=== PATIENT | female | born 1950 | race Caucasian/White ===

== ENCOUNTER 2023-12-25 01:46 | Outpatient (REF) | payer MEDICARE, SELFPAY ==
[2023-12-25 09:00] LABS: Alanine Aminotransferase 26 U/L (14-59); Albumin Globulin Ratio 0.8; Albumin Level 2.5 g/dL (3.4-5.0); Alkaline Phosphatase 108 U/L (46-116); Aspartate Amino Transferase 17 U/L (15-37); BUN Creatinine Ratio 20.3; Bilirubin Total 0.9 mg/dL (0.2-1.0); Calcium 8.6 mg/dL (8.5-10.1); Carbon Dioxide 38.6 mmol/L (21.0-32.0); Chloride 105 mmol/L (98-107); Estimated GFR (African America 55 (>=60); Estimated GFR (Non-African Ame 45 (>=60); Glucose 69 mg/dL (74-106); Potassium 3.6 mmol/L (3.5-5.1); Sodium 147 mmol/L (136-145); Total Protein 5.5 g/dL (6.4-8.2)
== END 2023-12-25 01:47 | disposition home or self-care (01) ==
LOC: LAB 01:46
PROVIDERS: Visit Provider Family Medicine
DX: N18.9 Chronic kidney disease, unspecified (principal)
CPT/HCPCS: 36415; 80053

== ENCOUNTER 2024-01-01 01:31 | Outpatient (REF) | payer MEDICARE, SELFPAY ==
[2024-01-01 08:34] LABS: Anion Gap 6.8; BUN Creatinine Ratio 22.8; Calcium 8.9 mg/dL (8.5-10.1); Chloride 101 mmol/L (98-107); Estimated GFR (African America 50 (>=60); Estimated GFR (Non-African Ame 41 (>=60); Glucose 91 mg/dL (74-106); Sodium 148 mmol/L (136-145)
[2024-01-01 08:55] LABS: Potassium 2.8 mmol/L (3.5-5.1)
== END 2024-01-01 01:32 | disposition home or self-care (01) ==
LOC: LAB 01:31
PROVIDERS: Visit Provider Family Medicine
DX: Z51.81 Encounter for therapeutic drug level monitoring (principal)
CPT/HCPCS: 36415; 80048

== ENCOUNTER 2024-01-03 02:28 | Outpatient (REF) | payer MEDICARE, SELFPAY ==
[2024-01-03 07:48] LABS: Potassium 4.1 mmol/L (3.5-5.1)
== END 2024-01-03 02:29 | disposition home or self-care (01) ==
LOC: LAB 02:28
PROVIDERS: Visit Provider Nurse Practitioner Family
DX: E87.6 Hypokalemia (principal)
CPT/HCPCS: 36415; 84132

== ENCOUNTER 2025-02-09 01:42 | Emergency (ER) | payer MEDICARE, SELFPAY ==
[2025-02-09] VITALS (49 sets, daily range): BP systolic 88–128; BP diastolic 38–73; PULSE 76–160; TEMP 37.1; O2SAT 86–98; BMI 26.6
--- NOTE | 2025-02-09 02:18 | ECG_ITS ---
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 Measurements Intervals [place] Rate: 81 P: -[id number] [place]: -12562 QRS: 21 QRSD: 126 T: 24 QT: 380 QTc: 418 Interpretive Statements 1210 Atrial fibrillation 2450 Right bundle branch block 9150 abnormal ECG No previous ECG available for comparison Electronically Signed On 02-09-2025 12:46:38 EDT by JANUARY DARBY M.D.
--- NOTE | 2025-02-09 02:19 | ED.CHESTPAI1 ---
HPI - Chest Pain General Chief Complaint: Chest Pain Stated Complaint: Chest Pain Time Seen by Provider: 02/09/25 02:13 History of Present Illness HPI narrative: patient presents complaining of chest pain for the past hour. Past history of CAD and stent placement. Past history of A. fib. States pain increases with deep breath. No dyspnea or nausea or diaphoresis. [facility] Fell about one month ago at her home and fractured her left arm. 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 normally wears 3-4L NC 02. Denies any additional injuries since her fall last month. No fever or cough or abdominal pain Related Data Home Medications ?Medication ?Instructions ?Recorded ?Confirmed acetaminophen 325 mg capsule 650 mg PO Q6H 02/09/25 02/09/25 albuterol sulfate 90 mcg/actuation 2 inh inhalation DAILY 02/09/25 02/09/25 aerosol inhaler apixaban 5 mg tablet (Eliquis) 5 mg PO Q12H 02/09/25 02/09/25 atorvastatin 80 mg tablet 80 mg PO DAILY 02/09/25 02/09/25 budesonide 160 mcg-glycopyr 9 2 inh inhalation DAILY 02/09/25 02/09/25 mcg-formot 4.8 mcg/actuation HFA inhaler (Breztri Aerosphere) budesonide-formoterol HFA 160 2 inh inhalation DAILY 02/09/25 02/09/25 mcg-4.5 mcg/actuation aerosol inhaler bumetanide 0.5 mg tablet 0.5 mg PO BID 02/09/25 02/09/25 digoxin 125 mcg (0.125 mg) tablet 125 mcg PO DAILY 02/09/25 02/09/25 diltiazem HCl 180 mg 240 mg PO Q24H 02/09/25 02/09/25 capsule,extended release 24 hr guaifenesin 600 mg tablet,extended 600 mg PO BID 02/09/25 02/09/25 release insulin glargine 100 unit/mL (3 30 unit subcut DAILY 02/09/25 02/09/25 mL) subcutaneous pen (Lantus Solostar U-100 Insulin) ipratropium 0.5 mg-albuterol 3 mg 3 ml inhalation Q6H PRN shortness 02/09/25 02/09/25 (2.5 mg base)/3 mL nebulization of breath soln melatonin 3 mg capsule 3 mg PO HS PRN sleep 02/09/25 02/09/25 metformin 1,000 mg tablet 1,000 mg PO BID 02/09/25 02/09/25 methocarbamol 500 mg tablet 500 mg PO TID PRN muscle spasm 02/09/25 02/09/25 omeprazole 20 mg capsule,delayed 20 mg PO DAILY 02/09/25 02/09/25 release pregabalin 50 mg capsule (Lyrica) 50 mg PO BID 02/09/25 02/09/25 sennosides 8.6 mg tablet 8.6 mg PO DAILY 02/09/25 02/09/25 (Black-Draught Lax-Senna) spironolactone 25 mg tablet 12.5 mg PO DAILY 02/09/25 02/09/25 (Aldactone) Allergies Allergy/AdvReac Type Severity Reaction Status Date / Time No Known Drug Allergies Allergy Verified 02/09/25 01:51 Review of Systems ROS Status of ROS 10 or more systems reviewed and unremarkable except as noted in history and below PFSH PFSH Social History Little interest or pleasure in doing things: not at all Feeling down, depressed, or hopeless: not at all Exam Constitutional Vital Signs, click to edit/add: Last Vital Signs Temp 98.8 F 02/09/25 01:51 Pulse 110 H 02/09/25 09:00 Resp 27 H 02/09/25 09:00 BP 105/38 L 02/09/25 08:30 Pulse Ox 90 L 02/09/25 09:00 O2 Del Method Nasal Cannula 02/09/25 08:47 O2 Flow Rate 4 02/09/25 01:59 Common normals: no apparent distress, average body habitus, oriented x3, no limitations, healthy appearing, alert and well nourished [facility] Common normals: normocephalic and head/scalp atraumatic Eye Common normals: PERRL, EOMs intact bilaterally and conjunctivae normal Respiratory Common normals: normal respiratory effort, no retractions, no use of accessory muscles and clear to auscultation bilaterally Cardio Common normals: regular rate, regular rhythm, S1 normal heart sound and S2 normal heart sound Other: chest wall is tender GI Common normals: Normal to inspection, nondistended, normoactive bowel sounds present, soft to palpation and non-tender Extremity Common normals: normal to inspection and full ROM Neuro Common normals: oriented x3, CN's II-XII intact bilaterally, moves all extremities, no focal motor deficits and no sensory deficits noted Psych Appearance: grossly normal Course Vital Signs Vital signs: Vital Signs Temperature 98.8 F 02/09/25 01:51 Pulse Rate 92 H 02/09/25 01:51 Respiratory Rate 18 02/09/25 01:51 Blood Pressure 127/67 02/09/25 01:51 Pulse Oximetry 95 02/09/25 01:51 Oxygen Delivery Method Room Air 02/09/25 01:51 Temperature 98.8 F 02/09/25 01:51 Pulse Rate 110 H 02/09/25 09:00 Respiratory Rate 27 H 02/09/25 09:00 Blood Pressure 105/38 L 02/09/25 08:30 Pulse Oximetry 90 L 02/09/25 09:00 Oxygen Delivery Method Nasal Cannula 02/09/25 08:47 Oxygen Delivery Flow Rate 4 02/09/25 01:59 MDM - Chest Pain MDM Narrative Medical decision making narrative: patient presents complaining of chest pain for one hour. Past history of CAD and stent placement. Pain increases with change in position. She also has chest wall tenderness. cxray with central vascular congestion. She denies dyspnea. D-dimer elevated and CTA chest ordered. Troponin mildly elevated at 87.9 and BNP elevated as well. Lab Data Labs: Lab Results 02/09/25 02/09/25 Range/Units 02:35 04:55 WBC 22.8 H (4.0-11.0) 10^3/uL RBC 3.33 L (4.20-5.40) 10^6/uL Hgb 9.4 L (12.0-16.0) g/dL Hct 31.1 L (36.0-48.0) % MCV 93.4 (81.0-99.0) fL MCH 28.2 (26.7-34.0) pg MCHC 30.2 (29.9-35.2) g/dL RDW 22.3 H (11.0-15.0) % Plt Count 354 (150-450) 10^3/uL MPV 11.5 (9.5-13.5) fL Seg Neuts % (Manual) 81.0 H (43.0-75.0) Lymphocytes % (Manual) 11.0 L (20.5-60.0) % Atypical Lymphs % (Man) 1.0 % Monocytes % (Manual) 7.0 (1.7-12.0) % Eosinophils % (Manual) 0.0 L (0.9-7.0) % Basophils % (Manual) 0.0 L (0.2-2.0) % Neutrophils # (Manual) 18.46 H (1.4-6.5) 10^3/uL Lymphocytes # (Manual) 2.50 (1.20-3.80) 10^3/uL Abs Atypical Lymphs Man 0.22 Monocytes # (Manual) 1.59 H (0.30-0.80) 10^3/uL Eosinophils # (Manual) 0.00 (0.00-0.70) 10^3/uL Basophils # (Manual) 0.00 (0.00-0.10) 10^3/uL Poikilocytosis 2+ Ovalocytes 1+ Stomatocytes 1+ Schistocytes 1+ D-Dimer 2.23 H* (<=0.59) mg/L FEU Sodium 145 (136-145) mmol/L Potassium 4.2 (3.5-5.1) mmol/L Chloride 105 (98-107) mmol/L Carbon Dioxide 37.1 H (21.0-32.0) mmol/L Anion Gap 7.1 BUN 35.0 H (7.0-18.0) mg/dL Creatinine 1.27 H (0.55-1.02) mg/dL Est GFR ( Amer) 50 L (>=60 mL/min/1.73m^2) Est GFR (Non-Af Amer) 41 L (>=60 mL/min/1.73m^2) BUN/Creatinine Ratio 27.6 Glucose 57 L (74-106) mg/dL Calcium 9.2 (8.5-10.1) mg/dL Troponin I High Sens 87.9 H* 82.9 H* (4.0-51.3) pg/mL NT-Pro-B Natriuret Pep 2668.0 H* (<=900.0) pg/mL Discharge Plan Discharge Chief Complaint: Chest Pain Clinical Impression: Chest pain Patient Disposition: [facility] Time of Disposition Decision: 07:34 Discharge Location: [facility] Condition: Fair Mode of Transportation: EMS Discharge Date/Time: 02/09/25 09:42
[2025-02-09 02:43] LABS: Hematocrit 31.1 % (36.0-48.0); Hemoglobin 9.4 g/dL (12.0-16.0); Mean Corpuscular HGB Conc 30.2 g/dL (29.9-35.2); Mean Corpuscular Hemoglobin 28.2 pg (26.7-34.0); Mean Corpuscular Volume 93.4 fL (81.0-99.0); Mean Platelet Volume 11.5 fL (9.5-13.5); Platelet Count 354 10^3/uL (150-450); Red Blood Count 3.33 10^6/uL (4.20-5.40); Red Cell Distribution Width 22.3 % (11.0-15.0); White Blood Count 22.8 10^3/uL (4.0-11.0)
[2025-02-09 02:55] LABS: Atypical Lymphocytes Abs Man 0.22; Monocytes Absolute Manual 1.59 10^3/uL (0.30-0.80); Poikilocytosis 2+; Segmented Neut Absolute Manual 18.46 10^3/uL (1.4-6.5)
[2025-02-09 02:56] LABS: Ovalocytes 1+; Schistocytes 1+; Stomatocytes 1+
[2025-02-09 02:59] LABS: D Dimer 2.23 mg/L FEU (<=0.59)
[2025-02-09 03:06] LABS: Anion Gap 7.1; BUN Creatinine Ratio 27.6; Calcium 9.2 mg/dL (8.5-10.1); Carbon Dioxide 37.1 mmol/L (21.0-32.0); Chloride 105 mmol/L (98-107); Estimated GFR (African America 50 (>=60 mL/min/1.73m^2); Estimated GFR (Non-African Ame 41 (>=60 mL/min/1.73m^2); Glucose 57 mg/dL (74-106); Potassium 4.2 mmol/L (3.5-5.1); Sodium 145 mmol/L (136-145)
[2025-02-09 03:14] LABS: Troponin I High Sensitivity 87.9 pg/mL (4.0-51.3)
[2025-02-09 05:20] LABS: Troponin I High Sensitivity 82.9 pg/mL (4.0-51.3)
--- NOTE | 2025-02-09 05:25 | ECG_ITS ---
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 Measurements Intervals [place] Rate: 97 P: -53979 [place]: -61326 QRS: 25 QRSD: 126 T: 42 QT: 370 QTc: 425 Interpretive Statements 74504 Atrial fibrillation with aberrant conduction, or ventricular premature complexes 2450 Right bundle branch block 9150 abnormal ECG Compared to ECG 02/09/2025 01:59:11 Aberrant conduction of supraventricular beat(s) now present Electronically Signed On 02-09-2025 12:48:11 EDT by JANUARY DARBY M.D.
--- NOTE | 2025-02-09 07:35 | ED.GENADUL1 ---
HPI HPI - General Adult General Chief complaint: Chest Pain Stated complaint: Chest Pain Time Seen by Provider: 02/09/25 02:13 History of Present Illness HPI narrative: 74-year-old female presented to the emergency department and was initially seen by Dr. Hanna and signed out to me after discussing the case with him thoroughly. Please see his full history and physical exam. Related Data Home Medications ?Medication ?Instructions ?Recorded ?Confirmed acetaminophen 325 mg capsule 650 mg PO Q6H 02/09/25 02/09/25 albuterol sulfate 90 mcg/actuation 2 inh inhalation DAILY 02/09/25 02/09/25 aerosol inhaler apixaban 5 mg tablet (Eliquis) 5 mg PO Q12H 02/09/25 02/09/25 atorvastatin 80 mg tablet 80 mg PO DAILY 02/09/25 02/09/25 budesonide 160 mcg-glycopyr 9 2 inh inhalation DAILY 02/09/25 02/09/25 mcg-formot 4.8 mcg/actuation HFA inhaler (Breztri Aerosphere) budesonide-formoterol HFA 160 2 inh inhalation DAILY 02/09/25 02/09/25 mcg-4.5 mcg/actuation aerosol inhaler bumetanide 0.5 mg tablet 0.5 mg PO BID 02/09/25 02/09/25 digoxin 125 mcg (0.125 mg) tablet 125 mcg PO DAILY 02/09/25 02/09/25 diltiazem HCl 180 mg 240 mg PO Q24H 02/09/25 02/09/25 capsule,extended release 24 hr guaifenesin 600 mg tablet,extended 600 mg PO BID 02/09/25 02/09/25 release insulin glargine 100 unit/mL (3 30 unit subcut DAILY 02/09/25 02/09/25 mL) subcutaneous pen (Lantus Solostar U-100 Insulin) ipratropium 0.5 mg-albuterol 3 mg 3 ml inhalation Q6H PRN shortness 02/09/25 02/09/25 (2.5 mg base)/3 mL nebulization of breath soln melatonin 3 mg capsule 3 mg PO HS PRN sleep 02/09/25 02/09/25 metformin 1,000 mg tablet 1,000 mg PO BID 02/09/25 02/09/25 methocarbamol 500 mg tablet 500 mg PO TID PRN muscle spasm 02/09/25 02/09/25 omeprazole 20 mg capsule,delayed 20 mg PO DAILY 02/09/25 02/09/25 release pregabalin 50 mg capsule (Lyrica) 50 mg PO BID 02/09/25 02/09/25 sennosides 8.6 mg tablet 8.6 mg PO DAILY 02/09/25 02/09/25 (Black-Draught Lax-Senna) spironolactone 25 mg tablet 12.5 mg PO DAILY 02/09/25 02/09/25 (Aldactone) Allergies Allergy/AdvReac Type Severity Reaction Status Date / Time No Known Drug Allergies Allergy Verified 02/09/25 01:51 Opioid HPI Opioid Management Most Recent Opioid Data: Last Pain Scale 8 Today, 01:59 PFSH PFSH Social History Little interest or pleasure in doing things: not at all Feeling down, depressed, or hopeless: not at all Exam Constitutional Vital Signs, click to edit/add: Last Vital Signs Temp 98.8 F 02/09/25 01:51 Pulse 103 H 02/09/25 06:31 Resp 30 H 02/09/25 06:31 BP 123/63 02/09/25 06:31 Pulse Ox 93 L 02/09/25 06:31 O2 Del Method Nasal Cannula 02/09/25 01:59 O2 Flow Rate 4 02/09/25 01:59 Course Vital Signs Vital signs: Vital Signs Temperature 98.8 F 02/09/25 01:51 Pulse Rate 92 H 02/09/25 01:51 Respiratory Rate 18 02/09/25 01:51 Blood Pressure 127/67 02/09/25 01:51 Pulse Oximetry 95 02/09/25 01:51 Oxygen Delivery Method Room Air 02/09/25 01:51 Temperature 98.8 F 02/09/25 01:51 Pulse Rate 103 H 02/09/25 06:31 Respiratory Rate 30 H 02/09/25 06:31 Blood Pressure 123/63 02/09/25 06:31 Pulse Oximetry 93 L 02/09/25 06:31 Oxygen Delivery Method Nasal Cannula 02/09/25 01:59 Oxygen Delivery Flow Rate 4 02/09/25 01:59 Medical Decision Making MDM Narrative Medical decision making narrative: Initial troponin was elevated at 88 and the repeat is down slightly to 83. CTA shows no pulmonary embolism and does show bilateral pleural effusions. Dr. Hanna had already spoken to Dr. Knox and I spoke to the hospitalist at [facility] [[email or web address]] and the patient is excepted. She stable and agreeable for transfer. Differential Diagnosis Differential Diagnosis: Myocardial infarction, NSTEMI, PE, pneumothorax Lab Data Lab results reviewed: Yes I reviewed the patient's lab results Labs: Lab Results 02/09/25 02/09/25 Range/Units 02:35 04:55 WBC 22.8 H (4.0-11.0) 10^3/uL RBC 3.33 L (4.20-5.40) 10^6/uL Hgb 9.4 L (12.0-16.0) g/dL Hct 31.1 L (36.0-48.0) % MCV 93.4 (81.0-99.0) fL MCH 28.2 (26.7-34.0) pg MCHC 30.2 (29.9-35.2) g/dL RDW 22.3 H (11.0-15.0) % Plt Count 354 (150-450) 10^3/uL MPV 11.5 (9.5-13.5) fL Seg Neuts % (Manual) 81.0 H (43.0-75.0) Lymphocytes % (Manual) 11.0 L (20.5-60.0) % Atypical Lymphs % (Man) 1.0 % Monocytes % (Manual) 7.0 (1.7-12.0) % Eosinophils % (Manual) 0.0 L (0.9-7.0) % Basophils % (Manual) 0.0 L (0.2-2.0) % Neutrophils # (Manual) 18.46 H (1.4-6.5) 10^3/uL Lymphocytes # (Manual) 2.50 (1.20-3.80) 10^3/uL Abs Atypical Lymphs Man 0.22 Monocytes # (Manual) 1.59 H (0.30-0.80) 10^3/uL Eosinophils # (Manual) 0.00 (0.00-0.70) 10^3/uL Basophils # (Manual) 0.00 (0.00-0.10) 10^3/uL Poikilocytosis 2+ Ovalocytes 1+ Stomatocytes 1+ Schistocytes 1+ D-Dimer 2.23 H* (<=0.59) mg/L FEU Sodium 145 (136-145) mmol/L Potassium 4.2 (3.5-5.1) mmol/L Chloride 105 (98-107) mmol/L Carbon Dioxide 37.1 H (21.0-32.0) mmol/L Anion Gap 7.1 BUN 35.0 H (7.0-18.0) mg/dL Creatinine 1.27 H (0.55-1.02) mg/dL Est GFR ( Amer) 50 L (>=60 mL/min/1.73m^2) Est GFR (Non-Af Amer) 41 L (>=60 mL/min/1.73m^2) BUN/Creatinine Ratio 27.6 Glucose 57 L (74-106) mg/dL Calcium 9.2 (8.5-10.1) mg/dL Troponin I High Sens 87.9 H* 82.9 H* (4.0-51.3) pg/mL NT-Pro-B Natriuret Pep 2668.0 H* (<=900.0) pg/mL Imaging Data CT scan - chest: Radiologist's impression: No evidence of pulmonary embolism, right middle lobe atelectasis, bilateral moderate volume pleural effusions right more than left Discharge Plan Discharge Chief Complaint: Chest Pain Clinical Impression: Chest pain Patient Disposition: [facility] Time of Disposition Decision: 07:34 Discharge Location: [facility] Condition: Fair Mode of Transportation: EMS
[2025-02-09] MEDS: ALBUTEROL SULFATE 2.5 MG/3 ML VIAL NEB IH (08:47)
[2025-02-09] MEDS: MORPHINE SULFATE 2 MG/ML SYRINGE IV (08:57)
== END 2025-02-09 09:42 | disposition short-term general hospital (02) ==
PROVIDERS: Internal Medicine; Emergency Provider Emergency Medicine; PCP Family Medicine
DX: R07.9 Chest pain, unspecified (principal); Z99.81 Dependence on supplemental oxygen; I25.10 Atherosclerotic heart disease of native coronary artery without angina pectoris; Z95.5 Presence of coronary angioplasty implant and graft; I48.91 Unspecified atrial fibrillation; Z91.81 History of falling; J44.9 Chronic obstructive pulmonary disease, unspecified; R79.89 Other specified abnormal findings of blood chemistry
CPT/HCPCS: 36415; 71045; 71275; 80048; 83880; 84484; 85007; 85027; 85378; 93005; 94640; 96374; 99285; J2270; Q9967

== ENCOUNTER 2025-02-16 21:02 | Outpatient (REF) | payer MEDICARE, SELFPAY ==
[2025-02-16 21:23] LABS: Basophils Percent Auto 0.4 % (0.2-2.0); Eosinophils Absolute Auto 0.2 10^3/uL (0.0-0.7); Eosinophils Percent Auto 1.7 % (0.9-7.0); Hematocrit 35.4 % (36.0-48.0); Hemoglobin 10.2 g/dL (12.0-16.0); Immature Granulocytes Abs Auto 0.04 10^3/uL (0.00-0.03); Immature Granulocytes Pct Auto 0.4 % (0.0-0.5); Lymphocytes Absolute Auto 1.8 10^3/uL (1.2-3.8); Lymphocytes Percent Auto 16.6 % (20.5-60.0); Mean Corpuscular HGB Conc 28.8 g/dL (29.9-35.2); Mean Corpuscular Hemoglobin 28.7 pg (26.7-34.0); Mean Corpuscular Volume 99.4 fL (81.0-99.0); Mean Platelet Volume 11.6 fL (9.5-13.5); Monocytes Percent Auto 8.7 % (1.7-12.0); Neutrophils Absolute Auto 7.9 10^3/uL (1.4-6.5); Neutrophils Percent Auto 72.2 % (43.0-75.0); Platelet Count 290 10^3/uL (150-450)
[2025-02-16 21:31] LABS: Anion Gap 9.7; BUN Creatinine Ratio 19.2; Calcium 9.2 mg/dL (8.5-10.1); Carbon Dioxide 34.6 mmol/L (21.0-32.0); Chloride 103 mmol/L (98-107); Estimated GFR (African America 49 (>=60 mL/min/1.73m^2); Estimated GFR (Non-African Ame 40 (>=60 mL/min/1.73m^2); Glucose 96 mg/dL (74-106); Magnesium 1.7 mg/dL (1.8-2.4); Potassium 4.3 mmol/L (3.5-5.1); Sodium 143 mmol/L (136-145)
[2025-02-16 21:38] LABS: Red Blood Count 3.56 10^6/uL (4.20-5.40)
== END 2025-02-16 21:03 | disposition home or self-care (01) ==
LOC: LAB 21:02
PROVIDERS: PCP Family Medicine; Visit Provider Family Medicine
DX: I21.4 Non-ST elevation (NSTEMI) myocardial infarction (principal)
CPT/HCPCS: 36415; 80048; 83735; 84100; 85025

== ENCOUNTER 2025-03-04 13:00 | Outpatient (OUT) | payer MEDICARE, SELFPAY ==
--- OUTSIDE RECORDS SUMMARY | 2025-02-26 11:00 | XMS_ITS ---
Author Organization [facility] Address [address] [place] [address] [place] [address] Care Team Providers Care Non Emergency Services Ambulance Driver Name Role Phone John Luong Primary Care Provider UnavailDamion Bobby Unavailable [phone] Encounters Encounter Location Date Provider Diagnosis [address] [address] 02/26/2025 Damion Villar Plan Of Treatment No Information Progress Notes * Emily GARNETTDOB:1950 (74 yo F)Acc No.[id number]:02/26/2025 Patient: Emily VILLALBA Provider: Lindy Villar DPM :1950 A ge:74 Y S ex:Female Date:02/26/2025 Address:[id number] Pcp:John Luong Subjective: * Chief Complaints: * * Medical History: Objective: * Vitals: Assessment: Plan: * Treatment: * Images: * Electronic signature of [place] in RICHAR Villar on 03/05/2025 at 01:14 PM EDT Sign off status: Pending * Provider: Lindy Villar DPM Date: 02/26/2025 Generated for Ramona blanco/Brandy/eTgloriaitting on: 03/05/2025 01:14 PM EDT
--- OUTSIDE RECORDS SUMMARY | 2025-03-03 10:20 | XMS_ITS | Encounter Summary ---
Author Organization [facility] Address [address] [place] [address] Phone Care Team Providers Care Career Development Director Name Role Phone John Luong MD Primary Care Provider [phone] Reason for Referral * Cardiovascular (Routine) - Authorized Specialty Diagnoses / Procedures Referred By Contac t Referred To Contact Diagnoses Permanent atrial fibrillation (Multi) Procedures ECG 12 Lead Cathy Marquez MD [address] [facility] [address], [address] [address] Phone: tel: fax: Referral ID Status Reason Start Date Expiration Date V isits Requested Visits Authorized [id number] Authorized 03/03/2025 03/03/2026 1 1 * Consultation (Routine) - Authorized Specialty Diagnoses / Procedures Referred By Contac t Referred To Contact Cardiology Diagnoses Permanent atrial fibrillation (Multi) Procedures Follow Up In Cardiology Cathy Marquez MD [address] [facility] [address], [address] [address] Phone: tel: fax: Cathy Marquez MD [address] [facility] [address], [address] [address] Phone: tel: fax: Referral ID Status Reason Start Date Expiration Date V isits Requested Visits Authorized [id number] Authorized 03/03/2025 03/03/2026 1 1 Reason for Visit * Reason Comments Hospital Follow-up hospital [facility] 02/03/25 for Afib * Cardiovascular (Routine) - Authorized Specialty Diagnoses / Procedures Referred By Herminia ang Referred To Contact Diagnoses Permanent atrial fibrillation (Multi) Procedures ECG 12 Lead Cathy Marquez MD 703 [facility] 2, [address] [address] Phone: tel: fax: Referral ID Status Reason Start Date Expiration Date V isits Requested Visits Authorized [id number] Authorized 03/03/2025 03/03/2026 1 1 Encounter Details Date Type Department Care Team (Late st Contact Info) Description 03/03/2025 10:20 AM EDT Office Visit [facility] [address] [phone] Cathy Marquez MD 703 [facility] 2, [address] [address] Permanent atrial fibrillation (Multi) (Primary Dx); Anticoagulated; Single vessel coronary artery disease; Mixed hyperlipidemia; Essential (primary) hypertension; Pulmonary emphysema, unspecified emphysema type (Multi); Former smoker Social History Tobacco Use Types Packs/Day Years Used Date Smoking Tobacco: Former Cigarettes Smokeless Tobacco: Never Alcohol Use Standard Drinks/Week Comments Not Currently 0 (1 standard drink = 0.6 oz pur e alcohol) Comments Unknown Sex and Gender Information Value Date Recorded Sex Assigned at Not on file Legal Sex Female 6:00 AM EST Gender Identity Not on file Sexual Orientation Not on file COVID-19 Exposure Response Date Recorded In the last 10 days, have yo u been in contact with someone who was confirmed or suspected to have Coronavirus/COVID-19? No / Unsure 03/03/2025 10:12 AM EDT documented as of this encounter Last Filed Vital Signs Vital Sign Reading Time Taken Comments Blood Pressure 90/58 03/03/2025 10:47 AM EDT Pulse 64 03/03/2025 10:47 AM EDT Temperature - - Respiratory Rate - - Oxygen Saturation - - Inhaled Oxygen Concentration - - Weight - - Height - - Body Mass Index - - documented in this encounter Patient Instructions * Patient Instructions* Pooja Hopper LPN - 03/03/2025 10:20 AM EDT Please bring all medicines, vitamins, and herbal supplements with you when you come to the office. Prescriptions will not be filled unless you are compliant with your follow up appointments or have a follow up appointment scheduled as per instruction of your physician. Refills should be requested at the time of your visit. Fall Prevention Education Given Medical reason BMI was not measured. Patient can use Lyrica from a cardiac standpoint documented in this encounter Progress Notes * Cathy Marquez MD - 03/03/2025 10:20 AM EDT Chief Complaint Patient presents with Hospital Follow-up hospital [facility] 02/03/25 for Afib Subjective Emily El is a 74 y.o. female HPI Patient is here for follow-up and continued management. I saw her as a new patient during recent hospitalization at for atrial fibrillation, [facility] worsening shortness of breath. Her echocardiogram showed normal LV systolic function and severe range pulmonary hypertension. It appears that the patient had chronic atrial fibrillation and has been on anticoagulation. The patient ultimately transferred to [place] and in [place] she underwent extensive workup including cardiac catheterization show which showed mild disease did not require any intervention. Patient had previous history of PCI to the circumflex remotely according to the record. The patient also had undergone right heart failure and it appears that her pulmonary hypertension improved with improvement of her lung disease. Apparently mild pulmonary hypertension was reported the patient currently in a local assisted living. She denies chest pain, lightheadedness, dizziness or syncope. She is on oxygen therapy. Assessment 1. Coronary artery disease with remote PCI to the circumflex recent heart cath in [place] showed mild to moderate calcified three-vessel disease no intervention was recommended 2. Permanent atrial fibrillation 3. Pulmonary hypertension was in severe range during recent hospitalization for acute respiratory failure but seem to have improved and according to her right heart cath from 2 [place] was in the mild range this is clearly secondary to lung disease 4. Chronic anticoagulation due to atrial fibrillation 5. COPD 6. Stage III chronic kidney disease Plan 1. Patient appears to be on good medical therapy she is on anticoagulation and statin therapy 2. Risk, benefit and alternative anticoagulation reviewed with patient at length she understood andagreed 3. Advised the patient to continue her long-term follow-up with her primary care and pulmonology considering she is on oxygen therapy at home 4. We will see her back in the office in 6 months and follow-up Review of Systems Cardiovascular: Positive for chest pain. Respiratory: Positive for shortness of breath. Neurological: Positive for dizziness. All other systems reviewed and are negative. Vitals: 03/03/25 1047 BP: 90/58 BP Location: Right arm Patient Position: Sitting Pulse: 64 EKG done in office today Objective Physical Exam Constitutional: Appearance: Normal appearance. HENT: Nose: Nose normal. Neck: Vascular: No carotid bruit. Cardiovascular: Rate and Rhythm: Normal rate. Rhythm irregularly irregular. Pulses: Normal pulses. Heart sounds: Murmur heard. Systolic murmur is present with a grade of 1/6. Pulmonary: Effort: Pulmonary effort is normal. Abdominal: General: Bowel sounds are normal. Palpations: Abdomen is soft. Musculoskeletal: General: Normal range of motion. Cervical back: Normal range of motion. Right lower leg: No edema. Left lower leg: No edema. Skin: General: Skin is warm and dry. Neurological: General: No focal deficit present. Mental Status: She is alert. Psychiatric: Mood and Affect: Mood normal. Behavior: Behavior normal. Thought Content: Thought content normal. Judgment: Judgment normal. Allergies Patient has no known allergies. Current Medications Current Outpatient Medications Medication Instructions acetaminophen (TYLENOL 8 HOUR) 650 mg, Every 6 hours PRN albuterol 90 mcg/actuation inhaler 2 puffs, Daily RT ALPRAZolam (XANAX) 0.25 mg, 3 times daily PRN atorvastatin (LIPITOR) 80 mg, Daily RT budesonide-formoterol (Symbicort) 160-4.5 mcg/actuation inhaler 2 puffs, 2 times daily RT elwzsbyqvc-cuazwekl-tlnavhnqyn (BREZTRI) 160-9-4.8 mcg/actuation HFA aerosol inhaler 2 puffs, 2 times daily RT bumetanide (BUMEX) 0.5 mg, 2 times daily (morning and late afternoon) clopidogrel (PLAVIX) 75 mg, Daily RT dapagliflozin propanediol (FARXIGA) 10 mg, Daily RT digoxin (LANOXIN) 125 mcg, Daily RT dilTIAZem CD (CARDIZEM CD) 240 mg, Daily Eliquis 5 mg, Every 12 hours ferrous sulfate 325 mg, Daily RT folic acid (FOLVITE) 1 mg, Daily RT furosemide (LASIX) 40 mg, Daily RT guaiFENesin (MUCINEX) 600 mg, 2 times daily ipratropium-albuteroL (Duo-Neb) 0.5-2.5 mg/3 mL nebulizer solution 3 mL, Every 6 hours Lantus U-100 Insulin 30 Units, Every 24 hours magnesium oxide (MAG-OX) 200 mg, 2 times daily metFORMIN (GLUCOPHAGE) 1,000 mg, 2 times daily after meals methocarbamol (ROBAXIN) 500 mg, 3 times daily metoprolol succinate XL (TOPROL-XL) 25 mg, Daily RT omeprazole (PRILOSEC) 20 mg, Daily RT ondansetron (ZOFRAN) 8 mg, Every 8 hours PRN oxygen (O2) 4 L/min, Continuous pregabalin (LYRICA) 50 mg, 2 times daily spironolactone (ALDACTONE) 12.5 mg, Daily RT Trulicity 0.75 mg, Weekly Assessment/Plan 1. Permanent atrial fibrillation (Multi) Follow Up In Cardiology ECG 12 Lead 2. Anticoagulated 3. Single vessel coronary artery disease 4. Mixed hyperlipidemia 5. Essential (primary) hypertension 6. Pulmonary emphysema, unspecified emphysema type (Multi) 7. Former smoker Scribe Attestation By signing my name below, I, Myesha Lloyd LPN attest that this documentation has been prepared under the direction and in the presence of MD Cheri. Provider Attestation - Scribe documentation All medical record entries made by the Scribe were at my direction and personally dictated by me. Ihave reviewed the chart and agree that the record accurately reflects my personal performance of the history, physical exam, discussion and plan. documented in this encounter Plan of Treatment Upcoming Encounters Date Type Department Care Team (Late st Contact Info) Description 10/08/2025 11:10 AM EST Office Visit [place] [address] [place] [address] Cathy Marquez MD 703 [facility] [address], [address] [place] [address] documented as of this encounter Procedures Procedure Name Priority Date/Time Associated Diagnosis Comments ECG 12-LEAD Routine 03/03/2025 10:20 AM EDT Permanent atrial fibrillation (Multi) documented in this encounter Results * ECG 12 Lead (03/03/2025 10:20 AM EDT) Narrative [facility]ACS - 03/03/2025 12:06 PM EDT Atrial fibrillation with controlled rate and right bundle branch block us Cathy Marquez MD ECG ORDERABLES Final Resu lt [facility] documented in this encounter Visit Diagnoses Diagnosis Permanent atrial fibrillation (Multi)- Primary Atrial fibrillation Anticoagulated Encounter for long-term (current) use of anticoagulants Single vessel coronary artery disease Coronary atherosclerosis of unspecified type of vessel, lone [place] or graft Mixed hyperlipidemia Essential (primary) hypertension Unspecified essential hypertension Pulmonary emphysema, unspecified emphysema type (Multi) Former smoker Personal history of tobacco use, presenting hazards to health documented in this encounter Additional Health Concerns Assessment Noted Time A fall risk assessment has been complete d for the patient 03/03/2025 10:46 AM EDT documented as of this encounter Care Teams Career Development Director Relationship Specialty Start Date End Date John Luong MD [address] [place] [address] PCP - General Family Medicine 03/03/25 documented as of this encounter
--- OUTSIDE RECORDS SUMMARY | 2025-03-05 13:13 | XMS_ITS | Encounter Summary ---
Author Organization [facility] Address [address] [place] [address] Care Team Providers Care Voting Machine Mechanic Name Role Phone Roxy Duggan DO Unavailable Unavailabl e Roxy Duggan DO Primary Care Provider Unav ailable Unallocated, [place] Provider Primary Care Provi harrison Keshia Cheng MD Primary Care Provider Keshia Cheng MD Unavailable Keshia Cheng MD Unavailable Coral Solitario ADJUNCT TEACHER Unavailable Keshia Cheng MD Unavailable [phone] Encounter Details Date Type Department Care Team (Late st Contact Info) Description 11/20/2023 Orders Only [facility] [address] [place] [phone] Roxy Duggan, DO Social History Tobacco Use Types Packs/Day Years Used Date Smoking Tobacco: Every Day Cigarettes 0.3 15 Smokeless Tobacco: Never Alcohol Use Standard Drinks/Week Comments Never 0 (1 standard drink = 0.6 oz pur e alcohol) Caffeine: tea 1-2 cups per day Humiliation, Afraid, Rape, and Kick questionnair e Answer Date Recorded Within the last year, have y ou been afraid of your partner or ex-partner? Patient declined 04/13/2023 Within the last year, have y ou been humiliated or emotionally abused in other ways by your partner or ex-partner? Patient declined 04/13/2023 Within the last year, have y ou been kicked, hit, slapped, or otherwise physically hurt by your partner or ex-partner? Patient declined 04/13/2023 Within the last year, have y ou been raped or forced to have any kind of sexual activity by your partner or ex-partner? Patient declined 04/13/2023 Social Connection and Isolation Panel [NHANES] A nswer Date Recorded Frequency of Communication with Friends and Fami ly Not on file 04/13/2023 How often do you get togethe r with friends or relatives? Once a week 04/13/2023 How often do you attend gnosticist or rastafarian serv ices? Never 04/13/2023 Active Member of Clubs or Organizations Not on f ile 04/13/2023 How often do you attend meet ings of the clubs or organizations you belong to? Never 04/13/2023 Are you , , di vorced, , never , or living with a partner? Patient declined 04/13/2023 AUDIT-C Answer Date Recorded Q1: How often do you have a drink containing alc ohol? 2-4 times a month 04/13/2023 Q2: How many drinks containi ng alcohol do you have on a typical day when you are drinking? 3 or 4 04/13/2023 Q3: How often do you have si x or more drinks on one occasion? Less than monthly 04/13/2023 PHQ-2 Answer Date Recorded Patient Health Questionnaire-2 Score 0 11/13/2023 [facility] - Occupational Stress Questionnaire Answer Date Recorded Do you feel stress - tense, restless, nervous, or anxious, or unable to sleep at night because your mind is troubled all the time - these days? Not at all 04/13/2023 Exercise Vital Sign Answer Date Recorde d On average, how many days pe r week do you engage in moderate to strenuous exercise (like a brisk walk)? 0 days 04/13/2023 On average, how many minutes do you engage in exercise at this level? 0 min 04/13/2023 Hunger Vital Sign Answer Date Recorded Within the past 12 months, y ou worried that your food would run out before you got the money to buy more. Never true 04/13/20 23 Within the past 12 months, t he food you bought just didn't last and you didn't have money to get more. Never true 04/13/2023 PRAPARE - Transportation Answer Date Re corded In the past 12 months, has l ack of transportation kept you from medical appointments or from getting medications? No 04/01 In the past 12 months, has l ack of transportation kept you from meetings, work, or from getting things needed for daily living? No 04/13/2023 Housing Stability Vital Sign Answer Aryan e Recorded In the last 12 months, was t here a time when you were not able to pay the mortgage or rent on time? No 04/13/2023 In the last 12 months, how many places have you lived? 1 04/13/2023 In the last 12 months, was t here a time when you did not have a steady place to sleep or slept in a mcc (including now)? No 04/13/2023 Comments Unknown Sex and Gender Information Value Date Recorded Sex Assigned at Not on file Legal Sex Female 7:19 PM EDT Gender Identity Female 12/14/2022 7:19 PM EDT Sexual Orientation Not on file documented as of this encounter Plan of Treatment Upcoming Encounters Date Type Department Care Team (Late st Contact Info) Description 03/12/2025 2:00 PM EDT Office Visit [facility] [address] [place] [address] Andrea Andrew DO [address] [place] [address] documented as of this encounter Procedures Procedure Name Priority Date/Time Associated Diagnosis Comments COMPREHENSIVE METABOLIC PANEL Routine 09/05/2023 3:31 PM EST documented in this encounter Results * Comprehensive metabolic panel (09/05/2023 3:31 PM EST) Blood Venous blood specimen / Unknown us Roxy Duggan DO LAB BLOOD ORDERABLES Final Result documented in this encounter Visit Diagnoses Not on filedocumented in this encounter Additional Health Concerns Assessment Noted Time PHQ-9 Depression Total Score: 0 11/13/19 1:00 PM EST documented as of this encounter Care Teams Voting Machine Mechanic Relationship Specialty Start Date End Date Roxy Duggan, DO PCP - Fernanda ANDERSON 10/02/21 03/01/24 Roxy Duggan DO PCP - General Family Medicine 03/20/23 01/22/24 Unallocated, [place] [facility] [place] [address] PCP - General Family Medicine 01/23/24 03/03/24 Keshia Cheng MD [address] [place] [address] PCP - General Family Medicine 03/04/24 Keshia Cheng MD [address] [place] [address] PCP - [employer]oted 04/01/24 11/29/24 Keshia Cheng MD [address] [place] [address] PCP - [employer] 03/02/24 03/31/24 Keshia Cheng MD [address] [place] [address] PCP - Fernanda ANDERSON 11/30/24 12/30/24 Coral Solitario LPN [address] [place] [address] Licensed Practical Nurse Family Medicine 06/28/24 documented as of this encounter
--- OUTSIDE RECORDS SUMMARY | 2025-03-05 13:13 | XMS_ITS | Encounter Summary ---
Author Organization [facility] Address [address] [place] [address] Care Team Providers Care Stereotype Caster Name Role Phone Keshia Cheng MD Primary Care Provider [phone] Altaf Coral DATA REVIEWER Unavailable Encounter Details Date Type Department Care Team (Late st Contact Info) Description 03/03/2025 Abstract [facility] [address] [place] [address] Keshia Cehng MD [address] [place] [address] Social History Tobacco Use Types Packs/Day Years [...] week 04/13/2023 How often do you attend hindu or mormonism serv ices? Never 04/13/2023 Active Member of [...] Recorded Patient Health Questionnaire-2 Score 0 11/13/2023 [facility] - Occupational Stress Questionnaire Answer Date Recorded [...] place to sleep or slept in a group home (including now)? No 04/13/2023 Comments No Sex and Gender Information Value Date Recorded Sex Assigned at Not on file Legal Sex Female 7:19 PM EDT Gender Identity Female 12/14/2022 7:19 PM EDT Sexual Orientation Not on file documented as of this encounter Plan of Treatment Upcoming Encounters Date Type Department Care Team (Late st Contact Info) Description 03/12/2025 2:00 PM EDT Office Visit [facility] [address] [place] [phone] Andrea Andrew DO [address] [place] [address] documented as of this encounter Visit Diagnoses Not on filedocumented in this encounter Additional Health Concerns Assessment Noted Time PHQ-9 Depression Total Score: 0 11/13/19 24 1:00 PM EST documented as of this encounter Care Teams Stereotype Caster Relationship Specialty Start Date End Date Keshia Cheng MD [address] [place] [address] PCP - General Family Medicine 03/04/24 Coral Solitario LPN [address] [place] [address] Licensed Practical Nurse Family Medicine 06/28/24 documented as of this encounter
--- OUTSIDE RECORDS SUMMARY | 2025-03-05 13:13 | XMS_ITS | Encounter Summary ---
Author Organization [facility] Address [address] [place] [address] Care Team Providers Care Transcribing Operators Supervisor Name Role Phone Keshia Cheng MD Primary Care Provider [phone] Coral Solitario LPN Unavailable Encounter Details Date Type Department Care Team (Late st Contact Info) Description 03/05/2025 Patient Outreach [facility] [address] [place] [phone] Lisa Kyle MA Social History Tobacco Use Types Packs/Day Years [...] week 04/13/2023 How often do you attend sikh or jain serv ices? Never 04/13/2023 Active Member of [...] Recorded Patient Health Questionnaire-2 Score 0 11/13/2023 [facility] - Occupational Stress Questionnaire Answer Date [...] place to sleep or slept in a fpc (including now)? No 04/13/2023 Comments No Sex and Gender Information Value Date Recorded Sex Assigned at Not on file Legal Sex Female 7:19 PM EDT Gender Identity Female 12/14/2022 7:19 PM EDT Sexual Orientation Not on file documented as of this encounter Progress Notes * Lisa Kyle MA - 03/05/2025 11:04 AM EDT <March 05, 2025, 11:11 - Lisa Kyle MA> Called [facility] o follow up on how patient was doing. Spoke to SW. Sw states patient has a follow up with ortho and the plan is still to discharge to [facility] when done with skilled therapy documented in this encounter Plan of Treatment Upcoming Encounters Date Type Department Care Team (Late st Contact Info) Description 03/12/2025 2:00 PM EDT Office Visit [facility] [address] [place] [address] Andrea Andrew DO [address] [place] [address] documented as of this encounter Visit Diagnoses Not on filedocumented in this encounter Additional Health Concerns Assessment Noted Time PHQ-9 Depression Total Score: 0 11/13/19 24 1:00 PM EST documented as of this encounter Care Teams Transcribing Operators Supervisor Relationship Specialty Start Date End Date Keshia Cheng MD [address] [place] [address] PCP - General Family Medicine 03/04/24 Coral Solitario LPN [address] [place] [address] Licensed Practical Nurse Family Medicine 06/28/24 documented as of this encounter
--- OUTSIDE RECORDS SUMMARY | 2025-03-05 13:13 | XMS_ITS | Encounter Summary ---
Author Organization [facility] Address [address] [place] [address] Care Team Providers Care Patient Registration Rep Name Role Phone Roxy Duggan DO Unavailable Unavailabl e Roxy Duggan DO Primary Care Provider Unav ailable Unallocated, [facility] Provider Primary Care Provi harrison Keshia Cheng MD Primary Care Provider [phone] Keshia Cheng MD Unavailable [phone] Keshia Cheng MD Unavailable Coral Solitario TRACING LATHE SET UP OPERATOR Unavailable Keshia Cheng MD Unavailable [phone] Encounter Details Date Type Department Care Team (Late st Contact Info) Description 12/21/2023 Abstract [facility] [address] [place] [id number] Roxy Duggan, DO Social History Tobacco Use [...] How often do you attend gnosticist or hoahaoism serv ices? Never 04/13/2023 Active Member of [...] Recorded Patient Health Questionnaire-2 Score 0 11/13/2023 [facility] - Occupational Stress Questionnaire Answer Date Recorded [...] place to sleep or slept in a prison (including now)? No 04/13/2023 Comments Unknown Sex [...] EDT Office Visit [facility] [address] [place] [address] Andrea Andrew DO [address] [place] [address] documented as of this encounter Visit Diagnoses Not on filedocumented in this encounter Additional Health Concerns Assessment Noted Time PHQ-9 Depression Total Score: 0 11/13/19 24 1:00 PM EST documented as of this encounter Care Teams Patient Registration Rep Relationship Specialty Start Date End Date Roxy Duggan DO PCP - Fernanda ANDERSON 10/02/21 03/01/24 Roxy Duggan DO PCP - General Family Medicine 03/20/23 01/22/24 Unallocated, [place] Bhargav, [address] [place] [address] PCP - General Family Medicine 01/23/24 03/03/24 Keshia Cheng MD [address] [place] [address] PCP - General Family Medicine 03/04/24 Keshia Cheng MD [address] [place] [address] PCP - [employer] 04/01/24 11/29/24 Keshia Cheng MD [address] [place] [address] PCP - [employer] 03/02/24 03/31/24 Keshia Cheng MD [address] [place] [address] PCP - Fernanda ANDERSON 11/30/24 12/30/24 Coral Solitario LPN [address] [place] [address] Licensed Practical Nurse Family Medicine 06/28/24 documented as of this encounter
--- OUTSIDE RECORDS SUMMARY | 2025-03-05 13:13 | XMS_ITS | Encounter Summary ---
Author Organization [facility] Address [address] [place] [address] Care Team Providers Care Aboriginal Community Council Member Name Role Phone Roxy Duggan DO Unavailable Unavailabl e Roxy Duggan DO Primary Care Provider Unav ailable Unallocated, [place] Provider Primary Care Provi harrison Keshia Cheng MD Primary Care Provider Keshia Cheng MD Unavailable [phone] Keshia Cheng MD Unavailable [phone] Coral Solitario TIPPLE TENDER Unavailable Keshia Cheng MD Unavailable Encounter Details Date Type Department Care Team (Late st Contact Info) Description 12/08/2023 Abstract [facility] [address] [place] [phone] Andrea Andrew DO [address] [place] [address] Social History Tobacco Use Types Packs/Day Years [...] week 04/13/2023 How often do you attend confucianist or episcopal serv ices? Never 04/13/2023 Active Member of [...] Recorded Patient Health Questionnaire-2 Score 0 11/13/2023 [facility] - Occupational Stress Questionnaire Answer Date Recorded [...] place to sleep or slept in a halfway (including now)? No 04/13/2023 Comments Unknown Sex [...] 2:00 PM EDT Office Visit [facility] [address] [phone] Andrea Andrew DO [address] [place] [address] documented as of this encounter Visit Diagnoses Not on filedocumented in this encounter Additional Health Concerns Assessment Noted Time PHQ-9 Depression Total Score: 0 11/13/19 24 1:00 PM EST documented as of this encounter Care Teams Aboriginal Community Council Member Relationship Specialty Start Date End Date Roxy Duggan DO PCP - Fernanda ANDERSON 10/02/21 03/01/24 Roxy Duggan DO PCP - General Family Medicine 03/20/23 01/22/24 Unallocated, Rylie Durant MD [address] [place] [address] PCP - General Family Medicine 01/23/24 03/03/24 Keshia Cheng MD [address] [place] [address] PCP - General Family Medicine 03/04/24 Keshia Cheng MD [address] [place] [address] PCP - Devoted 04/01/24 11/29/24 Keshia Cheng MD [address] [place] [address] PCP - [employer] 03/02/24 03/31/24 Keshia Cheng MD [address] [place] [address] PCP - Fernanda ANDERSON 11/30/24 12/30/24 Coral Solitario LPN [address] [place] [address] Licensed Practical Nurse Family Medicine 06/28/24 documented as of this encounter
--- OUTSIDE RECORDS SUMMARY | 2025-03-05 13:13 | XMS_ITS | Encounter Summary ---
Author Organization [facility] Address [address] [place] [place] [address] Care Team Providers Care Health Communications Specialist Name Role Phone Keshia Cheng MD Primary Care Provider Coral Solitario LPN Unavailable Encounter Details Date Type Department Care Team (Late st Contact Info) Description 02/27/2025 Patient Outreach [facility] [address] [place] [phone] Lisa Kyle MA Social History Tobacco Use [...] week 04/13/2023 How often do you attend shinto or confucianism serv ices? Never 04/13/2023 Active Member of [...] Recorded Patient Health Questionnaire-2 Score 0 11/13/2023 [facility] - Occupational Stress Questionnaire Answer Date [...] place to sleep or slept in a alf (including now)? No 04/13/2023 Comments No Sex and Gender Information Value Date Recorded Sex Assigned at Not on file Legal Sex Female 7:19 PM EDT Gender Identity Female 12/14/2022 7:19 PM EDT Sexual Orientation Not on file documented as of this encounter Progress Notes * Lisa Kyle MA - 02/27/2025 10:58 AM EDT <February 27, 2025, 10:58 - Lisa Kyle MA> Called [facility] to follow up on how patient was doing. Spoke to Nurse . Nurse states patient is a one a assist and is progressing with therapy. documented in this encounter Plan of Treatment Upcoming Encounters Date Type Department Care Team (Late st Contact Info) Description 03/12/2025 2:00 PM EDT Office Visit [facility] [address] [phone] PocAndrea rosas, [address] [place] [place] [address] documented as of this encounter Visit Diagnoses Not on filedocumented in this encounter Additional Health Concerns Assessment Noted Time PHQ-9 Depression Total Score: 0 11/13/19 24 1:00 PM EST documented as of this encounter Care Teams Health Communications Specialist Relationship Specialty Start Date End Date Keshia Cheng MD [address] [place] [address] PCP - General Family Medicine 03/04/24 Coral Solitario LPN [address] [place] [address] Licensed Practical Nurse Family Medicine 06/28/24 documented as of this encounter
--- OUTSIDE RECORDS SUMMARY | 2025-03-05 13:13 | XMS_ITS | Clinical Summary ---
Author Organization [facility] Address [address] [place] [address] Care Team Providers Care Special Education Paraprofessional Name Role Phone Keshia Cheng MD Primary Care Provider [phone] Coral Solitario LPN Unavailable Allergies Active Allergy Reactions Criticality Noted Date Comments Qrqjk-Xmzzk-I Mcus-Zsio-Vvo Ur Swelling 08/20/2016 Pt states she gets swelling from a water pill Benzalkonium Chloride Thiazide-Type Diuretics Swelling 08/12/2017 Allergic to water pill, not sure which one-knows its not lasix Medications Multiple Vitamins-Minerals (CENTRUM SILVER 50+WOMEN PO) Take 1 tablet by mouth in the morning. Active OXYGEN-HELIUM IN Inhale 3 L/L continuously. Active Xanax 0.25 MG tablet Take 0.25 mg by mouth 3 (three) times a day as needed for anxiety. 023 Active ASPIRIN ADULT LOW DOSE PO Take 1 tablet by mouth in the morning. Active esomeprazole (NexIUM) [address] capsule Take 20 mg by mouth in the morning. Take before meals. 013 Active metoprolol tartrate (Lopressor) 50 MG tabletIndications :Essential hypertension (CMS/HCC) Take 1 tablet (50 mg) by mouth in the morning and 1 tablet (50 mg) before bedtime. 180 tablet 3 023 Active polyethylene glycol, PEG, 3350 (Miralax) 17 g packet Take by mouth 1 (one) time Active potassium chloride CR (Klor-Con M20) 20 MEQ ER tablet Take 20 mEq by mouth in the morning and 20 mEq before bedtime. Do not crush or chew.. Active cholecalciferol (Vitamin D-3) 50 MCG (1999 UT) capsule Take 2,000 Units by mouth Daily Active spironolactone (Aldactone) 50 MG tablet Take 50 mg by mouth in the morning and 50 mg in the evening. Take with meals. Active Blood Glucose Monitoring Suppl (D-Care Glucometer) w/Device kitIndications:Ty pe 2 diabetes mellitus with other specified complication, with long-term current use of insulin 1 Device in the morning and 1 Device at noon and 1 Device in the evening and 1 Device before bedtime. 1 kit Active Lancets Misc. kitIndications:Ty pe 2 diabetes mellitus with other specified complication, with long-term current use of insulin 1 Lancet in the morning and 1 Lancet at noon and 1 Lancet in the evening and 1 Lancet before bedtime. 1 kit 024 Active Blood Pressure Monitoring (Blood Pressure Monitor/M Cuff) miscIndications:E ssential (primary) hypertension (CMS/HCC) 1 each Daily 1 each 024 2024 Active atorvastatin (Lipitor) 80 MG tabletIndications :Mixed hyperlipidemia (CMS/HCC) Take 1 tablet (80 mg) by mouth at bedtime 90 tablet 3 Active Budeson-Glycopyrr ol-Formoterol (Breztri Aerosphere) 160-9-4.8 MCG/ACT aerosolIndication s:Mixed simple and mucopurulent chronic bronchitis (CMS/HCC) Inhale 2 puffs in the morning and 2 puffs before bedtime. Active predniSONE (Deltasone) 20 MG tablet Take 40 mg by mouth Daily Active Push Button Safety Lancets miscIndications:T ype 2 diabetes mellitus with hyperglycemia, unspecified whether long term care phlebotomist insulin use (CMS/HCC) 1 each in the morning and 1 each before bedtime. 200 each 024 Active glucose blood test stripIndications: Type 2 diabetes mellitus with hyperglycemia, unspecified whether long term care phlebotomist insulin use (CMS/HCC),Type 2 diabetes mellitus with other specified complication, with long-term current use of insulin Check blood sugar before each meal and at bedtime - 4 times daily 200 each 12 024 2024 Active metFORMIN (Glucophage) 1000 MG tabletIndications :Uncontrolled type 2 diabetes mellitus with hypoglycemia without coma ([facility]/HCC) Take 1 tablet (1,000 mg) by mouth in the morning and 1 tablet (1,000 mg) in the evening. Take with meals. 180 tablet 3 024 2024 Active insulin glargine (Lantus) 100 UNIT/ML injectionIndicati ons:Type 2 diabetes mellitus with hyperglycemia, unspecified whether long term care phlebotomist insulin use ([facility]/HCC),Insulin long-term use ([facility]) Injected daily as directed. 10 mL 11 025 2025 Active furosemide (Lasix) 20 MG tabletIndications :Edema,Hypertensi on Take 1 tablet (20 mg) by mouth in the evening 90 tablet 3 Active furosemide (Lasix) 40 MG tabletIndications :Edema,Hypertensi on Take 1 tablet (40 mg) by mouth Daily in the Morning Active Dulaglutide (Trulicity) 1.5 MG/0.5ML solution auto-injectorIndi cations:Type 2 diabetes mellitus without complication, with long-term current use of insulin,Insulin long-term use ([facility]) Inject 1.5 mg under the skin 1 (one) time per week 2 mL Active insulin pen needle (TRUEplus 5-Bevel Pen Foster) 31G x 5 mm miscIndications:T ype 2 Diabetes Mellitus Inject 1 each under the skin at bedtime -use with Lantus solostar 90 each 3 025 2025 Active ipratropium-albut jojo (Duo-Neb) 0.5-2.5 mg/3 mL nebulizer solutionIndicatio ns:Chronic obstructive pulmonary disease with acute exacerbation ([facility]) Take 3 mL by nebulization in the morning and 3 mL at noon and 3 mL in the evening and 3 mL before bedtime. 360 mL 3 025 Active dilTIAZem CD (Cardizem CD) 180 MG 24 hr capsuleIndication s:Essential hypertension ([facility]/HCC) Take 1 capsule (180 mg) by mouth Daily 90 capsule 3 025 2025 Active glucose blood test stripIndications: Type 2 diabetes mellitus with hyperglycemia, unspecified whether long term care phlebotomist insulin use (CMS/HCC) 1 each by Other route in the morning and 1 each at noon and 1 each in the evening and 1 each before bedtime. Use as instructed- Patient is testing four times a day. Patient is using the one touch ultra testing strips. 300 each 1 025 2024 Active apixaban (Eliquis) 5 MG tabletIndications :Paroxysmal atrial fibrillation (CMS/HCC) Take 1 tablet (5 mg) by mouth in the morning and 1 tablet (5 mg) before bedtime. 180 tablet 3 025 2024 Active albuterol HFA (Ventolin HFA) 90 mcg/act inhalerIndication s:Chronic obstructive pulmonary disease, unspecified COPD type (CMS/HCC) Inhale 2 puffs every 4 (four) hours if needed for shortness of breath (J44.9) 18 g 3 025 2024 Active pregabalin (Lyrica) 50 MG capsuleIndication s:Neuropathy Take 1 capsule (50 mg) by mouth in the morning and 1 capsule (50 mg) before bedtime. 60 capsule 2 025 2024 Active pregabalin (Lyrica) 200 MG capsuleIndication s:Neuropathy TAKE 1 CAPSULE (200 MG) BY MOUTH IN THE MORNING AND 1 CAPSULE (200 MG) BEFORE BEDTIME. 60 capsule 2 025 2024 Discontinued Active Problems Problem Noted Date Diagnosed Date Falls 01/16/2024 CKD stage 3a, GFR 45-59 ml/min 01/16/2024 GERD (gastroesophageal reflux disease) Essential tremor 12/20/2023 Tremor 12/13/2023 Acute respiratory failure with hypercapnia 09/11 Closed displaced intertrochanteric fracture of l eft femur 04/23/2023 Arthritis associated with diabetes 03/20/2023 History of heart attack 03/20/2023 Osteoporosis with current pathological fracture 03/20/2023 Paroxysmal atrial fibrillation 03/20/2023 Obesity with body mass index 30 or greater 05/16 Leukocytosis 08/17/2021 Mult fx of metacarpal bones, closed 02/26/2021 Grief 01/03/2019 Menopause 08/10/2018 Chronic obstructive pulmonary disease 02/28/2018 Neuropathy 02/28/2018 Other chronic pain 02/28/2018 Diabetes mellitus 02/23/2018 Renal artery stenosis 02/23/2018 S/P coronary artery stent placement 02/23/2018 Atherosclerotic heart diseas e of [place] coronary artery without angina pectoris 10/31/2017 History of total replacement of both hip joints 10/31/2017 Hypokalemia 10/31/2017 Peripheral vascular disorder due to diabetes bernard litus 10/31/2017 Renovascular hypertension 10/31/2017 Mixed hyperlipidemia 09/05/2017 Essential hypertension 09/04/2014 Resolved Problems Problem Noted Date Diagnosed Date Resolved Date Abscess of face 08/20/2016 01/16/2024 Encounters Date Type Department Care Team Description 03/05/2025 Patient Outreach [facility] [address] [place] [address] Lisa Kyle MA 03/03/2025 Abstract [facility] [place] [address] [place] [phone] Keshia Cheng MD 02/27/2025 Patient Outreach [facility] [address] [place] [address] Lisa Kyle MA 02/20/2025 Abstract [facility] [place] [address] [place] [phone] Keshia Cheng MD 02/20/2025 Abstract [facility] [address] [place] [address] Unallocated, [place] MD Bhargav 02/18/2025 Patient Outreach [facility] [address] [place] [address] Lisa Kyle MA 02/18/2025 Telephone [facility] [place] [address] [place] [phone] Hayley Lynn NP Care Coordination 02/18/2025 Patient Outreach [facility] [address] [place] [address] Coral Solitario, LOSS PREVENTION DETECTIVE 02/16/2025 Clinisync Result Encounter [facility] External Department Unsolicited John Luong MD 02/12/2025 Telephone [facility] [place] [address] [place] [address] Marissa Ambriz MA Care Coordination 02/06/2025 Telephone [facility] [address] [place] [phone] Jada Sullivan NP 02/06/2025 Patient Outreach [facility] [address] [place] [address] Lisa Kyle MA 02/06/2025 Patient Outreach [facility] [address] [place] [address] Lisa Kyle MA 01/28/2025 Abstract [facility] [place] [address] [place] [phone] Keshia hCeng MD 01/23/2025 Telephone [facility] [place] [address] [place] [address] Marissa Ambriz MA 01/02/2025 Refill [facility] [place] [address] [place] [address] Palma Quintanilla 01/01/2025 Patient Outreach [facility] [address] [place] [address] Coral Solitario, MAYELA 12/30/2024 Refill [facility] [place] [address] [place] [address] Marissa Ambriz MA Type 2 diabetes mellitus with hyperglycemia, unspecified whether correction insulin use ([facility]) (Primary Dx) 12/21/2024 Refill [facility] [place] [address] [place] [phone] Keshia Cheng MD Neuropathy 12/16/2024 Patient Outreach [facility] [address] [place] [address] Coral Solitario LPN 12/16/2024 Refill [facility] [place] [address] [place] [address] Gisselle Ortiz MA 12/03/2024 Refill [facility] [place] [address] [place] [address] Marissa Ambriz MA Chronic obstructive pulmonary disease with acute exacerbation (CMS/HCC) from Last 3 Months Immunizations Immunization Administration Dates Next Due Influenza, High-dose Seasona l, Quadrivalent, Preservative Free 07/13/2023 Influenza, Recombinant, injectable, preservative free 09/17/2024 Pneumococcal Conjugate PCV 13 08/17/2021 Pneumococcal Conjugate PCV 20 09/17/2024 Pneumococcal Polysaccharide PPSV23 01/20/2023 Family History * Patient is adopted Relation Name Status Comments Father Mother Social History Tobacco Use Types Packs/Day Years Used Date Smoking Tobacco: Every Day Cigarettes 0.3 15 Smokeless Tobacco: Never Tobacco Cessation:Ready to Q uit: Not Asked; Counseling Given: Not Answered Alcohol Use Standard Drinks/Week Comments Never 0 [...] week 04/13/2023 How often do you attend druze or pentecostal serv ices? Never 04/13/2023 Active Member of [...] Recorded Patient Health Questionnaire-2 Score 0 11/13/2023 [facility] Occupat ional Health - Occupational Stress [...] place to sleep or slept in a senior living (including now)? No 04/13/2023 Comments No Sex and Gender Information Value Date Recorded Sex Assigned at Not on file Legal Sex Female 7:19 PM EDT Gender Identity Female 12/14/2022 7:19 PM EDT Sexual Orientation Not on file Last Filed Vital Signs Vital Sign Reading Time Taken Comments Blood Pressure 122/64 10/18/2024 12:40 PM EST Pulse 95 10/18/2024 12:40 PM EST Temperature 36.6 C (97.8 F) 10/18/2024 12:40 PM EST Respiratory Rate - - Oxygen Saturation 96% 10/18/2024 12:40 PM EST Inhaled Oxygen Concentration - - Weight 79.8 kg (176 lb) 10/18/2024 12:40 PM EST Height 162.6 cm (5' 4 ) 10/18/2024 12:40 PM EST Body Mass Index 30.21 10/18/2024 12:40 PM EST Plan of Treatment Upcoming Encounters Date Type Department Care Team (Late st Contact Info) Description 03/12/2025 2:00 PM EDT Office Visit [facility] [address] [place] [address] Andrea Andrew DO [address] [place] [address] Health Maintenance Due Date Last Done Comments CT Colonography 1952 Colonoscopy 1952 FIT 1952 FOBT 1950 Sigmoidoscopy 1950 Colorectal Cancer Screening 03/22/2024 FIT-DNA 03/22/2024 03/22/2021 Diabetes: Urine Protein Screening 11/13/2024 11/13/2023, 09/04/2023 (Manually Satisfied by [facility]) Diabetes: Hemoglobin A1C 01/16/2025 025, 09/17/2024, 08/14/2024, Additional history exists Mammogram 02/26/2025 02/27/2024, 03/2 11/2023, 10/12/2022, Additional history exists Diabetes: Retinopathy Screening 07/26/2026 Influenza Vaccine Completed 09/17/2024, 07/13/2023 Pneumococcal Vaccine: 65+ Years Completed 09/17/2024, 01/20/2023, 08/17/2021 Procedures Procedure Name Priority Date/Time Associated Diagnosis Comments ALL CBC WITH AUTO DIFF Routine 02/16/2025 5:09 PM EDT ALL MAGNESIUM Routine 02/16/2025 5:09 PM EDT ALL PHOSPHOROUS Routine 02/16/2025 5:09 PM EDT ALL BASIC METABOLIC PANEL Routine 02/16/2025 5:09 PM EDT POCT GLYCATED HEMOGLOBIN, TOTAL Routine 10/18/2024 1:04 PM EST Uncontrolled type 2 diabetes mellitus with hypoglycemia without coma (CMS/HCC) COLOR FUNDUS PHOTOGRAPHY - OU - BOTH EYES Routine 07/26/2024 2:17 PM EDT BI MAMMOGRAM DIAGNOSTIC BILATERAL Routine 02/27/2024 3:43 PM EDT Abnormal screening mammogram POCT MICROALBUMIN Routine 11/13/2023 2:3 8 PM EST Type 2 diabetes mellitus without complication, without long-term current use of insulin (CMS/HCC) LAB COLOGUARD COLON CANCER SCREEN Routine 03/22/2021 from Last 3 Months or Most Recently Relevant to Health Maintenance Results * (ABNORMAL) ALL PHOSPHOROUS (02/16/2025 5:09 PM EDT) PHOSPHORUS 5.0(H) 2.6 - 4.7 mg/dL [facility] 02/16/2025 5:09 PM EDT 02/16/2025 9:19 PM EDT Narrative [facility] - 02/16/2025 9:34 PM EDT us Rugen M Cherise MD [facility] Final Result [facility] * (ABNORMAL) ALL MAGNESIUM (02/16/2025 5:09 PM EDT) MAGNESIUM 1.7(L) 1.8 - 2.4 mg/dL [facility] 02/16/2025 5:09 PM EDT 02/16/2025 9:19 PM EDT Narrative [facility] - 02/16/2025 9:34 PM EDT John Luong MD [facility] Final Result Performing Organization Address City/[facility]/ZIP Co de Phone Number [facility] * (ABNORMAL) ALL CBC WITH AUTO DIFF (02/16/2025 5:09 PM EDT) TBH WBC 11.0 4.0 - 11.0 10 3/uL TBH TBH RBC 3.56(L) 4.20 - 5.40 10 6/uL TB[facility] Comment:OVALOCYTES-1+, ANISO CYTOSIS-2+ TBH HGB 10.2(L) 12.0 - 16.0 g/dL TBH TBH HCT 35.4(L) 36.0 - 48.0 % TBH TBH MCV 99.4(H) 81.0 - 99.0 fL TBH TBH MCH 28.7 26.7 - 34.0 pg TBH TBH MCHC 28.8(L) 29.9 - 35.2 g/dL TBH TBH RDW 21.0(H) 11.0 - 15.0 % TBH TBH PLT 290 150 - 450 10 3/uL TBH TBH MPV 11.6 9.5 - 13.5 fL TBH NEUTROPHILS PERCENT AUTO 72.2 43.0 - 75.0 % TBH LYMPHOCYTES PERCENT AUTO 16.6(L) 20.5 - 60.0 % TBH MONOCYTES PERCENT AUTO 8.7 1.7 - 12.0 % TBH TBH EO % 1.7 0.9 - 7.0 % TBH BASOPHILS PERCENT AUTO 0.4 0.2 - 2.0 % TBH IMMATURE GRANULOCYTES PCT AUTO 0.4 0.0 - 0.5 % TBH NEUTROPHILS ABSOLUTE AUTO 7.9(H) 1.4 - 6.5 10 3/uL TBH LYMPHOCYTES ABSOLUTE AUTO 1.8 1.2 - 3.8 10 3/uL TBH MONOCYTES ABSOLUTE AUTO 1.0(H) 0.3 - 0.8 10 3/uL TBH TBH EO # 0.2 0.0 - 0.7 10 3/uL TBH BASOPHILS ABSOLUTE AUTO 0.0 0.0 - 0.1 10 3/uL TBH IMMATURE GRANULOCYTES ABS AUTO 0.04(H) 0.00 - 0.03 10 3/uL TBH 02/16/2025 5:09 PM EDT 02/16/2025 9:19 PM EDT Narrative [facility] - 02/16/2025 9:38 PM EDT John Luong MD [facility] Final Result [facility] * (ABNORMAL) ALL BASIC METABOLIC PANEL (02/16/2025 5:09 PM EDT) SODIUM 143 136 - 145 mmol/L TBH POTASSIUM 4.3 3.5 - 5.1 mmol/L TBH CHLORIDE 103 98 - 107 mmol/L TBH CARBON DIOXIDE 34.6(H) 21.0 - 32.0 mmol/L TBH ANION GAP 9.7 TBH GLUCOSE 96 74 - 106 mg/dL TBH BLOOD UREA NITROGEN 25.0(H) 7.0 - 18.0 mg/dL TBH CREATININE 1.30(H) 0.55 - 1.02 mg/dL TBH TBH EGFR-AF STATELESS 49(L) >=60 mL/min/1.7 3m 2 TBH TBH EGFR-NON AF STATELESS 40(L) >=60 mL/min/1.7 3m 2 TBH BUN CREATININE RATIO 19.2 TBH CALCIUM 9.2 8.5 - 10.1 mg/dL [facility] 02/16/2025 5:09 PM EDT 02/16/2025 9:19 PM EDT Narrative [facility] - 02/16/2025 9:34 PM EDT John Luong MD [facility] Final Result Performing Organization Address [facility] Co de Phone Number [facility] * POCT glycated hemoglobin, total docked device (10/18/2024 1:04 PM EST) Hemoglobin A1C 7.4 Blood 10/18/2024 1:04 PM EST Keshia Cheng MD POINT OF CARE TEST ENTER/EDIT ORDERABLES Final Result * Color Fundus Photography - OU - Both Eyes (07/26/2024 2:17 PM EDT) Anatomical Region Laterality Modality Head Fundus Photograp hy Noms Provider Unallocated OPHTH PHOTOGRAPHY F inal Result * Bilateral diagnostic mammogram (02/27/2024 3:43 PM EDT) Roxy Bricenosop DO IMG BI PROCEDURES Final Res ult Performing Organization Address [facility] Co de Phone Number [address] [address], [place] * POCT microalbumin manually resulted (11/13/2023 2:38 PM EST) MICROALBUMIN, URINE 80 ALB/CREAT RATIO 80/10 URINE CREAT 10 Urine 11/13/2023 2:38 PM EST Roxy Bricenosop DO POINT OF CARE TEST ENTER/ED IT ORDERABLES Final Result * Cologuard?? colon cancer screening (03/22/2021) COLOGUARD RESULT REPORTABLE Cancelled - Duplicate Order Not Applicable [facility] 03/22/2021 Roxy Bricenosop DO LAB MOLECULAR DIAGNOSTICS O RDERABLES Final Result [facility] from Last 3 Months or Most Recently Relevant to Health Maintenance Insurance [employer]ICARE Advance Directives Documents on File Type Date Recorded Patient Compounding Technician Expl anation Power of Hand Rug Braider 02/18/2025 10:54 AM 2024 POA Care Teams Special Education Paraprofessional Relationship Specialty Start Date End Date Keshia Cheng MD [address] [place] [address] PCP - General Family Medicine 03/04/24 Coral Solitario LPN [address] [place] [address] Licensed Practical Nurse Family Medicine 06/28/24
--- OUTSIDE RECORDS SUMMARY | 2025-03-05 13:13 | XMS_ITS | Encounter Summary ---
Author Organization [facility] Address [address] [place] [address] Care Team Providers Care Putty Mixer And Applier Name Role Phone Keshia Cheng MD Primary Care Provider [phone] Coral Solitario LPN Unavailable Encounter Details Date Type Department Care Team (Late st Contact Info) Description 02/20/2025 Abstract [facility] [address] [place] [address] Unallocated, Noms Provider, [address] [place] [address] Social History Tobacco Use Types Packs/Day Years [...] week 04/13/2023 How often do you attend advent or uatsdin serv ices? Never 04/13/2023 Active Member of [...] Recorded Patient Health Questionnaire-2 Score 0 11/13/2023 [facility] of Occupat ional Health - Occupational Stress [...] place to sleep or slept in a skilled nursing (including now)? No 04/13/2023 Comments No Sex [...] [facility] [address] Tam [facility] [place] [address] Andrea Andrew DO [address] [place] [address] documented as of this encounter Visit Diagnoses Not on filedocumented in this encounter Additional Health Concerns Assessment Noted Time PHQ-9 Depression Total Score: 0 11/13/19 24 1:00 PM EST documented as of this encounter Care Teams Putty Mixer And Applier Relationship Specialty Start Date End Date Keshia Cheng MD [address] [place] [address] PCP - General Family Medicine 03/04/24 Coral Solitario LPN [address] [place] [address] Licensed Practical Nurse Family Medicine 06/28/24 documented as of this encounter
--- OUTSIDE RECORDS SUMMARY | 2025-03-05 13:13 | XMS_ITS | Encounter Summary ---
Author Organization [facility] Address [address] [place] [address] Care Team Providers Care Freight Inspector Name Role Phone Keshia Cheng MD Primary Care Provider [phone] Altaf Coral PROGRAM ADVOCATE Unavailable Encounter Details Date Type Department Care Team (Late st Contact Info) Description 02/20/2025 Abstract [facility] [address] [place] [address] Keshia Cheng MD [address] [place] [address] Social History Tobacco Use Types Packs/Day Years [...] week 04/13/2023 How often do you attend nondenominational or uatsdin serv ices? Never 04/13/2023 Active [...] Recorded Patient Health Questionnaire-2 Score 0 11/13/2023 [facility] - Occupational Stress Questionnaire Answer [...] place to sleep or slept in a intermediate (including now)? No 04/13/2023 Comments No Sex [...] NB ORTHO [address] Anel [facility] [place] [address] Andrea Andrew DO [address] [place] [address] documented as of this encounter Visit Diagnoses Not on filedocumented in this encounter Additional Health Concerns Assessment Noted Time PHQ-9 Depression Total Score: 0 11/13/19 24 1:00 PM EST documented as of this encounter Care Teams Freight Inspector Relationship Specialty Start Date End Date Keshia Cheng MD [address] [place] [address] PCP - General Family Medicine 03/04/24 Coral Solitario LPN [address] [place] [address] Licensed Practical Nurse Family Medicine 06/28/24 documented as of this encounter
--- OUTSIDE RECORDS SUMMARY | 2025-03-05 13:14 | XMS_ITS | Encounter Summary ---
Author Organization [facility] Address [address] [place] [address] Care Team Providers Care Field Geologist Name Role Phone Roxy Duggan DO Unavailable Unavailabl e Roxy Duggan DO Primary Care Provider Unav ailable Unallocated, Noms Provider Primary Care Provi harrison Keshia Cheng MD Primary Care Provider Keshia Cheng MD Unavailable Keshia Cheng MD Unavailable Coral Solitario HIGH SCHOOL DIRECTOR Unavailable Keshia Cheng MD Unavailable [phone] Encounter Details Date Type Department Care Team (Late st Contact Info) Description 04/28/2023 Abstract [facility] FM 112 [facility] 110 [place] [address] John Luong MD 112 [facility] 110 [place], [place] [id number] Social History Tobacco Use Types Packs/Day Years Used Date Smoking Tobacco: Every Day Cigarettes 0.3 15 Smokeless Tobacco: Never Alcohol Use Standard Drinks/Week Comments Never 0 (1 standard drink = 0.6 oz pur e alcohol) Humiliation, Afraid, Rape, and Kick questionnair e [...] week 04/13/2023 How often do you attend orthodox or jewish serv ices? Never 04/13/2023 Active Member of [...] on one occasion? Less than monthly 04/13/[address] [facility] - Occupational Stress Questionnaire Answer [...] PM EDT Sexual Orientation Not on file COVID-19 Exposure Response Date Recorded In the last 10 days, have yo u been in contact with someone who was confirmed or suspected to have Coronavirus/COVID-19? No / Unsure 04/14/2023 3:38 PM EDT documented as of this encounter Plan of Treatment Upcoming Encounters Date Type Department Care Team (Late st Contact Info) Description 03/12/2025 2:00 PM EDT Office Visit [facility] [address] [place] [address] Andrea Andrew DO [address] [place] [address] documented as of this encounter Visit Diagnoses Not on filedocumented in this encounter Care Teams Field Geologist Relationship Specialty Start Date End Date Roxy Duggan, DO PCP - Fernanda ANDERSON 10/02/21 03/01/24 Roxy Duggan DO PCP - General Family Medicine 03/20/23 01/22/24 Unallocated, Rylie Durant MD [address] [place] [address] PCP - General Family Medicine 01/23/24 03/03/24 Keshia Cheng MD [address] [place] [address] PCP - General Family Medicine 03/04/24 Keshia Cheng MD [address] [place] [address] PCP - Devoted 04/01/24 11/29/24 Keshia Cheng MD [address] [place] [address] PCP - [employer] 03/02/24 03/31/24 Keshia Cheng MD [address] [place] [address] PCP - Fernanda ANDERSON 11/30/24 12/30/24 Coral Solitario LPN [address] [place] [address] Licensed Practical Nurse Family Medicine 06/28/24 documented as of this encounter
--- OUTSIDE RECORDS SUMMARY | 2025-03-05 13:14 | XMS_ITS | Encounter Summary ---
Author Organization [facility] Address [address] [place] [address] Care Team Providers Care Vp Integration Name Role Phone Roxy Duggan DO Unavailable Unavailabl e Roxy Duggan DO Primary Care Provider Unav ailable Unallocated, Noms Provider Primary Care Provi harrison Keshia Cheng MD Primary Care Provider Keshia Cheng MD Unavailable Keshia Cheng MD Unavailable Coral Solitario HOUSING RELOCATION Unavailable Keshia Cheng MD Unavailable Encounter Details Date Type Department Care Team (Late st Contact Info) Description 12/21/2023 Abstract [facility] FM 112 [facility] 110 [place] [address] John Luong MD 112 [facility] 110 [place], [place] [address] Social History Tobacco Use Types Packs/Day Years [...] week 04/13/2023 How often do you attend gnosticism or orthodoxy serv ices? Never 04/13/2023 Active Member of [...] Recorded Patient Health Questionnaire-2 Score 0 11/13/2023 [facility] - Occupational Stress Questionnaire Answer Date [...] place to sleep or slept in a longterm (including now)? No 04/13/2023 Comments Unknown Sex [...] Office Visit [facility] [address] [place] [address] Andrea Andrew DO [address] [place] [address] documented as of this encounter Visit Diagnoses Not on filedocumented in this encounter Additional Health Concerns Assessment Noted Time PHQ-9 Depression Total Score: 0 11/13/19 1:00 PM EST documented as of this encounter Care Teams Vp Integration Relationship Specialty Start Date End Date Roxy Duggan DO PCP - Fernanda ANDERSON 10/02/21 03/01/24 Roxy Duggan DO PCP - General Family Medicine 03/20/23 01/22/24 Unallocated, Emilys MD Bhargav [address] [place] [address] PCP - General Family Medicine 01/23/24 03/03/24 Keshia Cheng MD [address] [place] [address] PCP - General Family Medicine 03/04/24 Keshia Cheng MD [address] [place] [address] PCP - Devoted 04/01/24 11/29/24 Keshia Cheng MD [address] [place] [address] PCP - [employer] 03/02/24 03/31/24 Keshia Cheng MD [address] [place] [address] PCP - Fernanda ANDERSON 11/30/24 12/30/24 Coral Solitario LPN [address] [place] [address] Licensed Practical Nurse Family Medicine 06/28/24 documented as of this encounter
--- OUTSIDE RECORDS SUMMARY | 2025-03-05 13:14 | XMS_ITS | Encounter Summary ---
Author Organization [facility] Address [address] [place] [address] Care Team Providers Care Retail Sales Lead Name Role Phone Roxy Duggan DO Unavailable Unavailabl e Roxy Duggan DO Primary Care Provider Unav ailable Unallocated, Noms Provider Primary Care Provi harrison Keshia Cheng MD Primary Care Provider Keshia Cheng MD Unavailable [phone] Keshia Cheng MD Unavailable Coral Solitario MACHINE TOOL TECHNOLOGY INSTRUCTOR Unavailable Keshia Cheng MD Unavailable Encounter Details Date Type Department Care Team (Late st Contact Info) Description 06/14/2023 Abstract [facility] [place] [address] [place] [address] John Luong MD 112 [facility] 110 [place] [address] Social History Tobacco Use Types Packs/Day Years [...] week 04/13/2023 How often do you attend faith or mormonism serv ices? Never 04/13/2023 Active [...] on one occasion? Less than monthly 04/13/2023 [facility] - Occupational Stress Questionnaire Answer [...] the money to buy more. Never true 07/13/20 23 Within the past 12 months, t [...] place to sleep or slept in a fci (including now)? No 04/13/2023 Comments Unknown Sex [...] EDT Office Visit [facility] [address] [place] [address] Andrea Andrew DO [address] [place] [address] documented as of this encounter Visit Diagnoses Not on filedocumented in this encounter Care Teams Retail Sales Lead Relationship Specialty Start Date End Date Roxy Duggan DO PCP - Fernanda ANDERSON 10/02/21 03/01/24 Roxy Duggan DO PCP - General Family Medicine 03/20/23 01/22/24 Unallocated, Noms Bhargav, [address] [place] [address] PCP - General Family Medicine 01/23/24 03/03/24 Keshia Cheng MD [address] [place] [address] PCP - General Family Medicine 03/04/24 Keshia Cheng MD [address] [place] [address] PCP - Devoted 04/01/24 11/29/24 Keshia Cheng MD [address] [place] [address] PCP - [employer] 03/02/24 03/31/24 Keshia Cheng MD [address] [place] [address] PCP - Fernanda ANDERSON 11/30/24 12/30/24 Coral Solitario LPN [address] [place] [address] Licensed Practical Nurse Family Medicine 06/28/24 documented as of this encounter
--- OUTSIDE RECORDS SUMMARY | 2025-03-05 13:14 | XMS_ITS | Encounter Summary ---
Author Organization [facility] Address [address] [place] [address] Care Team Providers Care Oil Agent Name Role Phone Roxy Duggan DO Unavailable Unavailabl e Roxy Duggan DO Primary Care Provider Unav ailable Unallocated, Noms Provider Primary Care Provi harrison Keshia Cheng MD Primary Care Provider [phone] Keshia Cheng MD Unavailable Keshia Cheng MD Unavailable Coral Solitario PHARMACY GRAD INTERN Unavailable Keshia Cheng MD Unavailable [phone] Encounter Details Date Type Department Care Team (Late st Contact Info) Description 09/03/2023 Abstract [facility] FM [address] [place] [address] Roxy Duggan, DO Social History Tobacco Use [...] week 04/13/2023 How often do you attend methodist or tenriism serv ices? Never 04/13/2023 Active Member of [...] on one occasion? Less than monthly 04/13/2023 [facility] of Occupat ional Health - Occupational Stress [...] place to sleep or slept in a care home (including now)? No 04/13/2023 Comments Unknown Sex [...] EDT Office Visit [facility] [address] [facility] [place] [address] Andrea Andrew DO [address] [place] [address] documented as of this encounter Visit Diagnoses Not on filedocumented in this encounter Care Teams Oil Agent Relationship Specialty Start Date End Date Roxy Duggan DO PCP - Fernnada ANDERSON 10/02/21 03/01/24 Roxy Duggan DO PCP - General Family Medicine 03/20/23 01/22/24 Unallocated, Noms MD Bhargav [address] [place] [address] PCP - General Family Medicine 01/23/24 03/03/24 Keshia Cheng MD [address] [place] [address] PCP - General Family Medicine 03/04/24 Keshia Cheng MD [address] [place] [address] PCP - Devoted 04/01/24 11/29/24 Keshia Cheng MD [address] [place] [address] PCP - [employer] 03/02/24 03/31/24 Keshia Cheng MD [address] [place] [address] PCP - Fernanda ANDERSON 11/30/24 12/30/24 Coral Solitario LPN [address] [place] [address] Licensed Practical Nurse Family Medicine 06/28/24 documented as of this encounter
--- OUTSIDE RECORDS SUMMARY | 2025-03-05 13:14 | XMS_ITS | Encounter Summary ---
Author Organization [facility] Address [address] [facility] [place] [address] Care Team Providers Care Washer And Capper Machine Operator Name Role Phone Keshia Cheng MD Primary Care Provider [phone] Keshia Cheng MD Unavailable [phone] AltafCoral OPTOELECTRONICS ENGINEER Unavailable Keshia Cheng MD Unavailable [phone] Encounter Details Date Type Department Care Team (Late st Contact Info) Description 08/05/2024 Orders Only [facility] [address] [place] [address] Unallocated, Noms Provider, [address] [place], [place] [address] Social History Tobacco Use Types Packs/Day Years [...] week 04/13/2023 How often do you attend spiritism or anabaptist serv ices? Never 04/13/2023 Active Member of [...] Recorded Patient Health Questionnaire-2 Score 0 11/13/2023 [facility] - Occupational Stress Questionnaire Answer [...] [facility] [address] [place] [place] [address] Andrea Andrew DO [address] [place] [address] documented as of this encounter Procedures Procedure Name Priority Date/Time Associated Diagnosis Comments COLOR FUNDUS PHOTOGRAPHY - OU - BOTH EYES Routine 07/26/2024 2:17 PM EDT documented in this encounter Results * Color Fundus Photography - OU - Both Eyes (07/26/2024 2:17 PM EDT) Anatomical Region Laterality Modality Head Fundus Photograp hy us Noms Provider Unallocated OPHTH PHOTOGRAPHY F inal Result documented in this encounter Visit Diagnoses Not on filedocumented in this encounter Additional Health Concerns Assessment Noted Time PHQ-9 Depression Total Score: 0 11/13/19 24 1:00 PM EST documented as of this encounter Care Teams Washer And Capper Machine Operator Relationship Specialty Start Date End Date Keshia Cheng MD [address] [place] [address] PCP - General Family Medicine 03/04/24 Keshia Cheng MD [address] [place] [address] PCP - Devoted 04/01/24 11/29/24 Keshai Cheng MD [address] [place] [address] PCP - Fernanda ANDERSON 11/30/24 12/30/24 Coral Solitario LPN [address] [place] [address] Licensed Practical Nurse Family Medicine 06/28/24 documented as of this encounter
--- OUTSIDE RECORDS SUMMARY | 2025-03-05 13:14 | XMS_ITS | Encounter Summary ---
Author Organization [facility] Address [address] [place] [address] Care Team Providers Care Plastic Mould Maker Name Role Phone Keshia Cheng MD Primary Care Provider [phone] Altaf Coral FORM MAKER Unavailable Encounter Details Date Type Department Care Team (Late st Contact Info) Description 01/28/2025 Abstract [facility] [address] [place] [address] Keshia Cheng MD [address] [place] [address] Social History Tobacco Use Types Packs/Day Years [...] week 04/13/2023 How often do you attend zoroastrianism or uatsdin serv ices? Never 04/13/2023 Active [...] Recorded Patient Health Questionnaire-2 Score 0 11/13/2023 [facility] - Occupational Stress Questionnaire Answer Date [...] NB ORTHO [address] [facility] [address] Andrea Andrew DO [address] [place] [address] documented as of this encounter Visit Diagnoses Not on filedocumented in this encounter Additional Health Concerns Assessment Noted Time PHQ-9 Depression Total Score: 0 11/13/19 24 1:00 PM EST documented as of this encounter Care Teams Plastic Mould Maker Relationship Specialty Start Date End Date Keshia Cheng MD [address] [place] [address] PCP - General Family Medicine 03/04/24 Coral Solitario LPN [address] [place] [address] Licensed Practical Nurse Family Medicine 06/28/24 documented as of this encounter
--- OUTSIDE RECORDS SUMMARY | 2025-03-05 13:14 | XMS_ITS | Encounter Summary ---
Author Organization [facility] Address [address] [place] [address] Care Team Providers Care Energy Systems Engineer Name Role Phone Roxy Duggan DO Unavailable Unavailabl e Roxy Duggan DO Primary Care Provider Unav ailable Unallocated, Noms Provider Primary Care Provi harrison Keshia Cheng MD Primary Care Provider [phone] Keshia Cheng MD Unavailable [phone] Keshia Cheng MD Unavailable [phone] Coral Solitario CORPORATE RECEPTIONIST Unavailable Keshia Cheng MD Unavailable [phone] Encounter Details Date Type Department Care Team (Late st Contact Info) Description 07/21/2023 Abstract [facility] [address] [place] [address] Roxy Duggan, Social History Tobacco Use Types Packs/Day Years [...] How often do you attend gnosticism or jehovah's witness serv ices? Never 04/13/2023 Active Member of [...] on one occasion? Less than monthly 04/13/2023 [facility] of Occupat ional Health - Occupational [...] to sleep or slept in a senior care (including now)? No 04/13/2023 Comments Unknown Sex [...] EDT Office Visit [facility] [address] [place] [address] Andrea Andrew DO [address] [place] [address] documented as of this encounter Visit Diagnoses Not on filedocumented in this encounter Care Teams Energy Systems Engineer Relationship Specialty Start Date End Date Roxy Duggan DO PCP - Fernanda ANDERSON 10/02/21 03/01/24 Roxy Duggan DO PCP - General Family Medicine 03/20/23 01/22/24 Unallocated, Noms Bhargav, [address] [place] [address] PCP - General Family Medicine 01/23/24 03/03/24 Keshia Cheng MD [address] [place] [address] PCP - General Family Medicine 03/04/24 Keshia Cheng MD [address] [place] [address] PCP - Devoted 04/01/24 11/29/24 Keshia Cheng MD [address] [place] [address] PCP - Aet[employer] 03/02/24 03/31/24 Keshia Cheng MD [address] [place] [address] PCP - Fernanda ANDERSON 11/30/24 12/30/24 Coral Solitario LPN [address] [place] [address] Licensed Practical Nurse Family Medicine 06/28/24 documented as of this encounter
--- OUTSIDE RECORDS SUMMARY | 2025-03-05 13:14 | XMS_ITS | Encounter Summary ---
Author Organization [facility] Address [address] [place] [address] Care Team Providers Care Field Marketing Director Name Role Phone Roxy Duggan DO Unavailable Unavailabl e Roxy Duggan DO Primary Care Provider Unav ailable Unallocated, Noms Provider Primary Care Provi harrison Keshia Cheng MD Primary Care Provider [phone] Keshia Cheng MD Unavailable Keshia Chegn MD Unavailable Coral Solitario BOAT ASSEMBLER Unavailable Keshia Cheng MD Unavailable [phone] Encounter Details Date Type Department Care Team (Late st Contact Info) Description 04/28/2023 Abstract [facility] [address] [place] [address] Roxy Duggan, Social History Tobacco Use Types [...] week 04/13/2023 How often do you attend episcopalian or christianity serv ices? Never 04/13/2023 Active Member of [...] on one occasion? Less than monthly 04/13/2023 [facility] of Occupat ional Health - Occupational Stress [...] place to sleep or slept in a [place] care facility (including now)? No 04/13/2023 Comments Unknown Sex [...] EDT Office Visit [facility] [address] [place] [address] Andrea Andrew DO [address] [place] [address] documented as of this encounter Visit Diagnoses Not on filedocumented in this encounter Care Teams Field Marketing Director Relationship Specialty Start Date End Date Roxy Duggan DO PCP - Fernanda ANDERSON 10/02/21 03/01/24 Roxy Duggan DO PCP - General Family Medicine 03/20/23 01/22/24 Unallocated, Noms Bhargav, [address] [place], [place] [address] PCP - General Family Medicine 01/23/24 03/03/24 Keshia Cheng MD [address] [place] [address] PCP - General Family Medicine 03/04/24 Keshia Cheng MD [address] [place] [address] PCP - Devoted 04/01/24 11/29/24 Keshia Cheng MD [address] [place] [address] PCP - Aetna 03/02/24 03/31/24 Keshia Cheng MD [address] [place] [address] PCP - Fernanda ANDERSON 11/30/24 12/30/24 Coral Solitario LPN [address] [place] [address] Licensed Practical Nurse Family Medicine 06/28/24 documented as of this encounter
--- OUTSIDE RECORDS SUMMARY | 2025-03-05 13:14 | XMS_ITS | Encounter Summary ---
Author Organization [facility] Address [address] [facility] [place] [address] Care Team Providers Care Content Publisher Name Role Phone Roxy Duggan DO Unavailable Unavailabl e Unallocated, Noms Provider Primary Care Provi harrison Keshia Cheng MD Primary Care Provider [phone] Keshia Cheng MD Unavailable [phone] Keshia Cheng MD Unavailable Coral Solitario LPN Unavailable Keshia Cheng MD Unavailable Reason for Visit * Reason Comments Med Refill Encounter Details Date Type Department Care Team (Late st Contact Info) Description 01/23/2024 Refill [facility] [place] [address] [place] [address] Roxy Duggan, DO Body mass index (BMI) 33.0-33.9, adult Social History Tobacco Use Types Packs/Day Years [...] How often do you attend orthodox or restoration serv ices? Never 04/13/2023 Active Member of [...] Recorded Patient Health Questionnaire-2 Score 0 11/13/2023 [facility] - Occupational Stress Questionnaire Answer Date [...] on file documented as of this encounter Miscellaneous Notes * Telephone Encounter - Young Ortiz MA - 01/23/2024 10:33 AM EDT No longer pt here documented in this encounter Plan of Treatment Upcoming Encounters Date Type Department Care Team (Late st Contact Info) Description 03/12/2025 2:00 PM EDT Office Visit [facility] [address] [facility] [place] [address] Andrea Andrew DO [address] [place] [address] documented as of this encounter Visit Diagnoses Diagnosis Body mass index (BMI) 33.0-33.9, adult documented in this encounter Additional Health Concerns Assessment Noted Time PHQ-9 Depression Total Score: 0 11/13/19 24 1:00 PM EST documented as of this encounter Care Teams Content Publisher Relationship Specialty Start Date End Date Allsop, Roxy D, DO PCP - Fernanda ANDERSON 10/02/21 03/01/24 Unallocated, Noms MD Bhargav [address] [place] [address] PCP - General Family Medicine 01/23/24 03/03/24 Keshia Cheng MD [address] [place] [address] PCP - General Family Medicine 03/04/24 Keshia Cheng MD [address] [place] [address] PCP - Devoted 04/01/24 11/29/24 Keshia Cheng MD [address] [place] [address] PCP - [employer]et[employer] 03/02/24 03/31/24 Keshia Cheng MD [address] [place] [address] PCP - Fernanda ANDERSON 11/30/24 12/30/24 Coral Solitario LPN [address] [place] [address] Licensed Practical Nurse Family Medicine 06/28/24 documented as of this encounter
--- OUTSIDE RECORDS SUMMARY | 2025-03-05 13:14 | XMS_ITS | Encounter Summary ---
Author Organization [facility] Address [address] [place] [address] Care Team Providers Care Java Web User Interface Developer Name Role Phone Keshia Cheng MD Primary Care Provider [phone] Coral Solitario LPN Unavailable Encounter Details Date Type Department Care Team (Late st Contact Info) Description 02/06/2025 Patient Outreach [facility] [address] [place] [id number] Lisa Kyle MA Social History Tobacco Use [...] week 04/13/2023 How often do you attend samaritan or anabaptist serv ices? Never 04/13/2023 Active [...] Recorded Patient Health Questionnaire-2 Score 0 11/13/2023 [facility] - Occupational Stress Questionnaire Answer Date Recorded [...] place to sleep or slept in a usp (including now)? No 04/13/2023 Comments No Sex [...] Office Visit [facility] [address] [place] [address] Andrea Andrew DO [address] [place] [address] documented as of this encounter Visit Diagnoses Not on filedocumented in this encounter Additional Health Concerns Assessment Noted Time PHQ-9 Depression Total Score: 0 11/13/19 24 1:00 PM EST documented as of this encounter Care Teams Java Web User Interface Developer Relationship Specialty Start Date End Date Keshia Cheng MD [address] [place] [address] PCP - General Family Medicine 03/04/24 Coral Solitario LPN [address] [facility] [place] [address] Licensed Practical Nurse Family Medicine 06/28/24 documented as of this encounter
--- OUTSIDE RECORDS SUMMARY | 2025-03-05 13:14 | XMS_ITS | Encounter Summary ---
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 Never 04/13/2023 Active Member of [...] Recorded Patient Health Questionnaire-2 Score 0 11/13/2023 [facility] - Occupational Stress Questionnaire Answer Date [...] place to sleep or slept in a penitentiary (including now)? No 04/13/2023 Comments Unknown Sex [...] Office Visit [facility] [address] [place] [id number] Andrea Andrew DO [address] [place] [address] documented as of this encounter Results * (ABNORMAL) Bilateral screening mammogram with tomosynthesis (12/22/2023 3:03 PM EDT) Anatomical Region Laterality Modality Breast Bilateral Mammography 12/26/2023 9:19 AM EDT Addenda Addendum by Hema Rangel MD on 12/28/2023 8:05 AM EDT ADDENDUM #1 FINDINGS: Both breast findings are new or more conspicuous than on the prior examination of October 12, 2022 and merit additional imaging. IMPRESSION: BI-RADS 0-Need additional imaging. Follow up: Recommend bilateral breast ultrasound and spot compression views of both breasts. TRANSCRIBED BY: ELECTRONICALLY SIGNED BY: Hema Rangel MD Impressions 12/26/2023 11:12 AM EDT BIRADS 0 - Need Additional Imaging Evaluation Follow-up: Short Interval Follow-up Recommend bilateral breast ultrasound and spot compression views of both breasts if stability with prior examinations cannot be established. Board Certified Radiologists. Accredited by the ACR and FDA. MAMMOGRAPHY IS VERY IMPORTANT TO YOUR HEALTH. THE [employer] GUIDELINES RECOMMEND THAT WOMEN 40 YEARS OF AGE AND OLDER SHOULD HAVE A MAMMOGRAM EVERY YEAR. A REMINDER LETTER WILL BE SENT AT THE APPROPRIATE TIME. THIS FACILITY UTILIZES A REMINDER SYSTEM TO ENSURE ALL PATIENTS RECEIVE REMINDER NOTIFICATIONS AT THE APPROPRIATE TIME BASED ON THE RECOMMENDATIONS OF THIS EXAM. THIS INCLUDES REMINDERS FOR ROUTINE SCREENING MAMMOGRAMS, DIAGNOSTIC MAMMOGRAMS IN WHICH THE PATIENT IS ASKED TO RETURN FOR ADDITIONAL VIEWS, OR OTHER BREAST IMAGING INTERVENTIONS WHEN APPROPRIATE. THE PATIENT WILL BE PLACED IN THE APPROPRIATE REMINDER SYSTEM INCLUDING A REMINDER AT THE APPROPRIATE TIME FOR ANY PENDING ADDITIONAL VIEWS. TRANSCRIBED BY: ELECTRONICALLY SIGNED BY: Hema Rangel MD Narrative 12/26/2023 11:12 AM EDT EXAMINATION: BI MAMMOGRAM SCREENING TOMOSYNTHESIS BILATERAL CLINICAL HISTORY:Screening COMPARISON: There are no previous mammograms available for comparison. RESULT: Digital mammography and 3D tomosynthesis of bilateral breasts was performed. Density: Scattered fibroglandular density [2] Bilateral 1.0-1.5 cm focal asymmetries central upper outer quadrants/axillary tail region possibly fatty replaced intramammary lymph nodes. Typically benign calcifications. No significant axillary lymphadenopathy. Procedure Note Hema Rangel MD - 12/26/2023 EXAMINATION: BI MAMMOGRAM SCREENING TOMOSYNTHESIS BILATERAL CLINICAL HISTORY:Screening COMPARISON: There are no previous mammograms available for comparison. RESULT: Digital mammography and 3D tomosynthesis of bilateral breasts wasperformed. Density: Scattered fibroglandular density [2] Bilateral 1.0-1.5 cm focal asymmetries central upper outerquadrants/axillary tail region possibly fatty replaced intramammary lymphnodes. Typically benign calcifications. No significant axillary lymphadenopathy. IMPRESSION: BIRADS 0 - Need Additional Imaging Evaluation Follow-up: Short Interval Follow-up Recommend bilateral breastultrasound and spot compression views of both breasts if stability withprior examinations cannot be established. Board Certified Radiologists. Accredited by the ACR and FDA. MAMMOGRAPHY IS VERY IMPORTANT TO YOUR HEALTH. THE [employer]UIDELINES RECOMMEND THAT WOMEN 40 YEARS OF AGE AND OLDER SHOULD HAVE AMAMMOGRAM EVERY YEAR. A REMINDER LETTER WILL BE SENT AT THE APPROPRIATE TIME. THIS FACILITYUTILIZES A REMINDER SYSTEM TO ENSURE ALL PATIENTS RECEIVE REMINDERNOTIFICATIONS AT THE APPROPRIATE TIME BASED ON THE RECOMMENDATIONS OF THISEXAM. THIS INCLUDES REMINDERS FOR ROUTINE SCREENING MAMMOGRAMS, DIAGNOSTICMAMMOGRAMS IN WHICH THE PATIENT IS ASKED TO RETURN FOR ADDITIONAL VIEWS,OR OTHER BREAST IMAGING INTERVENTIONS WHEN APPROPRIATE. THE PATIENT WILLBE PLACED IN THE APPROPRIATE REMINDER SYSTEM INCLUDING A REMINDER AT THEAPPROPRIATE TIME FOR ANY PENDING ADDITIONAL VIEWS. TRANSCRIBED BY: ELECTRONICALLY SIGNED BY: Hema Rangel MD Roxy Duggan DO IMG BI PROCEDURES Edited Re sult - Final documented in this encounter Visit Diagnoses Diagnosis Other screening mammogram- Primary Other screening mammogram documented in this encounter Additional Health Concerns Assessment Noted Time PHQ-9 Depression Total Score: 0 11/13/19 24 1:00 PM EST documented as of this encounter Care Teams Integrated Specialist Relationship Specialty Start Date End Date Roxy Duggan DO PCP - Fernanda ANDERSON 10/02/21 03/01/24 Roxy Duggan DO PCP - General Family Medicine 03/20/23 01/22/24 Unallocated, Noms Provider, [place] [address] PCP - General Family Medicine 01/23/24 03/03/24 Keshia Cheng MD [address] [place] [address] PCP - General Family Medicine 03/04/24 Keshia Cheng MD [address] [place] [address] PCP - [employer] 04/01/24 11/29/24 Keshia Cheng MD [address] [place] [address] PCP - [employer] 03/02/24 03/31/24 Keshia Cheng MD [address] [place] [address] PCP - Fernanda ANDERSON 11/30/24 12/30/24 Coral Solitario LPN [address] [place] [address] Licensed Practical Nurse Family Medicine 06/28/24 documented as of this encounter
--- OUTSIDE RECORDS SUMMARY | 2025-03-05 13:15 | XMS_ITS | Clinical Summary ---
Author Organization [facility] Address [address] [facility] [place] [address] Care Team Providers Care Rate And Cost Analyst Name Role Phone Karl Merritt MD Unavailable [phone] Source Comments The following information is NOT included in Care Everywhere downloads:Psychiatric notes, ECG results, Cardiac Rehab notes, Pulmonary Function notes, data from [facility] (includes but not limited toPregnancy data,audiograms, eye exams, pre-surgical evaluation notes, well-child exam data).[facility] Allergies Active Allergy Reactions Criticality Noted Date Comments [id number] Vcaw-Tqob-Abm Ur Swelling 08/20/2016 Pt states she gets swelling from a water pill Medications docusate sodium (COLACE) 100 MG capsule Take 1 Capsule by mouth 2 times daily for 7 days. 60 Capsule 3 6 Active albuterol (PROVENTIL HFA) INHALATION HFA inhaler (VENTOLIN,PROAI R,PROVENTIL) 90mcg Inhale 2 Puffs by mouth. 3 Active ALPRAZolam (Xanax) 0.25 MG tablet Take 0.25 mg by mouth. 3 Active budesonide-form oterol (Symbicort) 160-4.5 MCG/ACT inhaler Inhale 2 Puffs by mouth. 3 Active diltiazem (DILACOR XR) 120 MG XR capsule Take 120 mg by mouth. 3 Active guaifenesin (MUCINEX) 600 MG SR tablet Take 600 mg by mouth. 3 Active ipratropium-alb uterol (DUO-NEB) 0.5-2.5 (3) MG/3ML nebulizer solution INHALE 3 ML BY NEBULIZATION EVERY 6 HOURS NEEDED 3 Active pregabalin (LYRICA) 200 MG capsule Take 200 mg by mouth. 3 Active spironolactone (ALDACTONE) 50 MG tablet Take 12.5 mg by mouth daily. 2 Active furosemide (LASIX) 20 MG tablet Take 20 mg by mouth daily. Active metoprolol (LOPRESSOR) 50 MG tablet Take 50 mg by mouth 2 times daily. Active losartan (COZAAR) 50 MG tablet Take 50 mg by mouth daily. Active atorvastatin (LIPITOR) 80 mg tablet Take 80 mg by mouth daily. Active acetaminophen (TYLENOL) 325 mg tablet Take 2 Tablets by mouth 4 times daily. 30 Tablet 3 Active senna (SENOKOT) 8.6 MG tablet Take by mouth at bedtime. 30 Tablet 3 Active melatonin 3 MG TABS tablet Take 1 Tablet by mouth at bedtime as needed. 30 Tablet 3 Active aspirin EC 81 MG tablet Take 81 mg by mouth daily. Active predniSONE (DELTASONE) 5 MG tablet Take 5 mg by mouth daily. Active esomeprazole (NEXIUM) 40 MG capsule Take 40 mg by mouth daily (30 minutes before breakfast). Active naloxone 4 mg/0.1 mL nasal liquid Use 1 [place] in one nostril (alternate sides) as needed for Drug Overdose. Every 2-3 mins. until help arrives. 1 Each 1 3 Active Apixaban (Eliquis) 5 MG tablet Take 1 Tablet by mouth 2 times daily. 60 Tablet 3 Active Active Problems Problem Noted Date Diagnosed Date Fall, initial encounter 01/07/2025 Pulmonary emphysema 04/24/2023 Chronic atrial fibrillation 04/24/2023 CAD (coronary artery disease) 04/24/2023 Closed displaced intertrocha nteric fracture of left femur, initial encounter 04/23/2023 Abscess of face 08/20/2016 Hypertension 09/04/2014 Encounters Date Type Department Care Team Description 01/17/2025 10:24 AM EDT - 01/17/2025 11:59 PM EDT Hospital Encounter [facility] [address] [place] [id number] Chaz Sage MD Discharge Disposition: HOV Discharge 01/14/2025 5:00 AM EDT - 01/14/2025 11:59 PM EDT Hospital Encounter [address] [id number] Chaz Sage MD Discharge Disposition: HOV Discharge 01/13/2025 7:12 AM EDT - 01/13/2025 11:59 PM EDT Hospital Encounter [address] [address] Chaz Sage MD Discharge Disposition: HOV Discharge 01/12/2025 7:26 AM EDT - 01/12/2025 11:59 PM EDT Hospital Encounter [address] [address] Chaz Sage MD Discharge Disposition: HOV Discharge 01/11/2025 9:25 AM EDT - 01/11/2025 11:59 PM EDT Hospital Encounter [address] [address] Chaz Sage MD Discharge Disposition: HOV Discharge 01/10/2025 5:17 AM EDT - 01/10/2025 11:59 PM EDT Hospital Encounter [address] [address] Chaz Sage MD Discharge Disposition: HOV Discharge 01/09/2025 5:00 AM EDT - 01/09/2025 11:59 PM EDT Hospital Encounter [address] [address] Chaz Sage MD Discharge Disposition: HOV Discharge 01/08/2025 2:56 AM EDT - 01/08/2025 11:59 PM EDT Hospital Encounter [address] [id number] Chaz Sage MD Discharge Disposition: HOV Discharge 01/07/2025 12:40 AM EDT - 01/18/2025 3:54 PM EDT Hospital Encounter [facility] [address] [place] [id number] Duran Thorne MD Jain, Gary, MD Mostafa, Gamal, MD Kreiner, Laura A., MD Tseng, Esther, MD Closed fracture of multiple ribs of left side, initial encounter (Primary Dx); Fall, initial encounter; Closed fracture of left upper extremity, initial encounter; Respiratory distress; Acute respiratory failure with hypoxia and hypercapnia (HCC); Other closed fracture of sixth thoracic vertebra, initial encounter (HCC); Unspecified atrial fibrillation (HCC); Unspecified right bundle-branch block; Abnormal electrocardiogram (ECG) (EKG); Abnormal electrocardiogram (ECG) (EKG); Abnormal electrocardiogram (ECG) (EKG); Pulmonary emphysema, unspecified emphysema type (HCC); Closed displaced intertrochanteric fracture of left femur, initial encounter (HCC) Discharge Disposition: Discharge to Residential Facility 01/07/2025 Results Only [facility] [address] [place], [place] [id number] wDight Haas MD 01/07/2025 Travel 01/07/2025 E.D. Visit [facility] [address] [place] [id number] Ethel Downey, ANITHA, ADMITTING INTERVIEWER Trauma/complex Medical Situation from Last 3 Months Immunizations Immunization Administration Dates Next Due Albumin 01/08/2025(), 025,01/07/2025,05/2025 Influenza, injectable, high- dose seasonal, quadrivalent, preservative free (UVY=479) 07/13/2023 Influenza, injectable, recom binant, trivalent, preservative free (ZMI=224) 09/17/2024 Pfizer Monovalent (12+ yrs) SARS-COV-2 (COVID-19) vaccine, mRNA, spike protein, LNP, pres. free, 30 mcg/0.3mL dose (CTJ=380) 10/11/2021,01/01/2021,12/11/2020 Pneumococcal conjugate 13 va lent (PCV13) (TYY=635) 08/17/2021 Pneumococcal conjugate 20 va lent (PCV20), polysaccharide XOF315 conjugate, adjuvant, PF (CAJ=401) 09/17/2024 Pneumococcal polysaccharide 23 Valent (PPSV23) (CVX=33) 01/20/2023 Social History Tobacco Use Types Packs/Day Years Used Date Smoking Tobacco: Former Cigarettes Tobacco Cessation:Counseling Given: Not Answered Comments:Also smoke weed. Half a joint [facility] Utilities Answer Date Recorded In the past 12 months has th e electric, gas, oil, or water company threatened to shut off services in your home? No 01/07/2025 Humiliation, Afraid, Rape, a nd Kick questionnaire Answer Date Recorded Fear of Current or Ex-Partner Not on file Within the last year, have y ou been humiliated or emotionally abused in other ways by your partner or ex-partner? Patient unable to answer 01/07/2025 Physically Abused Not on file 01/07/2025 Sexually Abused Not on file 01/07/2025 Hunger Vital Sign Answer Date Recorded Within the past 12 months, y ou worried that your food would run out before you got the money to buy more. Never true 01/08/20 25 Ran Out of Food in the Last Year Not on file 01/07/2025 PRAPARE - Transportation Answer Date Re corded In the past 12 months, has l ack of transportation kept you from medical appointments or from getting medications? No 01/07/2025 Lack of Transportation (Non-Medical) Not on file 01/07/2025 Housing Stability Vital Sign Answer Aryan e Recorded In the last 12 months, was t here a time when you were not able to pay the mortgage or rent on time? No 01/07/2025 Number of Times Moved in the Last Year Not on fi le 01/07/2025 Homeless in the Last Year Not on file 2024 Utilities - Historical Answer Date Patrick rded In the past 12 months has th e electric, gas, oil, or water company threatened to shut off services in your home? No 01/07/2025 Comments Unknown Sex and Gender Information Value Date Recorded Sex Assigned at Not on file Legal Sex Female 9:22 PM EST Gender Identity Not on file Sexual Orientation Not on file Last Filed Vital Signs Vital Sign Reading Time Taken Comments Blood Pressure 113/74 01/18/2025 2:00 PM EDT Pulse 101 01/18/2025 2:00 PM EDT Temperature 36.7 C (98.1 F) 01/18/2025 2:00 PM EDT Respiratory Rate 18 01/18/2025 2:00 PM EDT Oxygen Saturation 9% 01/18/2025 2:00 PM EDT Inhaled Oxygen Concentration - - Weight 83.3 kg (183 lb 11.2 oz) 01/17/2025 4:39 AM EDT Height 154.9 cm (5' 1 ) 01/07/2025 4:00 PM EDT Body Mass Index 34.71 01/07/2025 4:00 PM EDT Plan of Treatment Health Maintenance Due Date Last Done Comments Colonoscopy 1952 Pulmonary Function Testing 1952 Hepatitis C Antibody 1970 Tdap Booster 1970 Hepatitis A (HAV) Vaccine (optional start 19+ years) 1971 CRC Screening 1997 Cologuard (Stool DNA) 1997 FIT 1997 Shingles (RZV) Vaccine (1 of 2) 2002 Hepatitis B (HBV) Vaccine (optional start 60+ years) 2012 RSV vaccine (adult) (1 - Ris k 60-74 years 1-dose series) 2012 COVID-19 Vaccine (2023-2 5 season) 2024 10/11/2021, 01/01/2021, 12/11/2020 Annual Wellness Visit (G0439) 11/02/2024 11/13/2023 Mammography 02/26/2025 02/27/2024, 12/01, 10/12/2022, Additional history exists Basic Metabolic Panel 01/18/2026 01/18/2025 , 01/16/2025, 01/16/2025, Additional history exists Cholesterol 11/12/2026 11/12/2021 Bone Densitometry Completed 12/01/2020 Pneumococcal Vaccine(s) (50+ yrs) Completed 09/17/2024, 01/20/2023, 08/17/2021 Pap Smear Discontinued Procedures Procedure Name Priority Date/Time Associated Diagnosis Comments GLUCOSE, FINGERSTICK-IN OFFICE Routine 01/18/2025 11:52 AM EDT GLUCOSE, FINGERSTICK-IN OFFICE Routine 01/18/2025 8:00 AM EDT COMPLETE BLOOD COUNT STAT 01/18/2025 2:10 AM EDT PHOSPHORUS STAT 01/18/2025 1:05 AM EDT MAGNESIUM STAT 01/18/2025 1:05 AM EDT BASIC METABOLIC PANEL STAT 01/18/2025 1:05 AM EDT GLUCOSE, FINGERSTICK-IN OFFICE Routine 01/17/2025 8:16 PM EDT GLUCOSE, FINGERSTICK-IN OFFICE Routine 01/17/2025 5:09 PM EDT GLUCOSE, FINGERSTICK-IN OFFICE Routine 01/17/2025 11:37 AM EDT XR CHEST AP OR PA 1 VIEW STAT 01/17/2025 11:21 AM EDT GLUCOSE, FINGERSTICK-IN OFFICE Routine 01/17/2025 7:35 AM EDT PHOSPHORUS STAT 01/16/2025 11:58 PM EDT MAGNESIUM STAT 01/16/2025 11:58 PM EDT COMPLETE BLOOD COUNT STAT 01/16/2025 11:58 PM EDT BASIC METABOLIC PANEL STAT 01/16/2025 11:58 PM EDT GLUCOSE, FINGERSTICK-IN OFFICE Routine 01/16/2025 8:38 PM EDT GLUCOSE, FINGERSTICK-IN OFFICE Routine 01/16/2025 4:32 PM EDT BASIC METABOLIC PANEL Routine 01/16/2025 11:35 AM EDT GLUCOSE, FINGERSTICK-IN OFFICE Routine 01/16/2025 11:32 AM EDT GLUCOSE, FINGERSTICK-IN OFFICE Routine 01/16/2025 7:56 AM EDT PHOSPHORUS STAT 01/16/2025 12:32 AM EDT MAGNESIUM STAT 01/16/2025 12:32 AM EDT COMPLETE BLOOD COUNT STAT 01/16/2025 12:32 AM EDT BASIC METABOLIC PANEL STAT 01/16/2025 12:32 AM EDT GLUCOSE, FINGERSTICK-IN OFFICE Routine 01/15/2025 8:14 PM EDT GLUCOSE, FINGERSTICK-IN OFFICE Routine 01/15/2025 4:38 PM EDT GLUCOSE, FINGERSTICK-IN OFFICE Routine 01/15/2025 11:44 AM EDT GLUCOSE, FINGERSTICK-IN OFFICE Routine 01/15/2025 7:42 AM EDT GLUCOSE, FINGERSTICK-IN OFFICE Routine 01/15/2025 7:31 AM EDT PHOSPHORUS STAT 01/15/2025 3:37 AM EDT MAGNESIUM STAT 01/15/2025 3:37 AM EDT COMPLETE BLOOD COUNT STAT 01/15/2025 3:37 AM EDT BASIC METABOLIC PANEL STAT 01/15/2025 3:37 AM EDT GLUCOSE, FINGERSTICK-IN OFFICE Routine 01/14/2025 9:59 PM EDT GLUCOSE, FINGERSTICK-IN OFFICE Routine 01/14/2025 4:45 PM EDT GLUCOSE, FINGERSTICK-IN OFFICE Routine 01/14/2025 11:09 AM EDT GLUCOSE, FINGERSTICK-IN OFFICE Routine 01/14/2025 10:12 AM EDT GLUCOSE, FINGERSTICK-IN OFFICE Routine 01/14/2025 7:51 AM EDT GLUCOSE, FINGERSTICK-IN OFFICE Routine 01/14/2025 6:38 AM EDT GLUCOSE, FINGERSTICK-IN OFFICE Routine 01/14/2025 6:36 AM EDT XR CHEST AP OR PA 1 VIEW Routine 01/14/2025 5:55 AM EDT GLUCOSE, FINGERSTICK-IN OFFICE Routine 01/14/2025 5:53 AM EDT PHOSPHORUS STAT 01/14/2025 4:43 AM EDT MAGNESIUM STAT 01/14/2025 4:43 AM EDT COMPLETE BLOOD COUNT STAT 01/14/2025 4:43 AM EDT BASIC METABOLIC PANEL STAT 01/14/2025 4:43 AM EDT GLUCOSE, FINGERSTICK-IN OFFICE Routine 01/13/2025 9:36 PM EDT GLUCOSE, FINGERSTICK-IN OFFICE Routine 01/13/2025 4:50 PM EDT GLUCOSE, FINGERSTICK-IN OFFICE Routine 01/13/2025 8:00 AM EDT XR CHEST AP OR PA 1 VIEW STAT 01/13/2025 7:25 AM EDT PHOSPHORUS STAT 01/13/2025 3:43 AM EDT MAGNESIUM STAT 01/13/2025 3:43 AM EDT COMPLETE BLOOD COUNT STAT 01/13/2025 3:43 AM EDT BASIC METABOLIC PANEL STAT 01/13/2025 3:43 AM EDT GLUCOSE, FINGERSTICK-IN OFFICE Routine 01/13/2025 1:50 AM EDT GLUCOSE, FINGERSTICK-IN OFFICE Routine 01/12/2025 8:47 PM EDT GLUCOSE, FINGERSTICK-IN OFFICE Routine 01/12/2025 4:26 PM EDT GLUCOSE, FINGERSTICK-IN OFFICE Routine 01/12/2025 11:55 AM EDT GLUCOSE, FINGERSTICK-IN OFFICE Routine 01/12/2025 10:23 AM EDT XR CHEST AP OR PA 1 VIEW STAT 01/12/2025 7:50 AM EDT BASIC METABOLIC PANEL STAT 01/12/2025 7:43 AM EDT PHOSPHORUS STAT 01/12/2025 4:02 AM EDT MAGNESIUM STAT 01/12/2025 4:02 AM EDT COMPLETE BLOOD COUNT STAT 01/12/2025 4:02 AM EDT GLUCOSE, FINGERSTICK-IN OFFICE Routine 01/12/2025 2:38 AM EDT GLUCOSE, FINGERSTICK-IN OFFICE Routine 01/11/2025 8:27 PM EDT GLUCOSE, FINGERSTICK-IN OFFICE Routine 01/11/2025 3:20 PM EDT XR L-SPINE AP+LATERAL 2-3 VIEWS STAT 01/11/2025 2:04 PM EDT GLUCOSE, FINGERSTICK-IN OFFICE Routine 01/11/2025 1:28 PM EDT XR CHEST AP OR PA 1 VIEW Routine 01/11/2025 10:11 AM EDT GLUCOSE, FINGERSTICK-IN OFFICE Routine 01/11/2025 7:48 AM EDT BLOOD GAS, ARTERIAL Routine 01/11/2025 6 :13 AM EDT MAGNESIUM STAT 01/11/2025 2:16 AM EDT PHOSPHORUS STAT 01/11/2025 2:16 AM EDT COMPLETE BLOOD COUNT STAT 01/11/2025 2:16 AM EDT BASIC METABOLIC PANEL STAT 01/11/2025 2:16 AM EDT BLOOD GAS, ARTERIAL Routine 01/11/2025 2 :16 AM EDT GLUCOSE, FINGERSTICK-IN OFFICE Routine 01/10/2025 9:40 PM EDT BLOOD GAS, ARTERIAL STAT 01/10/2025 8 :41 PM EDT GLUCOSE, FINGERSTICK-IN OFFICE Routine 01/10/2025 4:06 PM EDT GLUCOSE, FINGERSTICK-IN OFFICE Routine 01/10/2025 11:39 AM EDT GLUCOSE, FINGERSTICK-IN OFFICE Routine 01/10/2025 6:26 AM EDT BASIC METABOLIC PANEL STAT 01/10/2025 6:18 AM EDT PHOSPHORUS STAT 01/10/2025 6:18 AM EDT MAGNESIUM STAT 01/10/2025 6:18 AM EDT COMPLETE BLOOD COUNT STAT 01/10/2025 6:18 AM EDT BLOOD GAS, ARTERIAL Routine 01/10/2025 6 :12 AM EDT XR CHEST AP OR PA 1 VIEW Routine 01/10/2025 5:58 AM EDT GLUCOSE, FINGERSTICK-IN OFFICE Routine 01/10/2025 12:36 AM EDT GLUCOSE, FINGERSTICK-IN OFFICE Routine 01/09/2025 6:24 PM EDT GLUCOSE, FINGERSTICK-IN OFFICE Routine 01/09/2025 11:34 AM EDT BASIC METABOLIC PANEL STAT 01/09/2025 9:51 AM EDT NT PRO-BNP STAT 01/09/2025 9:50 AM EDT BLOOD GAS, ARTERIAL Routine 01/09/2025 7 :56 AM EDT XR CHEST AP OR PA 1 VIEW Routine 01/09/2025 6:06 AM EDT GLUCOSE, FINGERSTICK-IN OFFICE Routine 01/09/2025 5:51 AM EDT BASIC METABOLIC PANEL Lab Add-On 01/09/2025 4:58 AM EDT CREATINE KINASE Routine 01/09/2025 4:58 AM EDT TRIGLYCERIDES Routine 01/09/2025 4:58 AM EDT MAGNESIUM STAT 01/09/2025 4:58 AM EDT COMPLETE BLOOD COUNT STAT 01/09/2025 4:58 AM EDT BLOOD GAS, ARTERIAL Routine 01/09/2025 4 :58 AM EDT GLUCOSE, FINGERSTICK-IN OFFICE Routine 01/09/2025 12:07 AM EDT GLUCOSE, FINGERSTICK-IN OFFICE Routine 01/08/2025 5:32 PM EDT BLOOD GAS, ARTERIAL STAT 01/08/2025 5 :30 PM EDT GLUCOSE, FINGERSTICK-IN OFFICE Routine 01/08/2025 12:21 PM EDT BLOOD GAS, ARTERIAL Routine 01/08/2025 7 :35 AM EDT GLUCOSE, FINGERSTICK-IN OFFICE Routine 01/08/2025 6:19 AM EDT XR CHEST AP OR PA 1 VIEW Routine 01/08/2025 3:28 AM EDT PHOSPHORUS STAT 01/08/2025 2:16 AM EDT MAGNESIUM STAT 01/08/2025 2:16 AM EDT COMPLETE BLOOD COUNT STAT 01/08/2025 2:16 AM EDT BASIC METABOLIC PANEL STAT 01/08/2025 2:16 AM EDT BLOOD GAS, ARTERIAL Routine 01/08/2025 2 :16 AM EDT GLUCOSE, FINGERSTICK-IN OFFICE Routine 01/08/2025 12:08 AM EDT COMPLETE BLOOD COUNT Routine 01/07/2025 10:59 PM EDT BLOOD GAS, ARTERIAL Routine 01/07/2025 10:58 PM EDT TRANSFUSE RED CELLS Routine 01/07/2025 8 :01 PM EDT BLOOD GAS, ARTERIAL Routine 01/07/2025 6 :49 PM EDT GLUCOSE, FINGERSTICK-IN OFFICE Routine 01/07/2025 6:18 PM EDT HC RBCS-WBC DEPLETED TRANSFUS SVC Routine 01/07/2025 3:59 PM EDT RED BLOOD CELL UNIT STATUS Routine 01/07/2025 3:58 PM EDT RESPIRATORY CULTURE, MISC Routine 01/07/2025 2:57 PM EDT MRSA SCREEN Routine 01/07/2025 2:51 PM EDT CORTISOL RANDOM Routine 01/07/2025 2:51 PM EDT HC HEPATIC FUNCTION PANEL Routine 01/07/2025 2:51 PM EDT BASIC METABOLIC PANEL Routine 01/07/2025 2:51 PM EDT LACTIC ACID Routine 01/07/2025 2:51 PM EDT COMPLETE BLOOD COUNT Routine 01/07/2025 2:51 PM EDT CREATINE KINASE Routine 01/07/2025 2:51 PM EDT ECHOCARDIOGRAM REPORT 01/07/2025 2:40 PM EDT BLOOD GAS, ARTERIAL Routine 01/07/2025 2 :06 PM EDT XR CHEST AP OR PA 1 VIEW STAT 01/07/2025 1:22 PM EDT XR ABDOMEN AP 1 VIEW Routine 01/07/2025 12:46 PM EDT XR CHEST AP OR PA 1 VIEW Routine 01/07/2025 12:40 PM EDT XR CHEST AP OR PA 1 VIEW Routine 01/07/2025 12:35 PM EDT GLUCOSE, FINGERSTICK-IN OFFICE Routine 01/07/2025 12:07 PM EDT BLOOD GAS, ARTERIAL Routine 01/07/2025 11:37 AM EDT BLOOD GAS, ARTERIAL STAT 01/07/2025 8 :31 AM EDT CREATINE KINASE Lab Add-On 01/07/2025 5:08 AM EDT BASIC METABOLIC PANEL STAT 01/07/2025 5:08 AM EDT PHOSPHORUS STAT 01/07/2025 5:08 AM EDT BLOOD GAS, ARTERIAL STAT 01/07/2025 5 :04 AM EDT GLUCOSE, FINGERSTICK-IN OFFICE Routine 01/07/2025 4:15 AM EDT PHOSPHORUS STAT 01/07/2025 3:47 AM EDT MAGNESIUM STAT 01/07/2025 3:47 AM EDT COMPLETE BLOOD COUNT STAT 01/07/2025 3:47 AM EDT BASIC METABOLIC PANEL STAT 01/07/2025 3:47 AM EDT BLOOD GAS, VENOUS STAT 01/07/2025 3:3 4 AM EDT XR SHOULDER LEFT MINIMUM 2 VIEWS STAT 01/07/2025 3:10 AM EDT XR FEMUR LEFT MINIMUM 2 VIEWS STAT 01/07/2025 3:10 AM EDT XR SHOULDER LEFT MINIMUM 2 VIEWS STAT 01/07/2025 3:10 AM EDT XR CHEST AP OR PA 1 VIEW STAT 01/07/2025 3:10 AM EDT XR ELBOW LEFT MINIMUM 3 VIEWS STAT 01/07/2025 3:10 AM EDT XR HUMERUS LEFT 2 VIEWS STAT 01/07/2025 3:10 AM EDT XR PELVIS SINGLE VIEW STAT 01/07/2025 3:09 AM EDT XR T-SPINE/L-SPINE JNCT ONLY 2 VIEWS STAT 01/07/2025 3:08 AM EDT BLOOD GAS, VENOUS STAT 01/07/2025 3:0 1 AM EDT EKG 12 LEAD - PERFORM Routine 01/07/2025 1:02 AM EDT Unspecified atrial fibrillation (HCC) Unspecified right bundle-branch block Abnormal electrocardiogram (ECG) (EKG) EKG 12 LEAD - PERFORM Routine 01/07/2025 1:02 AM EDT Unspecified atrial fibrillation (HCC) Unspecified right bundle-branch block Abnormal electrocardiogram (ECG) (EKG) CT BODY IMAGE IMPORT Routine 01/07/2025 1:[address] NEURO IMAGE IMPORT Routine 01/07/2025 1:[address] NEURO IMAGE IMPORT Routine 01/07/2025 1:[address] NEURO IMAGE IMPORT Routine 01/07/2025 12:57 AM EDT XRAY LEFT UPPER EXTREMITY IMG IMPORT(JOSE ARMANDO) Routine 01/07/2025 12:[address] NEURO IMAGE IMPORT Routine 01/07/2025 12:56 AM EDT CBC WITH DIFFERENTIAL STAT 01/07/2025 12:56 AM EDT BLOOD GAS, ARTERIAL STAT 01/07/2025 12:56 AM EDT CREATINE KINASE STAT 01/07/2025 12:56 AM EDT HIGH SENSITIVITY TROPONIN I STAT 01/07/2025 12:56 AM EDT HIV1 HIV2 AGAB SCRN STAT 01/07/2025 12:56 AM EDT TYPE AND SCREEN STAT 01/07/2025 12:56 AM EDT LACTIC ACID STAT 01/07/2025 12:56 AM EDT PROTHROMBIN TIME AND INR STAT 01/07/2025 12:56 AM EDT BASIC METABOLIC PANEL STAT 01/07/2025 12:56 AM EDT PARTIAL THROMBOPLASTIN TIME STAT 01/07/2025 12:56 AM EDT ETHANOL, SERUM STAT 01/07/2025 12:56 AM EDT COMPLETE BLOOD COUNT W/DIFF STAT 01/07/2025 12:56 AM EDT from Last 3 Months Results * (ABNORMAL) GLUCOSE, FINGERSTICK-IN OFFICE (01/18/2025 11:52 AM EDT) Glucose, POC 144(H) 74 - 109 mg/dL 01/18/2025 12:04 PM EDT NURSING GLUCOSE PROGRAM Comment:Notified RN ARIELLA BEAN<B R> Blood BLOOD SPECIMEN / Unknown 01/18/2025 11:52 AM EDT 01/18/2025 12:04 PM EDT us Shanita Chaney MD [facility] Final Result NURSING GLUCOSE PROGRAM [address] [place] [address] * (ABNORMAL) GLUCOSE, FINGERSTICK-IN OFFICE (01/18/2025 8:00 AM EDT) Glucose, POC 110(H) 74 - 109 mg/dL 01/18/2025 8:08 AM EDT NURSING GLUCOSE PROGRAM Blood BLOOD SPECIMEN / Unknown 01/18/2025 8:00 AM EDT 01/18/2025 8:08 AM EDT us Shanita Chaney MD [facility] Final Result NURSING GLUCOSE PROGRAM [address] [address] * (ABNORMAL) COMPLETE BLOOD COUNT (01/18/2025 2:10 AM EDT) WBC 12.9(H) 4.5 - 11.5 K/uL 01/18/2025 2:20 AM EDT [facility] RBC 3.59(L) 4.00 - 5.20 M/uL 01/18/2025 2:20 AM EDT [facility] Hemoglobin 9.8(L) 12.0 - 15.0 g/dL 01/18/2025 2:20 AM EDT [facility] Hematocrit 31.1(L) 36.0 - 46.0 % 01/18/2025 2:20 AM EDT [facility] MCV 87 80 - 100 fL 01/18/2025 2:20 AM EDT [facility] MCH 27.4 26.0 - 34.0 pg 01/18/2025 2:20 AM EDT [facility] MCHC 31.7(L) 32.0 - 35.9 g/dL 01/18/2025 2:20 AM EDT [facility] Platelet 328 150 - 400 K/uL 01/18/2025 2:20 AM EDT [facility] RDW-CV 21.7(H) 11.5 - 14.5 % 01/18/2025 2:20 AM EDT [facility] MPV 9.4 7.5 - 11.2 fL 01/18/2025 2:20 AM EDT [facility] Blood BLOOD SPECIMEN / Unknown Venipuncture / Unknown 01/18/2025 2:10 AM EDT 01/18/2025 2:15 AM EDT us Vanessa Doherty MD [facility] Final Result [facility] [address] [place] [address] * (ABNORMAL) BASIC METABOLIC PANEL (01/18/2025 1:05 AM EDT) Glucose 101 74 - 109 mg/dL 01/18/2025 1:49 AM EDT [facility] Sodium 147(H) 136 - 145 mmol/L 01/18/2025 1:49 AM EDT [facility] Potassium 4.9 3.5 - 5.0 mmol/L 01/18/2025 1:49 AM EDT [facility] Carbon Dioxide 29 21 - 31 mmol/L 01/18/2025 1:49 AM EDT [facility] Chloride 109(H) 98 - 107 mmol/L 01/18/2025 1:49 AM EDT [facility] Blood Urea Nitrogen 22 7 - 25 mg/dL 01/18/2025 1:49 AM EDT [facility] Creatinine 0.84 0.60 - 1.20 mg/dL 01/18/2025 1:49 AM EDT [facility] Calcium 8.4(L) 8.6 - 10.3 mg/dL 01/18/2025 1:49 AM EDT [facility] Anion Gap 14 10 - 20 01/18/2025 1:49 AM EDT [facility] Estimated GFR (CKD-EPI) 74 >=60 mL/min/1. 73sqm 01/18/2025 1:49 AM EDT [facility] Comment: 2020 CKD EPI Equation using Creatinine without Race Comment: Estimated glomerular filtration rate (eGFR) is calculated without a race coefficient. Values should be interpreted in the context of the patient's full clinical presentation. Reference: 1. Rogers C, Dereck M, Hayden DC, et al.. A Unifying Approach for GFR Estimation: Recommendations of the NKF-ASN Task Force on Reassessing the Inclusion of Race in Diagnosing Kidney Disease. [place] Journal of Kidney Diseases 2022;79(2):268- 88.e1. 2. N Engl J Med 2021 Vol. 385 Issue 19 Pages 1021-2038 Blood BLOOD SPECIMEN / Unknown Venipuncture / Unknown 01/18/2025 1:05 AM EDT 01/18/2025 1:16 AM EDT Vanessa Doherty MD 98 GENER[facility] LAB Final Result Performing Organization Address City/[facility]/ZIP Co de Phone Number [facility] [address] [place] [phone] * PHOSPHORUS (01/18/2025 1:05 AM EDT) Phosphorus, Serum 3.7 2.5 - 5.0 mg/dL 01/18/2025 1:49 AM EDT [facility] Blood BLOOD SPECIMEN / Unknown Venipuncture / Unknown 01/18/2025 1:05 AM EDT 01/18/2025 1:16 AM EDT Vanessa Doherty MD 98 GENER[facility] LAB Final Result Performing Organization Address [facility] Co de Phone Number [facility] [address] [place] [phone] * MAGNESIUM (01/18/2025 1:05 AM EDT) Magnesium 2.1 1.9 - 2.7 mg/dL 01/18/2025 1:49 AM EDT [facility] Blood BLOOD SPECIMEN / Unknown Venipuncture / Unknown 01/18/2025 1:05 AM EDT 01/18/2025 1:16 AM EDT Vanessa Doherty MD 98 [facility] LAB Final Result Performing Organization Address City/[facility] Co de Phone Number [facility] [address] [place] [phone] * (ABNORMAL) GLUCOSE, FINGERSTICK-IN OFFICE (01/17/2025 8:16 PM EDT) Glucose, POC 189(H) 74 - 109 mg/dL 01/17/2025 8:22 PM EDT NURSING GLUCOSE PROGRAM Blood BLOOD SPECIMEN / Unknown 01/17/2025 8:16 PM EDT 01/17/2025 8:22 PM EDT Shanita Chaney MD EC BACK OFFICE LABS Final Result Performing Organization Address [facility] Phone Number NURSING GLUCOSE PROGRAM [address] [place] [phone] * (ABNORMAL) GLUCOSE, FINGERSTICK-IN OFFICE (01/17/2025 5:09 PM EDT) Glucose, POC 139(H) 74 - 109 mg/dL 01/17/2025 5:15 PM EDT NURSING GLUCOSE PROGRAM Blood BLOOD SPECIMEN / Unknown 01/17/2025 5:09 PM EDT 01/17/2025 5:15 PM EDT Shanita Chaney MD EC BACK OFFICE LABS Final Result Performing Organization Address [facility] de Phone Number NURSING GLUCOSE PROGRAM [address] [place] [phone] * (ABNORMAL) GLUCOSE, FINGERSTICK-IN OFFICE (01/17/2025 11:37 AM EDT) Glucose, POC 147(H) 74 - 109 mg/dL 01/17/2025 11:44 AM EDT NURSING GLUCOSE PROGRAM Blood BLOOD SPECIMEN / Unknown 01/17/2025 11:37 AM EDT 01/17/2025 11:44 AM EDT Shanita Chaney MD EC BACK OFFICE LABS Final Result Performing Organization Address [facility] de Phone Number NURSING GLUCOSE PROGRAM [address] [place] [phone] * XR CHEST AP OR PA 1 VIEW (01/17/2025 11:21 AM EDT) Anatomical Region Laterality Modality XR Chest N/A Computed Radiogr aphy 01/17/2025 11:3 2 AM EDT Narrative 01/17/2025 11:35 AM EDT EXAMINATION: XR CHEST AP OR PA 1 VIEW 01/17/2025 11:21 AM CLINICAL HISTORY: Dyspnea at rest ASSOCIATED DIAGNOSIS: Dyspnea at rest ORDERING PROVIDER: VANESSA DOHERTY TECH[employer]OLOGISTS NOTE: COMPARISON: Compared to the prior chest x-rays dated 01/12/2025, 01/13/2025 01/14/2025. FINDINGS: Lines, tubes and devices: None. Lungs and pleura: The lung volumes are low with decreased moderate patchy bilateral perihilar, left midlung and bibasilar airspace opacity, which is greater on the left. The upper lungs are clear and interstitial markings are normal. A small to moderate right pleural effusion cannot be excluded and there is no evidence of pleural disease on the left. Cardiomediastinal silhouette: The visualized cardiac and mediastinal structures are unchanged and normal. Musculoskeletal: There is stable moderate osteopenia throughout study with moderate to marked degenerative change of the visualized shoulder joints and thoracic spine. There is a stable moderately displaced fracture of the surgical neck of the left humerus and there is stable minimally displaced inferolateral left rib fracture. The remainder of the visualized chest wall and bony thorax are unchanged and grossly normal. IMPRESSION: 1. There is decreased moderate patchy bilateral perihilar, left midlung and bibasilar atelectasis versus pneumonia, which is greater on the left. 2. A small to moderate right pleural effusion cannot be excluded. 3. There is a stable left humeral fracture and the lateral left rib fracture. 4. There is stable osteopenia and degenerative bony change throughout study. 5. The remainder of the chest is unchanged and otherwise normal. MACRO: None Procedure Note Altaf Stover MD - 01/17/2025 EXAMINATION: XR CHEST AP OR PA 1 VIEW 01/17/2025 11:21 AM CLINICAL HISTORY: Dyspnea at rest ASSOCIATED DIAGNOSIS: Dyspnea at rest ORDERING PROVIDER: VANESSA DOHERTY TECHNOLOGISTS NOTE: COMPARISON: Compared to the prior chest x-rays dated 01/12/2025, /. FINDINGS: Lines, tubes and devices: None. Lungs and pleura: The lung volumes are low with decreased moderate patchybilateral perihilar, left midlung and bibasilar airspace opacity, which isgreater on the left. The upper lungs are clear and interstitial markings are normal. A small to moderate right pleural effusion cannot be excluded and there isno evidence of pleural disease on the left. Cardiomediastinal silhouette: The visualized cardiac and mediastinalstructures are unchanged and normal. Musculoskeletal: There is stable moderate osteopenia throughout study withmoderate to marked degenerative change of the visualized shoulder jointsand thoracic spine. There is a stable moderately displaced fracture of the surgical neck ofthe left humerus and there is stable minimally displaced inferolateralleft rib fracture. The remainder of the visualized chest wall and bony thorax are unchangedand grossly normal. IMPRESSION: 1. There is decreased moderate patchy bilateral perihilar, left midlungand bibasilar atelectasis versus pneumonia, which is greater on theleft. 2. A small to moderate right pleural effusion cannot be excluded. 3. There is a stable left humeral fracture and the lateral left ribfracture. 4. There is stable osteopenia and degenerative bony change throughoutstudy. 5. The remainder of the chest is unchanged and otherwise normal. MACRO: None Vanessa Doherty MD EC DIAGNOSTIC X-RAY 2 Final Res ult * GLUCOSE, FINGERSTICK-IN OFFICE (01/17/2025 7:35 AM EDT) Glucose, POC 101 74 - 109 mg/dL 01/17/2025 7:41 AM EDT NURSING GLUCOSE PROGRAM Blood BLOOD SPECIMEN / Unknown 01/17/2025 7:35 AM EDT 01/17/2025 7:41 AM EDT Shanita Chaney MD BACK OFFICE LABS Final Result NURSING GLUCOSE PROGRAM [address] [place] [phone] * (ABNORMAL) BASIC METABOLIC PANEL (01/16/2025 11:58 PM EDT) Glucose 104 74 - 109 mg/dL 01/17/2025 1:29 AM EDT S [facility] Sodium 147(H) 136 - 145 mmol/L 01/17/2025 1:29 AM EDT S [facility] Potassium 4.8 3.5 - 5.0 mmol/L 01/17/2025 1:29 AM EDT S [facility] Carbon Dioxide 32(H) 21 - 31 mmol/L 01/17/2025 1:29 AM EDT [facility] Chloride 109(H) 98 - 107 mmol/L 01/17/2025 1:29 AM EDT [facility] Blood Urea Nitrogen 25 7 - 25 mg/dL 01/17/2025 1:29 AM EDT [facility] Creatinine 0.70 0.60 - 1.20 mg/dL 01/17/2025 1:29 AM EDT [facility] Calcium 8.3(L) 8.6 - 10.3 mg/dL 01/17/2025 1:29 AM EDT [facility] Anion Gap 11 10 - 20 01/17/2025 1:29 AM EDT [facility] Estimated GFR (CKD-EPI) 92 >=60 mL/min/1. 73sqm 01/17/2025 1:29 AM EDT [facility] Comment: 2020 CKD EPI Equation using Creatinine without Race Comment: Estimated glomerular filtration rate (eGFR) is calculated without a race coefficient. Values should be interpreted in the context of the patient's full clinical presentation. Reference: 1. Rogers C, Dereck M, Hayden SETHI, et al.. A Unifying Approach for GFR Estimation: Recommendations of the NKF-ASN Task Force on Reassessing the Inclusion of Race in Diagnosing Kidney Disease. [place] Journal of Kidney Diseases 202;79(2):268- 88.e1. 2. N Engl J Med 1 Vol. 385 Issue 19 Pages 2500-1156 Blood BLOOD SPECIMEN / Unknown 01/16/2025 11:58 PM EDT 01/17/2025 1:01 AM EDT Vanessa Doherty MD 98 GENERAL LAB Final Result [facility] [address] [place] [address] * (ABNORMAL) COMPLETE BLOOD COUNT (01/16/2025 11:58 PM EDT) WBC 13.7(H) 4.5 - 11.5 K/uL 01/17/2025 1:08 AM EDT [facility] RBC 3.25(L) 4.00 - 5.20 M/uL 01/17/2025 1:08 AM EDT [facility] Hemoglobin 8.8(L) 12.0 - 15.0 g/dL 01/17/2025 1:08 AM EDT S [facility] Hematocrit 28.4(L) 36.0 - 46.0 % 01/17/2025 1:08 AM EDT S [facility] MCV 87 80 - 100 fL 01/17/2025 1:08 AM EDT S [facility] MCH 27.2 26.0 - 34.0 pg 01/17/2025 1:08 AM EDT S [facility] MCHC 31.1(L) 32.0 - 35.9 g/dL 01/17/2025 1:08 AM EDT S [facility] Platelet 290 150 - 400 K/uL 01/17/2025 1:08 AM EDT [facility] RDW-CV 21.8(H) 11.5 - 14.5 % 01/17/2025 1:08 AM EDT [facility] MPV 8.7 7.5 - 11.2 fL 01/17/2025 1:08 AM EDT [facility] Blood BLOOD SPECIMEN / Unknown 01/16/2025 11:58 PM EDT 01/17/2025 1:01 AM EDT Vanessa Doherty MD 98 GENERAL LAB Final Result S [facility] [address] [place] [phone] * PHOSPHORUS (01/16/2025 11:58 PM EDT) Phosphorus, Serum 3.6 2.5 - 5.0 mg/dL 01/17/2025 1:28 AM EDT [facility] Blood BLOOD SPECIMEN / Unknown 01/16/2025 11:58 PM EDT 01/17/2025 1:01 AM EDT Vanessa Doherty MD 98 GENERAL LAB Final Result S [facility] [address] [place] [address] * MAGNESIUM (01/16/2025 11:58 PM EDT) Magnesium 2.1 1.9 - 2.7 mg/dL 01/17/2025 1:28 AM EDT [facility] Blood BLOOD SPECIMEN / Unknown 01/16/2025 11:58 PM EDT 01/17/2025 1:01 AM EDT Vanessa Doherty MD 98 GENERAL LAB Final Result [facility] [address] [place] [address] * (ABNORMAL) GLUCOSE, FINGERSTICK-IN OFFICE (01/16/2025 8:38 PM EDT) Glucose, POC 125(H) 74 - 109 mg/dL 01/16/2025 8:57 PM EDT NURSING GLUCOSE PROGRAM Blood BLOOD SPECIMEN / Unknown 01/16/2025 8:38 PM EDT 01/16/2025 8:57 PM EDT Shanita Chaney MD EC BACK OFFICE LABS Final Result Performing Organization Address City/[facility]/ZIP Co de Phone Number NURSING GLUCOSE PROGRAM [address] [place] [phone] * (ABNORMAL) GLUCOSE, FINGERSTICK-IN OFFICE (01/16/2025 4:32 PM EDT) Glucose, POC 139(H) 74 - 109 mg/dL 01/16/2025 4:41 PM EDT NURSING GLUCOSE PROGRAM Blood BLOOD SPECIMEN / Unknown 01/16/2025 4:32 PM EDT 01/16/2025 4:41 PM EDT Shanita Chaney MD EC BACK OFFICE LABS Final Result Performing Organization Address City/[facility]/ZIP Co de Phone Number NURSING GLUCOSE PROGRAM [address] [place] [address] * (ABNORMAL) BASIC METABOLIC PANEL (01/16/2025 11:35 AM EDT) Glucose 224(H) 74 - 109 mg/dL 01/16/2025 1:08 PM EDT [facility] Sodium 147(H) 136 - 145 mmol/L 01/16/2025 1:08 PM EDT [facility] Potassium 4.6 3.5 - 5.0 mmol/L 01/16/2025 1:08 PM EDT [facility] Carbon Dioxide 35(H) 21 - 31 mmol/L 01/16/2025 1:08 PM EDT [facility] Chloride 105 98 - 107 mmol/L 01/16/2025 1:08 PM EDT [facility] Blood Urea Nitrogen 30(H) 7 - 25 mg/dL 01/16/2025 1:08 PM EDT [facility] Creatinine 0.79 0.60 - 1.20 mg/dL 01/16/2025 1:08 PM EDT [facility] Calcium 8.1(L) 8.6 - 10.3 mg/dL 01/16/2025 1:08 PM EDT [facility] Anion Gap 12 10 - 20 01/16/2025 1:08 PM EDT [facility] Estimated GFR (CKD-EPI) 79 >=60 mL/min/1. 73sqm 01/16/2025 1:08 PM EDT [facility] Comment: 2020 CKD EPI Equation using Creatinine without Race Comment: Estimated glomerular filtration rate (eGFR) is calculated without a race coefficient. Values should be interpreted in the context of the patient's full clinical presentation. Reference: 1. Rogers C, Dereck M, Hayden DC, et al.. A Unifying Approach for GFR Estimation: Recommendations of the NKF-ASN Task Force on Reassessing the Inclusion of Race in Diagnosing Kidney Disease. [place] Journal of Kidney Diseases 2022;79(2):268- 88.e1. 2. N Engl J Med 2021 Vol. 385 Issue 19 Pages [id number] Blood BLOOD SPECIMEN / Unknown 01/16/2025 11:35 AM EDT 01/16/2025 12:15 PM EDT Vanessa Doherty MD 98 GENERAL LAB Final Result [facility] [address] [place] [address] * (ABNORMAL) GLUCOSE, FINGERSTICK-IN OFFICE (01/16/2025 11:32 AM EDT) Glucose, POC 215(H) 74 - 109 mg/dL 01/16/2025 11:38 AM EDT NURSING GLUCOSE PROGRAM Blood BLOOD SPECIMEN / Unknown 01/16/2025 11:32 AM EDT 01/16/2025 11:38 AM EDT us Shanita Chaney MD EC BACK OFFICE LABS Final Result Performing Organization Address [facility]/ZIP Co de Phone Number NURSING GLUCOSE PROGRAM [address] [place] [phone] * (ABNORMAL) GLUCOSE, FINGERSTICK-IN OFFICE (01/16/2025 7:56 AM EDT) Glucose, POC 137(H) 74 - 109 mg/dL 01/16/2025 8:02 AM EDT NURSING GLUCOSE PROGRAM Blood BLOOD SPECIMEN / Unknown 01/16/2025 7:56 AM EDT 01/16/2025 8:02 AM EDT us Shanita Chaney MD EC BACK OFFICE LABS Final Result Performing Organization Address [facility] de Phone Number NURSING GLUCOSE PROGRAM [address] [place] [phone] * (ABNORMAL) BASIC METABOLIC PANEL (01/16/2025 12:32 AM EDT) Glucose 131(H) 74 - 109 mg/dL 01/16/2025 1:10 AM EDT [facility] Sodium 150(H) 136 - 145 mmol/L 01/16/2025 1:10 AM EDT S [facility] Potassium 4.6 3.5 - 5.0 mmol/L 01/16/2025 1:10 AM EDT [facility] Carbon Dioxide 36(H) 21 - 31 mmol/L 01/16/2025 1:10 AM EDT S [facility] Chloride 110(H) 98 - 107 mmol/L 01/16/2025 1:10 AM EDT [facility] Blood Urea Nitrogen 33(H) 7 - 25 mg/dL 01/16/2025 1:10 AM EDT [facility] Creatinine 0.88 0.60 - 1.20 mg/dL 01/16/2025 1:10 AM EDT [facility] Calcium 8.5(L) 8.6 - 10.3 mg/dL 01/16/2025 1:10 AM EDT [facility] Anion Gap 9(L) 10 - 20 01/16/2025 1:10 AM EDT [facility] Estimated GFR (CKD-EPI) 70 >=60 mL/min/1. 73sqm 01/16/2025 1:10 AM EDT [facility] Comment: 2020 CKD EPI Equation using Creatinine without Race Comment: Estimated glomerular filtration rate (eGFR) is calculated without a race coefficient. Values should be interpreted in the context of the patient's full clinical presentation. Reference: 1. Rogers Velasquez, Dereck M, Hayden DC, et al.. A Unifying Approach for GFR Estimation: Recommendations of the NKF-ASN Task Force on Reassessing the Inclusion of Race in Diagnosing Kidney Disease. [place] Journal of Kidney Diseases 2022;79(2):268- 88.e1. 2. N Engl J Med 2021 Vol. 385 Issue 19 Pages 9377-1700 Blood BLOOD SPECIMEN / Unknown Venipuncture / Unknown 01/16/2025 12:32 AM EDT 01/16/2025 12:42 AM EDT Vanessa Doherty MD 98 GENERAL LAB Final Result [facility] [address] [place] [address] * (ABNORMAL) COMPLETE BLOOD COUNT (01/16/2025 12:32 AM EDT) WBC 12.9(H) 4.5 - 11.5 K/uL 01/16/2025 12:47 AM EDT [facility] RBC 3.20(L) 4.00 - 5.20 M/uL 01/16/2025 12:47 AM EDT [facility] Hemoglobin 8.7(L) 12.0 - 15.0 g/dL 01/16/2025 12:47 AM EDT S [facility] Hematocrit 27.3(L) 36.0 - 46.0 % 01/16/2025 12:47 AM EDT [facility] MCV 85 80 - 100 fL 01/16/2025 12:47 AM EDT [facility] MCH 27.3 26.0 - 34.0 pg 01/16/2025 12:47 AM EDT [facility] MCHC 32.0 32.0 - 35.9 g/dL 01/16/2025 12:47 AM EDT [facility] Platelet 298 150 - 400 K/uL 01/16/2025 12:47 AM EDT [facility] RDW-CV 20.8(H) 11.5 - 14.5 % 01/16/2025 12:47 AM EDT [facility] MPV 9.3 7.5 - 11.2 fL 01/16/2025 12:47 AM EDT [facility] Blood BLOOD SPECIMEN / Unknown Venipuncture / Unknown 01/16/2025 12:32 AM EDT 01/16/2025 12:42 AM EDT Vanessa Doherty MD 98 GENERAL LAB Final Result [facility] [address] [place], [place] [phone] * PHOSPHORUS (01/16/2025 12:32 AM EDT) Phosphorus, Serum 3.7 2.5 - 5.0 mg/dL 01/16/2025 1:10 AM EDT [facility] Blood BLOOD SPECIMEN / Unknown Venipuncture / Unknown 01/16/2025 12:32 AM EDT 01/16/2025 12:42 AM EDT Vanessa Doherty MD 98 GENERAL LAB Final Result [facility] [address] [place] [phone] * MAGNESIUM (01/16/2025 12:32 AM EDT) Magnesium 2.1 1.9 - 2.7 mg/dL 01/16/2025 1:10 AM EDT [facility] Blood BLOOD SPECIMEN / Unknown Venipuncture / Unknown 01/16/2025 12:32 AM EDT 01/16/2025 12:42 AM EDT Vanessa Doherty MD 98 GENERAL LAB Final Result Performing Organization Address City/[facility]/ZIP Co de Phone Number [facility] [address] [place] [phone] * (ABNORMAL) GLUCOSE, FINGERSTICK-IN OFFICE (01/15/2025 8:14 PM EDT) Glucose, POC 221(H) 74 - 109 mg/dL 01/15/2025 8:20 PM EDT NURSING GLUCOSE PROGRAM Comment:Notified KESHA KRISHNAN MD<B R> Blood BLOOD SPECIMEN / Unknown 01/15/2025 8:14 PM EDT 01/15/2025 8:20 PM EDT Shanita Chaney MD EC BACK OFFICE LABS Final Result Performing Organization Address [facility]/ZIP Co de Phone Number NURSING GLUCOSE PROGRAM [address] [place] [phone] * (ABNORMAL) GLUCOSE, FINGERSTICK-IN OFFICE (01/15/2025 4:38 PM EDT) Glucose, POC 163(H) 74 - 109 mg/dL 01/15/2025 4:44 PM EDT NURSING GLUCOSE PROGRAM Blood BLOOD SPECIMEN / Unknown 01/15/2025 4:38 PM EDT 01/15/2025 4:44 PM EDT us Shanita Chaney MD EC BACK OFFICE LABS Final Result Performing Organization Address City/[facility] Co de Phone Number NURSING GLUCOSE PROGRAM [address] [place] [phone] * (ABNORMAL) GLUCOSE, FINGERSTICK-IN OFFICE (01/15/2025 11:44 AM EDT) Glucose, POC 228(H) 74 - 109 mg/dL 01/15/2025 11:50 AM EDT NURSING GLUCOSE PROGRAM Blood BLOOD SPECIMEN / Unknown 01/15/2025 11:44 AM EDT 01/15/2025 11:50 AM EDT Shanita Chaney MD EC BACK OFFICE LABS Final Result Performing Organization Address [facility] Co de Phone Number NURSING GLUCOSE PROGRAM [address] [place] [phone] * (ABNORMAL) GLUCOSE, FINGERSTICK-IN OFFICE (01/15/2025 7:42 AM EDT) Glucose, POC 127(H) 74 - 109 mg/dL 01/15/2025 7:49 AM EDT NURSING GLUCOSE PROGRAM Blood BLOOD SPECIMEN / Unknown 01/15/2025 7:42 AM EDT 01/15/2025 7:49 AM EDT Cici Harris MD EC BACK OFFICE LABS Final Re sult Performing Organization Address [facility] Co de Phone Number NURSING GLUCOSE PROGRAM [address] [place] [phone] * (ABNORMAL) GLUCOSE, FINGERSTICK-IN OFFICE (01/15/2025 7:31 AM EDT) Glucose, POC 144(H) 74 - 109 mg/dL 01/15/2025 7:37 AM EDT NURSING GLUCOSE PROGRAM Blood BLOOD SPECIMEN / Unknown 01/15/2025 7:31 AM EDT 01/15/2025 7:37 AM EDT us Cici Harris MD EC BACK OFFICE LABS Final Re sult Performing Organization Address [facility] Co de Phone Number NURSING GLUCOSE PROGRAM [address] [place] [phone] * (ABNORMAL) BASIC METABOLIC PANEL (01/15/2025 3:37 AM EDT) Glucose 144(H) 74 - 109 mg/dL 01/15/2025 4:09 AM EDT [facility] Sodium 151(H) 136 - 145 mmol/L 01/15/2025 4:09 AM EDT [facility] Potassium 4.6 3.5 - 5.0 mmol/L 01/15/2025 4:09 AM EDT [facility] Carbon Dioxide 33(H) 21 - 31 mmol/L 01/15/2025 4:09 AM EDT [facility] Chloride 112(H) 98 - 107 mmol/L 01/15/2025 4:09 AM EDT [facility] Blood Urea Nitrogen 37(H) 7 - 25 mg/dL 01/15/2025 4:09 AM EDT [facility] Creatinine 0.87 0.60 - 1.20 mg/dL 01/15/2025 4:09 AM EDT [facility] Calcium 8.1(L) 8.6 - 10.3 mg/dL 01/15/2025 4:09 AM EDT [facility] Anion Gap 11 10 - 20 01/15/2025 4:09 AM EDT [facility] Estimated GFR (CKD-EPI) 71 >=60 mL/min/1. 73sqm 01/15/2025 4:09 AM EDT [facility] Comment: 2020 CKD EPI Equation using Creatinine without Race Comment: Estimated glomerular filtration rate (eGFR) is calculated without a race coefficient. Values should be interpreted in the context of the patient's full clinical presentation. Reference: 1. Rogers C, Dereck M, Hayden SETHI, et al.. A Unifying Approach for GFR Estimation: Recommendations of the NKF-ASN Task Force on Reassessing the Inclusion of Race in Diagnosing Kidney Disease. [place] Journal of Kidney Diseases 202;79(2):268- 88.e1. 2. N Engl J Med 2021 Vol. 385 Issue 19 Pages 5665-3774 Blood BLOOD SPECIMEN / Unknown Venipuncture / Unknown 01/15/2025 3:37 AM EDT 01/15/2025 3:50 AM EDT us Vanessa Doherty MD 98 GENERAL LAB Final Result [facility] [address] [place] [address] * (ABNORMAL) COMPLETE BLOOD COUNT (01/15/2025 3:37 AM EDT) WBC 13.4(H) 4.5 - 11.5 K/uL 01/15/2025 3:55 AM EDT [facility] RBC 3.26(L) 4.00 - 5.20 M/uL 01/15/2025 3:55 AM EDT [facility] Hemoglobin 9.1(L) 12.0 - 15.0 g/dL 01/15/2025 3:55 AM EDT [facility] Hematocrit 28.1(L) 36.0 - 46.0 % 01/15/2025 3:55 AM EDT [facility] MCV 86 80 - 100 fL 01/15/2025 3:55 AM EDT [facility] MCH 27.9 26.0 - 34.0 pg 01/15/2025 3:55 AM EDT [facility] MCHC 32.3 32.0 - 35.9 g/dL 01/15/2025 3:55 AM EDT [facility] Platelet 270 150 - 400 K/uL 01/15/2025 3:55 AM EDT [facility] RDW-CV 21.1(H) 11.5 - 14.5 % 01/15/2025 3:55 AM EDT [facility] MPV 9.3 7.5 - 11.2 fL 01/15/2025 3:55 AM EDT [facility] Blood BLOOD SPECIMEN / Unknown Venipuncture / Unknown 01/15/2025 3:37 AM EDT 01/15/2025 3:50 AM EDT Vanessa Doherty MD 98 GENERAL LAB Final Result [facility] [address] [place] [address] * PHOSPHORUS (01/15/2025 3:37 AM EDT) Pathologist [facility] Phosphorus, Serum 4.5 2.5 - 5.0 mg/dL 01/15/2025 4:09 AM EDT [facility] Blood BLOOD SPECIMEN / Unknown Venipuncture / Unknown 01/15/2025 3:37 AM EDT 01/15/2025 3:50 AM EDT Vanessa Doherty MD 98 GENERAL LAB Final Result Performing Organization Address City/[facility] Co de Phone Number [facility] [address] [place] [phone] * MAGNESIUM (01/15/2025 3:37 AM EDT) Magnesium 2.0 1.9 - 2.7 mg/dL 01/15/2025 4:09 AM EDT [facility] Blood BLOOD SPECIMEN / Unknown Venipuncture / Unknown 01/15/2025 3:37 AM EDT 01/15/2025 3:50 AM EDT Vanessa Doherty MD 98 GENERAL LAB Final Result Performing Organization Address [facility] Co de Phone Number [facility] [address] [place] [phone] * (ABNORMAL) GLUCOSE, FINGERSTICK-IN OFFICE (01/14/2025 9:59 PM EDT) Glucose, POC 147(H) 74 - 109 mg/dL 01/14/2025 10:08 PM EDT NURSING GLUCOSE PROGRAM Blood BLOOD SPECIMEN / Unknown 01/14/2025 9:59 PM EDT 01/14/2025 10:08 PM EDT Cici Harris MD EC BACK OFFICE LABS Final Re sult Performing Organization Address City/[facility]/ZIP Co de Phone Number NURSING GLUCOSE PROGRAM [address] [place] [phone] * GLUCOSE, FINGERSTICK-IN OFFICE (01/14/2025 4:45 PM EDT) Glucose, POC 84 74 - 109 mg/dL 01/14/2025 4:51 PM EDT NURSING GLUCOSE PROGRAM Blood BLOOD SPECIMEN / Unknown 01/14/2025 4:45 PM EDT 01/14/2025 4:51 PM EDT Cici Harris MD EC BACK OFFICE LABS Final Re sult Performing Organization Address [facility] de Phone Number NURSING GLUCOSE PROGRAM [address] [place] [phone] * (ABNORMAL) GLUCOSE, FINGERSTICK-IN OFFICE (01/14/2025 11:09 AM EDT) Glucose, POC 120(H) 74 - 109 mg/dL 01/14/2025 11:16 AM EDT NURSING GLUCOSE PROGRAM Comment:Notified KESHA KRISHNAN MD<B R> Blood BLOOD SPECIMEN / Unknown 01/14/2025 11:09 AM EDT 01/14/2025 11:16 AM EDT Cici Harris MD EC BACK OFFICE LABS Final Re sult Performing Organization Address [facility] Phone Number NURSING GLUCOSE PROGRAM [address] [place] [phone] * (ABNORMAL) GLUCOSE, FINGERSTICK-IN OFFICE (01/14/2025 10:12 AM EDT) Glucose, POC 126(H) 74 - 109 mg/dL 01/14/2025 10:18 AM EDT NURSING GLUCOSE PROGRAM Comment:Notified KESHA KRISHNAN MD<B R> Blood BLOOD SPECIMEN / Unknown 01/14/2025 10:12 AM EDT 01/14/2025 10:18 AM EDT Cici Harris MD EC BACK OFFICE LABS Final Re sult Performing Organization Address [facility] de Phone Number NURSING GLUCOSE PROGRAM [address] [place] [phone] * (ABNORMAL) GLUCOSE, FINGERSTICK-IN OFFICE (01/14/2025 7:51 AM EDT) Glucose, POC 67(L) 74 - 109 mg/dL 01/14/2025 7:58 AM EDT NURSING GLUCOSE PROGRAM Comment:Notified KESHA KRISHNAN MD<B R> Blood BLOOD SPECIMEN / Unknown 01/14/2025 7:51 AM EDT 01/14/2025 7:58 AM EDT Cici Harris MD EC BACK OFFICE LABS Final Re sult Performing Organization Address [facility] de Phone Number NURSING GLUCOSE PROGRAM [address] [place] [phone] * GLUCOSE, FINGERSTICK-IN OFFICE (01/14/2025 6:38 AM EDT) Glucose, POC 83 74 - 109 mg/dL 01/14/2025 6:44 AM EDT NURSING GLUCOSE PROGRAM Blood BLOOD SPECIMEN / Unknown 01/14/2025 6:38 AM EDT 01/14/2025 6:44 AM EDT Cici Harris MD EC BACK OFFICE LABS Final Re sult Performing Organization Address [facility] Phone Number NURSING GLUCOSE PROGRAM [address] [place] [phone] * GLUCOSE, FINGERSTICK-IN OFFICE (01/14/2025 6:36 AM EDT) Glucose, POC 85 74 - 109 mg/dL 01/14/2025 6:44 AM EDT NURSING GLUCOSE PROGRAM Blood BLOOD SPECIMEN / Unknown 01/14/2025 6:36 AM EDT 01/14/2025 6:44 AM EDT Cici Harris MD EC BACK OFFICE LABS Final Re sult Performing Organization Address [facility] de Phone Number NURSING GLUCOSE PROGRAM [address] [place] [phone] * XR CHEST AP OR PA 1 VIEW (01/14/2025 5:55 AM EDT) Anatomical Region Laterality Modality XR Chest N/A Computed Radiogr aphy 01/14/2025 10:2 6 AM EDT Narrative 01/14/2025 10:26 AM EDT EXAMINATION: XR CHEST AP OR PA 1 VIEW 01/14/2025 05:55 AM CLINICAL HISTORY: Dyspnea at rest ASSOCIATED DIAGNOSIS: Dyspnea at rest ORDERING PROVIDER: MARA CACERES TECHNOLOGISTS NOTE: COMPARISON: XR CHEST AP OR PA 1 VIEW 01/13/2025, 7:35 AM FINDINGS: Lines, tubes, and devices: EKG leads overlie the chest. Lungs and pleura: Moderate right, small left pleural effusions. Pulmonary edema is noted. No pneumothorax. Cardiomediastinal silhouette: Cardiomegaly Musculoskeletal: Degenerative spurring within the thoracic spine. IMPRESSION: Cardiomegaly with pulmonary edema, right greater than left pleural effusions. MACRO: None Procedure Note Tung Kong MD - 01/14/2025 EXAMINATION: XR CHEST AP OR PA 1 VIEW 01/14/2025 05:55 AM CLINICAL HISTORY: Dyspnea at rest ASSOCIATED DIAGNOSIS: Dyspnea at rest ORDERING PROVIDER: MARA CACERES TECHNCAITIE NOTE: COMPARISON: XR CHEST AP OR PA 1 VIEW 01/13/2025, 7:35 AM FINDINGS: Lines, tubes, and devices: EKG leads overlie the chest. Lungs and pleura: Moderate right, small left pleural effusions. Pulmonaryedema is noted. No pneumothorax. Cardiomediastinal silhouette: Cardiomegaly Musculoskeletal: Degenerative spurring within the thoracic spine. IMPRESSION: Cardiomegaly with pulmonary edema, right greater than left pleuraleffusions. MACRO: None Mara Caceres MD EC DIAGNOSTIC X-RAY 2 Final Resu lt * (ABNORMAL) GLUCOSE, FINGERSTICK-IN OFFICE (01/14/2025 5:53 AM EDT) Glucose, POC 118(H) 74 - 109 mg/dL 01/14/2025 5:59 AM EDT NURSING GLUCOSE PROGRAM Blood BLOOD SPECIMEN / Unknown 01/14/2025 5:53 AM EDT 01/14/2025 5:59 AM EDT Cici Harris MD EC BACK OFFICE LABS Final Re sult NURSING GLUCOSE PROGRAM [address] [place] [phone] * (ABNORMAL) BASIC METABOLIC PANEL (01/14/2025 4:43 AM EDT) Glucose 54(LL) 74 - 109 mg/dL 01/14/2025 5:19 AM EDT [facility] Sodium 151(H) 136 - 145 mmol/L 01/14/2025 5:19 AM EDT [facility] Potassium 4.1 3.5 - 5.0 mmol/L 01/14/2025 5:19 AM EDT [facility] Carbon Dioxide 34(H) 21 - 31 mmol/L 01/14/2025 5:19 AM EDT [facility] Chloride 112(H) 98 - 107 mmol/L 01/14/2025 5:19 AM EDT [facility] Blood Urea Nitrogen 51(H) 7 - 25 mg/dL 01/14/2025 5:19 AM EDT [facility] Creatinine 0.96 0.60 - 1.20 mg/dL 01/14/2025 5:19 AM EDT [facility] Calcium 8.3(L) 8.6 - 10.3 mg/dL 01/14/2025 5:19 AM EDT [facility] Anion Gap 9(L) 10 - 20 01/14/2025 5:19 AM EDT [facility] Estimated GFR (CKD-EPI) 63 >=60 mL/min/1. 73sqm 01/14/2025 5:19 AM EDT [facility] Comment: 2020 CKD EPI Equation using Creatinine without Race Comment: Estimated glomerular filtration rate (eGFR) is calculated without a race coefficient. Values should be interpreted in the context of the patient's full clinical presentation. Reference: 1. Rogers C, Dereck M, Hayden SETHI, et al.. A Unifying Approach for GFR Estimation: Recommendations of the NKF-ASN Task Force on Reassessing the Inclusion of Race in Diagnosing Kidney Disease. [place] Journal of Kidney Diseases 202;79(2):268- 88.e1. 2. N Engl J Med 2021 Vol. 385 Issue 19 Pages 6676-0947 Blood BLOOD SPECIMEN / Unknown Venipuncture / Unknown 01/14/2025 4:43 AM EDT 01/14/2025 4:52 AM EDT Vanessa Doherty MD 98 GENERAL LAB Final Result [facility] [address] [place] [address] * (ABNORMAL) COMPLETE BLOOD COUNT (01/14/2025 4:43 AM EDT) WBC 15.0(H) 4.5 - 11.5 K/uL 01/14/2025 4:57 AM EDT S PATHOLOGY LABORATORY RBC 3.23(L) 4.00 - 5.20 M/uL 01/14/2025 4:57 AM EDT [facility] Hemoglobin 9.1(L) 12.0 - 15.0 g/dL 01/14/2025 4:57 AM EDT [facility] Hematocrit 27.8(L) 36.0 - 46.0 % 01/14/2025 4:57 AM EDT [facility] MCV 86 80 - 100 fL 01/14/2025 4:57 AM EDT [facility] MCH 28.2 26.0 - 34.0 pg 01/14/2025 4:57 AM EDT [facility] MCHC 32.7 32.0 - 35.9 g/dL 01/14/2025 4:57 AM EDT [facility] Platelet 259 150 - 400 K/uL 01/14/2025 4:57 AM EDT [facility] RDW-CV 20.9(H) 11.5 - 14.5 % 01/14/2025 4:57 AM EDT [facility] MPV 9.3 7.5 - 11.2 fL 01/14/2025 4:57 AM EDT [facility] Blood BLOOD SPECIMEN / Unknown Venipuncture / Unknown 01/14/2025 4:43 AM EDT 01/14/2025 4:52 AM EDT us Vanessa Doherty MD 98 GENERAL LAB Final Result [facility] [address] [place] [address] * PHOSPHORUS (01/14/2025 4:43 AM EDT) Phosphorus, Serum 5.0 2.5 - 5.0 mg/dL 01/14/2025 5:17 AM EDT [facility] Blood BLOOD SPECIMEN / Unknown Venipuncture / Unknown 01/14/2025 4:43 AM EDT 01/14/2025 4:52 AM EDT Vanessa Doherty MD 98 GENERAL LAB Final Result [facility] [address] [place] [phone] * MAGNESIUM (01/14/2025 4:43 AM EDT) Magnesium 2.0 1.9 - 2.7 mg/dL 01/14/2025 5:17 AM EDT [facility] Blood BLOOD SPECIMEN / Unknown Venipuncture / Unknown 01/14/2025 4:43 AM EDT 01/14/2025 4:52 AM EDT Vanessa Doherty MD 98 GENERAL LAB Final Result Performing Organization Address City/[facility]/ZIP Co de Phone Number [facility] [address] [place] [phone] * GLUCOSE, FINGERSTICK-IN OFFICE (01/13/2025 9:36 PM EDT) Glucose, POC 96 74 - 109 mg/dL 01/13/2025 9:42 PM EDT NURSING GLUCOSE PROGRAM Blood BLOOD SPECIMEN / Unknown 01/13/2025 9:36 PM EDT 01/13/2025 9:42 PM EDT Cici Harris MD EC BACK OFFICE LABS Final Re sult NURSING GLUCOSE PROGRAM [address] [place] [phone] * (ABNORMAL) GLUCOSE, FINGERSTICK-IN OFFICE (01/13/2025 4:50 PM EDT) Glucose, POC 159(H) 74 - 109 mg/dL 01/13/2025 4:56 PM EDT NURSING GLUCOSE PROGRAM Blood BLOOD SPECIMEN / Unknown 01/13/2025 4:50 PM EDT 01/13/2025 4:56 PM EDT Cici Harris MD EC BACK OFFICE LABS Final Re sult Performing Organization Address [facility] Co de Phone Number NURSING GLUCOSE PROGRAM [address] [place], [place] [phone] * GLUCOSE, FINGERSTICK-IN OFFICE (01/13/2025 8:00 AM EDT) Glucose, POC 81 74 - 109 mg/dL 01/13/2025 8:07 AM EDT NURSING GLUCOSE PROGRAM Blood BLOOD SPECIMEN / Unknown 01/13/2025 8:00 AM EDT 01/13/2025 8:07 AM EDT Cici Harris MD EC BACK OFFICE LABS Final Re sult Performing Organization Address [facility] de Phone Number NURSING GLUCOSE PROGRAM [address] [place], [place] [phone] * XR CHEST AP OR PA 1 VIEW (01/13/2025 7:25 AM EDT) Anatomical Region Laterality Modality XR Chest N/A Computed Radiogr aphy 01/13/2025 7:37 AM EDT Narrative 01/13/2025 1:26 PM EDT EXAMINATION: XR CHEST AP OR PA 1 VIEW 01/13/2025 07:25 AM CLINICAL HISTORY: Dyspnea at rest ASSOCIATED DIAGNOSIS: Dyspnea at rest ORDERING PROVIDER: MARA CACERES TECHNOLOGISTS NOTE: COMPARISON: XR CHEST AP OR PA 1 VIEW 01/12/2025, XR CHEST AP OR PA 1 VIEW 01/11/2025 FINDINGS: Lines, tubes, and devices: Telemetry leads overlying the chest. Lungs and pleura: Bilateral pleural effusions are noted with blunting of costophrenic angles. Central congestion is noted main pulmonary arteries are prominent related to chronic pulmonary hypertension. Findings are suggestive of cardiac decompensation and fluid overload. Cardiomediastinal silhouette: Cardiomegaly Musculoskeletal: Osteopenia. Redemonstration of a transverse fracture of the left humeral surgical neck. IMPRESSION: Prominent central pulmonary vessels. Pleural fusions are noted in the bases pulmonary hypertension and congestion. No significant change. MACRO: None I have personally reviewed the images and agree with the resident's interpretation. Procedure Note Nacho Potts MD - 01/13/2025 EXAMINATION: XR CHEST AP OR PA 1 VIEW 01/13/2025 07:25 AM CLINICAL HISTORY: Dyspnea at rest ASSOCIATED DIAGNOSIS: Dyspnea at rest ORDERING PROVIDER: MARA CACERES TECHNOLOGISTS NOTE: COMPARISON: XR CHEST AP OR PA 1 VIEW 01/12/2025, XR CHEST AP OR PA 1 VIEW01/11/2025 FINDINGS: Lines, tubes, and devices: Telemetry leads overlying the chest. Lungs and pleura: Bilateral pleural effusions are noted with blunting ofcostophrenic angles. Central congestion is noted main pulmonary arteriesare prominent related to chronic pulmonary hypertension. Findings aresuggestive of cardiac decompensation and fluid overload. Cardiomediastinal silhouette: Cardiomegaly Musculoskeletal: Osteopenia. Redemonstration of a transverse fracture ofthe left humeral surgical neck. IMPRESSION: Prominent central pulmonary vessels. Pleural fusions are noted in thebases pulmonary hypertension and congestion. No significant change. MACRO: None I have personally reviewed the images and agree with the resident'sinterpretation. us Mara Caceres MD EC DIAGNOSTIC X-RAY 2 Final Resu lt * (ABNORMAL) BASIC METABOLIC PANEL (01/13/2025 3:43 AM EDT) Glucose 72(L) 74 - 109 mg/dL 01/13/2025 4:24 AM EDT [facility] Sodium 150(H) 136 - 145 mmol/L 01/13/2025 4:24 AM EDT [facility] Potassium 4.2 3.5 - 5.0 mmol/L 01/13/2025 4:24 AM EDT [facility] Carbon Dioxide 36(H) 21 - 31 mmol/L 01/13/2025 4:24 AM EDT [facility] Chloride 109(H) 98 - 107 mmol/L 01/13/2025 4:24 AM EDT [facility] Blood Urea Nitrogen 65(H) 7 - 25 mg/dL 01/13/2025 4:24 AM EDT [facility] Creatinine 1.20 0.60 - 1.20 mg/dL 01/13/2025 4:24 AM EDT [facility] Calcium 8.8 8.6 - 10.3 mg/dL 01/13/2025 4:24 AM EDT [facility] Anion Gap 9(L) 10 - 20 01/13/2025 4:24 AM EDT [facility] Estimated GFR (CKD-EPI) 48(L) >=60 mL/min/1. 73sqm 01/13/2025 4:24 AM EDT [facility] Comment: 2020 CKD EPI Equation using Creatinine without Race Comment: Estimated glomerular filtration rate (eGFR) is calculated without a race coefficient. Values should be interpreted in the context of the patient's full clinical presentation. Reference: 1. Rogers C, Dereck M, Hayden SETHI, et al.. A Unifying Approach for GFR Estimation: Recommendations of the NKF-ASN Task Force on Reassessing the Inclusion of Race in Diagnosing Kidney Disease. [place] Journal of Kidney Diseases 202;79(2):268- 88.e1. 2. N Engl J Med 1 Vol. 385 Issue 19 Pages 1220-3203 Blood BLOOD SPECIMEN / Unknown Venipuncture / Unknown 01/13/2025 3:43 AM EDT 01/13/2025 3:53 AM EDT Vanessa Doherty MD 98 GENERAL LAB Final Result [facility] [address] [place] [address] * (ABNORMAL) COMPLETE BLOOD COUNT (01/13/2025 3:43 AM EDT) WBC 16.4(H) 4.5 - 11.5 K/uL 01/13/2025 3:57 AM EDT [facility] RBC 3.26(L) 4.00 - 5.20 M/uL 01/13/2025 3:57 AM EDT [facility] Hemoglobin 8.9(L) 12.0 - 15.0 g/dL 01/13/2025 3:57 AM EDT [facility] Hematocrit 28.5(L) 36.0 - 46.0 % 01/13/2025 3:57 AM EDT S PATHOLOGY LABORATORY MCV 88 80 - 100 fL 01/13/2025 3:57 AM EDT S PATHOLOGY LABORATORY MCH 27.4 26.0 - 34.0 pg 01/13/2025 3:57 AM EDT [facility] MCHC 31.3(L) 32.0 - 35.9 g/dL 01/13/2025 3:57 AM EDT S PATH[facility]Y LABORATORY Platelet 249 150 - 400 K/uL 01/13/2025 3:57 AM EDT [facility] RDW-CV 20.1(H) 11.5 - 14.5 % 01/13/2025 3:57 AM EDT [facility] MPV 9.7 7.5 - 11.2 fL 01/13/2025 3:57 AM EDT [facility] Blood BLOOD SPECIMEN / Unknown Venipuncture / Unknown 01/13/2025 3:43 AM EDT 01/13/2025 3:53 AM EDT Vanessa Doherty MD 98 GENERAL LAB Final Result [facility] [address] [place] [phone] * PHOSPHORUS (01/13/2025 3:43 AM EDT) Phosphorus, Serum 4.5 2.5 - 5.0 mg/dL 01/13/2025 4:23 AM EDT [facility] Blood BLOOD SPECIMEN / Unknown Venipuncture / Unknown 01/13/2025 3:43 AM EDT 01/13/2025 3:53 AM EDT Vanessa Doherty MD 98 GENERAL LAB Final Result [facility] [address] [place] [phone] * MAGNESIUM (01/13/2025 3:43 AM EDT) Magnesium 2.1 1.9 - 2.7 mg/dL 01/13/2025 4:23 AM EDT [facility] Blood BLOOD SPECIMEN / Unknown Venipuncture / Unknown 01/13/2025 3:43 AM EDT 01/13/2025 3:53 AM EDT us Vanessa Doherty MD 98 GENERAL LAB Final Result Performing Organization Address [facility] Co de Phone Number [facility] [address] [place] [phone] * GLUCOSE, FINGERSTICK-IN OFFICE (01/13/2025 1:50 AM EDT) Glucose, POC 93 74 - 109 mg/dL 01/13/2025 1:57 AM EDT NURSING GLUCOSE PROGRAM Blood BLOOD SPECIMEN / Unknown 01/13/2025 1:50 AM EDT 01/13/2025 1:57 AM EDT us To Be Assigned EC BACK OFFICE LABS Final Result Performing Organization Address [facility] Co de Phone Number NURSING GLUCOSE PROGRAM [address] [place] [phone] * (ABNORMAL) GLUCOSE, FINGERSTICK-IN OFFICE (01/12/2025 8:47 PM EDT) Glucose, POC 188(H) 74 - 109 mg/dL 01/12/2025 9:03 PM EDT NURSING GLUCOSE PROGRAM Blood BLOOD SPECIMEN / Unknown 01/12/2025 8:47 PM EDT 01/12/2025 9:03 PM EDT us To Be Assigned EC BACK OFFICE LABS Final Result Performing Organization Address [facility] Co de Phone Number NURSING GLUCOSE PROGRAM [address] [place] [phone] * (ABNORMAL) GLUCOSE, FINGERSTICK-IN OFFICE (01/12/2025 4:26 PM EDT) Glucose, POC 225(H) 74 - 109 mg/dL 01/13/2025 5:45 AM EDT NURSING GLUCOSE PROGRAM Blood BLOOD SPECIMEN / Unknown 01/12/2025 4:26 PM EDT 01/13/2025 5:45 AM EDT us To Be Assigned EC BACK OFFICE LABS Final Result Performing Organization Address [facility] de Phone Number NURSING GLUCOSE PROGRAM [address] [place] [phone] * (ABNORMAL) GLUCOSE, FINGERSTICK-IN OFFICE (01/12/2025 11:55 AM EDT) Glucose, POC 260(H) 74 - 109 mg/dL 01/12/2025 12:11 PM EDT NURSING GLUCOSE PROGRAM Blood BLOOD SPECIMEN / Unknown 01/12/2025 11:55 AM EDT 01/12/2025 12:11 PM EDT us To Be Assigned EC BACK OFFICE LABS Final Result Performing Organization Address [facility] de Phone Number NURSING GLUCOSE PROGRAM [address] [place] [phone] * (ABNORMAL) GLUCOSE, FINGERSTICK-IN OFFICE (01/12/2025 10:23 AM EDT) Glucose, POC 247(H) 74 - 109 mg/dL 01/12/2025 10:29 AM EDT NURSING GLUCOSE PROGRAM Blood BLOOD SPECIMEN / Unknown 01/12/2025 10:23 AM EDT 01/12/2025 10:29 AM EDT us To Be Assigned EC BACK OFFICE LABS Final Result Performing Organization Address [facility] de Phone Number NURSING GLUCOSE PROGRAM [address] [place] [phone] * XR CHEST AP OR PA 1 VIEW (01/12/2025 7:50 AM EDT) Anatomical Region Laterality Modality XR Chest N/A Computed Radiogr aphy 01/12/2025 8:21 AM EDT Narrative 01/12/2025 8:30 AM EDT EXAMINATION: XR CHEST AP OR PA 1 VIEW 01/12/2025 07:50 AM CLINICAL HISTORY: COPD exacerbation ASSOCIATED DIAGNOSIS: COPD exacerbation ORDERING PROVIDER: MARA CACERES COMPARISON: XR CHEST AP OR PA 1 VIEW 01/10/2025, 5:59 AM XR CHEST AP OR PA 1 VIEW 01/10/2025, 5:59 AM XR CHEST AP OR PA 1 VIEW 01/09/2025, 6:06 AM FINDINGS: Lines, tubes, and devices: Enteric feeding tube with similar position, tip projecting towards the fundus. Lungs and pleura: Similar blunting of the bilateral costophrenic angles consistent with small to moderate right and small left pleural effusion. Dependent atelectatic opacities in the bilateral lower lungs. Mild pulmonary vascular congestion. No sizable pneumothorax. Cardiomediastinal silhouette: Stable appearance of cardiomediastinal silhouette with bilateral hilar enlargement, likely corresponding to pulmonary arterial enlargement. Musculoskeletal: Unchanged. IMPRESSION: 1. Mild pulmonary vascular congestion. Given the enlarged cardiac silhouette, this may represent component of congestive heart failure. 2. Bilateral pleural effusions small to moderate right and small left pleural effusion with dependent atelectatic opacities, not significantly changed since prior radiograph on 01/11/2025. I have personally reviewed the images and agree with the resident's interpretation. Procedure Note Renaldo Reyes MD - 01/12/2025 EXAMINATION: XR CHEST AP OR PA 1 VIEW 01/12/2025 07:50 AM CLINICAL HISTORY: COPD exacerbation ASSOCIATED DIAGNOSIS: COPD exacerbation ORDERING PROVIDER: MARA CACERES COMPARISON: XR CHEST AP OR PA 1 VIEW 01/10/2025, 5:59 AM XR CHEST AP OR PA1 VIEW 01/10/2025, 5:59 AM XR CHEST AP OR PA 1 VIEW 01/09/2025, 6:06 AM FINDINGS: Lines, tubes, and devices: Enteric feeding tube with similar position, tipprojecting towards the fundus. Lungs and pleura: Similar blunting of the bilateral costophrenic anglesconsistent with small to moderate right and small left pleural effusion.Dependent atelectatic opacities in the bilateral lower lungs. Mildpulmonary vascular congestion. No sizable pneumothorax. Cardiomediastinal silhouette: Stable appearance of cardiomediastinalsilhouette with bilateral hilar enlargement, likely corresponding topulmonary arterial enlargement. Musculoskeletal: Unchanged. IMPRESSION: 1. Mild pulmonary vascular congestion. Given the enlarged cardiacsilhouette, this may represent component of congestive heart failure. 2. Bilateral pleural effusions small to moderate right and small leftpleural effusion with dependent atelectatic opacities, not significantlychanged since prior radiograph on 01/11/2025. I have personally reviewed the images and agree with the resident'sinterpretation. us Mara Caceres MD EC DIAGNOSTIC X-RAY 2 Final Resu lt * (ABNORMAL) BASIC METABOLIC PANEL (01/12/2025 7:43 AM EDT) Glucose 231(H) 74 - 109 mg/dL 01/12/2025 8:16 AM EDT [facility] Sodium 144 136 - 145 mmol/L 01/12/2025 8:16 AM EDT [facility] Potassium 4.7 3.5 - 5.0 mmol/L 01/12/2025 8:16 AM EDT [facility] Carbon Dioxide 34(H) 21 - 31 mmol/L 01/12/2025 8:16 AM EDT [facility] Chloride 108(H) 98 - 107 mmol/L 01/12/2025 8:16 AM EDT [facility] Blood Urea Nitrogen 66(H) 7 - 25 mg/dL 01/12/2025 8:16 AM EDT [facility] Creatinine 1.13 0.60 - 1.20 mg/dL 01/12/2025 8:16 AM EDT [facility] Calcium 8.9 8.6 - 10.3 mg/dL 01/12/2025 8:16 AM EDT [facility] Anion Gap 7(L) 10 - 20 01/12/2025 8:16 AM EDT [facility] Estimated GFR (CKD-EPI) 52(L) >=60 mL/min/1. 73sqm 01/12/2025 8:16 AM EDT [facility] Comment: 2020 CKD EPI Equation using Creatinine without Race Comment: Estimated glomerular filtration rate (eGFR) is calculated without a race coefficient. Values should be interpreted in the context of the patient's full clinical presentation. Reference: 1. Rogers Velasquez, Dereck M, Hayden DC, et al.. A Unifying Approach for GFR Estimation: Recommendations of the NKF-ASN Task Force on Reassessing the Inclusion of Race in Diagnosing Kidney Disease. [place] Journal of Kidney Diseases 202;79(2):268- 88.e1. 2. N Engl J Med 2021 Vol. 385 Issue 19 Pages 3536-7522 Blood BLOOD SPECIMEN / Unknown Venipuncture / Unknown 01/12/2025 7:43 AM EDT 01/12/2025 7:52 AM EDT Mara Caceres MD 98 GENERAL LAB Final Result [facility] [address] [place] [address] * (ABNORMAL) COMPLETE BLOOD COUNT (01/12/2025 4:02 AM EDT) WBC 15.1(H) 4.5 - 11.5 K/uL 01/12/2025 4:14 AM EDT [facility] RBC 3.24(L) 4.00 - 5.20 M/uL 01/12/2025 4:14 AM EDT [facility] Hemoglobin 8.9(L) 12.0 - 15.0 g/dL 01/12/2025 4:14 AM EDT [facility] Hematocrit 27.6(L) 36.0 - 46.0 % 01/12/2025 4:14 AM EDT [facility] MCV 85 80 - 100 fL 01/12/2025 4:14 AM EDT [facility] MCH 27.5 26.0 - 34.0 pg 01/12/2025 4:14 AM EDT [facility] MCHC 32.3 32.0 - 35.9 g/dL 01/12/2025 4:14 AM EDT [facility] Platelet 216 150 - 400 K/uL 01/12/2025 4:14 AM EDT [facility] RDW-CV 20.2(H) 11.5 - 14.5 % 01/12/2025 4:14 AM EDT [facility] MPV 9.6 7.5 - 11.2 fL 01/12/2025 4:14 AM EDT [facility] Blood BLOOD SPECIMEN / Unknown Venipuncture / Unknown 01/12/2025 4:02 AM EDT 01/12/2025 4:09 AM EDT Vanessa Doherty MD 98 GENERAL LAB Final Result Performing Organization Address City/[place] [facility]/ZIP Co de Phone Number [facility] [address] [place] [phone] * PHOSPHORUS (01/12/2025 4:02 AM EDT) Phosphorus, Serum 3.9 2.5 - 5.0 mg/dL 01/12/2025 4:35 AM EDT [facility] Blood BLOOD SPECIMEN / Unknown Venipuncture / Unknown 01/12/2025 4:02 AM EDT 01/12/2025 4:09 AM EDT Vanessa Doherty MD 98 GENERAL LAB Final Result Performing Organization Address [facility] Co de Phone Number [facility] [address] [place] [phone] * MAGNESIUM (01/12/2025 4:02 AM EDT) Magnesium 2.1 1.9 - 2.7 mg/dL 01/12/2025 4:35 AM EDT [facility] Blood BLOOD SPECIMEN / Unknown Venipuncture / Unknown 01/12/2025 4:02 AM EDT 01/12/2025 4:09 AM EDT Vanessa Doherty MD 98 GENERAL LAB Final Result Performing Organization Address City/[facility] Co de Phone Number [facility] [address] [place] [phone] * (ABNORMAL) GLUCOSE, FINGERSTICK-IN OFFICE (01/12/2025 2:38 AM EDT) Glucose, POC 219(H) 74 - 109 mg/dL 01/12/2025 2:44 AM EDT NURSING GLUCOSE PROGRAM Blood BLOOD SPECIMEN / Unknown 01/12/2025 2:38 AM EDT 01/12/2025 2:44 AM EDT us To Be Assigned EC BACK OFFICE LABS Final Result Performing Organization Address [facility] de Phone Number NURSING GLUCOSE PROGRAM [address] [place] [phone] * (ABNORMAL) GLUCOSE, FINGERSTICK-IN OFFICE (01/11/2025 8:27 PM EDT) Glucose, POC 226(H) 74 - 109 mg/dL 01/11/2025 8:34 PM EDT NURSING GLUCOSE PROGRAM Blood BLOOD SPECIMEN / Unknown 01/11/2025 8:27 PM EDT 01/11/2025 8:34 PM EDT us To Be Assigned EC BACK OFFICE LABS Final Result Performing Organization Address [facility] de Phone Number NURSING GLUCOSE PROGRAM [address] [place] [phone] * (ABNORMAL) GLUCOSE, FINGERSTICK-IN OFFICE (01/11/2025 3:20 PM EDT) Glucose, POC 217(H) 74 - 109 mg/dL 01/11/2025 3:26 PM EDT NURSING GLUCOSE PROGRAM Comment:Notified RN ARIELLA BEAN<B R> Blood BLOOD SPECIMEN / Unknown 01/11/2025 3:20 PM EDT 01/11/2025 3:26 PM EDT us To Be Assigned EC BACK OFFICE LABS Final Result Performing Organization Address [facility] de Phone Number NURSING GLUCOSE PROGRAM [address] [place] [phone] * XR L-SPINE AP+LATERAL 2-3 VIEWS (01/11/2025 2:04 PM EDT) Anatomical Region Laterality Modality XR L- Spine, L-spine N/A Computed Ra diography 01/11/2025 2:06 PM EDT Narrative 01/11/2025 2:12 PM EDT EXAMINATION: XR L-SPINE AP+LATERAL 2-3 VIEWS 01/11/2025 02:04 PM CLINICAL HISTORY: Seated uprights ASSOCIATED DIAGNOSIS: ORDERING PROVIDER: JESSICA HE NOTE: Best images possible due to patient condition and body habitus COMPARISON: XR T-SPINE/L-SPINE JNCT ONLY 2 VIEWS 01/07/2025, 3:09 AM FINDINGS: Partially imaged enteric feeding tube with the tip projecting over gastric body. Lumbar levoscoliosis. L1-L5 multilevel vertebral body height loss/mild compression fractures. Grade 1 anterolisthesis of L4 and L5. Bones are demineralized. There are moderate multilevel degenerative changes. Vascular calcifications. Partially imaged total hip arthroplasty. IMPRESSION: L1-L5 vertebral body mild height loss/compression fractures. Procedure Note Renaldo Reyes MD - 01/11/2025 EXAMINATION: XR L-SPINE AP+LATERAL 2-3 VIEWS 01/11/2025 02:04 PM CLINICAL HISTORY: Seated uprights ASSOCIATED DIAGNOSIS: ORDERING PROVIDER: JESSICA HE NOTE: Best images possible due to patient condition andbody habitus COMPARISON: XR T-SPINE/L-SPINE JNCT ONLY 2 VIEWS 01/07/2025, 3:09 AM FINDINGS: Partially imaged enteric feeding tube with the tip projecting over gastricbody. Lumbar levoscoliosis. L1-L5 multilevel vertebral body height loss/mildcompression fractures. Grade 1 anterolisthesis of L4 and L5. Bones aredemineralized. There are moderate multilevel degenerative changes. Vascular calcifications. Partially imaged total hip arthroplasty. IMPRESSION: L1-L5 vertebral body mild height loss/compression fractures. us Jessica Almodovar MD EC DIAGNOSTIC X-RAY Final Result * (ABNORMAL) GLUCOSE, FINGERSTICK-IN OFFICE (01/11/2025 1:28 PM EDT) Glucose, POC 205(H) 74 - 109 mg/dL 01/11/2025 1:35 PM EDT NURSING GLUCOSE PROGRAM Comment:Notified KESHA KRISHNAN MD<B R> Blood BLOOD SPECIMEN / Unknown 01/11/2025 1:28 PM EDT 01/11/2025 1:35 PM EDT us To Be Assigned EC BACK OFFICE LABS Final Result NURSING GLUCOSE PROGRAM [address] [place] [phone] * XR CHEST AP OR PA 1 VIEW (01/11/2025 10:11 AM EDT) Anatomical Region Laterality Modality XR Chest N/A Computed Radiogr aphy 01/11/2025 11:0 4 AM EDT Narrative 01/11/2025 11:14 AM EDT EXAMINATION: XR CHEST AP OR PA 1 VIEW 01/11/2025 10:11 AM CLINICAL HISTORY: Hypoxia ASSOCIATED DIAGNOSIS: Hypoxia ORDERING PROVIDER: GENO ARANDA COMPARISON: XR CHEST AP OR PA 1 VIEW 01/10/2025, 5:59 AM FINDINGS: Lines, tubes, and devices: Interval extubation. Enteric feeding tube coiled within gastric body with the tip projecting into the fundus. Lungs and pleura: Blunting of bilateral costophrenic angles likely represents small bilateral layering pleural effusions with adjacent opacities likely representing atelectasis. No appreciable pneumothorax. Cardiomediastinal silhouette: Stable appearance of cardiomediastinal silhouette. Musculoskeletal: Unchanged IMPRESSION: Interval extubation. Enteric feeding tube coiled within gastric body with the tip projecting into the fundus. Unchanged pulmonary findings. Procedure Note Renaldo Reyes MD - 01/11/2025 EXAMINATION: XR CHEST AP OR PA 1 VIEW 01/11/2025 10:11 AM CLINICAL HISTORY: Hypoxia ASSOCIATED DIAGNOSIS: Hypoxia ORDERING PROVIDER: GENO ARANDA COMPARISON: XR CHEST AP OR PA 1 VIEW 01/10/2025, 5:59 AM FINDINGS: Lines, tubes, and devices: Interval extubation. Enteric feeding tubecoiled within gastric body with the tip projecting into the fundus. Lungs and pleura: Blunting of bilateral costophrenic angles likelyrepresents small bilateral layering pleural effusions with adjacentopacities likely representing atelectasis. No appreciable pneumothorax. Cardiomediastinal silhouette: Stable appearance of cardiomediastinalsilhouette. Musculoskeletal: Unchanged IMPRESSION: Interval extubation. Enteric feeding tube coiled within gastric body with the tip projectinginto the fundus. Unchanged pulmonary findings. us Geno Aranda MD EC DIAGNOSTIC X-RAY 2 Final Resu lt * (ABNORMAL) GLUCOSE, FINGERSTICK-IN OFFICE (01/11/2025 7:48 AM EDT) Glucose, POC 262(H) 74 - 109 mg/dL 01/11/2025 7:54 AM EDT NURSING GLUCOSE PROGRAM Comment:Notified RN ARIELLA BEAN<B R> Blood BLOOD SPECIMEN / Unknown 01/11/2025 7:48 AM EDT 01/11/2025 7:54 AM EDT us To Be Assigned EC BACK OFFICE LABS Final Result Performing Organization Address [facility]/ZIP Co de Phone Number NURSING GLUCOSE PROGRAM [address] [place] [address] * (ABNORMAL) BLOOD GAS, ARTERIAL (01/11/2025 6:13 AM EDT) Pathologist [facility] Mode Nasal Canula 01/11/2025 6:37 AM EDT [facility] FIO2 4 LPM 01/11/2025 6:37 AM EDT [facility] pH, Arterial 7.332(L) 7.350 - 7.450 01/11/2025 6:37 AM EDT [facility] PCO2, Arterial 56.6(H) 35.0 - 45.0 mm Hg 01/11/2025 6:37 AM EDT [facility] pO2, Arterial 52(L) 80 - 100 mm Hg 01/11/2025 6:37 AM EDT [facility] Oxygen Saturation 83.0(L) 95.0 - 99.0 % 01/11/2025 6:37 AM EDT [facility] Base Excess 3.0 -2.0 - 3.0 mmol/L 01/11/2025 6:37 AM EDT [facility] Bicarbonate, Whole Blood 29(H) 21 - 28 mmol/L 01/11/2025 6:37 AM EDT [facility] Blood ARTERIAL BLOOD SPECIMEN / Unknown Arterial / Unknown 01/11/2025 6:13 AM EDT 01/11/2025 6:23 AM EDT us Stiven Pitts MD 98 GENERAL LAB Final Resul t Performing Organization Address City/[facility]/ZIP Co de Phone Number [facility] [address] [place] [phone] * (ABNORMAL) BASIC METABOLIC PANEL (01/11/2025 2:16 AM EDT) Glucose 252(H) 74 - 109 mg/dL 01/11/2025 3:01 AM EDT [facility] Sodium 140 136 - 145 mmol/L 01/11/2025 3:01 AM EDT [facility] Potassium 4.4 3.5 - 5.0 mmol/L 01/11/2025 3:01 AM EDT [facility] Carbon Dioxide 31 21 - 31 mmol/L 01/11/2025 3:01 AM EDT [facility] Chloride 104 98 - 107 mmol/L 01/11/2025 3:01 AM EDT [facility] Blood Urea Nitrogen 58(H) 7 - 25 mg/dL 01/11/2025 3:01 AM EDT [facility] Creatinine 1.16 0.60 - 1.20 mg/dL 01/11/2025 3:01 AM EDT [facility] Calcium 8.4(L) 8.6 - 10.3 mg/dL 01/11/2025 3:01 AM EDT [facility] Anion Gap 9(L) 10 - 20 01/11/2025 3:01 AM EDT [facility] Estimated GFR (CKD-EPI) 50(L) >=60 mL/min/1. 73sqm 01/11/2025 3:01 AM EDT [facility] Comment: 2020 CKD EPI Equation using Creatinine without Race Comment: Estimated glomerular filtration rate (eGFR) is calculated without a race coefficient. Values should be interpreted in the context of the patient's full clinical presentation. Reference: 1. Rogers C, Dereck M, Hayden SETHI, et al.. A Unifying Approach for GFR Estimation: Recommendations of the NKF-ASN Task Force on Reassessing the Inclusion of Race in Diagnosing Kidney Disease. [place] Journal of Kidney Diseases 202;79(2):268- 88.e1. 2. N Engl J Med 1 Vol. 385 Issue 19 Pages 1764-8620 Blood BLOOD SPECIMEN / Unknown Arterial / Unknown 01/11/2025 2:16 AM EDT 01/11/2025 2:36 AM EDT Vanessa Doherty MD 98 GENERAL LAB Final Result [facility] [address] [place], [place] * (ABNORMAL) COMPLETE BLOOD COUNT (01/11/2025 2:16 AM EDT) WBC 16.2(H) 4.5 - 11.5 K/uL 01/11/2025 2:41 AM EDT S PATHOLOGY LABORATORY RBC 3.44(L) 4.00 - 5.20 M/uL 01/11/2025 2:41 AM EDT S PATHOLOGY LABORATORY Hemoglobin 9.5(L) 12.0 - 15.0 g/dL 01/11/2025 2:41 AM EDT [facility] Hematocrit 29.3(L) 36.0 - 46.0 % 01/11/2025 2:41 AM EDT [facility] MCV 85 80 - 100 fL 01/11/2025 2:41 AM EDT [facility] MCH 27.6 26.0 - 34.0 pg 01/11/2025 2:41 AM EDT [facility] MCHC 32.4 32.0 - 35.9 g/dL 01/11/2025 2:41 AM EDT [facility] Platelet 204 150 - 400 K/uL 01/11/2025 2:41 AM EDT [facility] RDW-CV 19.6(H) 11.5 - 14.5 % 01/11/2025 2:41 AM EDT [facility] MPV 9.8 7.5 - 11.2 fL 01/11/2025 2:41 AM EDT [facility] Blood BLOOD SPECIMEN / Unknown Arterial / Unknown 01/11/2025 2:16 AM EDT 01/11/2025 2:36 AM EDT Vanessa Doherty MD 98 GENERAL LAB Final Result Performing Organization Address City/[facility]/ZIP Co de Phone Number [facility] [address] [place], [place] * (ABNORMAL) BLOOD GAS, ARTERIAL (01/11/2025 2:16 AM EDT) Mode Nasal Canula 01/11/2025 2:40 AM EDT [facility] FIO2 4 LPM 01/11/2025 2:40 AM EDT [facility] pH, Arterial 7.312(L) 7.350 - 7.450 01/11/2025 2:40 AM EDT [facility] PCO2, Arterial 59.8(H) 35.0 - 45.0 mm Hg 01/11/2025 2:40 AM EDT [facility] pO2, Arterial 80 80 - 100 mm Hg 01/11/2025 2:40 AM EDT [facility] Oxygen Saturation 95.0 95.0 - 99.0 % 01/11/2025 2:40 AM EDT [facility] Base Excess 2.8 -2.0 - 3.0 mmol/L 01/11/2025 2:40 AM EDT [facility] Bicarbonate, Whole Blood 29(H) 21 - 28 mmol/L 01/11/2025 2:40 AM EDT [facility] Blood ARTERIAL BLOOD SPECIMEN / Unknown Arterial / Unknown 01/11/2025 2:16 AM EDT 01/11/2025 2:34 AM EDT Stiven Pitts MD 98 GENERAL LAB Final Resul t Performing Organization Address City/[facility]/ZIP Co de Phone Number [facility] [address] [place] [phone] * PHOSPHORUS (01/11/2025 2:16 AM EDT) Phosphorus, Serum 3.4 2.5 - 5.0 mg/dL 01/11/2025 3:01 AM EDT [facility] Blood BLOOD SPECIMEN / Unknown Arterial / Unknown 01/11/2025 2:16 AM EDT 01/11/2025 2:36 AM EDT Vanessa Doherty MD 98 GENERAL LAB Final Result [facility] [address] [place] [phone] * MAGNESIUM (01/11/2025 2:16 AM EDT) Magnesium 2.2 1.9 - 2.7 mg/dL 01/11/2025 3:01 AM EDT [facility] Blood BLOOD SPECIMEN / Unknown Arterial / Unknown 01/11/2025 2:16 AM EDT 01/11/2025 2:36 AM EDT us Vanessa Doherty MD 98 GENERAL LAB Final Result Performing Organization Address City/[facility]/ZIP Co de Phone Number [facility] [address] [place] [phone] * (ABNORMAL) GLUCOSE, FINGERSTICK-IN OFFICE (01/10/2025 9:40 PM EDT) [facility] Glucose, POC 278(H) 74 - 109 mg/dL 01/10/2025 9:47 PM EDT NURSING GLUCOSE PROGRAM Comment:Notified RN ARIELLA BEAN<B R> Blood BLOOD SPECIMEN / Unknown 01/10/2025 9:40 PM EDT 01/10/2025 9:47 PM EDT us To Be Assigned EC BACK OFFICE LABS Final Result Performing Organization Address [facility] de Phone Number NURSING GLUCOSE PROGRAM [address] [place] [phone] * (ABNORMAL) BLOOD GAS, ARTERIAL (01/10/2025 8:41 PM EDT) [facility] Signature Mode Spontaneous 01/10/2025 8:51 PM EDT [facility] FIO2 4 LPM 01/10/2025 8:51 PM EDT [facility] pH, Arterial 7.350 7.350 - 7.450 01/10/2025 8:51 PM EDT [facility] PCO2, Arterial 54.6(H) 35.0 - 45.0 mm Hg 01/10/2025 8:51 PM EDT [facility] pO2, Arterial 72(L) 80 - 100 mm Hg 01/10/2025 8:51 PM EDT [facility] Oxygen Saturation 93.2(L) 95.0 - 99.0 % 01/10/2025 8:51 PM EDT [facility] Base Excess 3.6(H) -2.0 - 3.0 mmol/L 01/10/2025 8:51 PM EDT [facility] Bicarbonate, Whole Blood 29(H) 21 - 28 mmol/L 01/10/2025 8:51 PM EDT [facility] Blood ARTERIAL BLOOD SPECIMEN / Unknown Arterial / Unknown 01/10/2025 8:41 PM EDT 01/10/2025 8:43 PM EDT us Roya Catalan MD 98 GENERAL LAB Final Result Performing Organization Address City/[facility]/ZIP Co de Phone Number [facility] [address] [place] [phone] * (ABNORMAL) GLUCOSE, FINGERSTICK-IN OFFICE (01/10/2025 4:06 PM EDT) Glucose, POC 283(H) 74 - 109 mg/dL 01/10/2025 4:12 PM EDT NURSING GLUCOSE PROGRAM Comment:Notified KESHA KRISHNAN MD<B R> Blood BLOOD SPECIMEN / Unknown 01/10/2025 4:06 PM EDT 01/10/2025 4:12 PM EDT us To Be Assigned EC BACK OFFICE LABS Final Result Performing Organization Address [facility] Co de Phone Number NURSING GLUCOSE PROGRAM [address] [place] [phone] * (ABNORMAL) GLUCOSE, FINGERSTICK-IN OFFICE (01/10/2025 11:39 AM EDT) Glucose, POC 299(H) 74 - 109 mg/dL 01/10/2025 11:46 AM EDT NURSING GLUCOSE PROGRAM Comment:Notified KESHA KRISHNAN MD<B R> Blood BLOOD SPECIMEN / Unknown 01/10/2025 11:39 AM EDT 01/10/2025 11:46 AM EDT us To Be Assigned EC BACK OFFICE LABS Final Result Performing Organization Address City/[facility]/ZIP Co de Phone Number NURSING GLUCOSE PROGRAM [address] [place] [phone] * (ABNORMAL) GLUCOSE, FINGERSTICK-IN OFFICE (01/10/2025 6:26 AM EDT) Glucose, POC 280(H) 74 - 109 mg/dL 01/10/2025 6:32 AM EDT NURSING GLUCOSE PROGRAM Blood BLOOD SPECIMEN / Unknown 01/10/2025 6:26 AM EDT 01/10/2025 6:32 AM EDT us To Be Assigned EC BACK OFFICE LABS Final Result NURSING GLUCOSE PROGRAM [address] [place] [address] * (ABNORMAL) BASIC METABOLIC PANEL (01/10/2025 6:18 AM EDT) Glucose 297(H) 74 - 109 mg/dL 01/10/2025 6:49 AM EDT [facility] Sodium 139 136 - 145 mmol/L 01/10/2025 6:49 AM EDT [facility] Potassium 4.1 3.5 - 5.0 mmol/L 01/10/2025 6:49 AM EDT [facility] Carbon Dioxide 27 21 - 31 mmol/L 01/10/2025 6:49 AM EDT [facility] Chloride 104 98 - 107 mmol/L 01/10/2025 6:49 AM EDT [facility] Blood Urea Nitrogen 49(H) 7 - 25 mg/dL 01/10/2025 6:49 AM EDT [facility] Creatinine 1.13 0.60 - 1.20 mg/dL 01/10/2025 6:49 AM EDT [facility] Calcium 8.1(L) 8.6 - 10.3 mg/dL 01/10/2025 6:49 AM EDT [facility] Anion Gap 12 10 - 20 01/10/2025 6:49 AM EDT [facility] Estimated GFR (CKD-EPI) 52(L) >=60 mL/min/1. 73sqm 01/10/2025 6:49 AM EDT [facility] Comment: 2020 CKD EPI Equation using Creatinine without Race Comment: Estimated glomerular filtration rate (eGFR) is calculated without a race coefficient. Values should be interpreted in the context of the patient's full clinical presentation. Reference: 1. Rogers C, Dereck M, [place], et al.. A Unifying Approach for GFR Estimation: Recommendations of the NKF-ASN Task Force on Reassessing the Inclusion of Race in Diagnosing Kidney Disease. [place] Journal of Kidney Diseases 202;79(2):268- 88.e1. 2. N Engl J Med 1 Vol. 385 Issue 19 Pages 8739-3299 Blood BLOOD SPECIMEN / Unknown Venipuncture / Unknown 01/10/2025 6:18 AM EDT 01/10/2025 6:21 AM EDT Vanessa Doherty MD 98 GENERAL LAB Final Result Performing Organization Address City/State/[facility] Co de Phone Number [facility] [address] [place] [phone] * (ABNORMAL) COMPLETE BLOOD COUNT (01/10/2025 6:18 AM EDT) WBC 11.8(H) 4.5 - 11.5 K/uL 01/10/2025 6:30 AM EDT [facility] RBC 3.58(L) 4.00 - 5.20 M/uL 01/10/2025 6:30 AM EDT [facility] Hemoglobin 9.8(L) 12.0 - 15.0 g/dL 01/10/2025 6:30 AM EDT [facility] Hematocrit 30.1(L) 36.0 - 46.0 % 01/10/2025 6:30 AM EDT [facility] MCV 84 80 - 100 fL 01/10/2025 6:30 AM EDT [facility] MCH 27.4 26.0 - 34.0 pg 01/10/2025 6:30 AM EDT [facility] MCHC 32.6 32.0 - 35.9 g/dL 01/10/2025 6:30 AM EDT [facility] Platelet 182 150 - 400 K/uL 01/10/2025 6:30 AM EDT [facility] RDW-CV 19.0(H) 11.5 - 14.5 % 01/10/2025 6:30 AM EDT [facility] MPV 9.6 7.5 - 11.2 fL 01/10/2025 6:30 AM EDT [facility] Blood BLOOD SPECIMEN / Unknown Venipuncture / Unknown 01/10/2025 6:18 AM EDT 01/10/2025 6:24 AM EDT Vanessa Doherty MD 98 GENERAL LAB Final Result [facility] [address] [place] [phone] * PHOSPHORUS (01/10/2025 6:18 AM EDT) Phosphorus, Serum 2.7 2.5 - 5.0 mg/dL 01/10/2025 6:49 AM EDT [facility] Blood BLOOD SPECIMEN / Unknown Venipuncture / Unknown 01/10/2025 6:18 AM EDT 01/10/2025 6:21 AM EDT Vanessa Doherty MD 98 GENERAL LAB Final Result Performing Organization Address City/[facility]/ZIP Co de Phone Number [facility] [address] [place] [phone] * MAGNESIUM (01/10/2025 6:18 AM EDT) Magnesium 2.3 1.9 - 2.7 mg/dL 01/10/2025 6:49 AM EDT [facility] Blood BLOOD SPECIMEN / Unknown Venipuncture / Unknown 01/10/2025 6:18 AM EDT 01/10/2025 6:21 AM EDT Vanessa Doherty MD 98 GENERAL LAB Final Result [facility] [address] [place] [phone] * BLOOD GAS, ARTERIAL (01/10/2025 6:12 AM EDT) Mode Vent 01/10/2025 6:26 AM EDT [facility] FIO2 50% 01/10/2025 6:26 AM EDT [facility] pH, Arterial 7.391 7.350 - 7.450 01/10/2025 6:26 AM EDT [facility] PCO2, Arterial 44.5 35.0 - 45.0 mm Hg 01/10/2025 6:26 AM EDT [facility] pO2, Arterial 88 80 - 100 mm Hg 01/10/2025 6:26 AM EDT [facility] Oxygen Saturation 96.8 95.0 - 99.0 % 01/10/2025 6:26 AM EDT [facility] Base Excess 1.7 -2.0 - 3.0 mmol/L 01/10/2025 6:26 AM EDT [facility] Bicarbonate, Whole Blood 26 21 - 28 mmol/L 01/10/2025 6:26 AM EDT [facility] Blood ARTERIAL BLOOD SPECIMEN / Unknown Venipuncture / Unknown 01/10/2025 6:12 AM EDT 01/10/2025 6:21 AM EDT us Stiven Pitts MD 98 GENERAL LAB Final Resul t [facility] [address] [place] [phone] * XR CHEST AP OR PA 1 VIEW (01/10/2025 5:58 AM EDT) Anatomical Region Laterality Modality XR Chest N/A Computed Radiogr aphy 01/10/2025 8:17 AM EDT Narrative 01/10/2025 8:23 AM EDT EXAMINATION: XR CHEST AP OR PA 1 VIEW 01/10/2025 05:58 AM CLINICAL HISTORY: Endotracheal tube assessment ASSOCIATED DIAGNOSIS: Endotracheal tube assessment ORDERING PROVIDER: MIRTHA WAY [employer]ISTS NOTE: COMPARISON: XR CHEST AP OR PA 1 VIEW 01/09/2025, 6:06 AM XR CHEST AP OR PA 1 VIEW 01/09/2025, 6:06 AM and XR CHEST AP OR PA 1 VIEW 01/07/2025, 1:23 PM FINDINGS: Position and projection: AP semierect. Limitations: None. Clinical considerations: Obtained from EMR. Lines, tubes, and devices: Endotracheal tube terminates 4.5 cm proximal to the jessica. Enteral feeding tube terminates overlying the gastric fundus region. Cardiomediastinal silhouette: Mild cardiomegaly. Aorta: Atherosclerotic calcification. Lungs and pleura: Question of right basilar atelectasis and/or small pleural effusion. No pneumothorax. Osseous structures: Osteopenia. Acute fractures of the lateral left 6th and 7th ribs. Acute, displaced, transverse fracture of the left humeral surgery neck and left glenohumeral joint space widening. 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 Osteophytic endplate spurring and bridging of multiple thoracic vertebra. Chest wall: Telemetry leads overlie the chest. IMPRESSION: 1. Question of right knee show atelectasis and/or small right pleural effusion. 2. No other significant change in comparison to the prior study. 3. Satisfactory position of the endotracheal tube. 4. Enteral feeding tube terminates overlying the gastric fundus region. This should be advanced into the duodenum for optimal position. 5. Status post recent chest trauma with multiple acute left rib fractures and left humeral neck fracture. 6. Mild cardiomegaly, likely exaggerated by technique. MACRO: None Procedure Note Grant Proctor, DO - 01/10/2025 EXAMINATION: XR CHEST AP OR PA 1 VIEW 01/10/2025 05:58 AM CLINICAL HISTORY: Endotracheal tube assessment ASSOCIATED DIAGNOSIS: Endotracheal tube assessment ORDERING PROVIDER: MIRTHA [employer] NOTE: COMPARISON: XR CHEST AP OR PA 1 VIEW 01/09/2025, 6:06 AM XR CHEST AP OR PA1 VIEW 01/09/2025, 6:06 AM and XR CHEST AP OR PA 1 VIEW 01/07/2025, 1:23 PM FINDINGS: Position and projection: AP semierect. Limitations: None. Clinical considerations: Obtained from EMR. Lines, tubes, and devices: Endotracheal tube terminates 4.5 cm proximal to the jessica. Enteral feeding tube terminates overlying the gastric fundus region. Cardiomediastinal silhouette: Mild cardiomegaly. Aorta: Atherosclerotic calcification. Lungs and pleura: Question of right basilar atelectasis and/or smallpleural effusion. No pneumothorax. Osseous structures: Osteopenia. Acute fractures of the lateral left 6thand 7th ribs. Acute, displaced, transverse fracture of the left humeralsurgery neck and left glenohumeral joint space widening. 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 Osteophyticendplate spurring and bridging of multiple thoracic vertebra. Chest wall: Telemetry leads overlie the chest. IMPRESSION: 1. Question of right knee show atelectasis and/or small right pleuraleffusion. 2. No other significant change in comparison to the prior study. 3. Satisfactory position of the endotracheal tube. 4. Enteral feeding tube terminates overlying the gastric fundus region.This should be advanced into the duodenum for optimal position. 5. Status post recent chest trauma with multiple acute left rib fracturesand left humeral neck fracture. 6. Mild cardiomegaly, likely exaggerated by technique. MACRO: None us Mirtha Way [employer] EC DIAGNOSTIC X-RAY 2 F inal Result * (ABNORMAL) GLUCOSE, FINGERSTICK-IN OFFICE (01/10/2025 12:36 AM EDT) Glucose, POC 275(H) 74 - 109 mg/dL 01/10/2025 12:42 AM EDT NURSING GLUCOSE PROGRAM Blood BLOOD SPECIMEN / Unknown 01/10/2025 12:36 AM EDT 01/10/2025 12:42 AM EDT us To Be Assigned EC BACK OFFICE LABS Final Result Performing Organization Address City/State/[facility] Co de Phone Number NURSING GLUCOSE PROGRAM [address] [place] [phone] * (ABNORMAL) GLUCOSE, FINGERSTICK-IN OFFICE (01/09/2025 6:24 PM EDT) Glucose, POC 261(H) 74 - 109 mg/dL 01/09/2025 6:30 PM EDT NURSING GLUCOSE PROGRAM Blood BLOOD SPECIMEN / Unknown 01/09/2025 6:24 PM EDT 01/09/2025 6:30 PM EDT us To Be Assigned EC BACK OFFICE LABS Final Result Performing Organization Address City/[facility]/ZIP Co de Phone Number NURSING GLUCOSE PROGRAM [address] [place] [phone] * (ABNORMAL) GLUCOSE, FINGERSTICK-IN OFFICE (01/09/2025 11:34 AM EDT) Glucose, POC 233(H) 74 - 109 mg/dL 01/09/2025 11:40 AM EDT NURSING GLUCOSE PROGRAM Blood BLOOD SPECIMEN / Unknown 01/09/2025 11:34 AM EDT 01/09/2025 11:40 AM EDT us To Be Assigned EC BACK OFFICE LABS Final Result Performing Organization Address [facility] Co de Phone Number NURSING GLUCOSE PROGRAM [address] [place] [phone] * (ABNORMAL) BASIC METABOLIC PANEL (01/09/2025 9:51 AM EDT) Glucose 227(H) 74 - 109 mg/dL 01/09/2025 10:26 AM EDT [facility] Sodium 134(L) 136 - 145 mmol/L 01/09/2025 10:26 AM EDT [facility] Potassium 4.1 3.5 - 5.0 mmol/L 01/09/2025 10:26 AM EDT [facility] Carbon Dioxide 30 21 - 31 mmol/L 01/09/2025 10:26 AM EDT [facility] Chloride 100 98 - 107 mmol/L 01/09/2025 10:26 AM EDT [facility] Blood Urea Nitrogen 40(H) 7 - 25 mg/dL 01/09/2025 10:26 AM EDT [facility] Creatinine 1.15 0.60 - 1.20 mg/dL 01/09/2025 10:26 AM EDT [facility] Calcium 7.6(L) 8.6 - 10.3 mg/dL 01/09/2025 10:26 AM EDT [facility] Anion Gap 8(L) 10 - 20 01/09/2025 10:26 AM EDT [facility] Estimated GFR (CKD-EPI) 51(L) >=60 mL/min/1. 73sqm 01/09/2025 10:26 AM EDT [facility] Comment: 2020 CKD EPI Equation using Creatinine without Race Comment: Estimated glomerular filtration rate (eGFR) is calculated without a race coefficient. Values should be interpreted in the context of the patient's full clinical presentation. Reference: 1. Rogers C, Dereck M, Hyaden SETHI, et al.. A Unifying Approach for GFR Estimation: Recommendations of the NKF-ASN Task Force on Reassessing the Inclusion of Race in Diagnosing Kidney Disease. [place] Journal of Kidney Diseases 202;79(2):268- 88.e1. 2. N Engl J Med 2021 Vol. 385 Issue 19 Pages 4626-2797 Blood BLOOD SPECIMEN / Unknown Venipuncture / Unknown 01/09/2025 9:51 AM EDT 01/09/2025 9:56 AM EDT Vanessa Doherty MD 98 GENERAL LAB Final Result [facility] [address] [place] [phone] * (ABNORMAL) NT PRO-BNP (01/09/2025 9:50 AM EDT) NT Pro-BNP 7,696(H) <=900 pg/mL 01/09/2025 10:41 AM EDT [facility] Blood BLOOD SPECIMEN / Unknown Venipuncture / Unknown 01/09/2025 9:50 AM EDT 01/09/2025 10:21 AM EDT Narrative [facility] - 01/09/2025 10:41 AM EDT Result: <300 pg/mL (All ages). Interpretation: Negative. Heart failure unlikely. Result: 300-450 pg/mL (<50 years), 300-900 pg/mL (50-75 years), 300-1800 pg/mL (>75 years). Interpretation: Indeterminate. Consider other reasons for NT Pro-BNP elevation. Result: >450 pg/mL (<50 years), >900 pg/mL (50-75 years), >1800 pg/mL (>75 years). Interpretation: Positive. Heart failure likely. us Dwight Haas MD 98 GENERAL LAB Final Result Performing Organization Address [facility] de Phone Number [facility] [address] [place] [address] * (ABNORMAL) BLOOD GAS, ARTERIAL (01/09/2025 7:56 AM EDT) Mode Vent 01/09/2025 8:06 AM EDT [facility] FIO2 40% 01/09/2025 8:06 AM EDT [facility] pH, Arterial 7.312(L) 7.350 - 7.450 01/09/2025 8:06 AM EDT [facility] PCO2, Arterial 57.6(H) 35.0 - 45.0 mm Hg 01/09/2025 8:06 AM EDT [facility] pO2, Arterial 72(L) 80 - 100 mm Hg 01/09/2025 8:06 AM EDT [facility] Oxygen Saturation 92.8(L) 95.0 - 99.0 % 01/09/2025 8:06 AM EDT [facility] Base Excess 2.1 -2.0 - 3.0 mmol/L 01/09/2025 8:06 AM EDT [facility] Bicarbonate, Whole Blood 28 21 - 28 mmol/L 01/09/2025 8:06 AM EDT [facility] Blood ARTERIAL BLOOD SPECIMEN / Unknown Venipuncture / Unknown 01/09/2025 7:56 AM EDT 01/09/2025 8:03 AM EDT Stiven Pitts MD 98 GENERAL LAB Final Resul t Performing Organization Address [facility] de Phone Number [facility] [address] [place] [address] * XR CHEST AP OR PA 1 VIEW (01/09/2025 6:06 AM EDT) Anatomical Region Laterality Modality XR Chest N/A Computed Radiogr aphy 01/09/2025 8:27 AM EDT Narrative 01/09/2025 8:31 AM EDT EXAMINATION: XR CHEST AP OR PA 1 VIEW 01/09/2025 06:06 AM CLINICAL HISTORY: Endotracheal tube assessment ASSOCIATED DIAGNOSIS: Endotracheal tube assessment ORDERING PROVIDER: INA CAMACHO TECHNCAITIE NOTE: COMPARISON: XR CHEST AP OR PA 1 VIEW 01/09/2025, 6:06 AM, XR CHEST AP OR PA 1 VIEW 01/07/2025, 12:46 PM AND XR CHEST AP OR PA 1 VIEW 01/07/2025, 12:45 PM FINDINGS: Position and projection: AP semierect. Limitations: Mild rotation towards the right. Clinical considerations: Obtained from EMR. Lines, tubes, and devices: Endotracheal tube terminates 3.1 cm proximal to the jessica. Enteral feeding tube terminates overlying the gastric fundus region. Cardiomediastinal silhouette: Mild cardiomegaly. Aorta: Atherosclerotic calcification. Lungs and pleura: No pulmonary consolidation, pleural effusion or pneumothorax. Osseous structures: Osteopenia. Acute fractures of the lateral left 6th and 7th ribs. Acute, displaced, transverse fracture of the left humeral surgery neck and left glenohumeral joint space widening. 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 Osteophytic endplate spurring and bridging of multiple thoracic vertebra. Chest wall: Telemetry leads overlie the chest. IMPRESSION: 1. Satisfactory position of the endotracheal tube. 2. Enteral feeding tube terminates overlying the gastric fundus region. This should be advanced into the duodenum for optimal position. 3. Status post recent chest trauma with multiple acute left rib fractures and left humeral neck fracture. 4. No acute cardiopulmonary findings. 5. Mild cardiomegaly, likely exaggerated by technique. MACRO: None Procedure Note Grant Proctor, DO - 01/09/2025 EXAMINATION: XR CHEST AP OR PA 1 VIEW 01/09/2025 06:06 AM CLINICAL HISTORY: Endotracheal tube assessment ASSOCIATED DIAGNOSIS: Endotracheal tube assessment ORDERING PROVIDER: INA CAMACHO TECHNCAITIE NOTE: COMPARISON: XR CHEST AP OR PA 1 VIEW 01/09/2025, 6:06 AM, XR CHEST AP OR PA1 VIEW 01/07/2025, 12:46 PM AND XR CHEST AP OR PA 1 VIEW 01/07/2025, 12:45PM FINDINGS: Position and projection: AP semierect. Limitations: Mild rotation towards the right. Clinical considerations: Obtained from EMR. Lines, tubes, and devices: Endotracheal tube terminates 3.1 cm proximal to the jessica. Enteral feeding tube terminates overlying the gastric fundus region. Cardiomediastinal silhouette: Mild cardiomegaly. Aorta: Atherosclerotic calcification. Lungs and pleura: No pulmonary consolidation, pleural effusion orpneumothorax. Osseous structures: Osteopenia. Acute fractures of the lateral left 6thand 7th ribs. Acute, displaced, transverse fracture of the left humeralsurgery neck and left glenohumeral joint space widening. 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 Osteophyticendplate spurring and bridging of multiple thoracic vertebra. Chest wall: Telemetry leads overlie the chest. IMPRESSION: 1. Satisfactory position of the endotracheal tube. 2. Enteral feeding tube terminates overlying the gastric fundus region.This should be advanced into the duodenum for optimal position. 3. Status post recent chest trauma with multiple acute left rib fracturesand left humeral neck fracture. 4. No acute cardiopulmonary findings. 5. Mild cardiomegaly, likely exaggerated by technique. MACRO: None Ina Camacho [employer] EC DIAGNOSTIC X-RAY 2 Fin al Result * (ABNORMAL) GLUCOSE, FINGERSTICK-IN OFFICE (01/09/2025 5:51 AM EDT) Glucose, POC 212(H) 74 - 109 mg/dL 01/09/2025 5:57 AM EDT NURSING GLUCOSE PROGRAM Blood BLOOD SPECIMEN / Unknown 01/09/2025 5:51 AM EDT 01/09/2025 5:57 AM EDT us To Be Assigned EC BACK OFFICE LABS Final Result NURSING GLUCOSE PROGRAM [address] [place] [id number] * (ABNORMAL) BASIC METABOLIC PANEL (01/09/2025 4:58 AM EDT) Glucose 193(H) 74 - 109 mg/dL 01/09/2025 11:09 AM EDT [facility] Sodium 138 136 - 145 mmol/L 01/09/2025 11:09 AM EDT [facility] Potassium 4.0 3.5 - 5.0 mmol/L 01/09/2025 11:09 AM EDT [facility] Carbon Dioxide 28 21 - 31 mmol/L 01/09/2025 11:09 AM EDT [facility] Chloride 100 98 - 107 mmol/L 01/09/2025 11:09 AM EDT [facility] Blood Urea Nitrogen 39(H) 7 - 25 mg/dL 01/09/2025 11:09 AM EDT [facility] Creatinine 1.28(H) 0.60 - 1.20 mg/dL 01/09/2025 11:09 AM EDT [facility] Calcium 7.5(L) 8.6 - 10.3 mg/dL 01/09/2025 11:09 AM EDT [facility] Anion Gap 14 10 - 20 01/09/2025 11:09 AM EDT [facility] Estimated GFR (CKD-EPI) 45(L) >=60 mL/min/1. 73sqm 01/09/2025 11:09 AM EDT [facility] Comment: 2020 CKD EPI Equation using Creatinine without Race Comment: Estimated glomerular filtration rate (eGFR) is calculated without a race coefficient. Values should be interpreted in the context of the patient's full clinical presentation. Reference: 1. Mccloud C, Bajoseja M, [place] DC, et al.. A Unifying Approach for GFR Estimation: Recommendations of the NKF-ASN Task Force on Reassessing the Inclusion of Race in Diagnosing Kidney Disease. [place] Journal of Kidney Diseases 202;79(2):268- 88.e1. 2. N Engl J Med 2021 Vol. 385 Issue 19 Pages 7211-9116 Blood BLOOD SPECIMEN / Unknown Venipuncture / Unknown 01/09/2025 4:58 AM EDT 01/09/2025 5:09 AM EDT us Geno Aranda MD 98 GENERAL LAB Final Result [facility] [address] [place] [address] * (ABNORMAL) COMPLETE BLOOD COUNT (01/09/2025 4:58 AM EDT) WBC 14.1(H) 4.5 - 11.5 K/uL 01/09/2025 5:14 AM EDT [facility] RBC 3.25(L) 4.00 - 5.20 M/uL 01/09/2025 5:14 AM EDT [facility] Hemoglobin 8.8(L) 12.0 - 15.0 g/dL 01/09/2025 5:14 AM EDT [facility] Hematocrit 27.6(L) 36.0 - 46.0 % 01/09/2025 5:14 AM EDT [facility] MCV 85 80 - 100 fL 01/09/2025 5:14 AM EDT [facility] MCH 27.2 26.0 - 34.0 pg 01/09/2025 5:14 AM EDT [facility] MCHC 32.1 32.0 - 35.9 g/dL 01/09/2025 5:14 AM EDT [facility] Platelet 170 150 - 400 K/uL 01/09/2025 5:14 AM EDT [facility] RDW-CV 18.7(H) 11.5 - 14.5 % 01/09/2025 5:14 AM EDT [facility] MPV 9.7 7.5 - 11.2 fL 01/09/2025 5:14 AM EDT [facility] Blood BLOOD SPECIMEN / Unknown Venipuncture / Unknown 01/09/2025 4:58 AM EDT 01/09/2025 5:09 AM EDT Vanessa Doherty MD 98 GENERAL LAB Final Result [facility] [address] [place] [address] * (ABNORMAL) BLOOD GAS, ARTERIAL (01/09/2025 4:58 AM EDT) Mode Vent 01/09/2025 5:08 AM EDT [facility] FIO2 40% 01/09/2025 5:08 AM EDT [facility] pH, Arterial 7.274(L) 7.350 - 7.450 01/09/2025 5:08 AM EDT [facility] PCO2, Arterial 64.0(H) 35.0 - 45.0 mm Hg 01/09/2025 5:08 AM EDT [facility] pO2, Arterial 78(L) 80 - 100 mm Hg 01/09/2025 5:08 AM EDT [facility] Oxygen Saturation 93.8(L) 95.0 - 99.0 % 01/09/2025 5:08 AM EDT [facility] Base Excess 1.6 -2.0 - 3.0 mmol/L 01/09/2025 5:08 AM EDT [facility] Bicarbonate, Whole Blood 29(H) 21 - 28 mmol/L 01/09/2025 5:08 AM EDT [facility] Blood ARTERIAL BLOOD SPECIMEN / Unknown 01/09/2025 4:58 AM EDT 01/09/2025 5:05 AM EDT us Stiven Pitts MD 98 GENERAL LAB Final Resul t [facility] [address] [place] [address] * TRIGLYCERIDES (01/09/2025 4:58 AM EDT) Triglycerides 112 <150 mg/dL 01/09/2025 5:36 AM EDT [facility] Comment: Normal: < 150 mg/dL Borderline High: 150-199 mg/dL High: 200-499 mg/dL Very High: > = 500 mg/dL Blood BLOOD SPECIMEN / Unknown Venipuncture / Unknown 01/09/2025 4:58 AM EDT 01/09/2025 5:09 AM EDT us Taurus Chavez MD 98 GENERAL LAB Final Result [facility] [address] [place] [phone] * MAGNESIUM (01/09/2025 4:58 AM EDT) Magnesium 2.5 1.9 - 2.7 mg/dL 01/09/2025 5:36 AM EDT [facility] Blood BLOOD SPECIMEN / Unknown Venipuncture / Unknown 01/09/2025 4:58 AM EDT 01/09/2025 5:09 AM EDT us Vanessa Doherty MD 98 GENERAL LAB Final Result Performing Organization Address City/[facility]/ZIP Co de Phone Number [facility] [address] [place] [phone] * CREATINE KINASE (01/09/2025 4:58 AM EDT) Creatine Kinase 33 30 - 233 IU/L 01/09/2025 5:36 AM EDT [facility] Blood BLOOD SPECIMEN / Unknown Venipuncture / Unknown 01/09/2025 4:58 AM EDT 01/09/2025 5:09 AM EDT us Taurus Chavez MD 98 GENERAL LAB Final Result Performing Organization Address City/[facility]/ZIP Co de Phone Number [facility] [address] [place] [phone] * (ABNORMAL) GLUCOSE, FINGERSTICK-IN OFFICE (01/09/2025 12:07 AM EDT) Glucose, POC 232(H) 74 - 109 mg/dL 01/09/2025 12:14 AM EDT NURSING GLUCOSE PROGRAM Blood BLOOD SPECIMEN / Unknown 01/09/2025 12:07 AM EDT 01/09/2025 12:14 AM EDT us To Be Assigned EC BACK OFFICE LABS Final Result NURSING GLUCOSE PROGRAM [address] [place] [phone] * (ABNORMAL) GLUCOSE, FINGERSTICK-IN OFFICE (01/08/2025 5:32 PM EDT) Glucose, POC 195(H) 74 - 109 mg/dL 01/08/2025 5:39 PM EDT NURSING GLUCOSE PROGRAM Blood BLOOD SPECIMEN / Unknown 01/08/2025 5:32 PM EDT 01/08/2025 5:39 PM EDT us To Be Assigned EC BACK OFFICE LABS Final Result Performing Organization Address [facility]/ZIP Co de Phone Number NURSING GLUCOSE PROGRAM [address] [place] [phone] * (ABNORMAL) BLOOD GAS, ARTERIAL (01/08/2025 5:30 PM EDT) Mode Vent 01/08/2025 5:49 PM EDT S PATH[facility]Y LABORATORY FIO2 40% 01/08/2025 5:49 PM EDT [facility] pH, Arterial 7.368 7.350 - 7.450 01/08/2025 5:49 PM EDT [facility] PCO2, Arterial 47.1(H) 35.0 - 45.0 mm Hg 01/08/2025 5:49 PM EDT [facility] pO2, Arterial 187(H) 80 - 100 mm Hg 01/08/2025 5:49 PM EDT [facility] Oxygen Saturation 99.6(H) 95.0 - 99.0 % 01/08/2025 5:49 PM EDT [facility] Base Excess 1.5 -2.0 - 3.0 mmol/L 01/08/2025 5:49 PM EDT [facility] Bicarbonate, Whole Blood 26 21 - 28 mmol/L 01/08/2025 5:49 PM EDT [facility] Blood ARTERIAL BLOOD SPECIMEN / Unknown Venipuncture / Unknown 01/08/2025 5:30 PM EDT 01/08/2025 5:43 PM EDT us Dwight Haas MD 98 GENERAL LAB Final Result [facility] [address] [place] [address] * (ABNORMAL) GLUCOSE, FINGERSTICK-IN OFFICE (01/08/2025 12:21 PM EDT) Glucose, POC 177(H) 74 - 109 mg/dL 01/08/2025 12:27 PM EDT NURSING GLUCOSE PROGRAM Blood BLOOD SPECIMEN / Unknown 01/08/2025 12:21 PM EDT 01/08/2025 12:27 PM EDT us To Be Assigned EC BACK OFFICE LABS Final Result Performing Organization Address [facility]/ZIP Co de Phone Number NURSING GLUCOSE PROGRAM [address] [place] [phone] * (ABNORMAL) BLOOD GAS, ARTERIAL (01/08/2025 7:35 AM EDT) Mode Vent 01/08/2025 7:44 AM EDT S PATH[facility] LAB[facility]ORY FIO2 50% 01/08/2025 7:44 AM EDT [facility] pH, Arterial 7.378 7.350 - 7.450 01/08/2025 7:44 AM EDT [facility] PCO2, Arterial 51.7(H) 35.0 - 45.0 mm Hg 01/08/2025 7:44 AM EDT [facility] pO2, Arterial 136(H) 80 - 100 mm Hg 01/08/2025 7:44 AM EDT [facility] Oxygen Saturation 99.3(H) 95.0 - 99.0 % 01/08/2025 7:44 AM EDT [facility] Base Excess 4.5(H) -2.0 - 3.0 mmol/L 01/08/2025 7:44 AM EDT [facility] Bicarbonate, Whole Blood 30(H) 21 - 28 mmol/L 01/08/2025 7:44 AM EDT [facility] Blood ARTERIAL BLOOD SPECIMEN / Unknown Venipuncture / Unknown 01/08/2025 7:35 AM EDT 01/08/2025 7:40 AM EDT us Roya Catalan MD 98 GENERAL LAB Final Result [facility] [address] [place] [address] * (ABNORMAL) GLUCOSE, FINGERSTICK-IN OFFICE (01/08/2025 6:19 AM EDT) Glucose, POC 201(H) 74 - 109 mg/dL 01/08/2025 6:25 AM EDT NURSING GLUCOSE PROGRAM Blood BLOOD SPECIMEN / Unknown 01/08/2025 6:19 AM EDT 01/08/2025 6:25 AM EDT us To Be Assigned EC BACK OFFICE LABS Final Result NURSING GLUCOSE PROGRAM [address] [place] [phone] * XR CHEST AP OR PA 1 VIEW (01/08/2025 3:28 AM EDT) Anatomical Region Laterality Modality XR Chest N/A Computed Radiogr aphy 01/08/2025 8:13 AM EDT Narrative 01/08/2025 5:44 PM EDT EXAMINATION: XR CHEST AP OR PA 1 VIEW 01/08/2025 03:28 AM CLINICAL HISTORY: Endotracheal tube assessment ASSOCIATED DIAGNOSIS: Endotracheal tube assessment ORDERING PROVIDER: MIRTHA WAY [employer] NOTE: COMPARISON: XR CHEST AP OR PA 1 VIEW 01/07/2025, 1:23 PM XR CHEST AP OR PA 1 VIEW 01/07/2025, 12:46 PM XR CHEST AP OR PA 1 VIEW 01/07/2025, 12:45 PM FINDINGS: Lines, tubes, and devices: * Evaluation for endotracheal tube tip is limited due to overlapping feeding tube, likely projects over the mid thoracic tracheal air column, probably 5.5 cm above the jessica. * Feeding tube is coursing below the diaphragm with the tip projects over the gastric fundus. Lungs and pleura: Persistent elevation of the left hemidiaphragm with progressively increasing left retrocardiac opacity. Slightly improved right basilar pleuroparenchymal opacities. No sizable pneumothorax. Cardiomediastinal silhouette: Stable appearance of cardiomediastinal silhouette. Musculoskeletal: Markedly comminuted fracture of the surgical neck of the left humerus. Minimally displaced left lateral seventh rib fracture. Left lateral sixth rib fracture could not be wall evaluated in this study. Multilevel mild spondylotic changes of the thoracic spine. IMPRESSION: Evaluation for endotracheal tube tip is limited due to overlapping feeding tube, likely projects over the mid thoracic tracheal air column, probably 5.5 cm above the jessica. MACRO: None Procedure Note Yamila Maxwell MD - 01/08/2025 EXAMINATION: XR CHEST AP OR PA 1 VIEW 01/08/2025 03:28 AM CLINICAL HISTORY: Endotracheal tube assessment ASSOCIATED DIAGNOSIS: Endotracheal tube assessment ORDERING PROVIDER: MIRTHA WAY [employer] NOTE: COMPARISON: XR CHEST AP OR PA 1 VIEW 01/07/2025, 1:23 PM XR CHEST AP OR PA 1VIEW 01/07/2025, 12:46 PM XR CHEST AP OR PA 1 VIEW 01/07/2025, 12:45 PM FINDINGS: Lines, tubes, and devices: * Evaluation for endotracheal tube tip is limited due to overlappingfeeding tube, likely projects over the mid thoracic tracheal air column,probably 5.5 cm above the jessica. * Feeding tube is coursing below the diaphragm with the tip projects overthe gastric fundus. Lungs and pleura: Persistent elevation of the left hemidiaphragm withprogressively increasing left retrocardiac opacity. Slightly improvedright basilar pleuroparenchymal opacities. No sizable pneumothorax. Cardiomediastinal silhouette: Stable appearance of cardiomediastinalsilhouette. Musculoskeletal: Markedly comminuted fracture of the surgical neck of theleft humerus. Minimally displaced left lateral seventh rib fracture. Leftlateral sixth rib fracture could not be wall evaluated in this study.Multilevel mild spondylotic changes of the thoracic spine. IMPRESSION: Evaluation for endotracheal tube tip is limited due to overlapping feedingtube, likely projects over the mid thoracic tracheal air column, probably5.5 cm above the jessica. MACRO: None Mirtha Way [employer] EC DIAGNOSTIC X-RAY 2 F inal Result * (ABNORMAL) BASIC METABOLIC PANEL (01/08/2025 2:16 AM EDT) Glucose 191(H) 74 - 109 mg/dL 01/08/2025 2:52 AM EDT [facility] Sodium 143 136 - 145 mmol/L 01/08/2025 2:52 AM EDT [facility] Potassium 4.1 3.5 - 5.0 mmol/L 01/08/2025 2:52 AM EDT [facility] Carbon Dioxide 33(H) 21 - 31 mmol/L 01/08/2025 2:52 AM EDT [facility] Chloride 103 98 - 107 mmol/L 01/08/2025 2:52 AM EDT [facility] Blood Urea Nitrogen 36(H) 7 - 25 mg/dL 01/08/2025 2:52 AM EDT [facility] Creatinine 1.19 0.60 - 1.20 mg/dL 01/08/2025 2:52 AM EDT [facility] Calcium 7.7(L) 8.6 - 10.3 mg/dL 01/08/2025 2:52 AM EDT [facility] Anion Gap 11 10 - 20 01/08/2025 2:52 AM EDT [facility] Estimated GFR (CKD-EPI) 49(L) >=60 mL/min/1. 73sqm 01/08/2025 2:52 AM EDT [facility] Comment: 2020 CKD EPI Equation using Creatinine without Race Comment: Estimated glomerular filtration rate (eGFR) is calculated without a race coefficient. Values should be interpreted in the context of the patient's full clinical presentation. Reference: 1. Rogers C, Dereck M, Hayden DC, et al.. A Unifying Approach for GFR Estimation: Recommendations of the NKF-ASN Task Force on Reassessing the Inclusion of Race in Diagnosing Kidney Disease. [place] Journal of Kidney Diseases 2022;79(2):268- 88.e1. 2. N Engl J Med 2021 Vol. 385 Issue 19 Pages 2741-3622 Blood BLOOD SPECIMEN / Unknown Venipuncture / Unknown 01/08/2025 2:16 AM EDT 01/08/2025 2:29 AM EDT Vanessa Doherty MD 98 GENERAL LAB Final Result [facility] [address] [place] [address] * (ABNORMAL) COMPLETE BLOOD COUNT (01/08/2025 2:16 AM EDT) WBC 9.6 4.5 - 11.5 K/uL 01/08/2025 2:33 AM EDT [facility] RBC 3.16(L) 4.00 - 5.20 M/uL 01/08/2025 2:33 AM EDT [facility] Hemoglobin 8.7(L) 12.0 - 15.0 g/dL 01/08/2025 2:33 AM EDT [facility] Hematocrit 26.5(L) 36.0 - 46.0 % 01/08/2025 2:33 AM EDT [facility] MCV 84 80 - 100 fL 01/08/2025 2:33 AM EDT [facility] MCH 27.6 26.0 - 34.0 pg 01/08/2025 2:33 AM EDT [facility] MCHC 32.8 32.0 - 35.9 g/dL 01/08/2025 2:33 AM EDT [facility] Platelet 154 150 - 400 K/uL 01/08/2025 2:33 AM EDT [facility] RDW-CV 18.8(H) 11.5 - 14.5 % 01/08/2025 2:33 AM EDT [facility] MPV 10.2 7.5 - 11.2 fL 01/08/2025 2:33 AM EDT [facility] Blood BLOOD SPECIMEN / Unknown Venipuncture / Unknown 01/08/2025 2:16 AM EDT 01/08/2025 2:29 AM EDT Vanessa Doherty MD 98 GENERAL LAB Final Result Performing Organization Address City/State/[facility] Co de Phone Number [facility] [address] [place] [address] * (ABNORMAL) BLOOD GAS, ARTERIAL (01/08/2025 2:16 AM EDT) Mode Vent 01/08/2025 2:29 AM EDT [facility] FIO2 40% 01/08/2025 2:29 AM EDT [facility] pH, Arterial 7.332(L) 7.350 - 7.450 01/08/2025 2:29 AM EDT [facility] PCO2, Arterial 60.3(H) 35.0 - 45.0 mm Hg 01/08/2025 2:29 AM EDT [facility] pO2, Arterial 102(H) 80 - 100 mm Hg 01/08/2025 2:29 AM EDT [facility] Oxygen Saturation 97.7 95.0 - 99.0 % 01/08/2025 2:29 AM EDT [facility] Base Excess 4.7(H) -2.0 - 3.0 mmol/L 01/08/2025 2:29 AM EDT [facility] Bicarbonate, Whole Blood 31(H) 21 - 28 mmol/L 01/08/2025 2:29 AM EDT [facility] Blood ARTERIAL BLOOD SPECIMEN / Unknown 01/08/2025 2:16 AM EDT 01/08/2025 2:25 AM EDT Roya Catalan MD 98 GENERAL LAB Final Result [facility] [address] [place] [phone] * PHOSPHORUS (01/08/2025 2:16 AM EDT) Phosphorus, Serum 4.4 2.5 - 5.0 mg/dL 01/08/2025 2:52 AM EDT [facility] Blood BLOOD SPECIMEN / Unknown Venipuncture / Unknown 01/08/2025 2:16 AM EDT 01/08/2025 2:29 AM EDT Vanessa Doherty MD 98 GENERAL LAB Final Result Performing Organization Address [facility] de Phone Number [facility] [address] [place] [phone] * (ABNORMAL) MAGNESIUM (01/08/2025 2:16 AM EDT) Magnesium 1.7(L) 1.9 - 2.7 mg/dL 01/08/2025 2:52 AM EDT [facility] Blood BLOOD SPECIMEN / Unknown Venipuncture / Unknown 01/08/2025 2:16 AM EDT 01/08/2025 2:29 AM EDT Vanessa Doherty MD 98 GENERAL LAB Final Result Performing Organization Address City/[facility]/ZIP Co de Phone Number [facility] [address] [place] [phone] * (ABNORMAL) GLUCOSE, FINGERSTICK-IN OFFICE (01/08/2025 12:08 AM EDT) Glucose, POC 198(H) 74 - 109 mg/dL 01/08/2025 12:15 AM EDT NURSING GLUCOSE PROGRAM Blood BLOOD SPECIMEN / Unknown 01/08/2025 12:08 AM EDT 01/08/2025 12:15 AM EDT us To Be Assigned EC BACK OFFICE LABS Final Result NURSING GLUCOSE PROGRAM [place] [address] * (ABNORMAL) COMPLETE BLOOD COUNT (01/07/2025 10:59 PM EDT) WBC 9.8 4.5 - 11.5 K/uL 01/07/2025 11:10 PM EDT [facility] RBC 3.06(L) 4.00 - 5.20 M/uL 01/07/2025 11:10 PM EDT [facility] Hemoglobin 8.4(L) 12.0 - 15.0 g/dL 01/07/2025 11:10 PM EDT [facility] Hematocrit 26.3(L) 36.0 - 46.0 % 01/07/2025 11:10 PM EDT [facility] MCV 86 80 - 100 fL 01/07/2025 11:10 PM EDT [facility] MCH 27.4 26.0 - 34.0 pg 01/07/2025 11:10 PM EDT [facility] MCHC 31.9(L) 32.0 - 35.9 g/dL 01/07/2025 11:10 PM EDT [facility] Platelet 140(L) 150 - 400 K/uL 01/07/2025 11:10 PM EDT [facility] RDW-CV 18.5(H) 11.5 - 14.5 % 01/07/2025 11:10 PM EDT [facility] MPV 9.6 7.5 - 11.2 fL 01/07/2025 11:10 PM EDT [facility] Blood BLOOD SPECIMEN / Unknown Venipuncture / Unknown 01/07/2025 10:59 PM EDT 01/07/2025 11:03 PM EDT us Geno Aranda MD 98 GENERAL LAB Final Result Performing Organization Address [facility]/ZIP Co de Phone Number [facility] [address], [place] * (ABNORMAL) BLOOD GAS, ARTERIAL (01/07/2025 10:58 PM EDT) Mode Vent 01/07/2025 11:09 PM EDT S PATHOLOGY LABORATORY FIO2 40% 01/07/2025 11:09 PM EDT [facility] pH, Arterial 7.351 7.350 - 7.450 01/07/2025 11:09 PM EDT [facility] PCO2, Arterial 57.2(H) 35.0 - 45.0 mm Hg 01/07/2025 11:09 PM EDT [facility] pO2, Arterial 88 80 - 100 mm Hg 01/07/2025 11:09 PM EDT [facility] Oxygen Saturation 97.9 95.0 - 99.0 % 01/07/2025 11:09 PM EDT [facility] Base Excess 4.9(H) -2.0 - 3.0 mmol/L 01/07/2025 11:09 PM EDT [facility] Bicarbonate, Whole Blood 31(H) 21 - 28 mmol/L 01/07/2025 11:09 PM EDT [facility] Blood ARTERIAL BLOOD SPECIMEN / Unknown Venipuncture / Unknown 01/07/2025 10:58 PM EDT 01/07/2025 11:02 PM EDT us Roya Catalan MD 98 GENERAL LAB Final Result [facility] [address] [place] [address] * TRANSFUSE RED CELLS (01/07/2025 9:04 PM EDT) us Geno Aranda MD IP TRANSFUSION ORDERS Final Resu lt * (ABNORMAL) BLOOD GAS, ARTERIAL (01/07/2025 6:49 PM EDT) Mode Vent 01/07/2025 7:09 PM EDT [facility] FIO2 50% 01/07/2025 7:09 PM EDT [facility] pH, Arterial 7.376 7.350 - 7.450 01/07/2025 7:09 PM EDT [facility] PCO2, Arterial 54.6(H) 35.0 - 45.0 mm Hg 01/07/2025 7:09 PM EDT [facility] pO2, Arterial 86 80 - 100 mm Hg 01/07/2025 7:09 PM EDT [facility] Oxygen Saturation 96.8 95.0 - 99.0 % 01/07/2025 7:09 PM EDT [facility] Base Excess 5.9(H) -2.0 - 3.0 mmol/L 01/07/2025 7:09 PM EDT [facility] Bicarbonate, Whole Blood 31(H) 21 - 28 mmol/L 01/07/2025 7:09 PM EDT [facility] Blood ARTERIAL BLOOD SPECIMEN / Unknown Venipuncture / Unknown 01/07/2025 6:49 PM EDT 01/07/2025 7:03 PM EDT us Roya Catalan MD 98 GENERAL LAB Final Result [facility] [address] [place] [phone] * (ABNORMAL) GLUCOSE, FINGERSTICK-IN OFFICE (01/07/2025 6:18 PM EDT) [facility] Glucose, POC 141(H) 74 - 109 mg/dL 01/07/2025 6:25 PM EDT NURSING GLUCOSE PROGRAM Comment:Notified RN ARIELLA BEAN<B R> Blood BLOOD SPECIMEN / Unknown 01/07/2025 6:18 PM EDT 01/07/2025 6:25 PM EDT us To Be Assigned EC BACK OFFICE LABS Final Result NURSING GLUCOSE PROGRAM [address] [place] [address] * RED BLOOD CELL COMPONENT (01/07/2025 3:59 PM EDT) BB Order Item Product status info to follow [facility] BLOOD SPECIMEN / Unknown Geno Aranda MD EC BLOOD BANK Final Result [facility] [address], [place] [phone] * RED BLOOD CELL UNIT STATUS (01/07/2025 3:58 PM EDT) Pathologist [facility] Crossmatch Interpretation Compatible (E) [facility] Blood Product Unit Type 5100 [facility] Comment:O Pos Blood Product Unit Info [id number] [facility] Status Transfused [facility] Blood Product Description Red Blood Cells [facility] Blood Product Code [id number] [facility] 01/07/2025 3:58 PM EDT 01/07/2025 7:49 PM EDT Geno Aranda MD EC BLOOD BANK Edited Result - Final Performing Organization Address City/[facility]/ZIP Co de Phone Number [facility] [address] [place], [place] [phone] * RESPIRATORY CULTURE, MISC (01/07/2025 2:57 PM EDT) Pathologist [facility] MRSA Screen Methicillin-Resistan t Staphylococcus aureus NOT detected by chromagar screen. 01/10/2025 10:49 AM EDT [facility] Respiratory Culture 1,000-10,000 CFU/ml Alpha hemolytic streptococcus MAN 01/10/2025 10:49 AM EDT [facility] Comment:No further workup Gram Stain No Polymorphonuclear Leukocytes seen 01/10/2025 10:49 AM EDT [facility] Gram Stain No Squamous Epithelial Cells seen 01/10/2025 10:49 AM EDT [facility] Gram Stain No organisms seen 025 10:49 AM EDT [facility] Respiratory BRONCHOALVEOLAR LAVAGE FLUID SPECIMEN / Unknown 01/07/2025 2:57 PM EDT 01/07/2025 3:03 PM EDT Dwight Haas MD EC MICROBIOLOGY Final Result Performing Organization Address [facility] Co de Phone Number [facility] [address] [place] [phone] * MRSA SCREEN (01/07/2025 2:51 PM EDT) MRSA Screen No methicillin resistant Staphylococcus aureus isolated. No methicillin resistant Staphylococcus aureus isolated. 01/08/2025 9:50 AM EDT [facility] Swab ANTERIOR NARES SWAB / Unknown 01/07/2025 2:51 PM EDT 01/07/2025 3:03 PM EDT Geno Aranda MD EC MICROBIOLOGY Final Result Performing Organization Address [facility] Co de Phone Number [facility] [address] [place] [phone] * CORTISOL RANDOM (01/07/2025 2:51 PM EDT) Pathologist [facility] Cortisol, Random 14.8 ug/dL 01/07/2025 3:33 PM EDT [facility] Blood BLOOD SPECIMEN / Unknown Venipuncture / Unknown 01/07/2025 2:51 PM EDT 01/07/2025 2:58 PM EDT Geno Aranda MD 98 GENERAL LAB Final Result Performing Organization Address [facility] de Phone Number [facility] [address] [place] [address] * (ABNORMAL) HEPATIC FUNCTION PANEL (01/07/2025 2:51 PM EDT) Albumin 2.8(L) 3.5 - 5.7 g/dL 01/07/2025 3:27 PM EDT [facility] Bilirubin, Direct 0.24(H) 0.03 - 0.18 mg/dL 01/07/2025 3:27 PM EDT [facility] Bilirubin, Total 0.8 0.3 - 1.0 mg/dL 01/07/2025 3:27 PM EDT [facility] Alkaline Phosphatase 49 34 - 104 IU/L 01/07/2025 3:27 PM EDT [facility] ALT (SGPT) 16 7 - 52 IU/L 01/07/2025 3:27 PM EDT [facility] AST (SGOT) 23 13 - 39 IU/L 01/07/2025 3:27 PM EDT [facility] Protein, Total 4.6(L) 6.0 - 8.3 g/dL 01/07/2025 3:27 PM EDT [facility] Blood BLOOD SPECIMEN / Unknown Venipuncture / Unknown 01/07/2025 2:51 PM EDT 01/07/2025 2:58 PM EDT us Geno Aranda MD 98 GENERAL LAB Final Result [facility] [address] [place] [phone] * (ABNORMAL) BASIC METABOLIC PANEL (01/07/2025 2:51 PM EDT) Glucose 122(H) 74 - 109 mg/dL 01/07/2025 3:27 PM EDT [facility] Sodium 149(H) 136 - 145 mmol/L 01/07/2025 3:27 PM EDT [facility] Potassium 4.0 3.5 - 5.0 mmol/L 01/07/2025 3:27 PM EDT [facility] Carbon Dioxide 34(H) 21 - 31 mmol/L 01/07/2025 3:27 PM EDT [facility] Chloride 105 98 - 107 mmol/L 01/07/2025 3:27 PM EDT [facility] Blood Urea Nitrogen 35(H) 7 - 25 mg/dL 01/07/2025 3:27 PM EDT [facility] Creatinine 1.17 0.60 - 1.20 mg/dL 01/07/2025 3:27 PM EDT [facility] Calcium 7.0(L) 8.6 - 10.3 mg/dL 01/07/2025 3:27 PM EDT [facility] Anion Gap 14 10 - 20 01/07/2025 3:27 PM EDT [facility] Estimated GFR (CKD-EPI) 50(L) >=60 mL/min/1. 73sqm 01/07/2025 3:27 PM EDT [facility] Comment: 2020 CKD EPI Equation using Creatinine without Race Comment: Estimated glomerular filtration rate (eGFR) is calculated without a race coefficient. Values should be interpreted in the context of the patient's full clinical presentation. Reference: 1. Rogers C, Dereck M, Hayden SETHI, et al.. A Unifying Approach for GFR Estimation: Recommendations of the NKF-ASN Task Force on Reassessing the Inclusion of Race in Diagnosing Kidney Disease. [place] Journal of Kidney Diseases 2021;79(2):268- 88.e1. 2. N Engl J Med 1 Vol. 385 Issue 19 Pages 0437-4039 Blood BLOOD SPECIMEN / Unknown Venipuncture / Unknown 01/07/2025 2:51 PM EDT 01/07/2025 2:58 PM EDT Geno Aranda MD 98 GENERAL LAB Final Result [facility] [address] [place] [phone] * (ABNORMAL) COMPLETE BLOOD COUNT (01/07/2025 2:51 PM EDT) WBC 11.7(H) 4.5 - 11.5 K/uL 01/07/2025 3:10 PM EDT [facility] RBC 2.90(L) 4.00 - 5.20 M/uL 01/07/2025 3:10 PM EDT [facility] Hemoglobin 7.7(L) 12.0 - 15.0 g/dL 01/07/2025 3:10 PM EDT [facility] Hematocrit 24.2(L) 36.0 - 46.0 % 01/07/2025 3:10 PM EDT [facility] MCV 84 80 - 100 fL 01/07/2025 3:10 PM EDT [facility] MCH 26.6 26.0 - 34.0 pg 01/07/2025 3:10 PM EDT [facility] MCHC 31.8(L) 32.0 - 35.9 g/dL 01/07/2025 3:10 PM EDT [facility] Platelet 160 150 - 400 K/uL 01/07/2025 3:10 PM EDT [facility] RDW-CV 18.1(H) 11.5 - 14.5 % 01/07/2025 3:10 PM EDT [facility] MPV 9.5 7.5 - 11.2 fL 01/07/2025 3:10 PM EDT [facility] Blood BLOOD SPECIMEN / Unknown Venipuncture / Unknown 01/07/2025 2:51 PM EDT 01/07/2025 2:58 PM EDT Geno Aranda MD 98 GENERAL LAB Final Result Performing Organization Address [facility] Co de Phone Number [facility] [address] [place] [phone] * LACTIC ACID (01/07/2025 2:51 PM EDT) Lactate 0.8 0.5 - 1.6 mmol/L 01/07/2025 3:04 PM EDT [facility] Blood BLOOD SPECIMEN / Unknown Venipuncture / Unknown 01/07/2025 2:51 PM EDT 01/07/2025 2:57 PM EDT Narrative [facility] - 01/07/2025 3:04 PM EDT This test was developed, and its performance characteristics determined by the Department of Pathology of [facility]. It has not been cleared or approved by the FDA. This test is used for clinical purposes only. Geno Aranda MD 98 GENERAL LAB Final Result Performing Organization Address City/[facility]/ZIP Co de Phone Number [facility] [address] [place] [phone] * CREATINE KINASE (01/07/2025 2:51 PM EDT) Creatine Kinase 107 30 - 233 IU/L 01/07/2025 3:27 PM EDT [facility] Blood BLOOD SPECIMEN / Unknown Venipuncture / Unknown 01/07/2025 2:51 PM EDT 01/07/2025 2:58 PM EDT us Geno Aranda MD 98 GENERAL LAB Final Result [facility] [address] [place] [phone] * ECHOCARDIOGRAM REPORT (01/07/2025 2:40 PM EDT) Left Ventricular Ejection Fraction 45 % [facility] Mitral Regurgitation physiologic [facility] Anatomical Region Laterality Modality Other 01/07/2025 2:40 PM EDT Narrative Procedure Note Justin Harrison MD - 01/07/2025 2:40 PM EDT Transthoracic Echocardiographic Report Name: TAMIR GONSALEZ Interpreting JUSTIN HARRISON MD Physician: : [id number] Referring WALDO CLARK MD Physician: Age: 74 [employer] Brake Operator: Hema Coleman RDCS Exam Date: 01/07/2025 Fellow: 02:40 PM CVT: PCP: Gender: Female Height 162.56 cm Weight 79.38 kg Encounter #: BSA 1.85 m^2 Study SICU BMI 30.04 kg/m^2 Location: Technical Fair Quality: Type of Study: TTE procedure: 2D echocardiogram, M-Mode,Doppler , Color Doppler, Contrast study. Indications for Study:Pulmonary edema. Tech. Comments Patient unable to provide ID or confirm test being done. Armband ID verified. The patient was unable to provide verbal consent however the orderingand reporting attendings felt the benefit/risk evaluation strongly favoredleft heart contrast administration. Administration of 1 dose(s) of 1.5 ml of Definity diluted to 10 ml ofsaline was administered by Bebo Coleman RDCS . Supine BP: 109/79 mmHg Patient Status: Routine Contrast Medium: Definity. Left Ventricle Value Normal Value Normal LVIDd: 4.2 cm <5.7 cm Post. Wall 1.1 cm <1.2 cm Thickness: Septum 1.2 cm <1.2 cm LV FS: 21.43 % 30-40% Diastolic: Systolic 3.3 cm <4 cm LV Mass 194.96g Dimension: LV Mass Index: 105 <110Women<120 g/m^2 Men Left Atrium LA Dimension: 4.2 cm <3.92cm Atrium RA (apical 4): 2.75 cm <4.6 cm Vessels Sinus of 3.3cm Valsalva: Findings/Conclusions Chambers LV Left ventricular systolic function is mildlyglobally reduced. The left ventricular ejection fraction (LVEF) is45% +/- 5%by the triplane summation of disc (Gleason's rule) method. Left ventricular size is normal. LA Normal left atrium. The left atrial volume index is 33 mL/m2 (normal:<35 mL/m2, mild: 35-41 mL/m2, moderate: 42-48 mL/m2, severe: >48 mL/m2). RV The right ventricle is dilated. Right ventricular function is moderately globally reduced. The percent area shortening is 25 (normal >35%). RA Normal right atrium. The right atrial volume indexed to BSA is normal at28 mL/m2 (normal for males <39 mL/m2, females <33mL/m2). Valves AV Normal aortic valve. MV Mitral annular fibrocalcific changes are presentand are mild. There is physiologic mitral regurgitation. TV Normal tricuspid valve. There is physiologic tricuspid regurgitation. PV Normal pulmonic valve. Great Vessels Normal sinus of Valsalva. Pericardium/Pleura No evidence of a pericardial effusion. Hemodynamics Systolic RV-RA pressure gradient is 40 mmHg. (Upper normal is 30 mmHg). The right atrial pressure could not be estimateddue to the patient being mechanically ventilated. Summary Left ventricular systolic function is mildly globally reduced. The left ventricular ejection fraction (LVEF) is 45% +/- 5% The right ventricle is dilated. Right ventricular function is moderately globally reduced. No hemodynamically significant valve disease. Noninvasive hemodynamic assessment is consistent with mild pulmonary hypertension (40-50 mmHg). See above for further details. Authenticated by: Electronically signed and authenticated by JUSTIN HARRISON MD(Interpreting physician) on 01/07/2025 03:23 PM Dwight Haas MD EC NON-INVASIVE CARDIOVASCULAR Edited Result - Final * (ABNORMAL) BLOOD GAS, ARTERIAL (01/07/2025 2:06 PM EDT) Mode Vent 01/07/2025 3:01 PM EDT [facility] FIO2 50% 01/07/2025 3:01 PM EDT [facility] pH, Arterial 7.411 7.350 - 7.450 01/07/2025 3:01 PM EDT [facility] PCO2, Arterial 54.2(H) 35.0 - 45.0 mm Hg 01/07/2025 3:01 PM EDT [facility] pO2, Arterial 89 80 - 100 mm Hg 01/07/2025 3:01 PM EDT [facility] Oxygen Saturation 97.6 95.0 - 99.0 % 01/07/2025 3:01 PM EDT [facility] Base Excess 8.5(H) -2.0 - 3.0 mmol/L 01/07/2025 3:01 PM EDT [facility] Bicarbonate, Whole Blood 34(H) 21 - 28 mmol/L 01/07/2025 3:01 PM EDT [facility] Blood ARTERIAL BLOOD SPECIMEN / Unknown Venipuncture / Unknown 01/07/2025 2:06 PM EDT 01/07/2025 2:57 PM EDT us Roya Catalan MD 98 GENERAL LAB Final Result [facility] [address] [place] [phone] * XR CHEST AP OR PA 1 VIEW (01/07/2025 1:22 PM EDT) Anatomical Region Laterality Modality XR Chest N/A Computed Radiogr aphy 01/07/2025 1:26 PM EDT Narrative 01/07/2025 1:38 PM EDT EXAMINATION: XR CHEST AP OR PA 1 VIEW 01/07/2025 01:22 PM CLINICAL HISTORY: Endotracheal tube assessment; post-bronch ASSOCIATED DIAGNOSIS: Endotracheal tube assessment post-bronch ORDERING PROVIDER: DWIGHT HAAS TECHNOLOGISTS NOTE: COMPARISON: XR CHEST AP OR PA 1 VIEW 01/07/2025, 12:46 PM, XR CHEST AP OR PA 1 VIEW 01/07/2025, 12:45 PM FINDINGS: Position and projection: AP semirecumbent Limitations: None. Clinical considerations: Obtained from EMR. Lines, tubes, and devices: Endotracheal tube terminates 4.3 cm proximal to the jessica. Enteral feeding tube terminates overlying the gastric fundus region. Cardiomediastinal silhouette: Borderline cardiomegaly. Aorta: Atherosclerotic calcification. Diaphragm: Elevation of the left hemidiaphragm with the left hemidiaphragm approximately 3 cm higher than the right. Lungs and pleura: Right basilar pulmonary atelectasis/consolidation and small right pleural effusion. No pneumothorax. Osseous structures: Osteopenia. Acute fractures of the lateral left 6th and 7th ribs. Acute, displaced, transverse fracture of the left humeral surgery neck and left glenohumeral joint space widening. 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 Osteophytic endplate spurring and bridging of multiple thoracic vertebra. Chest wall: Telemetry leads overlie the chest. IMPRESSION: 1. Insertion of an endotracheal tube which is in satisfactory position. 2. Enteral feeding tube terminates overlying the gastric fundus region. This should be advanced into the duodenum for optimal position. 3. Status post recent chest trauma with multiple acute left rib fractures and left humeral neck fracture. 4. Right basilar pulmonary atelectasis/consolidation and small right pleural effusion. MACRO: None Procedure Note Grant Proctor, DO - 01/07/2025 EXAMINATION: XR CHEST AP OR PA 1 VIEW 01/07/2025 01:22 PM CLINICAL HISTORY: Endotracheal tube assessment; post-bronch ASSOCIATED DIAGNOSIS: Endotracheal tube assessment [facility] ORDERING PROVIDER: DWIGHT HAAS TECHNOLOGISTS NOTE: COMPARISON: XR CHEST AP OR PA 1 VIEW 01/07/2025, 12:46 PM, XR CHEST AP OR PA1 VIEW 01/07/2025, 12:45 PM FINDINGS: Position and projection: AP semirecumbent Limitations: None. Clinical considerations: Obtained from EMR. Lines, tubes, and devices: Endotracheal tube terminates 4.3 cm proximal to the jessica. Enteral feeding tube terminates overlying the gastric fundus region. Cardiomediastinal silhouette: Borderline cardiomegaly. Aorta: Atherosclerotic calcification. Diaphragm: Elevation of the left hemidiaphragm with the left hemidiaphragmapproximately 3 cm higher than the right. Lungs and pleura: Right basilar pulmonary atelectasis/consolidation andsmall right pleural effusion. No pneumothorax. Osseous structures: Osteopenia. Acute fractures of the lateral left 6thand 7th ribs. Acute, displaced, transverse fracture of the left humeralsurgery neck and left glenohumeral joint space widening. 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 Osteophyticendplate spurring and bridging of multiple thoracic vertebra. Chest wall: Telemetry leads overlie the chest. IMPRESSION: 1. Insertion of an endotracheal tube which is in satisfactory position. 2. Enteral feeding tube terminates overlying the gastric fundus region.This should be advanced into the duodenum for optimal position. 3. Status post recent chest trauma with multiple acute left rib fracturesand left humeral neck fracture. 4. Right basilar pulmonary atelectasis/consolidation and small rightpleural effusion. MACRO: None us Dwight Haas MD EC DIAGNOSTIC X-RAY 2 Final Res ult * XR ABDOMEN AP 1 VIEW (01/07/2025 12:46 PM EDT) Anatomical Region Laterality Modality XR Abdomen N/A Computed Radiogr aphy 01/07/2025 12:5 0 PM EDT Narrative 01/07/2025 12:50 PM EDT EXAMINATION: XR ABDOMEN AP 1 VIEW 01/07/2025 12:46 PM CLINICAL HISTORY: Step 2 of [place] 2 Step process ASSOCIATED DIAGNOSIS: ORDERING PROVIDER: GENO HE NOTE: COMPARISON: None IMPRESSION: Feeding tube course below the diaphragm with tip projecting over the gastric fundus. Nonobstructive bowel gas pattern. Severe atherosclerotic calcifications of the aorta are noted. MACRO: None Procedure Note Momo Holcomb MD - 01/07/2025 EXAMINATION: XR ABDOMEN AP 1 VIEW 01/07/2025 12:46 PM CLINICAL HISTORY: Step 2 of [place] 2 Step process ASSOCIATED DIAGNOSIS: ORDERING PROVIDER: GENO HE NOTE: COMPARISON: None IMPRESSION: Feeding tube course below the diaphragm with tip projecting over thegastric fundus. Nonobstructive bowel gas pattern. Severe atheroscleroticcalcifications of the aorta are noted. MACRO: None us Geno Aranda MD EC DIAGNOSTIC X-RAY Final Result * XR CHEST AP OR PA 1 VIEW (01/07/2025 12:40 PM EDT) Anatomical Region Laterality Modality XR Chest N/A Computed Radiogr aphy 01/07/2025 1:02 PM EDT Narrative 01/07/2025 1:03 PM EDT EXAMINATION: XR CHEST AP OR PA 1 VIEW 01/07/2025 12:40 PM CLINICAL HISTORY: Feeding tube assessment ASSOCIATED DIAGNOSIS: Feeding tube assessment ORDERING PROVIDER: WILFRED HE NOTE: COMPARISON: XR CHEST AP OR PA 1 VIEW 01/07/2025, 12:45 PM IMPRESSION: Enteric tube overlies the left upper quadrant in the expected position of the gastric fundus. Otherwise stable chest without radiographic evidence of acute cardiopulmonary process, and a displaced left humeral neck fracture. MACRO: None Procedure Note Andrea Lepe MD - 01/07/2025 EXAMINATION: XR CHEST AP OR PA 1 VIEW 01/07/2025 12:40 PM CLINICAL HISTORY: Feeding tube assessment ASSOCIATED DIAGNOSIS: Feeding tube assessment ORDERING PROVIDER: WILFRED HE NOTE: COMPARISON: XR CHEST AP OR PA 1 VIEW 01/07/2025, 12:45 PM IMPRESSION: Enteric tube overlies the left upper quadrant in the expected position ofthe gastric fundus. Otherwise stable chest without radiographic evidenceof acute cardiopulmonary process, and a displaced left humeral neckfracture. MACRO: None Wilfred Frias MD DIAGNOSTIC X-RAY 2 Final Res ult * XR CHEST AP OR PA 1 VIEW (01/07/2025 12:35 PM EDT) Anatomical Region Laterality Modality XR Chest N/A Computed Radiogr aphy 01/07/2025 1:01 PM EDT Narrative 01/07/2025 1:02 PM EDT EXAMINATION: XR CHEST AP OR PA 1 VIEW 01/07/2025 12:35 PM CLINICAL HISTORY: Feeding tube assessment ASSOCIATED DIAGNOSIS: Feeding tube assessment ORDERING PROVIDER: GENO HE NOTE: COMPARISON: XR CHEST AP OR PA 1 VIEW 01/07/2025, 3:10 AM XRAY CHEST IMAGE IMPORT(JOSE ARMANDO) 04/22/2023, 9:02 AM XRAY CHEST IMAGE IMPORT(JOSE ARMANDO) 04/19/2023, 3:03 PM IMPRESSION: Enteric tube is coiled overlying the neck. Otherwise stable chest without radiographic evidence of acute cardiopulmonary process, and a displaced left humeral neck fracture. MACRO: None Procedure Note Andrea Lepe MD - 01/07/2025 EXAMINATION: XR CHEST AP OR PA 1 VIEW 01/07/2025 12:35 PM CLINICAL HISTORY: Feeding tube assessment ASSOCIATED DIAGNOSIS: Feeding tube assessment ORDERING PROVIDER: GENO ARANDA TECHNOLOGISTS NOTE: COMPARISON: XR CHEST AP OR PA 1 VIEW 01/07/2025, 3:10 AM XRAY CHEST IMAGEIMPORT(JOSE ARMANDO) 04/22/2023, 9:02 AM XRAY CHEST IMAGE IMPORT(JOSE ARMANDO) 04/19/2023,3:03 PM IMPRESSION: Enteric tube is coiled overlying the neck. Otherwise stable chest withoutradiographic evidence of acute cardiopulmonary process, and a displacedleft humeral neck fracture. MACRO: None us Geno Aranda MD EC DIAGNOSTIC X-RAY 2 Final Resu lt * (ABNORMAL) GLUCOSE, FINGERSTICK-IN OFFICE (01/07/2025 12:07 PM EDT) Glucose, POC 122(H) 74 - 109 mg/dL 01/07/2025 12:14 PM EDT NURSING GLUCOSE PROGRAM Comment:Notified RN ARIELLA BEAN<B R> Blood BLOOD SPECIMEN / Unknown 01/07/2025 12:07 PM EDT 01/07/2025 12:14 PM EDT us To Be Assigned EC BACK OFFICE LABS Final Result NURSING GLUCOSE PROGRAM [address] [place] [address] * (ABNORMAL) BLOOD GAS, ARTERIAL (01/07/2025 11:37 AM EDT) Mode BIPAP 01/07/2025 11:49 AM EDT [facility] Comment:20/02 FIO2 50% 01/07/2025 11:49 AM EDT [facility] pH, Arterial 7.264(L) 7.350 - 7.450 01/07/2025 11:49 AM EDT [facility] PCO2, Arterial 88.5(HH) 35.0 - 45.0 mm Hg 01/07/2025 11:49 AM EDT [facility] pO2, Arterial 110(H) 80 - 100 mm Hg 01/07/2025 11:49 AM EDT [facility] Oxygen Saturation 97.7 95.0 - 99.0 % 01/07/2025 11:49 AM EDT [facility] Base Excess 10.3(H) -2.0 - 3.0 mmol/L 01/07/2025 11:49 AM EDT [facility] Bicarbonate, Whole Blood 39(H) 21 - 28 mmol/L 01/07/2025 11:49 AM EDT [facility] Blood ARTERIAL BLOOD SPECIMEN / Unknown Venipuncture / Unknown 01/07/2025 11:37 AM EDT 01/07/2025 11:43 AM EDT us Geno Aranda MD 98 GENERAL LAB Final Result [facility] [address] [place] [phone] * (ABNORMAL) BLOOD GAS, ARTERIAL (01/07/2025 8:31 AM EDT) Mode BIPAP 01/07/2025 8:50 AM EDT [facility] FIO2 50% 01/07/2025 8:50 AM EDT [facility] pH, Arterial 7.230(L) 7.350 - 7.450 01/07/2025 8:50 AM EDT [facility] PCO2, Arterial 100.0(HH) 35.0 - 45.0 mm Hg 01/07/2025 8:50 AM EDT [facility] pO2, Arterial 88 80 - 100 mm Hg 01/07/2025 8:50 AM EDT [facility] Oxygen Saturation 94.6(L) 95.0 - 99.0 % 01/07/2025 8:50 AM EDT [facility] Base Excess 11.0(H) -2.0 - 3.0 mmol/L 01/07/2025 8:50 AM EDT [facility] Bicarbonate, Whole Blood 41(H) 21 - 28 mmol/L 01/07/2025 8:50 AM EDT [facility] Blood ARTERIAL BLOOD SPECIMEN / Unknown Venipuncture / Unknown 01/07/2025 8:31 AM EDT 01/07/2025 8:40 AM EDT Dwight Haas MD 98 GENERAL LAB Final Result [facility] [address] [place] [address] * (ABNORMAL) BASIC METABOLIC PANEL (01/07/2025 5:08 AM EDT) Glucose 144(H) 74 - 109 mg/dL 01/07/2025 6:00 AM EDT [facility] Sodium 150(H) 136 - 145 mmol/L 01/07/2025 6:00 AM EDT [facility] Potassium 4.5 3.5 - 5.0 mmol/L 01/07/2025 6:00 AM EDT [facility] Carbon Dioxide 43(H) 21 - 31 mmol/L 01/07/2025 6:00 AM EDT [facility] Chloride 100 98 - 107 mmol/L 01/07/2025 6:00 AM EDT [facility] Blood Urea Nitrogen 37(H) 7 - 25 mg/dL 01/07/2025 6:00 AM EDT [facility] Creatinine 1.37(H) 0.60 - 1.20 mg/dL 01/07/2025 6:00 AM EDT [facility] Calcium 8.3(L) 8.6 - 10.3 mg/dL 01/07/2025 6:00 AM EDT [facility] Anion Gap 12 10 - 20 01/07/2025 6:00 AM EDT [facility] Estimated GFR (CKD-EPI) 41(L) >=60 mL/min/1. 73sqm 01/07/2025 6:00 AM EDT [facility] Comment: 2020 CKD EPI Equation using Creatinine without Race Comment: Estimated glomerular filtration rate (eGFR) is calculated without a race coefficient. Values should be interpreted in the context of the patient's full clinical presentation. Reference: 1. Rogers C, Dereck M, Hayden DC, et al.. A Unifying Approach for GFR Estimation: Recommendations of the NKF-ASN Task Force on Reassessing the Inclusion of Race in Diagnosing Kidney Disease. [place] Journal of Kidney Diseases 2021;79(2):268- 88.e1. 2. N Engl J Med 2021 Vol. 385 Issue 19 Pages 2053-0814 Blood BLOOD SPECIMEN / Unknown Venipuncture / Unknown 01/07/2025 5:08 AM EDT 01/07/2025 5:15 AM EDT Vanessa Doherty MD 98 GENERAL LAB Final Result Performing Organization Address [facility]/ZIP Co de Phone Number [facility] [address] [place] [address] * (ABNORMAL) PHOSPHORUS (01/07/2025 5:08 AM EDT) Phosphorus, Serum 6.5(H) 2.5 - 5.0 mg/dL 01/07/2025 5:42 AM EDT [facility] Blood BLOOD SPECIMEN / Unknown Venipuncture / Unknown 01/07/2025 5:08 AM EDT 01/07/2025 5:15 AM EDT Vanessa Doherty MD 98 GENERAL LAB Final Result Performing Organization Address [facility]/ZIP Co de Phone Number [facility] [address] [place] [address] * CREATINE KINASE (01/07/2025 5:08 AM EDT) Creatine Kinase 181 30 - 233 IU/L 01/07/2025 10:33 AM EDT [facility] Blood BLOOD SPECIMEN / Unknown Venipuncture / Unknown 01/07/2025 5:08 AM EDT 01/07/2025 5:15 AM EDT Dwight Haas MD 98 GENERAL LAB Final Result Performing Organization Address [facility] de Phone Number [facility] [address] [place] [address] * (ABNORMAL) BLOOD GAS, ARTERIAL (01/07/2025 5:04 AM EDT) Mode BIPAP 01/07/2025 5:18 AM EDT S PATHOLOGY LABORATORY FIO2 50% 01/07/2025 5:18 AM EDT [facility] pH, Arterial 7.269(L) 7.350 - 7.450 01/07/2025 5:18 AM EDT [facility] PCO2, Arterial 90.0(HH) 35.0 - 45.0 mm Hg 01/07/2025 5:18 AM EDT [facility] pO2, Arterial 94 80 - 100 mm Hg 01/07/2025 5:18 AM EDT [facility] Oxygen Saturation 95.6 95.0 - 99.0 % 01/07/2025 5:18 AM EDT [facility] Base Excess 11.5(H) -2.0 - 3.0 mmol/L 01/07/2025 5:18 AM EDT [facility] Bicarbonate, Whole Blood 40(H) 21 - 28 mmol/L 01/07/2025 5:18 AM EDT [facility] Blood ARTERIAL BLOOD SPECIMEN / Unknown Venipuncture / Unknown 01/07/2025 5:04 AM EDT 01/07/2025 5:15 AM EDT Roya Catalan MD 98 GENERAL LAB Final Result Performing Organization Address [facility] Co de Phone Number [facility] [address] [place] [address] * (ABNORMAL) GLUCOSE, FINGERSTICK-IN OFFICE (01/07/2025 4:15 AM EDT) Glucose, POC 150(H) 74 - 109 mg/dL 01/07/2025 4:22 AM EDT NURSING GLUCOSE PROGRAM Blood BLOOD SPECIMEN / Unknown 01/07/2025 4:15 AM EDT 01/07/2025 4:22 AM EDT us Chaz Sage MD EC BACK OFFICE LABS Final Result NURSING GLUCOSE PROGRAM [address] [place] [address] * (ABNORMAL) BASIC METABOLIC PANEL (01/07/2025 3:47 AM EDT) Glucose 141(H) 74 - 109 mg/dL 01/07/2025 4:23 AM EDT [facility] Sodium 148(H) 136 - 145 mmol/L 01/07/2025 4:23 AM EDT [facility] Potassium 5.3(H) 3.5 - 5.0 mmol/L 01/07/2025 4:23 AM EDT [facility] Comment:Hemolysis present Carbon Dioxide 43(H) 21 - 31 mmol/L 01/07/2025 4:23 AM EDT [facility] Chloride 99 98 - 107 mmol/L 01/07/2025 4:23 AM EDT [facility] Blood Urea Nitrogen 36(H) 7 - 25 mg/dL 01/07/2025 4:23 AM EDT [facility] Creatinine 1.28(H) 0.60 - 1.20 mg/dL 01/07/2025 4:23 AM EDT [facility] Calcium 8.2(L) 8.6 - 10.3 mg/dL 01/07/2025 4:23 AM EDT [facility] Anion Gap 11 10 - 20 01/07/2025 4:23 AM EDT [facility] Estimated GFR (CKD-EPI) 45(L) >=60 mL/min/1. 73sqm 01/07/2025 4:23 AM EDT [facility] Comment: 2020 CKD EPI Equation using Creatinine without Race Comment: Estimated glomerular filtration rate (eGFR) is calculated without a race coefficient. Values should be interpreted in the context of the patient's full clinical presentation. Reference: 1. Rogers C, Dereck M, Hayden SETHI, et al.. A Unifying Approach for GFR Estimation: Recommendations of the NKF-ASN Task Force on Reassessing the Inclusion of Race in Diagnosing Kidney Disease. [place] Journal of Kidney Diseases 202;79(2):268- 88.e1. 2. N Engl J Med 2021 Vol. 385 Issue 19 Pages 3640-3611 Blood BLOOD SPECIMEN / Unknown Venipuncture / Unknown 01/07/2025 3:47 AM EDT 01/07/2025 3:55 AM EDT Vanessa Doherty MD 98 GENERAL LAB Final Result [facility] [address] [place] [address] * (ABNORMAL) COMPLETE BLOOD COUNT (01/07/2025 3:47 AM EDT) WBC 14.2(H) 4.5 - 11.5 K/uL 01/07/2025 4:00 AM EDT [facility] RBC 3.56(L) 4.00 - 5.20 M/uL 01/07/2025 4:00 AM EDT [facility] Hemoglobin 9.4(L) 12.0 - 15.0 g/dL 01/07/2025 4:00 AM EDT [facility] Hematocrit 29.8(L) 36.0 - 46.0 % 01/07/2025 4:00 AM EDT [facility] MCV 84 80 - 100 fL 01/07/2025 4:00 AM EDT [facility] MCH 26.5 26.0 - 34.0 pg 01/07/2025 4:00 AM EDT [facility] MCHC 31.6(L) 32.0 - 35.9 g/dL 01/07/2025 4:00 AM EDT [facility] Platelet 197 150 - 400 K/uL 01/07/2025 4:00 AM EDT [facility] RDW-CV 17.5(H) 11.5 - 14.5 % 01/07/2025 4:00 AM EDT [facility] MPV 9.8 7.5 - 11.2 fL 01/07/2025 4:00 AM EDT [facility] Blood BLOOD SPECIMEN / Unknown Venipuncture / Unknown 01/07/2025 3:47 AM EDT 01/07/2025 3:55 AM EDT us Vanessa Doherty MD 98 GENERAL LAB Final Result Performing Organization Address [facility]/ZIP Co de Phone Number [facility] [address] [place] [phone] * (ABNORMAL) PHOSPHORUS (01/07/2025 3:47 AM EDT) Phosphorus, Serum 6.2(H) 2.5 - 5.0 mg/dL 01/07/2025 4:23 AM EDT S PATHOLOGY LABORATORY Blood BLOOD SPECIMEN / Unknown Venipuncture / Unknown 01/07/2025 3:47 AM EDT 01/07/2025 3:55 AM EDT Vanessa Doherty MD 98 GENERAL LAB Final Result Performing Organization Address [facility] Co de Phone Number [facility] [address] [place] [phone] * MAGNESIUM (01/07/2025 3:47 AM EDT) Magnesium 1.9 1.9 - 2.7 mg/dL 01/07/2025 4:23 AM EDT S PATHOLOGY LABORATORY Comment:Hemolysis present Blood BLOOD SPECIMEN / Unknown Venipuncture / Unknown 01/07/2025 3:47 AM EDT 01/07/2025 3:55 AM EDT Vanessa Doherty MD 98 GENERAL LAB Final Result Performing Organization Address [facility] Co de Phone Number [facility] [address] [place] [phone] * (ABNORMAL) BLOOD GAS, VENOUS (01/07/2025 3:34 AM EDT) Mode BIPAP 01/07/2025 3:42 AM EDT S PATHOLOGY LABORATORY FIO2 50% 01/07/2025 3:42 AM EDT [facility] pH, Venous 7.219(L) 7.320 - 7.430 01/07/2025 3:42 AM EDT S PATHOLOGY LABORATORY pCO2, Venous 104.0(H) 41.0 - 51.0 mm Hg 01/07/2025 3:42 AM EDT [facility] pO2, Venous 37(L) 38 - 44 mm Hg 01/07/2025 3:42 AM EDT [facility] Oxygen Saturation 51.6(L) 70.0 - 80.0 % 01/07/2025 3:42 AM EDT [facility] Base Excess, Venous 10.8(H) -2.0 - 3.0 mmol/L 01/07/2025 3:42 AM EDT [facility] Bicarbonate 41(H) 21 - 28 mmol/L 01/07/2025 3:42 AM EDT [facility] Blood VENOUS BLOOD SPECIMEN / Unknown Venipuncture / Unknown 01/07/2025 3:34 AM EDT 01/07/2025 3:40 AM EDT Ike Vazquez MD 98 GENERAL LAB Final Result [facility] [address] [place] [phone] * XR SHOULDER LEFT MINIMUM 2 VIEWS (01/07/2025 3:10 AM EDT) Anatomical Region Laterality Modality XR Left Upper Extremity, Shoulder Left Computed Radiography 01/07/2025 3:23 AM EDT Narrative 01/07/2025 3:54 AM EDT EXAMINATION: XR SHOULDER LEFT MINIMUM 2 VIEWSPRO/LT 01/07/2025 03:10 AM CLINICAL HISTORY: Fracture ASSOCIATED DIAGNOSIS: Fracture ORDERING PROVIDER: JESSICA ALMODOVAR TECHNOLOGISTS NOTE: Upright views - Best images possible due to patient condition COMPARISON: None IMPRESSION: * Acute comminuted and displaced fracture of the humeral neck with one shaft width of displacement. * The humeral head is abnormally rotated and mildly displaced relative to the glenoid. * Degenerative changes of the acromioclavicular and glenohumeral joints. Left shoulder MACRO: None I have personally reviewed the images and agree with the resident's interpretation. Procedure Note Lily Maynard MD - 01/07/2025 EXAMINATION: XR SHOULDER LEFT MINIMUM 2 VIEWSPRO/LT 01/07/2025 03:10AM CLINICAL HISTORY: Fracture ASSOCIATED DIAGNOSIS: Fracture ORDERING PROVIDER: JESSICA HE NOTE: Upright views - Best images possible due to patientcondition COMPARISON: None IMPRESSION: * Acute comminuted and displaced fracture of the humeral neck with oneshaft width of displacement. * The humeral head is abnormally rotated and mildly displaced relative tothe glenoid. * Degenerative changes of the acromioclavicular and glenohumeraljoints. Left shoulder MACRO: None I have personally reviewed the images and agree with the resident'sinterpretation. Jessica Almodovar MD EC DIAGNOSTIC X-RAY 2 Final Resu lt * XR FEMUR LEFT MINIMUM 2 VIEWS (01/07/2025 3:10 AM EDT) Anatomical Region Laterality Modality XR Left Lower Extremity, Femur Left C omputed Radiography 01/07/2025 3:17 AM EDT Narrative 01/07/2025 3:46 AM EDT EXAMINATION: XR FEMUR LEFT MINIMUM 2 VIEWSPRO/LT 01/07/2025 03:10 AM CLINICAL HISTORY: pain ASSOCIATED DIAGNOSIS: ORDERING PROVIDER: VANESSA HE NOTE: Best images possible due to patient condition COMPARISON: XR FEMUR LEFT MINIMUM 2 VIEWS 04/22/2023, 1:27 PM IMPRESSION: * Left hip arthroplasty without acute fracture or dislocation. * Remote deformity of the left greater trochanter. * Moderate degenerative changes of the knee. * Dense vascular calcifications. Left femur MACRO: None I have personally reviewed the images and agree with the resident's interpretation. Procedure Note Lily Maynard MD - 01/07/2025 EXAMINATION: XR FEMUR LEFT MINIMUM 2 VIEWSPRO/LT 01/07/2025 03:10 AM CLINICAL HISTORY: pain ASSOCIATED DIAGNOSIS: ORDERING PROVIDER: VANESAS HE NOTE: Best images possible due to patient condition COMPARISON: XR FEMUR LEFT MINIMUM 2 VIEWS 04/22/2023, 1:27 PM IMPRESSION: * Left hip arthroplasty without acute fracture or dislocation. * Remote deformity of the left greater trochanter. * Moderate degenerative changes of the knee. * Dense vascular calcifications. Left femur MACRO: None I have personally reviewed the images and agree with the resident'sinterpretation. Vanessa Doherty MD DIAGNOSTIC X-RAY Final Resul t * XR ELBOW LEFT MINIMUM 3 VIEWS (01/07/2025 3:10 AM EDT) Anatomical Region Laterality Modality XR Left Upper Extremity, Elbow Left C omputed Radiography 01/07/2025 3:21 AM EDT Narrative 01/07/2025 3:53 AM EDT EXAMINATION: XR ELBOW LEFT MINIMUM 3 VIEWSPRO/LT 01/07/2025 03:10 AM CLINICAL HISTORY: fx ASSOCIATED DIAGNOSIS: ORDERING PROVIDER: VANESSA HE NOTE: Best images possible due to patient condition COMPARISON: None IMPRESSION: There is cortical irregularity involving the radial head with adjacent soft tissue swelling, concerning for an acute nondisplaced fracture. Suboptimal positioning of the lateral view to evaluate for a joint effusion however a small joint effusion is suspected. There is no dislocation. This can be further evaluated with CT of the elbow. Left elbow MACRO: None I have personally reviewed the images and agree with the resident's interpretation. Procedure Note Lily Maynard MD - 01/07/2025 EXAMINATION: XR ELBOW LEFT MINIMUM 3 VIEWSPRO/LT 01/07/2025 03:10 AM CLINICAL HISTORY: fx ASSOCIATED DIAGNOSIS: ORDERING PROVIDER: VANESSA HE NOTE: Best images possible due to patient condition COMPARISON: None IMPRESSION: There is cortical irregularity involving the radial head with adjacentsoft tissue swelling, concerning for an acute nondisplaced fracture.Suboptimal positioning of the lateral view to evaluate for a jointeffusion however a small joint effusion is suspected. There is nodislocation. This can be further evaluated with CT of the elbow. Left elbow MACRO: None I have personally reviewed the images and agree with the resident'sinterpretation. Vanessa Doherty MD DIAGNOSTIC X-RAY Final Resul t * XR HUMERUS LEFT 2 VIEWS (01/07/2025 3:10 AM EDT) Anatomical Region Laterality Modality XR Left Upper Extremity, Humerus Left Computed Radiography 01/07/2025 3:22 AM EDT Narrative 01/07/2025 3:54 AM EDT EXAMINATION: XR HUMERUS LEFT 2 VIEWSPRO/LT 01/07/2025 03:10 AM CLINICAL HISTORY: fx ASSOCIATED DIAGNOSIS: ORDERING PROVIDER: VANESSA HE NOTE: Best images possible due to patient condition COMPARISON: None IMPRESSION: Acute comminuted and displaced fracture of the humeral neck with one shaft width of displacement. The humeral head is mildly displaced and rotated relative to the glenoid. Left humerus MACRO: None I have personally reviewed the images and agree with the resident's interpretation. Procedure Note Lily Maynard MD - 01/07/2025 EXAMINATION: XR HUMERUS LEFT 2 VIEWSPRO/LT 01/07/2025 03:10 AM CLINICAL HISTORY: fx ASSOCIATED DIAGNOSIS: ORDERING PROVIDER: VANESSA HE NOTE: Best images possible due to patient condition COMPARISON: None IMPRESSION: Acute comminuted and displaced fracture of the humeral neck with one shaftwidth of displacement. The humeral head is mildly displaced and rotatedrelative to the glenoid. Left humerus MACRO: None I have personally reviewed the images and agree with the resident'sinterpretation. us Vanessa Doherty MD EC DIAGNOSTIC X-RAY Final Resul t * XR SHOULDER LEFT MINIMUM 2 VIEWS (01/07/2025 3:10 AM EDT) Anatomical Region Laterality Modality XR Left Upper Extremity, Shoulder Left Computed Radiography 01/07/2025 3:19 AM EDT Narrative 01/07/2025 3:47 AM EDT EXAMINATION: XR SHOULDER LEFT MINIMUM 2 VIEWSPRO/LT 01/07/2025 03:10 AM CLINICAL HISTORY: Shoulder pain, left ASSOCIATED DIAGNOSIS: Shoulder pain, left ORDERING PROVIDER: VANESSA HE NOTE: Best images possible due to patient condition COMPARISON: None IMPRESSION: * Acute comminuted fracture of the humeral neck with one shaft width of dislocation. * The humeral head fracture fragment is mildly displaced anteriorly and abnormally rotated relative to the glenoid. * Degenerative changes of the glenohumeral and acromioclavicular joints. Left shoulder MACRO: None I have personally reviewed the images and agree with the resident's interpretation. Procedure Note Lily Maynard MD - 01/07/2025 EXAMINATION: XR SHOULDER LEFT MINIMUM 2 VIEWSPRO/LT 01/07/2025 03:10AM CLINICAL HISTORY: Shoulder pain, left ASSOCIATED DIAGNOSIS: Shoulder pain, left ORDERING PROVIDER: VANESSA DOHERTY TECHNCAITIE NOTE: Best images possible due to patient condition COMPARISON: None IMPRESSION: * Acute comminuted fracture of the humeral neck with one shaft width ofdislocation. * The humeral head fracture fragment is mildly displaced anteriorly andabnormally rotated relative to the glenoid. * Degenerative changes of the glenohumeral and acromioclavicularjoints. Left shoulder MACRO: None I have personally reviewed the images and agree with the resident'sinterpretation. us Vanessa Doherty MD EC DIAGNOSTIC X-RAY 2 Final Res ult * XR CHEST AP OR PA 1 VIEW (01/07/2025 3:10 AM EDT) Anatomical Region Laterality Modality XR Chest N/A Computed Radiogr aphy 01/07/2025 3:20 AM EDT Narrative 01/07/2025 3:48 AM EDT EXAMINATION: XR CHEST AP OR PA 1 VIEW 01/07/2025 03:10 AM CLINICAL HISTORY: Respiratory distress ASSOCIATED DIAGNOSIS: Respiratory distress ORDERING PROVIDER: VANESSA DOHERTY TECHNOLOGISTS NOTE: Best images possible due to patient condition COMPARISON: XRAY CHEST IMAGE IMPORT(JOSE ARMANDO) 04/22/2023, 9:02 AM FINDINGS: Lines, tubes, and devices: None. Lungs and pleura: No focal pulmonary consolidation, effusion or pneumothorax. There is pulmonary vascular congestion. Cardiomediastinal silhouette: The cardiac silhouette is normal in size. Atherosclerotic calcifications are present in the thoracic aorta. Musculoskeletal: Unremarkable. IMPRESSION: Central pulmonary vascular congestion without focal pulmonary opacity. MACRO: None I have personally reviewed the images and agree with the resident's interpretation. Procedure Note Lily Maynard MD - 01/07/2025 EXAMINATION: XR CHEST AP OR PA 1 VIEW 01/07/2025 03:10 AM CLINICAL HISTORY: Respiratory distress ASSOCIATED DIAGNOSIS: Respiratory distress ORDERING PROVIDER: VANESSA HE NOTE: Best images possible due to patient condition COMPARISON: XRAY CHEST IMAGE IMPORT(JOSE ARMANDO) 04/22/2023, 9:02 AM FINDINGS: Lines, tubes, and devices: None. Lungs and pleura: No focal pulmonary consolidation, effusion orpneumothorax. There is pulmonary vascular congestion. Cardiomediastinal silhouette: The cardiac silhouette is normal in size.Atherosclerotic calcifications are present in the thoracic aorta. Musculoskeletal: Unremarkable. IMPRESSION: Central pulmonary vascular congestion without focal pulmonary opacity. MACRO: None I have personally reviewed the images and agree with the resident'sinterpretation. us Vanessa Doherty MD EC DIAGNOSTIC X-RAY 2 Final Res ult * XR PELVIS SINGLE VIEW (01/07/2025 3:09 AM EDT) Anatomical Region Laterality Modality XR Pelvis, Pelvis and lower extremities N/A Computed Radiography 01/07/2025 3:14 AM EDT Narrative 01/07/2025 3:44 AM EDT EXAMINATION: XR PELVIS SINGLE VIEW 01/07/2025 03:09 AM CLINICAL HISTORY: pain ASSOCIATED DIAGNOSIS: ORDERING PROVIDER: VANESSA HE NOTE: COMPARISON: XR HIP LEFT AP+LAT 2 VIEWS 05/08/2023, 11:21 AM IMPRESSION: * Bilateral hip arthroplasties without acute fracture or dislocation on this single view. * Remote deformity of the left greater trochanter. * Dense vascular calcifications. XR PELVIS SINGLE VIEW MACRO: None I have personally reviewed the images and agree with the resident's interpretation. Procedure Note Lily Maynard MD - 01/07/2025 EXAMINATION: XR PELVIS SINGLE VIEW 01/07/2025 03:09 AM CLINICAL HISTORY: pain ASSOCIATED DIAGNOSIS: ORDERING PROVIDER: VANESSA HE NOTE: COMPARISON: XR HIP LEFT AP+LAT 2 VIEWS 05/08/2023, 11:21 AM IMPRESSION: * Bilateral hip arthroplasties without acute fracture or dislocation onthis single view. * Remote deformity of the left greater trochanter. * Dense vascular calcifications. XR PELVIS SINGLE VIEW MACRO: None I have personally reviewed the images and agree with the resident'sinterpretation. us Vanessa Doherty MD EC DIAGNOSTIC X-RAY Final Resul t * XR T-SPINE/L-SPINE JNCT ONLY 2 VIEWS (01/07/2025 3:08 AM EDT) Anatomical Region Laterality Modality XR T-Spine, T-spine N/A Computed Rad iography 01/07/2025 3:10 AM EDT Narrative 01/07/2025 3:41 AM EDT EXAMINATION: XR T-SPINE/L-SPINE JNCT ONLY 2 VIEWS 01/07/2025 03:08 AM CLINICAL HISTORY: T6 compression fx ASSOCIATED DIAGNOSIS: ORDERING PROVIDER: JESSICA HE NOTE: Best images possible due to patient condition COMPARISON: Outside CT of the thoracic and lumbar spine. FINDINGS: * Severe osteopenia and patient positioning limit evaluation. * Known compression deformity of T6 is better evaluated on same-day CT. * Multilevel degenerative changes. * Atherosclerotic calcification of the thoracic aorta. IMPRESSION: 1. No change in alignment within the constraints of suboptimal positioning and severe osteopenia. 2. Known compression deformity at T6 is better evaluated on CT. MACRO: None I have personally reviewed the images and agree with the resident's interpretation. Procedure Note Lily Maynard MD - 01/07/2025 EXAMINATION: XR T-SPINE/L-SPINE JNCT ONLY 2 VIEWS 01/07/2025 03:08 AM CLINICAL HISTORY: T6 compression fx ASSOCIATED DIAGNOSIS: ORDERING PROVIDER: JESSICA HE NOTE: Best images possible due to patient condition COMPARISON: Outside CT of the thoracic and lumbar spine. FINDINGS: * Severe osteopenia and patient positioning limit evaluation. * Known compression deformity of T6 is better evaluated on same-day CT. * Multilevel degenerative changes. * Atherosclerotic calcification of the thoracic aorta. IMPRESSION: 1. No change in alignment within the constraints of suboptimalpositioning and severe osteopenia. 2. Known compression deformity at T6 is better evaluated on CT. MACRO: None I have personally reviewed the images and agree with the resident'sinterpretation. us Jessica Almodovar MD EC DIAGNOSTIC X-RAY Final Result * (ABNORMAL) BLOOD GAS, VENOUS (01/07/2025 3:01 AM EDT) Mode BIPAP 01/07/2025 3:08 AM EDT [facility] FIO2 35% 01/07/2025 3:08 AM EDT [facility] pH, Venous 7.180(L) 7.320 - 7.430 01/07/2025 3:08 AM EDT [facility] pCO2, Venous >110.0(H) 41.0 - 51.0 mm Hg 01/07/2025 3:08 AM EDT [facility] pO2, Venous 112(H) 38 - 44 mm Hg 01/07/2025 3:08 AM EDT [facility] Oxygen Saturation 96.3(H) 70.0 - 80.0 % 01/07/2025 3:08 AM EDT [facility] Base Excess, Venous 10.4(H) -2.0 - 3.0 mmol/L 01/07/2025 3:08 AM EDT [facility] Bicarbonate 41(H) 21 - 28 mmol/L 01/07/2025 3:08 AM EDT [facility] Blood VENOUS BLOOD SPECIMEN / Unknown Venipuncture / Unknown 01/07/2025 3:01 AM EDT 01/07/2025 3:05 AM EDT Ike Vazquez MD 98 GENERAL LAB Final Result Performing Organization Address City/State/[facility] Co de Phone Number [facility] [address] [place] [address] * EKG 12 LEAD - PERFORM (01/07/2025 1:02 AM EDT) Ventricular rate 119 BPM MUSE QRS duration 120 ms MUSE Q-T interval 346 ms MUSE QTC CALCULATION(BE ZET) 486 ms MUSE R axis -32 degrees MUSE T axis -18 degrees MUSE Diagnosis Atrial fibrillation with rapid ventricular response Left axis deviation Right bundle branch block 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 de Phone Number MUSE [address] 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 Co de Phone Number MUSE [address] [place] [address] * CT BODY IMAGE IMPORT(JOSE ARMANDO) (01/07/2025 1:01 AM EDT) us Vanessa Doherty MD EC CT SCAN Final Result * CT NEURO IMAGE IMPORT(JOSE ARMANDO) (01/07/2025 1:01 AM EDT) us Vanessa Doherty MD EC CT SCAN Final Result * CT NEURO IMAGE IMPORT(JOSE ARMANDO) (01/07/2025 1:00 AM EDT) us Vanessa Doherty MD EC CT SCAN Final Result * CT NEURO IMAGE IMPORT(JOSE ARMANDO) (01/07/2025 12:57 AM EDT) us Vanessa Doherty MD EC CT SCAN Final Result * XRAY LEFT UPPER EXTREMITY IMG IMPORT(JOSE ARMANDO) (01/07/2025 12:57 AM EDT) us Vanessa Doherty MD EC DIAGNOSTIC X-RAY Final Resul t * CT NEURO IMAGE IMPORT(JOSE ARMANDO) (01/07/2025 12:56 AM EDT) us Vanessa Doherty MD EC CT SCAN Final Result * (ABNORMAL) CBC WITH DIFFERENTIAL (01/07/2025 12:56 AM EDT) WBC 14.6(H) 4.5 - 11.5 K/uL 01/07/2025 1:28 AM EDT S PATH[facility] LAB[facility] RBC 3.59(L) 4.00 - 5.20 M/uL 01/07/2025 1:28 AM EDT S [facility] Hemoglobin 9.4(L) 12.0 - 15.0 g/dL 01/07/2025 1:28 AM EDT S [facility] Hematocrit 30.1(L) 36.0 - 46.0 % 01/07/2025 1:28 AM EDT S [facility] MCV 84 80 - 100 fL 01/07/2025 1:28 AM EDT [facility] MCH 26.3 26.0 - 34.0 pg 01/07/2025 1:28 AM EDT [facility] MCHC 31.4(L) 32.0 - 35.9 g/dL 01/07/2025 1:28 AM EDT [facility] Platelet 203 150 - 400 K/uL 01/07/2025 1:28 AM EDT [facility] RDW-CV 17.4(H) 11.5 - 14.5 % 01/07/2025 1:28 AM EDT [facility] MPV 10.8 7.5 - 11.2 fL 01/07/2025 1:28 AM EDT [facility] Neutrophils 84.1(H) 31.0 - 76.0 % 01/07/2025 1:28 AM EDT [facility] Neutrophil # 12.27(H) 1.50 - 8.00 K/uL 01/07/2025 1:28 AM EDT [facility] Lymphocytes 7.9(L) 24.0 - 44.0 % 01/07/2025 1:28 AM EDT [facility] Lymphocytes # 1.16 1.00 - 4.80 K/uL 01/07/2025 1:28 AM EDT [facility] Monocytes 7.2 2.0 - 11.0 % 01/07/2025 1:28 AM EDT [facility] Monocyte # 1.06(H) 0.20 - 1.00 K/uL 01/07/2025 1:28 AM EDT [facility] Eosinophil 0.1 0.1 - 4.0 % 01/07/2025 1:28 AM EDT [facility] Eosinophil # 0.01 0.00 - 0.70 K/uL 01/07/2025 1:28 AM EDT [facility] Basophils 0.7 <=1.9 % 01/07/2025 1:28 AM EDT [facility] Basophil # 0.10 0.00 - 0.20 K/uL 01/07/2025 1:28 AM EDT [facility] MDW 19 <=20 01/07/2025 1:28 AM EDT [facility] Blood BLOOD SPECIMEN / Unknown Venipuncture / Unknown 01/07/2025 12:56 AM EDT 01/07/2025 1:24 AM EDT Duran Thorne MD EC LAB ORDER ONLY Final Res ult Performing Organization Address [facility] Co de Phone Number [facility] [address] [place] [address] * HIV1 HIV2 AGAB SCRN (01/07/2025 12:56 AM EDT) Pathologist [facility] HIV Ag-Ab Screen Non-React katherine Non-React katherine 01/07/2025 2:34 AM EDT [facility] Comment:No laboratory eviden ce for HIV Infection. Negative result does not rule out acute HIV infection. If acute HIV infection is suspected, recommend ordering an HIV-1 RNA quanitification test. Blood BLOOD SPECIMEN / Unknown Venipuncture / Unknown 01/07/2025 12:56 AM EDT 01/07/2025 1:02 AM EDT Narrative [facility] - 01/07/2025 2:34 AM EDT HIV Information: [place] Rev. code 3701.243(E): This information has been disclosed to you from confidential records protected from disclosure by state law. You shall make no further disclosure of this information without the specific, written, and informed release of the individual to whom it pertains, or as otherwise permitted by state law. A general authorization for the release of medical or other information is not sufficient for the purpose of the release of HIV test results or diagnoses. Duran REYES HIV/HEP/SYPH TESTING Fin al Result Performing Organization Address [facility] de Phone Number [facility] [address] [place] [phone] * HIGH SENSITIVITY TROPONIN I (01/07/2025 12:56 AM EDT) [facility] HS Troponin I 15 <=15 ng/L 01/07/2025 1:46 AM EDT [facility] Blood BLOOD SPECIMEN / Unknown Venipuncture / Unknown 01/07/2025 12:56 AM EDT 01/07/2025 1:04 AM EDT Narrative [facility] - 01/07/2025 1:46 AM EDT Elevated troponin can result from acute myocardial infarction (coronary etiology) or myocardial injury (non-coronary etiology) - always consider both. Interval test times for ruling out acute coronary syndrome (ACS) are 2 hours. All results are reported in whole numbers representing ng/L. Results obtained by different labs or methods are not comparable. For ruling out ACS, lab values are always used in conjunction with clinical risk assessment (e.g., HEART score*). Interpreting initial value in ruling out ACS Less than 5 ng/L - below lower limit of quantification - essentially rules out ACS if chest pain began more than 3 hours prior to test and assessed risk is low. 5 - 49 ng/L - indeterminate - consider repeat value in 2 hours depending on risk assessment. 50 ng/L or greater - concern for ACS or myocardial injury. Interpreting delta values in ruling out ACS. Always compare to initial value obtained: Absolute change (rise or fall) of less than 5 ng/L - essentially rules out ACS if assessed clinical risk is low. Absolute change (rise or fall) of 5 - 19 ng/L - indeterminate - consider another repeat value in 2 hours depending on assessed clinical risk. Absolute change (rise or fall) of 20 ng/L or greater - concern for ACS or myocardial injury. Any absolute value of 50 ng/L or greater - concern for ACS or myocardial injury. *When using hsTnI to calculate the HEART score, use the 99% Upper Reference Limit of 15 ng/L as the normal limit (i.e. <=15 ng/L = 0 points, 16-45 ng/L = 1 point, >45 ng/L = 2 points). Disposition Intermediate hsTnI values DO NOT mandate admission to a cardiology or telemetry unit. They need to be interpreted within the clinical context using provider judgement. us Duran Thonre MD 98 GENERAL LAB Final Resul t [facility] [address] [place] [address] * (ABNORMAL) BASIC METABOLIC PANEL (01/07/2025 12:56 AM EDT) Glucose 137(H) 74 - 109 mg/dL 01/07/2025 1:41 AM EDT S [facility] Sodium 147(H) 136 - 145 mmol/L 01/07/2025 1:41 AM EDT [facility] Potassium 4.6 3.5 - 5.0 mmol/L 01/07/2025 1:41 AM EDT [facility] Carbon Dioxide 34(H) 21 - 31 mmol/L 01/07/2025 1:41 AM EDT [facility] Chloride 98 98 - 107 mmol/L 01/07/2025 1:41 AM EDT [facility] Blood Urea Nitrogen 35(H) 7 - 25 mg/dL 01/07/2025 1:41 AM EDT [facility] Creatinine 1.25(H) 0.60 - 1.20 mg/dL 01/07/2025 1:41 AM EDT [facility] Calcium 8.3(L) 8.6 - 10.3 mg/dL 01/07/2025 1:41 AM EDT [facility] Anion Gap 20 10 - 20 01/07/2025 1:41 AM EDT [facility] Estimated GFR (CKD-EPI) 46(L) >=60 mL/min/1. 73sqm 01/07/2025 1:41 AM EDT [facility] Comment: 2020 CKD EPI Equation using Creatinine without Race Comment: Estimated glomerular filtration rate (eGFR) is calculated without a race coefficient. Values should be interpreted in the context of the patient's full clinical presentation. Reference: 1. Rgoers C, Dereck M, Hayden DC, et al.. A Unifying Approach for GFR Estimation: Recommendations of the NKF-ASN Task Force on Reassessing the Inclusion of Race in Diagnosing Kidney Disease. [place] Journal of Kidney Diseases 2022;79(2):268- 88.e1. 2. N Engl J Med 2021 Vol. 385 Issue 19 Pages 5756-5341 Blood BLOOD SPECIMEN / Unknown Venipuncture / Unknown 01/07/2025 12:56 AM EDT 01/07/2025 1:02 AM EDT us Duran Thorne MD 98 GENERAL LAB Final Resul t [facility] [address] [place] [address] * TYPE AND SCREEN (01/07/2025 12:56 AM EDT) ABO Rh Type O Positive 01/07/2025 2:24 AM EDT S [facility] Ab Screen Interp Negative 01/07/2025 2:24 AM EDT S [facility]ORY ABO Rh/Radha/TXRX History O Positive 01/07/2025 2:24 AM EDT [facility] Blood BLOOD SPECIMEN / Unknown Venipuncture / Unknown 01/07/2025 12:56 AM EDT 01/07/2025 1:46 AM EDT us Duran Thorne MD EC BLOOD BANK Final Resul t Performing Organization Address [facility] Co de Phone Number [facility] [address] [place] [address] * (ABNORMAL) PROTHROMBIN TIME AND INR (01/07/2025 12:56 AM EDT) Protime 14.1(H) 9.7 - 12.9 sec 01/07/2025 1:44 AM EDT [facility] INR 1.26(H) 0.90 - 1.10 01/07/2025 1:44 AM EDT [facility] Blood BLOOD SPECIMEN / Unknown Venipuncture / Unknown 01/07/2025 12:56 AM EDT 01/07/2025 1:24 AM EDT us Duran Thorne MD GENERAL LAB Final Resul t Performing Organization Address City/[facility]/ZIP Co de Phone Number [facility] [address] [place] [address] * (ABNORMAL) BLOOD GAS, ARTERIAL (01/07/2025 12:56 AM EDT) Mode BIPAP 01/07/2025 1:37 AM EDT S [facility] FIO2 40% 01/07/2025 1:37 AM EDT [facility] pH, Arterial 7.365 7.350 - 7.450 01/07/2025 1:37 AM EDT [facility] PCO2, Arterial 68.8(HH) 35.0 - 45.0 mm Hg 01/07/2025 1:37 AM EDT [facility] pO2, Arterial 76(L) 80 - 100 mm Hg 01/07/2025 1:37 AM EDT [facility] Oxygen Saturation 93.6(L) 95.0 - 99.0 % 01/07/2025 1:37 AM EDT [facility] Base Excess 11.4(H) -2.0 - 3.0 mmol/L 01/07/2025 1:37 AM EDT [facility] Bicarbonate, Whole Blood 38(H) 21 - 28 mmol/L 01/07/2025 1:37 AM EDT [facility] Blood ARTERIAL BLOOD SPECIMEN / Unknown Venipuncture / Unknown 01/07/2025 12:56 AM EDT 01/07/2025 1:14 AM EDT Duran Thorne MD 98 GENERAL LAB Final Resul t Performing Organization Address [facility] de Phone Number [facility] [address] [place] [phone] * PARTIAL THROMBOPLASTIN TIME (01/07/2025 12:56 AM EDT) aPTT 30 25 - 37 sec 01/07/2025 1:44 AM EDT [facility] Blood BLOOD SPECIMEN / Unknown Venipuncture / Unknown 01/07/2025 12:56 AM EDT 01/07/2025 1:24 AM EDT Druan Thorne MD 98 GENERAL LAB Final Resul t Performing Organization Address City/[facility]/ZIP Co de Phone Number [facility] [address] [place] [phone] * (ABNORMAL) LACTIC ACID (01/07/2025 12:56 AM EDT) Lactate 1.8(H) 0.5 - 1.6 mmol/L 01/07/2025 1:08 AM EDT [facility] Blood BLOOD SPECIMEN / Unknown Venipuncture / Unknown 01/07/2025 12:56 AM EDT 01/07/2025 1:04 AM EDT Narrative [facility] - 01/07/2025 1:08 AM EDT This test was developed, and its performance characteristics determined by the Department of Pathology of [facility]. It has not been cleared or approved by the FDA. This test is used for clinical purposes only. Duran Thorne MD 98 GENERAL LAB Final Resul t Performing Organization Address City/[facility] Co de Phone Number [facility] [address] [place] [address] * CREATINE KINASE (01/07/2025 12:56 AM EDT) Creatine Kinase 232 30 - 233 IU/L 01/07/2025 1:41 AM EDT [facility] Blood BLOOD SPECIMEN / Unknown Venipuncture / Unknown 01/07/2025 12:56 AM EDT 01/07/2025 1:02 AM EDT Duran Thorne MD 98 GENERAL LAB Final Resul t Performing Organization Address [facility] Co de Phone Number [facility] [address] [place] [address] * ETHANOL, SERUM (01/07/2025 12:56 AM EDT) Ethanol <10 None Detected mg/dL 01/07/2025 1:41 AM EDT [facility] Blood BLOOD SPECIMEN / Unknown Venipuncture / Unknown 01/07/2025 12:56 AM EDT 01/07/2025 1:02 AM EDT Duran Thorne MD 98 GENERAL LAB Final Resul t Performing Organization Address City/[facility] Co de Phone Number [facility] [address] [place] [address] from Last 3 Months Insurance [employer] - MEDICARE Advance Directives * Full Code (Latest Code Status on File) Date Activated Date Inactivated Comments 01/07/2025 2:28 AM 01/18/2025 5:54 PM Question Answer Comments Documentation of decision pr ocess for this code status: Patient and surrogate unable or unavailable to discuss. Defaulting to the previously documented code status. * Full Code Date Activated Date Inactivated Comments 04/23/2023 12:38 AM 04/25/2023 5:53 PM Question Answer Comments Documentation of decision pr ocess for this code status: Patient and surrogate unable or unavailable to discuss. Defaulting to the previously documented code status. * Full Code Date Activated Date Inactivated Comments 08/20/2016 11:26 AM 08/25/2016 11:33 AM Care Teams Rate And Cost Analyst Relationship Specialty Start Date End Date Karl Merritt MD [address] [place] [address] Physician Orthopaedics 06/03/23
--- OUTSIDE RECORDS SUMMARY | 2025-03-05 13:15 | XMS_ITS | Encounter Summary ---
Author Organization [facility] Address [address] [place] [address] Care Team Providers Care Corporate Learning Consultant Name Role Phone Keshia Cheng MD Primary Care Provider [phone] Encounter Details Date Type Department Care Team (Late st Contact Info) Description 02/27/2025 Orders Only [facility] [address] [place] [address] ProviderKeny MD [address] [place], [place] [id number] Social History Tobacco Use Types Packs/Day Years Used Date Smoking Tobacco: Former Cigarettes Smokeless Tobacco: Never [facility] Utilities Answer Date Recorded In the past 12 months has th e electric, gas, oil, or water company threatened to shut off services in your home? No 02/09/2025 Humiliation, Afraid, Rape, and Kick questionnair e Answer Date Recorded Within the last year, have y ou been afraid of your partner or ex-partner? No 02/09/2025 Emotionally Abused Not on file 02/09/2025 Physically Abused Not on file 02/09/2025 Sexually Abused Not on file 02/09/2025 Overall Financial Resource Strain (CARDIA) Answe r Date Recorded How hard is it for you to pa y for the very basics like food, housing, medical care, and heating? Not hard at all 02/09/2025 Transportation Answer Date Recorded In the past 12 months, has l ack of transportation kept you from medical appointments or from getting medications? No 02/09/2025 Lack of Transportation (Non-Medical) Not on file 02/09/2025 Housing Stability Vital Sign Answer Aryan e Recorded In the last 12 months, was t here a time when you were not able to pay the mortgage or rent on time? No 02/09/2025 In the past 12 months, how m any times have you moved where you were living? 2 02/09/2025 At any time in the past 12 [facility], were you homeless or living in a [facility] (including now)? No 02/09/2025 Hunger Vital Sign Answer Date Recorded Within the past 12 months, y ou worried that your food would run out before you got the money to buy more. Never true 02/10/20 25 Ran Out of Food in the Last Year Not on file 02/09/2025 Sex and Gender Information Value Date Recorded Sex Assigned at Not on file Gender Identity Not on file Sexual Orientation Not on file documented as of this encounter Plan of Treatment Not on file documented as of this encounter Procedures Procedure Name Priority Date/Time Associated Diagnosis Comments CBC Routine 02/16/2025 9:33 AM EDT MAGNESIUM Routine 02/16/2025 9:33 AM EDT BASIC METABOLIC PANEL Routine 02/16/2025 9:33 AM EDT HIGH SENSITIVITY TROPONIN I Routine 02/09/2025 9:32 AM EDT D-DIMER, QUANTITATIVE Routine 02/09/2025 9:32 AM EDT CBC Routine 02/09/2025 9:32 AM EDT B-TYPE NATRIURETIC PEPTIDE Routine 02/09/2025 9:32 AM EDT BASIC METABOLIC PANEL Routine 02/09/2025 9:32 AM EDT XR CHEST 2 VIEWS Routine 02/09/2025 9:[address] CHEST W IV CONTRAST Routine 9:30 AM EDT ECG 12-LEAD Routine 02/09/2025 9:29 AM EDT ECG 12-LEAD Routine 02/09/2025 9:29 AM EDT documented in this encounter Results * CBC (02/16/2025 9:33 AM EDT) Blood Venous blood specimen / Unknown Historical Provider LAB BLOOD ORDERAB LES * Basic metabolic panel (02/16/2025 9:33 AM EDT) Blood Venous blood specimen / Unknown Historical Provider LAB BLOOD ORDERAB LES * Magnesium (02/16/2025 9:33 AM EDT) Blood Venous blood specimen / Unknown Historical Provider LAB BLOOD ORDERAB LES * CBC (02/09/2025 9:32 AM EDT) Blood Venous blood specimen / Unknown Historical Provider LAB BLOOD ORDERAB LES * D-dimer, quantitative (02/09/2025 9:32 AM EDT) Blood Venous blood specimen / Unknown Historical Provider LAB BLOOD ORDERAB LES * Basic metabolic panel (02/09/2025 9:32 AM EDT) Blood Venous blood specimen / Unknown Historical Provider LAB BLOOD ORDERAB LES * High Sensitivity Troponin I (02/09/2025 9:32 AM EDT) Blood Venous blood specimen / Unknown Historical Provider LAB BLOOD ORDERAB LES * B-type natriuretic peptide (02/09/2025 9:32 AM EDT) Blood Venous blood specimen / Unknown Historical Provider LAB BLOOD ORDERAB LES * XR chest 2 views (02/09/2025 9:31 AM EDT) Anatomical Region Laterality Modality Chest Computed Radiogr aphy Historical Provider IMG XR PROCEDURES * CT chest w IV contrast (02/09/2025 9:30 AM EDT) Anatomical Region Laterality Modality Body, Chest Computed Tomogra phy Historical Provider MD IMG CT PROCEDURES * ECG 12 lead (02/09/2025 9:29 AM EDT) Historical Provider MD ECG ORDERABLES * ECG 12 lead (02/09/2025 9:29 AM EDT) Historical Provider MD ECG ORDERABLES documented in this encounter Visit Diagnoses Not on filedocumented in this encounter Care Teams Corporate Learning Consultant Relationship Specialty Start Date End Date Keshia Cheng MD [address] [place] [address] PCP - General Family Medicine 02/12/25 documented as of this encounter
--- OUTSIDE RECORDS SUMMARY | 2025-03-05 13:15 | XMS_ITS | Clinical Summary ---
Author Organization [facility] Address [address] [place] [address] Care Team Providers Care Asbestos Microscopist Name Role Phone Keshia Cheng MD Primary Care Provider [phone] Allergies Active Allergy Reactions Criticality Noted Date Comments Benzalkonium Chloride Unknown 02/27/2025 Furosemide Swelling 08/12/2017 allergic to a water pill, not sure which one. Hydrochlorothiazide Unknown 12/12/2023 Water Pill Swelling 09/04/2014 Medications Medication Sig Dispensed Refills Start Date End Date Status acetaminophen (Tylenol 8 Hour) 650 mg ER tablet Take 650 mg by mouth every 6 (six) hours if needed for mild pain (1-3 pain score). Do not crush, chew, or split. Active albuterol 90 mcg/actuation inhaler Inhale 2 puffs in the morning. Active apixaban (Eliquis) 5 mg tablet Take 5 mg by mouth two times daily. Active atorvastatin (Lipitor) 80 mg tablet Take 80 mg by mouth in the morning. Active budesonide-formo teroL (Symbicort) 160-4.5 mcg/actuation inhaler Inhale 2 puffs in the morning. Rinse mouth with water after use to reduce aftertaste and incidence of candidiasis. Do not swallow. Active digoxin (Lanoxin) 125 MCG tablet Take 125 mcg by mouth in the morning. Active guaiFENesin (Mucinex) 600 mg 12 hr tablet Take 600 mg by mouth two times daily. Do not crush, chew, or split. Active ipratropium (Atrovent) 0.02 % nebulizer solution Take 0.5 mg by nebulization every 6 (six) hours if needed for wheezing or shortness of breath. Active melatonin 3 mg capsule Take 3 mg by mouth if needed at bedtime. Active omeprazole OTC (PriLOSEC OTC) 20 mg EC tablet Take 20 mg by mouth before breakfast. Do not crush, chew, or split. Active pregabalin (Lyrica) 50 mg capsule Take 50 mg by mouth two times daily. Active spironolactone (Aldactone) 25 mg tablet Take 12.5 mg by mouth in the morning. Active ferrous sulfate 325 (65 Fe) MG tabletIndication s:Acute on chronic anemia,Iron deficiency anemia, unspecified iron deficiency anemia type Take 1 tablet (325 mg) by mouth with breakfast. 30 tablet 5 03/14/20 25 Active folic acid (Folvite) 1 mg tabletIndication s:Acute on chronic anemia Take 1 tablet (1 mg) by mouth in the morning. 30 tablet 5 03/14/20 25 Active metoprolol succinate XL (Toprol-XL) 25 mg 24 hr tabletIndication s:NSTEMI (non-ST elevated myocardial infarction) (CMS/HCC) Take 1 tablet (25 mg) by mouth in the morning for 97 doses. Do not crush or chew. 30 tablet 3 5 05/21/20 25 Active metFORMIN (Glucophage) 1,000 mg tabletIndication s:Acute on chronic systolic heart failure (CMS/HCC) Take 1 tablet (1,000 mg) by mouth with breakfast and with evening meal. 5 03/16/20 25 Active clopidogrel (Plavix) 75 mg tabletIndication s:Acute on chronic systolic heart failure (CMS/HCC) Take 1 tablet (75 mg) by mouth in the morning for 97 doses. 30 tablet 3 5 05/23/20 25 Active dapagliflozin propanediol (Farxiga) 10 mgIndications:he art failure Take 1 tablet (10 mg) by mouth in the morning for 98 doses. 30 tablet 3 5 05/24/20 25 Active furosemide (Lasix) 40 mg tabletIndication s:Acute on chronic systolic heart failure (CMS/HCC) Take 1 tablet (40 mg) by mouth in the morning for 98 doses. 30 tablet 3 5 05/24/20 25 Active insulin lispro (HumaLOG) 100 unit/mL injectionIndicat ions:Diabetes mellitus type 2, insulin dependent ([facility]) Inject 0-5 Units under the skin with breakfast, with lunch, and with evening meal AND 0-4 Units at bedtime. 5.7 mL 5 02/15/20 Active aspirin 81 mg EC tablet Take 81 mg by mouth in the morning. Active cholecalciferol, vitamin D3, 50 mcg (2,000 unit) capsule Take 2,000 Units by mouth in the morning. Active bumetanide (Bumex) 0.5 mg tablet Take 0.5 mg by mouth two times daily. 02/15/20 Discontinued(Sto p Taking at Discharge) dilTIAZem CD (Cardizem CD) 240 mg 24 hr capsule Take 240 mg by mouth in the morning. 02/15/20 Discontinued(Sto p Taking at Discharge) insulin glargine (Lantus) 100 unit/mL injection vial Inject 30 Units under the skin in the morning. 02/15/20 Discontinued(Sto p Taking at Discharge) metFORMIN (Glucophage) 1,000 mg tablet Take 1,000 mg by mouth with breakfast and with evening meal. 02/15/20 Discontinued methocarbamol (Robaxin) 500 mg tablet Take 500 mg by mouth if needed in the morning, at noon, and at bedtime for muscle spasms. 02/15/20 Discontinued(Sto p Taking at Discharge) sennosides (Senokot) 8.6 mg tablet Take 1 tablet by mouth in the morning. 02/15/20 Discontinued(Sto p Taking at Discharge) aspirin 81 mg chewable tabletIndication s:NSTEMI (non-ST elevated myocardial infarction) ([facility]) Chew 1 tablet (81 mg) with breakfast. 30 tablet 5 02/15/20 Discontinued Active Problems Problem Noted Date Diagnosed Date Chest pain 02/14/2025 Assessment & Plan (02/14/2025 11:49 AM EDT): Patient known to have history of coronary artery disease status post PCI of proximal and mid circumflex EKG organized A-fib and right bundle branch block, no ischemia Troponins 57,64,55 BNP 195 Patient underwent cardiac cath that showed mild to moderate, calcified three- vessel coronary disease with patent stent to left circumflex and normal global left ventricular systolic function. Comment of moderate elevated right-sided heart pressures and mild elevated pulmonary capillary wedge pressure consistent with BiV failure Elevated transpulmonary gradient and the minimal elevated wedge would suggest predominantly precapillary or pulmonary arterial hypertension. Normal cardiac output/cardiac Continue current treatment with Lipitor, Plavix, Imdur, Toprol-XL Acute on chronic diastolic congestive heart fail ure 02/14/2025 Assessment & Plan (02/14/2025 11:49 AM EDT): With preserved EF, unable to assess NYHA at this moment Continue Farxiga, Lasix, Toprol-XL for now and Aldactone Monitor I's and O's and daily weight if possible Persistent atrial fibrillation 02/10/2025 Assessment & Plan (02/14/2025 11:49 AM EDT): - [id number] score- 5 - Rate control with metoprolol 50mg daily and digoxin 125 mcg daily - Continue anticoagulation with Eliquis Assessment & Plan (02/13/2025 2:16 PM EDT): - [id number] score- 5 - Rate control with metoprolol 50mg daily and digoxin 125 mcg daily - Continue anticoagulation with heparin drip Assessment & Plan (02/12/2025 4:49 PM EDT): - [id number] score- 5 - Rate control with metoprolol 50mg daily and digoxin 125 mcg daily - Continue anticoagulation with heparin drip Assessment & Plan (02/11/2025 3:41 PM EDT): - [id number] score- 5 - Rate control with metoprolol 50mg daily and digoxin 125 mcg daily - Continue anticoagulation with heparin drip Assessment & Plan (02/10/2025 1:32 PM EDT): - [id number] score- 5 - Rate control with metoprolol 50mg daily and digoxin 125 mcg daily - Continue anticoagulation with heparin drip COPD (chronic obstructive pulmonary disease) 09/2025 Assessment & Plan (02/14/2025 11:49 AM EDT): Continue Dulera while inpatient as well as Combivent inhaler as needed Diabetes mellitus type 2, insulin dependent 01/30 Assessment & Plan (02/14/2025 11:49 AM EDT): - Patient was hypoglycemic upon presentation and received oral dextrose - Patient's blood glucose has been not elevated without use of insulin during inpatient - Sliding scale lispro in place - ACHS blood glucose checks Assessment & Plan (02/13/2025 2:16 PM EDT): - Patient was hypoglycemic upon presentation and received oral dextrose - Patient's blood glucose has been not elevated without use of insulin during inpatient - Sliding scale lispro in place - ACHS blood glucose checks Assessment & Plan (02/12/2025 4:49 PM EDT): - Patient was hypoglycemic upon presentation and received oral dextrose - Patient's blood glucose has been not elevated without use of insulin during inpatient - Sliding scale lispro in place - ACHS blood glucose checks Assessment & Plan (02/11/2025 3:41 PM EDT): - Patient was hypoglycemic upon presentation and received oral dextrose - Patient's blood glucose has been not elevated without use of insulin during inpatient - Sliding scale lispro in place - ACHS blood glucose checks Assessment & Plan (02/10/2025 1:32 PM EDT): - Patient was hypoglycemic upon presentation and received oral dextrose - Patient's blood glucose has been not elevated without use of insulin during inpatient - Sliding scale lispro in place - ACHS blood glucose checks Right bundle branch block (R BBB) determined by electrocardiography 02/10/2025 Assessment & Plan (02/13/2025 2:16 PM EDT): - Cardiology following, appreciate recommendations Assessment & Plan (02/12/2025 4:49 PM EDT): - Patient has declined cardiac catheterization Assessment & Plan (02/11/2025 3:41 PM EDT): - Cardiology following, appreciate recommendations Assessment & Plan (02/10/2025 1:32 PM EDT): - Cardiology following, appreciate recommendations Coronary artery disease invo lving kotlik coronary artery of kotlik heart with angina pectoris 02/10/2025 Presence of drug coated stent in coronary artery 02/10/2025 Assessment & Plan (02/13/2025 2:16 PM EDT): - Patient has history of coronary artery disease with stent placement after cardiac catheterization in 2017. Stents placed into Lcx - Reports that chest pain was pressure-like in quality - Reports that this episode did not resemble the chest pain episode from 2017 - Troponin mildly elevated 57 -> 64 -> 55 - ECG showing atrial fibrillation with Right bundle branch block, no ST changes - Cardiology following, appreciate recommendations - Cardiac catheterization done on 02/13 showing mild to moderate CAD - Continue aspirin 81mg daily, lipitor 80mg daily - Continue metoprolol 50mg daily Assessment & Plan (02/12/2025 4:49 PM EDT): - Patient has history of coronary artery disease with stent placement after cardiac catheterization in 2017. Stents placed into Lcx - Reports that chest pain was pressure-like in quality - Reports that this episode did not resemble the chest pain episode from 2017 - Troponin mildly elevated 57 -> 64 -> 55 - ECG showing atrial fibrillation with Right bundle branch block, no ST changes - Cardiology following, appreciate recommendations - Cardiac catheterization ordered by cardiology. However, patient has declined cardiac catheterization during this hospitalization. Patient was informed of possibility of [place], disability, with Kristy (trusted friend) on phone. Patient expressed understanding - Continue aspirin 81mg daily, lipitor 80mg daily - Continue metoprolol 50mg daily Assessment & Plan (02/11/2025 3:41 PM EDT): - Patient has history of coronary artery disease with stent placement after cardiac catheterization in 2017. Stents placed into Lcx - Reports that chest pain was pressure-like in quality - Reports that this episode did not resemble the chest pain episode from 2017 - Troponin mildly elevated 57 -> 64 -> 55 - ECG showing atrial fibrillation with Right bundle branch block, no ST changes - Cardiology following, appreciate recommendations - Cardiac catheterization ordered by cardiology - Continue heparin drip, aspirin 81mg daily, lipitor 80mg daily - Continue metoprolol 50mg daily Assessment & Plan (02/10/2025 1:32 PM EDT): - Patient has history of coronary artery disease with stent placement after cardiac catheterization in 2017. Stents placed into Lcx - Reports that chest pain was pressure-like in quality - Reports that this episode did not resemble the chest pain episode from 2017 - Troponin mildly elevated 57 -> 64 -> 55 - ECG showing atrial fibrillation with Right bundle branch block, no ST changes - Cardiology following, appreciate recommendations - Cardiac catheterization ordered by cardiology - Continue heparin drip, aspirin 81mg daily, lipitor 80mg daily - Continue metoprolol 50mg daily Chronic respiratory failure with hypoxia, on home O2 therapy 02/10/2025 Assessment & Plan (02/14/2025 11:49 AM EDT): - BiPAP therapy at night improved SOB - Continue therapy with 4L of oxygen via nasal canula - On baseline O2 therapy at time Assessment & Plan (02/13/2025 2:16 PM EDT): - BiPAP therapy at night improved SOB - Continue therapy with 4L of oxygen via nasal canula - On baseline O2 therapy at time Assessment & Plan (02/12/2025 4:49 PM EDT): - BiPAP therapy at night improved SOB - Continue therapy with 4L of oxygen via nasal canula - On baseline O2 therapy at time Assessment & Plan (02/11/2025 3:41 PM EDT): - BiPAP therapy at night improved SOB - Continue therapy with 4L of oxygen via nasal canula - On baseline O2 therapy at time Assessment & Plan (02/10/2025 1:32 PM EDT): - BiPAP therapy at night improved SOB - Continue therapy with 4L of oxygen via nasal canula - On baseline O2 therapy at time Acute on chronic anemia 02/10/2025 Assessment & Plan (02/14/2025 11:49 AM EDT): - Baseline hemoglobin around 9 - Hgb has been stable during inpatient - Iron deficiency anemia noted - Ferric gluconate and folic acid started Assessment & Plan (02/13/2025 2:16 PM EDT): - Baseline hemoglobin around 9 - Hgb has been stable during inpatient - Iron deficiency anemia noted - Ferric gluconate and folic acid started Assessment & Plan (02/12/2025 4:49 PM EDT): - Baseline hemoglobin around 9 - Hgb has been stable during inpatient - Iron deficiency anemia noted - Ferric gluconate and folic acid started Assessment & Plan (02/11/2025 3:41 PM EDT): - Baseline around Hgb of 9 - Hgb is 8.0 on 02/10 -> 7.8 02/11 - Transfuse above Hgb of 8 - Likely anemia of chronic disease. Will also test for iron deficiency - 1U pRBC today as Hgb is less than 8 while having ASCVD - Trend hemoglobin q6hr after transfusion to ensure no drop Assessment & Plan (02/10/2025 1:32 PM EDT): - Baseline around Hgb of 9 - Hgb is 8.0 on 02/10 - Transfuse above Hgb of 8 - Likely anemia of chronic disease. Will also test for iron deficiency NSTEMI (non-ST elevated myocardial infarction) 0 02/09/2025 Dysphagia, unspecified 01/29/2025 Chronic kidney disease, stage 3 unspecified 12/31 Fracture of nasal bones, sub sequent encounter for fracture with routine healing 01/18/2025 Wedge compression fracture o f unspecified lumbar vertebra, subsequent encounter for fracture with routine healing 01/18/2025 Multiple fractures of ribs, left side, subsequent encounter for fracture with routine healing 01/17/2025 Other fracture of t5-T6 vert ebra, subsequent encounter for fracture with routine healing 01/17/2025 Unspecified displaced fractu re of surgical neck of left humerus, subsequent encounter for fracture with routine healing 01/17/2025 Fall 01/07/2025 Falls 01/16/2024 Essential tremor 12/20/2023 Nutritional deficiency, unspecified 12/15/2023 Candidal stomatitis 12/13/2023 Pathological fracture, left femur, subsequent encounter for fracture with routine healing 12/13/2023 Constipation, unspecified 12/12/2023 Difficulty in walking, not elsewhere classified 12/12/2023 Muscle weakness (generalized) 12/12/2023 Vitamin D deficiency, unspecified 12/12/2023 Acute kidney failure, unspecified 12/11/2023 Anxiety disorder, unspecified 12/11/2023 Displaced intertrochanteric fracture of left fem ur, sequela 12/11/2023 Diverticulitis of intestine, part unspecified, without perforation or abscess without bleeding 12/11/2023 GERD (gastroesophageal reflux disease) Other hyperlipidemia 12/11/2023 Other insomnia 12/11/2023 Other specified disorders of bone density and structure, unspecified site 12/11/2023 Periprosthetic fracture arou nd internal prosthetic left hip joint 12/11/2023 Polyneuropathy, unspecified 12/11/2023 Squamous cell carcinoma of skin of breast 2023 Tremor 12/11/2023 Type 2 diabetes mellitus with diabetic polyneuro jennifer 12/11/2023 Unspecified injury of head, subsequent encounter 12/11/2023 Unspecified osteoarthritis, unspecified site 08/2024 Acute respiratory failure with hypercapnia 09/11 Displaced intertrochanteric fracture of left femur, initial encounter for closed fracture 04/23/2023 Arthritis associated with diabetes 03/20/2023 History of heart attack 03/20/2023 Osteoporosis with current pathological fracture 03/20/2023 Obesity with body mass index 30 or greater 05/16 Leukocytosis 08/17/2021 Mult fx of metacarpal bones, closed 02/26/2021 Grief 01/03/2019 Menopause 08/10/2018 Neuropathy 02/28/2018 Other chronic pain 02/28/2018 Diabetes mellitus 02/23/2018 Renal artery stenosis 02/23/2018 S/P coronary artery stent placement 02/23/2018 History of total replacement of both hip joints 10/31/2017 Hypokalemia 10/31/2017 Peripheral vascular disorder due to diabetes bernard litus 10/31/2017 Renovascular hypertension 10/31/2017 Mixed hyperlipidemia 09/05/2017 Abscess of face 08/20/2016 Essential hypertension 09/04/2014 Encounters Date Type Department Care Team Description 02/27/2025 Orders Only [facility] [address] [place] [address] ProviderKeny MD 02/13/2025 2:24 PM EDT - 02/13/2025 4:24 PM EDT Surgery [facility] [address] [place] [address] Yves Burroughs MD Right heart cath [16754 (CPT )] 02/09/2025 10:59 AM EDT - 02/14/2025 3:45 PM EDT Hospital Encounter [facility] [address] [place] [address] Adam Tenorio MD Chang, MD Rafiq Jefferson Hani, MD Iqbal, Amna, MD NSTEMI (non-ST elevated myocardial infarction) (CMS/HCC) (Primary Dx); Acute on chronic anemia; Iron deficiency anemia, unspecified iron deficiency anemia type; Coronary artery disease involving kotlik coronary artery of kotlik heart with angina pectoris; Acute on chronic systolic heart failure (CMS/HCC); Heart failure with reduced ejection fraction due to coronary artery disease (CMS/HCC); Diabetes mellitus type 2, insulin dependent ([facility]) Discharge Disposition: Retirement Facility (03) 02/09/2025 Travel from Last 3 Months Social History Tobacco Use Types Packs/Day Years Used Date Smoking Tobacco: Former Cigarettes Smokeless Tobacco: Never Tobacco Cessation:Counseling Given: No [facility] Utilities Answer Date Recorded In the past 12 months has [employer], gas, oil, or water [employer] threatened to shut off services in your [...] any time in the past 12 m onths, were you homeless or living in a snf (including now)? No 02/09/2025 Hunger Vital Sign [...] Sign Reading Time Taken Comments Blood Pressure 108/72 02/14/2025 12:00 PM EDT Pulse 80 02/14/2025 12:00 PM EDT Temperature 36.3 C (97.3 F) 02/14/2025 12:00 PM EDT Respiratory Rate 21 02/14/2025 12:0 0 PM EDT Oxygen Saturation 94% 02/14/2025 12: 00 PM EDT Inhaled Oxygen Concentration - - Weight 72.1 kg (158 lb 15.2 oz) 02/14/2025 4:20 AM EDT Height 164 cm (5' 4.57 ) 02/09/2025 12: 28 PM EDT Body Mass Index 26.81 02/09/2025 12:28 PM EDT Plan of Treatment Health Maintenance Due Date Last Done Comments CT Colonography 1952 Colonoscopy 1952 Colorectal Cancer Screening 1952 FIT-DNA 1952 FIT 1952 FOBT 1950 Medicare Annual Wellness (AWV) 1952 Sigmoidoscopy 1952 Diabetes: Retinopathy Screening 1962 Depression Screening 1964 Adult Tetanus 1974 Zoster Vaccines (1 of 2) 2002 Diabetes: Hemoglobin A1C 07/23/2023 04/22/2023 COVID-19 Vaccine (2023-11 5 season) 2024 10/11/2021, 01/01/2021, 12/11/2020 Diabetes: Urine Protein Screening 11/13/2024 11/13/2023 Fall Risk Screening 02/14/2026 02/14/2025 Mammogram 02/26/2026 02/27/2024 Influenza Vaccine Completed 09/17/2024, 07/13/2023 Pneumococcal Vaccine: 65+ Years Completed 09/17/2024, 01/20/2023, 08/17/2021 HIB Vaccines Aged Out No longer eligi ble based on patient's age to complete this topic HPV Vaccines Aged Out No longer eligi ble based on patient's age to complete this topic IPV Vaccines Aged Out No longer eligi ble based on patient's age to complete this topic Meningococcal B Vaccine Aged Out No l onger eligible based on patient's age to complete this topic Meningococcal Vaccine Aged Out No driss michelle eligible based on patient's age to complete this topic Rotavirus Vaccines Aged Out No longer eligible based on patient's age to complete this topic Procedures Procedure Name Priority Date/Time Associated Diagnosis Comments CBC Routine 02/16/2025 9:33 AM EDT BASIC METABOLIC PANEL Routine 02/16/2025 9:33 AM EDT MAGNESIUM Routine 02/16/2025 9:33 AM EDT PREPARE RBC Routine 02/15/2025 7:36 AM EDT POCT GLUCOSE METER UNSOLICITED RESULTS Routine 02/14/2025 11:47 AM EDT HEMOGLOBIN AND HEMATOCRIT, BLOOD Pending Discharge 02/14/2025 11:25 AM EDT POCT GLUCOSE METER UNSOLICITED RESULTS Routine 02/14/2025 7:58 AM EDT APTT Pending Discharge 02/14/2025 3:28 AM EDT BASIC METABOLIC PANEL Pending Discharge 02/14/2025 3:28 AM EDT CBC Pending Discharge 02/14/2025 3:28 AM EDT HEMOGLOBIN AND HEMATOCRIT, BLOOD Pending Discharge 02/13/2025 11:40 PM EDT POCT GLUCOSE METER UNSOLICITED RESULTS Routine 02/13/2025 7:59 PM EDT HEMOGLOBIN AND HEMATOCRIT, BLOOD Pending Discharge 02/13/2025 5:57 PM EDT POCT GLUCOSE METER UNSOLICITED RESULTS Routine 02/13/2025 5:14 PM EDT POCT GLUCOSE METER UNSOLICITED RESULTS Routine 02/13/2025 4:08 PM EDT HEMOGLOBIN AND HEMATOCRIT, BLOOD Pending Discharge 02/13/2025 2:25 PM EDT CORONARY ANGIOGRAPHY Routine 02/13/2025 12:34 PM EDT NSTEMI (non-ST elevated myocardial infarction) (CMS/HCC) Heart failure with reduced ejection fraction due to coronary artery disease (CMS/HCC) RIGHT HEART CATH Routine 02/13/2025 12:3 4 PM EDT NSTEMI (non-ST elevated myocardial infarction) (CMS/HCC) Heart failure with reduced ejection fraction due to coronary artery disease (CMS/HCC) POCT HBO2% Routine 02/13/2025 12:27 PM EDT POCT HBO2% Routine 02/13/2025 12:27 PM EDT RESPIRATORY ASSESS AND TREAT PROTOCOL Routine 02/13/2025 8:00 AM EDT RESPIRATORY ASSESS AND TREAT PROTOCOL Routine 02/13/2025 8:00 AM EDT POCT GLUCOSE METER UNSOLICITED RESULTS Routine 02/13/2025 7:05 AM EDT LIPID PANEL Add-On 02/13/2025 4:15 AM EDT APTT Pending Discharge 02/13/2025 4:15 AM EDT HEMOGLOBIN AND HEMATOCRIT, BLOOD Pending Discharge 02/13/2025 4:15 AM EDT BASIC METABOLIC PANEL Pending Discharge 02/13/2025 4:15 AM EDT HEMOGLOBIN AND HEMATOCRIT, BLOOD Pending Discharge 02/12/2025 9:28 PM EDT POCT GLUCOSE METER UNSOLICITED RESULTS Routine 02/12/2025 8:19 PM EDT POCT GLUCOSE METER UNSOLICITED RESULTS Routine 02/12/2025 4:34 PM EDT POCT GLUCOSE METER UNSOLICITED RESULTS Routine 02/12/2025 9:57 AM EDT RESPIRATORY ASSESS AND TREAT PROTOCOL Routine 02/12/2025 8:00 AM EDT RESPIRATORY ASSESS AND TREAT PROTOCOL Routine 02/12/2025 8:00 AM EDT POCT GLUCOSE METER UNSOLICITED RESULTS Routine 02/12/2025 7:11 AM EDT APTT Pending Discharge 02/12/2025 4:25 AM EDT BASIC METABOLIC PANEL Pending Discharge 02/12/2025 4:25 AM EDT CBC Pending Discharge 02/12/2025 4:25 AM EDT POCT GLUCOSE METER UNSOLICITED RESULTS Routine 02/11/2025 8:08 PM EDT PREPARE RBC STAT 02/11/2025 6:59 PM EDT HEMOGLOBIN AND HEMATOCRIT, BLOOD Timed 02/11/2025 6:11 PM EDT TYPE AND SCREEN Routine 02/11/2025 6:11 PM EDT POCT GLUCOSE METER UNSOLICITED RESULTS Routine 02/11/2025 4:59 PM EDT COMPLETE ECHO (TTE) Routine 02/11/2025 4 :28 PM EDT VITAMIN B12 STAT Add-on 02/11/2025 11:59 AM EDT FOLATE STAT Add-on 02/11/2025 11:59 AM EDT CBC STAT 02/11/2025 11:59 AM EDT BASIC METABOLIC PANEL Routine 02/11/2025 11:59 AM EDT POCT GLUCOSE METER UNSOLICITED RESULTS Routine 02/11/2025 11:15 AM EDT RESPIRATORY ASSESS AND TREAT PROTOCOL Routine 02/11/2025 8:00 AM EDT RESPIRATORY ASSESS AND TREAT PROTOCOL Routine 02/11/2025 8:00 AM EDT POCT GLUCOSE METER UNSOLICITED RESULTS Routine 02/11/2025 7:45 AM EDT LAVENDER TOP Routine 02/11/2025 3:29 AM EDT EXTRA TUBES Routine 02/11/2025 3:29 AM EDT APTT Routine 02/11/2025 3:29 AM EDT BASIC METABOLIC PANEL Routine 02/11/2025 3:29 AM EDT APTT Routine 02/10/2025 11:50 PM EDT POCT GLUCOSE METER UNSOLICITED RESULTS Routine 02/10/2025 8:12 PM EDT APTT Routine 02/10/2025 5:53 PM EDT POCT GLUCOSE METER UNSOLICITED RESULTS Routine 02/10/2025 4:58 PM EDT POCT GLUCOSE METER UNSOLICITED RESULTS Routine 02/10/2025 11:49 AM EDT FERRITIN Add-On 02/10/2025 11:02 AM EDT TRANSFERRIN Add-On 02/10/2025 11:02 AM EDT IRON AND TIBC Add-On 02/10/2025 11:02 AM EDT DIGOXIN LEVEL Routine 02/10/2025 11:02 AM EDT B-TYPE NATRIURETIC PEPTIDE Routine 02/10/2025 11:02 AM EDT APTT Routine 02/10/2025 11:02 AM EDT ECG 12-LEAD Routine 02/10/2025 8:58 AM EDT RESPIRATORY ASSESS AND TREAT PROTOCOL Routine 02/10/2025 8:00 AM EDT RESPIRATORY ASSESS AND TREAT PROTOCOL Routine 02/10/2025 8:00 AM EDT POCT GLUCOSE METER UNSOLICITED RESULTS Routine 02/10/2025 7:24 AM EDT CBC Routine 02/10/2025 3:40 AM EDT APTT Timed 02/09/2025 11:57 PM EDT HIGH SENSITIVITY TROPONIN I Timed 02/09/2025 11:57 PM EDT HIGH SENSITIVITY TROPONIN I Timed 02/09/2025 8:49 PM EDT POCT GLUCOSE METER UNSOLICITED RESULTS Routine 02/09/2025 7:59 PM EDT POCT GLUCOSE METER UNSOLICITED RESULTS Routine 02/09/2025 4:54 PM EDT RESPIRATORY ASSESS AND TREAT PROTOCOL Routine 02/09/2025 4:04 PM EDT RESPIRATORY ASSESS AND TREAT PROTOCOL Routine 02/09/2025 4:04 PM EDT RESPIRATORY ASSESS AND TREAT PROTOCOL Routine 02/09/2025 4:02 PM EDT RESPIRATORY ASSESS AND TREAT PROTOCOL Routine 02/09/2025 4:02 PM EDT PLATELET COUNT STAT 02/09/2025 2:32 PM EDT APTT STAT 02/09/2025 2:[address] CHEST WO IV CONTRAST Routine 02/09/2025 1:56 PM EDT XR CHEST 2 VIEWS Routine 02/09/2025 1:40 PM EDT ECG 12-LEAD Routine 02/09/2025 12:52 PM EDT BASIC METABOLIC PANEL STAT 02/09/2025 12:39 PM EDT MAGNESIUM STAT 02/09/2025 12:39 PM EDT HIGH SENSITIVITY TROPONIN I STAT 02/09/2025 12:39 PM EDT POCT GLUCOSE METER UNSOLICITED RESULTS Routine 02/09/2025 12:30 PM EDT POCT GLUCOSE METER UNSOLICITED RESULTS Routine 02/09/2025 11:48 AM EDT CBC Routine 02/09/2025 9:32 AM EDT D-DIMER, QUANTITATIVE Routine 02/09/2025 9:32 AM EDT BASIC METABOLIC PANEL Routine 02/09/2025 9:32 AM EDT HIGH SENSITIVITY TROPONIN I Routine 02/09/2025 9:32 AM EDT B-TYPE NATRIURETIC PEPTIDE Routine 02/09/2025 9:32 AM EDT XR CHEST 2 VIEWS Routine 02/09/2025 9:[address] CHEST W IV CONTRAST Routine 02/09/2025 9:30 AM EDT ECG 12-LEAD Routine 02/09/2025 9:29 AM EDT ECG 12-LEAD Routine 02/09/2025 9:29 AM EDT from Last 3 Months Results * CBC (02/16/2025 9:33 AM EDT) Only the most recent of6 resultswithin the time period is included. Blood Venous blood specimen / Unknown Historical Provider MD LAB BLOOD ORDERAB LES * Magnesium (02/16/2025 9:33 AM EDT) Only the most recent of2 resultswithin the time period is included. Blood Venous blood specimen / Unknown Historical Provider MD LAB BLOOD ORDERAB LES * Basic metabolic panel (02/16/2025 9:33 AM EDT) Only the most recent of8 resultswithin the time period is included. Blood Venous blood specimen / Unknown Historical Provider MD LAB BLOOD ORDERAB LES * Prepare RBC (02/15/2025 7:36 AM EDT) Only the most recent of2 resultswithin the time period is included. PRODUCT CODE [id number] [facility] BL OOD B[facility] Unit Number [id number] [facility] BLOOD [facility] Unit ABO O [facility] BLOOD [facility] Unit Rh POS [facility]OD [facility] Dispense Status RE [facility] Blood Expiration Date [id number] [facility]OD [facility] Product Blood Type 5100 [facility] BLOOD [facility] Unit Volume 300 ML [facility] BLO OD BANK Feliberto Castle MD BLOOD BANK PRODUCT O RDERABLES [facility] BLOOD B[facility] * (ABNORMAL) POCT glucose meter (02/14/2025 11:47 AM EDT) Only the most recent of22 resultswithin the time period is included. Glucose POC 285(H) 70 - 105 mg/dL 02/14/2025 12:02 PM EDT [facility] ([facility]) Comment:[email or web address] Blood Capillary blood specimen / Unknown 02/14/2025 11:47 AM EDT 02/14/2025 12:02 PM EDT Narrative [facility] ([facility]) - 02/14/2025 12:02 PM EDT Waived Testing in the ED is performed under the ED CLIA certificate #[id number]. Bud Conroy MD LAB BLOOD ORDERABLES Performing Organization Address City/[facility]/ZIP Co de Phone Number [facility]) [address] [place] [address] * (ABNORMAL) Hemoglobin and hematocrit, blood (02/14/2025 11:25 AM EDT) Only the most recent of7 resultswithin the time period is included. Hemoglobin 8.5(L) 12.0 - 15.0 g/dL 02/14/2025 11:58 AM EDT [facility]) Hematocrit 28.1(L) 36.0 - 45.0 % 02/14/2025 11:58 AM EDT [facility]) Blood Venous blood specimen / Unknown Venipuncture / Unknown 02/14/2025 11:25 AM EDT 02/14/2025 11:47 AM EDT Feliberto Castle MD LAB BLOOD ORDERABLES [facility]) [address] [place] [address] * (ABNORMAL) APTT (02/14/2025 3:28 AM EDT) Only the most recent of9 resultswithin the time period is included. aPTT 56.6(H) 25.0 - 35.0 Seconds 02/14/2025 4:44 AM EDT [facility] ([facility]) Comment:Clinical significanc e of the APTT is questionable in the presence of heparin. Blood Venous blood specimen / Unknown Venipuncture / Unknown 02/14/2025 3:28 AM EDT 02/14/2025 4:17 AM EDT Feliberto Castle MD LAB BLOOD ORDERABLES [facility] ([place]) [address] [place] [address] * RIGHT HEART CATH, CORONARY ANGIOGRAPHY (02/13/2025 12:34 PM EDT) Anatomical Region Laterality Modality Other Narrative 02/13/2025 12:47 PM EDT Cardiovascular Laboratory Report FINAL IMPRESSIONS: Mild to moderate, calcific, three-vessel coronary artery disease Patent stent in the left circumflex coronary artery Normal global left ventricular systolic function by noninvasive imaging Moderately elevated right-sided heart pressures and mildly elevated pulmonary capillary wedge pressure consistent with biventricular congestive failure Elevated transpulmonary gradient and the minimally elevated wedge would suggest predominantly precapillary or pulmonary arterial hypertension Normal cardiac output/cardiac index RECOMMENDATIONS: Aggressive cardiovascular risk factor modification Optimal medical therapy for coronary artery disease should include aspirin, moderate intensity statin therapy, a beta-suhas also minus a RAAS inhibitor The patient's troponin elevation likely represents a type II myocardial infarction in the setting of atrial fibrillation and tachycardia with moderate underlying coronary artery disease; treat comorbid conditions as feasible Investigations and management for the patient's pulmonary hypertension as clinically appropriate; she has severe underlying pulmonary disease Further recommendations deferred to the inpatient services PROCEDURES: Ultrasound-guided access to the right common femoral artery, limited femoral angiography, ultrasound-guided access to the right common femoral vein, right heart catheterization, bilateral selective coronary angiography, placement of a 6 [place]ian Mynx painter apprentice closure device METHODS: After risks, benefits, and alternatives were explained, written informed consent was obtained. The patient was prepped and draped in usual sterile fashion over both groins. Using 1% lidocaine solution, local infiltration anesthesia was achieved. Using a modified Seldinger technique, a micropuncture kit, and under ultrasound guidance, access to the right common femoral vein and artery was obtained. The micropuncture kit was upsized to a 6 Tunisian 11 cm sheath. Angiography via the sheath was performed. Right heart catheterization was performed using a Hollingsworth catheter via the venous sheath. Pressures were measured in the right atrium, right ventricle, pulmonary artery, and pulmonary capillary wedge positions. Oxygen saturations were obtained and cardiac output/cardiac index was calculated using the modified Janette principle. The Hollingsworth catheter was removed. Bilateral selective coronary angiography was performed using JL4 and JR4 catheters. After reviewing the images, it was elected to conclude the procedure. All catheters were removed. A 6 [place]ian Mynx closure device was deployed per protocol to achieve hemostasis. The venous sheath was to be removed with application of manual pressure to achieve optimal hemostasis. Overall the patient tolerated the procedure well. There were no overt complications. He was to be transferred to the holding area in stable condition. FINDINGS: Hemodynamics: RA 7 RV 46/11, 10 PA 46/26 [34] PCWP 13 TPG 21 AO 116/64 [84] Cardiac output /cardiac index 4.65/2.61 AO sat /PA sat 93%/52% LEFT VENTRICULOGRAPHY: This was not performed; ejection fraction is noted to be 55% by echocardiogram. CORONARY ARTERIES: Left main coronary artery: This arises from the left coronary cusp and bifurcates into the left anterior descending and left circumflex coronary arteries it is free of significant stenosis. Left anterior descending coronary artery: This shows calcific plaque throughout. There is a mid segment 50 to 60% stenosis. The first diagonal branch is a small caliber, branching vessel. The inferior branch shows an 80 to 90% stenosis. It is less than 2 mm in size. Left circumflex coronary artery: This shows evidence of a patent stent in the midportion extending into a prominent third obtuse marginal. This is widely patent. There is diffuse plaque throughout the AV groove branch. Right coronary artery: This is a dominant vessel giving rise to the posterior descending and posterolateral branches. It is ectatic in the proximal and midportion. There is a short segment 30% stenosis in the midportion. The posterior circulation shows luminal irregularities and sequential 40 to 50% stenoses. Limited femoral angiography: This shows an appropriate sheath position. There is evidence of a previously placed stent in the external iliac artery. There is calcific plaque throughout the iliac and femoral arteries. The right superficial femoral artery appears to be subtotally occluded. INDICATIONS: Troponin elevation, likely type II myocardial infarction Coronary Findings Diagnostic Dominance: Right Left Anterior Descending: There is moderate diffuse disease throughout the vessel. Left Circumflex: There is mild diffuse disease throughout the vessel. Right Coronary Artery: There is moderate diffuse disease throughout the vessel. The vessel is ectatic. Intervention No interventions have been documented. Tyron Marquez MD CV CARDIAC CATH AR OCEDURES * (ABNORMAL) POC Hb02% (02/13/2025 12:27 PM EDT) Only the most recent of2 resultswithin the time period is included. Pathologist [facility] [id number]% 51.6(A) 90 - 95 % QC Pass/Fail Passed QC LOT # [id number] QC Expiration Date 73,126 SAMPLESITE PA Blood Venous blood specimen / Unknown 02/13/2025 12:27 PM EDT Narrative [place], [place] - 02/14/2025 7:22 AM EDT Authors [employer] 1321 Bud Conroy MD POINT OF CARE TEST E NTER/EDIT ORDERABLES * (ABNORMAL) Lipid panel (02/13/2025 4:15 AM EDT) Pathologist [facility] Triglycerides 131 <150 mg/dL 02/13/2025 4:01 PM EDT [facility] ([facility]) Comment: TRIGLYCERIDE REFERENCE RANGE: 20 YEARS AND OLDER CARDIOVASCULAR RISK LESS THAN 150 mg/dL LOW RISK 150 TO 199 mg/dL BORDERLINE RISK 200 mg/dL AND GREATER HIGH RISK Cholesterol 99(L) 120 - 200 mg/dL 02/13/2025 4:01 PM EDT [facility] ([facility]) LDL Calculated 42 0 - 160 mg/dL 02/13/2025 4:01 PM T [facility] ([facility]) HDL 31 23 - 92 mg/dL 02/13/2025 4:01 PM T [facility] ([facility]) Non HDL Cholesterol 68 02/13/2025 4:01 PM T [facility] ([facility]) Total VLDL-C 26 0 - 40 mg/dL 02/13/2025 4:01 PM T [facility] ([facility]) Cholesterol/HDL Ratio 3.2 mg/dL 02/13/2025 4:01 PM EDT [facility] ([facility]) Blood Venous blood specimen / Unknown Venipuncture / Unknown 02/13/2025 4:15 AM EDT 02/13/2025 4:46 AM EDT Elver Leidy LACY LAB BLOOD ORDERABLES [facility] ([facility]) [address] [place] [address] * Type and screen (02/11/2025 6:11 PM EDT) ABO Grouping O 02/11/2025 8:03 PM EDT [facility] BLOOD BANK Rh Type POS 02/11/2025 8:03 PM EDT [facility] BLOOD [facility] Ab Scrn NEG 02/11/2025 8:03 PM EDT [facility] BLOOD [facility] Blood Venous blood specimen / Unknown Arterial Line / Unknown 02/11/2025 6:11 PM EDT 02/11/2025 6:45 PM EDT Fleiberto Castle MD LAB BLOOD BANK TEST ORDERABLES [facility] BLOOD BANK * COMPLETE ECHO (TTE) (02/11/2025 4:28 PM EDT) Anatomical Region Laterality Modality Other 02/11/2025 4:15 PM EDT Narrative 02/11/2025 4:41 PM EDT 1 1 [facility] Heart Station [address] [place] [address] (fax) Echocardiogram-[facility] Name: EMILY EL Study Date: 02/11/2025 04:15 PM B/P: 99 mmHg/76 mmHg HR: Date of : 1950 Location: [facility] Height: 64 in. Age: 74 year(s) Patient Room: 3105 Weight: 164 lb. Gender: Female Patient Status: InPt BSA: 1.8 m2 Indication: Chest Pain, Atrial Fibrillation Examination: Echocardiogram (Complete) Image Quality: Fair Patient Consent: Procedure explained to patient Conclusions Left Ventricle: The left ventricle is normal size. Global left ventricular systolic function is difficult to assess due to rhythm but appears preserved. The EF is 55 % visually. Interventricular septal thickness is increased in the proximal portion. No regional wall motion abnormality. Right Ventricle: The right ventricle appears enlarged. Right ventricular systolic function is difficult to assess. Doppler studies suggest mildly elevated right sided pressures. Left Atrium: The left atrium is normal in size. Measurements Left Ventricle Label Value Normal Value LVOTd 2.1 cm (18cm - 20cm) LVOT VTI 14.9 cm (18cm - 22cm) LVOT PGmax 5 mmHg LVEF visual 55 % LVDd, 2D 3.77 cm (3.9cm - 5.3cm) LVDs, 2D 2.52 cm (2.1cm - 4cm) IVSd, 2D 1.43 cm (0.6cm - 1.1cm) LVPWd, 2D 0.96 cm (0.6cm - 0.9cm) LV Mass, 2D ASE 150.5 g LV Mass Index, 2D ASE 83.6 g/m?? (44g/m?? - 88.4g/m??) RWT, MM 0.51 (0 - 0.42) LVSVI, 2D 21.1 ml/m2 LVOT PGmean 2 mmHg LVSV_LVOT 52 ml Right Ventricle Label Value Normal Value TAPSE 0.8 cm Left Atrium Label Value Normal Value LA Volume, BP 37 ml (22ml - 52ml) LADs, 2D 4 cm (2.7cm - 3.8cm) LAESV index, BP 20.6 ml/m?? Right Atrium Label Value Normal Value RA Area 11.8 cm?? Aortic Valve Label Value Normal Value AV DVI 0.69 AV VTI 22.8 cm Tricuspid Valve Label Value Normal Value RA Pressure 3 mmHg RVSP 38 mmHg Aorta Label Value Normal Value AoRoot, 2D 3.9 cm (1.4cm - 3.8cm) Valvular Assessment LVOT 0.7 - 1.1 m/sec Aortic Valve 1.0 - 1.7 m/sec Mitral Valve 0.6 - 1.3 m/sec Tricuspid Valve 0.3 - 0.7 m/sec Pulmonic Valve 0.6 - 0.9 m/sec Regurgitation No Trivial Trivial No Max Velocity 1.07 m/sec 1.54 m/s 1.53 m/s Max Gradient 9.00 mmHg 9.00 mmHg Mean Gradient 5.00 mmHg Valve Area 2.4 cm?? Findings Left Ventricle: The left ventricle is normal size. Global left ventricular systolic function is difficult to assess due to rhythm but appears preserved. The EF is 55 % visually. Interventricular septal thickness is increased in the proximal portion. No regional wall motion abnormality. Right Ventricle: The right ventricle appears enlarged. Right ventricular systolic function is difficult to assess. Doppler studies suggest mildly elevated right sided pressures. Left Atrium: The left atrium is normal in size. Right Atrium: The right atrium is normal in size. Mitral Valve: Mitral valve appears normal. Trivial mitral regurgitation. Aortic Valve: Aortic valve appears normal. No aortic valve regurgitation. Tricuspid Valve: Tricuspid valve appears normal. Trivial tricuspid regurgitation. Pulmonic Valve: Pulmonary valve appears normal. No pulmonary regurgitation. Aorta: Mild aortic dilatation . Great Vessels: IVC: Normal size and course of the IVC. Pericardium: No pericardial effusion. Procedure Staff Reading Group: [facility] Integration Advisor: Dwight Coon RDCS Ordering Physician: TYRON MARQUEZ Procedure Note Brandon Knox MD - 02/11/2025 1 1 [facility] Heart Station [address] [place] [address] [phone] (fax) Echocardiogram-[facility] Name: EMILY EL Study Date: 02/11/2025 04:15 PM B/P: 99 mmHg/76 mmHg HR: Date of : 1950 Location: [facility] Height: 64 in. Age: 74 year(s) Patient Room: 3105 Weight: 164 lb. Gender: Female Patient Status: InPt BSA: 1.8 m2 Indication: Chest Pain, Atrial Fibrillation Examination: Echocardiogram (Complete) Image Quality: Fair Patient Consent: Procedure explained to patient Conclusions Left Ventricle: The left ventricle is normal size. Global left ventricular systolic function is difficult to assess due to rhythm but appears preserved. The EF is 55 % visually. Interventricular septal thickness is increased in the proximal portion. No regional wall motion abnormality. Right Ventricle: The right ventricle appears enlarged. Right ventricular systolic function is difficult to assess. Doppler studies suggest mildly elevated right sided pressures. Left Atrium: The left atrium is normal in size. Measurements Left Ventricle Label Value Normal Value LVOTd 2.1 cm (18cm - 20cm) LVOT VTI 14.9 cm (18cm - 22cm) LVOT PGmax 5 mmHg LVEF visual 55 % LVDd, 2D 3.77 cm (3.9cm - 5.3cm) LVDs, 2D 2.52 cm (2.1cm - 4cm) IVSd, 2D 1.43 cm (0.6cm - 1.1cm) LVPWd, 2D 0.96 cm (0.6cm - 0.9cm) LV Mass, 2D ASE 150.5 g LV Mass Index, 2D ASE 83.6 g/m?? (44g/m?? - 88.4g/m??) RWT, MM 0.51 (0 - 0.42) LVSVI, 2D 21.1 ml/m2 LVOT PGmean 2 mmHg LVSV_LVOT 52 ml Right Ventricle Label Value Normal Value TAPSE 0.8 cm Left Atrium Label Value Normal Value LA Volume, BP 37 ml (22ml - 52ml) LADs, 2D 4 cm (2.7cm - 3.8cm) LAESV index, BP 20.6 ml/m?? Right Atrium Label Value Normal Value RA Area 11.8 cm?? Aortic Valve Label Value Normal Value AV DVI 0.69 AV VTI 22.8 cm Tricuspid Valve Label Value Normal Value RA Pressure 3 mmHg RVSP 38 mmHg Aorta Label Value Normal Value AoRoot, 2D 3.9 cm (1.4cm - 3.8cm) Valvular Assessment LVOT 0.7 - 1.1 m/sec Aortic Valve 1.0 - 1.7 m/sec Mitral Valve 0.6 - 1.3 m/sec Tricuspid Valve 0.3 - 0.7 m/sec Pulmonic Valve 0.6 - 0.9 m/sec Regurgitation No Trivial Trivial No Max Velocity 1.07 m/sec 1.54 m/s 1.53 m/s Max Gradient 9.00 mmHg 9.00 mmHg Mean Gradient 5.00 mmHg Valve Area 2.4 cm?? Findings Left Ventricle: The left ventricle is normal size. Global left ventricular systolic function is difficult to assess due to rhythm but appears preserved. The EF is 55 % visually. Interventricular septal thickness is increased in the proximal portion. No regional wall motion abnormality. Right Ventricle: The right ventricle appears enlarged. Right ventricular systolic function is difficult to assess. Doppler studies suggest mildly elevated right sided pressures. Left Atrium: The left atrium is normal in size. Right Atrium: The right atrium is normal in size. Mitral Valve: Mitral valve appears normal. Trivial mitral regurgitation. Aortic Valve: Aortic valve appears normal. No aortic valve regurgitation. Tricuspid Valve: Tricuspid valve appears normal. Trivial tricuspid regurgitation. Pulmonic Valve: Pulmonary valve appears normal. No pulmonary regurgitation. Aorta: Mild aortic dilatation . Great Vessels: IVC: Normal size and course of the IVC. Pericardium: No pericardial effusion. Procedure Staff Reading Group: [facility] Integration Advisor: Dwight Coon RDCS Ordering Physician: TYRON MARQUEZ Tyron Marquez MD CV ECHO PROCEDURES * Folate (02/11/2025 11:59 AM EDT) Folate 32.0 6.6 - 1,000 ng/mL 02/11/2025 3:04 PM EDT [facility] ([facility]) Blood Venous blood specimen / Unknown Arterial Line / Unknown 02/11/2025 11:59 AM EDT 02/11/2025 12:02 PM EDT Feliberto Castle MD LAB BLOOD ORDERABLES [facility] ([place]) [address] [place] [address] * Vitamin B12 (02/11/2025 11:59 AM EDT) Vitamin B-12 585 180 - 914 pg/mL 02/11/2025 3:04 PM EDT [facility] ([facility]) Comment: REFERENCE RANGES: 180-914 pg/mL Normal 145-179 pg/mL Indeterminate <145 pg/mL Deficient Blood Venous blood specimen / Unknown Arterial Line / Unknown 02/11/2025 11:59 AM EDT 02/11/2025 12:02 PM EDT Feliberto Castle MD LAB BLOOD ORDERABLES [facility]) [address] [place] [address] * Lavender Top (02/11/2025 3:29 AM EDT) Extra Tube Hold for add-ons. 02/11/2025 6:01 AM EDT [facility] ([facility]) Comment:Auto resulted. Blood Venous blood specimen / Unknown 02/11/2025 3:29 AM EDT 02/11/2025 4:05 AM EDT Feliberto Castle MD LAB BLOOD ORDERABLES Performing Organization Address City/[facility]/ZIP Co de Phone Number [facility] ([facility]) [address] [place] [address] * (ABNORMAL) Iron and TIBC (02/10/2025 11:02 AM EDT) Iron 15(L) 50 - 212 ug/dL 02/11/2025 4:01 PM EDT [facility]) TIBC 302 250 - 450 ug/dL 02/11/2025 4:01 PM EDT [facility]) Iron Saturation 5(L) 20 - 50 % 4:01 PM EDT [facility]) UIBC 287.0 155.0 - 355.0 ug/dL 02/11/2025 4:01 PM EDT [facility] ([facility]) Blood Venous blood specimen / Unknown Arterial Line / Unknown 02/10/2025 11:02 AM EDT 02/10/2025 11:14 AM EDT Feliberto Castle MD LAB BLOOD ORDERABLES [facility]) [address] [place] [address] * Transferrin (02/10/2025 11:02 AM EDT) Transferrin 254 168 - 348 mg/dL 02/11/2025 4:01 PM EDT [facility]) Blood Venous blood specimen / Unknown Arterial Line / Unknown 02/10/2025 11:02 AM EDT 02/10/2025 11:14 AM EDT Feliberto Castle MD LAB BLOOD ORDERABLES Performing Organization Address [facility] Co de Phone Number [facility]) [address] [place] [address] * (ABNORMAL) B-type natriuretic peptide (02/10/2025 11:02 AM EDT) Only the most recent of2 resultswithin the time period is included. BNP 195(H) 0 - 100 pg/mL 02/10/2025 11:44 AM EDT [facility] ([facility]) Blood Venous blood specimen / Unknown Arterial Line / Unknown 02/10/2025 11:02 AM EDT 02/10/2025 11:14 AM EDT Tyron Marquez MD LAB BLOOD ORDERABL ES Performing Organization Address [facility] Co de Phone Number [facility]) [address] [place] [address] * Ferritin (02/10/2025 11:02 AM EDT) Ferritin 135.0 11.0 - 307.0 ng/mL 02/10/2025 2:29 PM EDT [facility]) Blood Venous blood specimen / Unknown Arterial Line / Unknown 02/10/2025 11:02 AM EDT 02/10/2025 11:14 AM EDT Feliberto Castle MD LAB BLOOD ORDERABLES [facility] ([facility]) [address] [place], [place] [id number] * Digoxin level (02/10/2025 11:02 AM EDT) Digoxin Lvl 0.7 0.7 - 2 ng/mL 02/10/2025 11:37 AM EDT [facility] ([facility]) Blood Venous blood specimen / Unknown Arterial Line / Unknown 02/10/2025 11:02 AM EDT 02/10/2025 11:14 AM EDT Tyron Marquez MD LAB BLOOD ORDERABL ES Performing Organization Address City/[facility] Co de Phone Number [facility] ([facility]) [address] [place] [address] * ECG 12 lead (02/10/2025 8:58 AM EDT) Only the most recent of4 resultswithin the time period is included. Ventricular Rate 80 BPM GE MUSE QRS DURATION 124 ms GE MUSE QT Interval 402 ms GE MUSE QTC CALCULATION(BAZE TT) 463 ms GE MUSE R-[place] -15 degrees GE MUSE T Wave [place] 7 degrees GE MUSE 02/10/2025 8:50 AM EDT 02/10/2025 10:26 PM EDT Impressions GE MUSE - 02/10/2025 10:26 PM EDT Atrial fibrillation Right bundle branch block Abnormal ECG When compared with ECG of 09-FEB-2025 12:47, No significant change was found Confirmed by Ike Jurado (80) on 02/10/2025 10:26:41 PM Narrative Procedure Note Ike Jurado MD - 02/10/2025 IMPRESSION: Atrial fibrillation Right bundle branch block Abnormal ECG When compared with ECG of 09-FEB-2025 12:47, No significant change was found Confirmed by Ike Jurado (80) on 02/10/2025 10:26:41 PM Tyron Marquez MD ECG ORDERABLES Performing Organization Address City/[facility]/ZIP Co de Phone Number GE MUSE * (ABNORMAL) High Sensitivity Troponin I (02/09/2025 11:57 PM EDT) Only the most recent of4 resultswithin the time period is included. Pathologist [facility] High Sensitivity Troponin I 55(HH) <15 ng/L 02/10/2025 1:29 AM EDT [facility] ([facility]) Blood Venous blood specimen / Unknown Arterial Line / Unknown 02/09/2025 11:57 PM EDT 02/10/2025 12:38 AM EDT Adam Tenorio MD LAB BLOOD ORDERABLES Performing Organization Address [facility] Co de Phone Number [facility] ([facility]) [address] [place] [address] * (ABNORMAL) Platelet count (02/09/2025 2:32 PM EDT) [facility] Platelets 128(L) 150 - 400 10*3/uL 02/09/2025 3:01 PM EDT [facility] ([facility]) Immature Platelet Fraction % 2.8 0.8 - 6.3 % 02/09/2025 3:01 PM EDT [facility] ([facility]) Blood Venous blood specimen / Unknown Arterial Line / Unknown 02/09/2025 2:32 PM EDT 02/09/2025 2:52 PM EDT Adam Tenorio MD LAB BLOOD ORDERABLES Performing Organization Address City/[facility] Co de Phone Number [facility] ([facility]) [address] [place] [address] * CT chest wo IV contrast (02/09/2025 1:56 PM EDT) Anatomical Region Laterality Modality Body, Chest Computed Tomogra phy 02/09/2025 3:00 PM EDT Impressions 02/09/2025 3:07 PM EDT Cardiomegaly, small bilateral pleural effusions, and minimal pericardial effusion. Electronically signed: Prosper Kelly. Narrative 02/09/2025 3:[address] CHEST WO IV CONTRAST 02/09/2025 1:42 PM CLINICAL INDICATIONS: Pneumonia, complication suspected, xray done. R/o Pneumonia, pleural effusion TECHNIQUE: Multidetector CT axial slices of the chest were obtained without IV contrast. Multiplanar reformats were performed. All CT scans at this facility use dose modulation, iterative reconstruction, and/or weight based dosing when appropriate to reduce radiation dose to as low as reasonably achievable. COMPARISON: None.. FINDINGS: Small bilateral pleural effusions with fluid tracking into the major fissures. Small areas of accompanying compressive atelectasis. No focal airspace infiltrates or other additional pulmonary abnormalities demonstrated. Heavy coronary artery calcification is displayed. Cardiomegaly Minimal pericardial effusion. Moderate calcific plaquing in the thoracic aorta with aortic of normal diameter throughout. With evaluation compromised by lack of contrast no gross hilar or mediastinal lymphadenopathy or other additional mediastinal abnormalities are demonstrated. No abnormalities are displayed in the chest wall. The portions of upper abdominal organs included display no significant abnormalities on these noncontrast images. Severe compression of the T6 vertebral body. Age indeterminant with no previous studies of the area for comparison. Procedure Note Prosper Kelly MD - 02/09/2025 CT CHEST WO IV CONTRAST 02/09/2025 1:42 PM CLINICAL INDICATIONS: Pneumonia, complication suspected, xray done. R/o Pneumonia, pleural effusion TECHNIQUE: Multidetector CT axial slices of the chest were obtainedwithout IV contrast. Multiplanar reformats were performed. All CT scans at this facility use dose modulation, iterativereconstruction, and/or weight based dosing when appropriate to reduce radiation dose to aslow as reasonably achievable. COMPARISON: None.. FINDINGS: Small bilateral pleural effusions with fluid tracking into the majorfissures. Small areas of accompanying compressive atelectasis. No focal airspace infiltrates or other additional pulmonary abnormalities demonstrated. Heavy coronary artery calcification is displayed. Cardiomegaly Minimal pericardial effusion. Moderate calcific plaquing in the thoracic aortawith aortic of normal diameter throughout. With evaluation compromised by lackof contrast no gross hilar or mediastinal lymphadenopathy or otheradditional mediastinal abnormalities are demonstrated. No abnormalities are displayed in the chest wall. The portions of upper abdominal organs included display no significant abnormalities on these noncontrast images. Severe compression of the T6 vertebral body. Age indeterminant with noprevious studies of the area for comparison. IMPRESSION: Cardiomegaly, small bilateral pleural effusions, and minimal pericardial effusion. Electronically signed: Prosper Kelly. Adam Tenorio MD IMG CT PROCEDURES * XR chest 2 views (02/09/2025 1:40 PM EDT) Only the most recent of2 resultswithin the time period is included. Anatomical Region Laterality Modality Chest Computed Radiogr aphy 02/09/2025 2:51 PM EDT Impressions 02/09/2025 2:55 PM EDT Changes of congestive heart failure with pulmonary vascular congestion and bilateral pleural effusions. Electronically signed: Prosper Kelly. Narrative 02/09/2025 2:55 PM EDT History: Chest pain and congested cough Exam/Technique: PA and lateral chest Comparison: None Findings: Small bilateral pleural effusions and pulmonary vascular congestion. No distinct pulmonary edema. The cardiopericardial silhouette appears to be prominent with evaluation compromised by rotation in addition to magnification on the AP view Procedure Note Prosper Kelly MD - 02/09/2025 History: Chest pain and congested cough Exam/Technique: PA and lateral chest Comparison: None Findings: Small bilateral pleural effusions and pulmonary vascularcongestion. No distinct pulmonary edema. The cardiopericardial silhouette appears to be prominent with evaluation compromised by rotation in addition to magnification on the AP view IMPRESSION: Changes of congestive heart failure with pulmonary vascular congestion and bilateral pleural effusions. Electronically signed: Prosper Kelly. Adam Tenorio MD IMG XR PROCEDURES * D-dimer, quantitative (02/09/2025 9:32 AM EDT) Blood Venous blood specimen / Unknown Historical Provider LAB BLOOD ORDERAB LES * CT chest w IV contrast (02/09/2025 9:30 AM EDT) Anatomical Region Laterality Modality Body, Chest Computed Tomogra phy Historical Provider IMG CT PROCEDURES from Last 3 Months Advance Directives * Full Code (Latest Code Status on File) Date Activated Date Inactivated Comments 02/09/2025 12:30 PM 02/14/2025 6:54 PM Care Teams Asbestos Microscopist Relationship Specialty Start Date End Date Keshia Cheng MD [address] [place] [address] PCP - General Family Medicine 02/12/25
--- OUTSIDE RECORDS SUMMARY | 2025-03-05 13:15 | XMS_ITS ---
Author Organization [facility] Address [address] [place] [address] Care Team Providers Care Medical Office Manager Name Role Phone Keshia Cheng MD Primary Care Provider [phone] Coral Solitario LPN Unavailable Chronic Care Management (CCM) Status:Enrolled (Active) Start date:06/28/2024 Enrollment date:06/28/2024 Enrollment reason:Identified as high-risk Overview Please assess for Care Management needs. 06/28/24, 1:45 PM - Coral Solitario LPN- Patient gives verbal consent to be enrolled in CCM Program and understands there could be a bill for this service. Case Team Name Relationship Phone Coral Solitario LPN(Responsible Staff) Licensed Pract [facility] Nurse [phone] Continued Care and Services Coordination
--- OUTSIDE RECORDS SUMMARY | 2025-03-05 13:15 | XMS_ITS | Encounter Summary ---
Author Organization [facility] Address [address] [place], [place] [id number] Care Team Providers Care Coordinator Of Placement Name Role Phone Karl Merritt MD Unavailable [phone] Encounter Details Date Type Department Care Team (Late st Contact Info) Description 08/20/2016 Prep for Surgery [facility] Otolaryngology (ENT) [address] [place] [id number] Praneeth Powell MD [address] [address] Social History Tobacco Use Types Packs/Day Years Used Date Smoking Tobacco: Every Day Comments Unknown Sex and Gender Information Value Date Recorded Sex Assigned at Not on file Legal Sex Female 9:22 PM EST Gender Identity Not on file Sexual Orientation Not on file documented as of this encounter Functional Status * Hearing impairment? Answer Date of Assessment Author No 08/20/2016 5:28 PM EST Rosina Ra lady * Visual impairment? Answer Date of Assessment Author Yes 08/20/2016 5:28 PM EST Rosina Ra lady * Gait/Transfer impairment? Answer Date of Assessment Author No 08/20/2016 5:28 PM EST Rosina Ra lady * ADL impairment? Answer Date of Assessment Author No 08/20/2016 5:28 PM EST Rosina Ra lady * Difficulty with errands? Answer Date of Assessment Author No 08/20/2016 5:28 PM EST Rosina Ra lady documented as of this encounter Mental Status * Cognitive difficulty? Answer Entry Date Author Yes 08/20/2016 5:28 PM Ra lady Scott documented in this encounter Plan of Treatment Not on file documented as of this encounter Visit Diagnoses Not on filedocumented in this encounter Care Teams Coordinator Of Placement Relationship Specialty Start Date End Date Karl Merritt MD [address] [place], [place] [id number] Physician Orthopaedics 06/03/23 documented as of this encounter
--- OUTSIDE RECORDS SUMMARY | 2025-03-05 13:15 | XMS_ITS | Encounter Summary ---
Author Organization [facility] Address [address] [place] [address] Care Team Providers Care Marketing Executive Name Role Phone Karl Merritt MD Unavailable [phone] Encounter Details Date Type Department Care Team (Late st Contact Info) Description 01/07/[address] [facility] Cardiology [address] [place] [address] Dwight Paniagua MD [address] [place] [address] Social History Tobacco Use Types Packs/Day Years Used Date Smoking Tobacco: Former Cigarettes Comments:Also smoke weed. [place] lf a joint [facility] Status Overloadities Answer Date Recorded In the past 12 months has [facility] electric, gas, oil, or water company threatened [...] Assessment Author No 08/20/2016 5:28 PM EST Rosina, Ra lady * Visual impairment? Answer Date of Assessment Author Yes 08/20/2016 5:28 PM EST Rosina, Ra lady * Gait/Transfer impairment? Answer Date of Assessment Author No 08/20/2016 5:28 PM EST Rosina, Ra lady * ADL impairment? Answer Date of Assessment Author No 08/20/2016 5:28 PM EST Rosina, Ra lady * Difficulty with errands? Answer Date of Assessment Author No 08/20/2016 5:28 PM EST Rosina, Ra lady documented as of this encounter Mental Status * Cognitive difficulty? Answer Entry Date Author Yes 08/20/2016 5:28 PM EST Rosina, Ra lady documented in this encounter Procedure Notes * Justin Harrison MD - 01/07/2025 2:40 PM EDTAssociated Order(s): ECHOCARDIOGRAM REPORT Transthoracic Echocardiographic Report Name: TAMIR GONSALEZ Interpreting JUSTIN HARRISON MD Physician: : [id number] Referring WALDO CLARK MD Physician: Age: 74 Electrical & Instrumentation Supervisor: Hema Coleman RDCS Exam Date: 01/07/2025 Fellow: 02:40 PM CVT: PCP: Gender: Female Height 162.56 cm Weight 79.38 kg Encounter #: BSA 1.85 m^2 Study SICU BMI 30.04 kg/m^2 Location: Technical Fair Quality: Type of Study: TTE procedure: 2D echocardiogram, M-Mode, Doppler , Color Doppler, Contrast study. Indications for Study:Pulmonary edema. Tech. Comments Patient unable to provide ID or confirm test being done. Armband ID verified. The patient was unable to provide verbal consent however the ordering and reporting attendings felt the benefit/risk evaluation strongly favored left heart contrast administration. Administration of 1 dose(s) of 1.5 ml of Definity diluted to 10 ml of saline was administered by Bebo Coleman RDCS . Supine BP: 109/79 mmHg Patient Status: Routine Contrast Medium: Definity. Left Ventricle Value Normal Value Normal LVIDd: 4.2 cm <5.7 cm Post. Wall 1.1 cm <1.2 cm Thickness: Septum 1.2 cm <1.2 cm LV FS: 21.43 % 30-40% Diastolic: Systolic 3.3 cm <4 cm LV Mass 194.96g Dimension: LV Mass Index: 105 <110 Women<120 g/m^2 Men Left Atrium LA Dimension: 4.2 cm <3.92cm Atrium RA (apical 4): 2.75 cm <4.6 cm Vessels Sinus of 3.3cm Valsalva: Findings/Conclusions [place] LV Left ventricular systolic function is mildly globally reduced. The left ventricular ejection fraction (LVEF) is 45% +/- 5%by the triplane summation of disc (Gleason's rule) method. Left ventricular size is normal. LA Normal left atrium. The left atrial volume index is 33 mL/m2 (normal: <35 mL/m2, mild: 35-41 mL/m2, moderate: 42-48 mL/m2, severe: >48 mL/m2). RV The right ventricle is dilated. Right ventricular function is moderately globally reduced. The percent area shortening is 25 (normal >35%). RA Normal right atrium. The right atrial volume indexed to BSA is normal at 28 mL/m2 (normal for males <39 mL/m2, females <33 mL/m2). Valves AV Normal aortic valve. MV Mitral annular fibrocalcific changes are present and are mild. There is physiologic mitral regurgitation. TV Normal tricuspid valve. There is physiologic tricuspid regurgitation. PV Normal pulmonic valve. Great Vessels Normal sinus of Valsalva. Pericardium/Pleura No evidence of a pericardial effusion. Hemodynamics Systolic RV-RA pressure gradient is 40 mmHg. (Upper normal is 30 mmHg). The right atrial pressure could not be estimated due to the patient being mechanically ventilated. Summary [...] HARRISON MD(Interpreting physician) on 01/07/2025 03:23 PM documented in this encounter Plan of Treatment Not on file documented as of this encounter Procedures Procedure Name Priority Date/Time Associated Diagnosis Comments ECHOCARDIOGRAM REPORT 01/07/2025 2:40 PM EDT documented in this encounter Results * ECHOCARDIOGRAM REPORT (01/07/2025 2:40 PM EDT) [...] Referring WALDO CLARK MD Physician: Age: 74 Electrical & Instrumentation Supervisor: Hema Coleman RDCS Exam Date: 01/07/2025 Fellow: [...] MD(Interpreting physician) on 01/07/2025 03:23 PM Dwight Paniagua MD EC NON-INVASIVE CARDIOVASCULAR Edited Result - Final documented in this encounter Visit Diagnoses Not on filedocumented in this encounter Care Teams Marketing Executive Relationship Specialty Start Date End Date Karl Merritt MD [address] [place] [address] Physician Orthopaedics 06/03/23 documented as of this encounter
--- OUTSIDE RECORDS SUMMARY | 2025-03-05 13:15 | XMS_ITS ---
Author Organization [facility] Address [address] [place] [address] Care Team Providers Care Airfreight Operations Agent Name Role Phone Keshia Cheng MD Primary Care Provider [phone] Active Problems Problem Noted Date Diagnosed Date [...] & Plan (02/14/2025 11:49 AM EDT): - [id number] score- 5 - Rate control with metoprolol 50mg daily and digoxin 125 mcg daily - Continue anticoagulation with Eliquis Assessment & Plan (02/13/2025 2:16 PM EDT): - [id number] score- 5 - Rate control with metoprolol 50mg daily and digoxin 125 mcg daily - Continue anticoagulation with heparin drip Assessment & Plan (02/12/2025 4:49 PM EDT): - [id number] score- 5 - Rate control with metoprolol 50mg daily and digoxin 125 mcg daily - Continue anticoagulation with heparin drip Assessment & Plan (02/11/2025 3:41 PM EDT): - [id number]-VIGd score- 5 - Rate control with metoprolol 50mg daily and digoxin 125 mcg daily - Continue anticoagulation with heparin drip Assessment & Plan (02/10/2025 1:32 PM EDT): - HFO1NS1-RQKc score- 5 - Rate control with metoprolol [...] - Sliding scale lispro in place - [facility] blood glucose checks Assessment & Plan (02/13/2025 2:16 PM EDT): - Patient was hypoglycemic upon presentation and received oral dextrose - Patient's blood glucose has been not elevated without use of insulin during inpatient - Sliding scale lispro in place - [facility] blood glucose checks Assessment & Plan (02/12/2025 [...] appreciate recommendations Coronary artery disease invo lving [place] coronary artery of [place] heart with angina pectoris 02/10/2025 Presence of [...] with stent placement after cardiac catheterization in 2016. Stents placed into Lcx - Reports that [...] hospitalization. Patient was informed of possibility of [place], disability, with Kristy (trusted friend) on phone. Patient expressed understanding - Continue aspirin 81mg daily, lipitor 80mg daily - Continue metoprolol 50mg daily Assessment & Plan (02/11/2025 3:41 PM EDT): - Patient has history of coronary artery disease with stent placement after cardiac catheterization in 2016. Stents placed into Lcx - Reports that [...] with stent placement after cardiac catheterization in 2016. Stents placed into Lcx - Reports that [...] Abscess of face 08/20/2016 Essential hypertension 09/04/2014 Current Oncology Plans No current plan information found. Past Plans No past plan information found. Radiation Treatments * No radiation treatments are documented for this patient in [facility]. Treatments may have been administered in another system. Lifetime Dose Tracking * Chemical Lifetime Dose Automatic Entry Manual Entr y Fluoro Time 6.2 minutes 0 minutes 6.2 minutes Air Kerma 244 mGy 0 mGy 244 mGy
--- OUTSIDE RECORDS SUMMARY | 2025-03-05 13:15 | XMS_ITS ---
Author Organization [facility] Address [address] [place] [address] Care Team Providers Care Legal Clerk Name Role Phone Keshia Cheng MD Primary Care Provider [phone] Coral Solitario LPN Unavailable Snf Facility Transitional Care Management Status:Enrolled (Active) Start date:02/14/2025 Enrollment date:02/18/2025 Enrollment reason:Identified using hospital discharge data Overview Patient discharged from [facility] on 02/14. Patient admitted to [facility] . Please contact SNF facility for JANKI (inpt to SNF) within 48 hours. Case Team Name Relationship Phone Lisa Kyle MA(Responsible Staff) Nikita love Continued Care and Services Coordination
--- OUTSIDE RECORDS SUMMARY | 2025-03-05 13:16 | XMS_ITS | Encounter Summary ---
Author Organization [facility] Address [address] [facility] [place] [address] Care Team Providers Care Auto Parts Manager Name Role Phone Keshia Cheng MD Primary Care Provider [phone] Keshia hCeng MD Unavailable Keshia Chneg MD Unavailable Coral Solitario LPN Unavailable Keshia Cheng MD Unavailable [phone] Encounter Details Date Type Department Care Team (Late st Contact Info) Description 03/14/2024 Orders Only [facility] [address] [place] [id number] Keshia Cheng MD [address] [place] [address] Social History Tobacco Use Types Packs/Day Years [...] week 04/13/2023 How often do you attend christianity or mu-ism serv ices? Never 04/13/2023 Active Member of [...] Recorded Patient Health Questionnaire-2 Score 0 11/13/2023 [facility]ational Stress Questionnaire Answer [...] a intermediate (including now)? No 04/13/2023 Comments Unknown Sex [...] [facility] [address] [place] [address] Andrea Andrew DO [address] [place] [address] documented as of this encounter Procedures Procedure Name Priority Date/Time Associated Diagnosis Comments HEMOGLOBIN A1C Routine 01/23/2024 11:57 AM EDT documented in this encounter Results * Hemoglobin A1c (01/23/2024 11:57 AM EDT) HEMOGLOBIN A1C 8.4 Blood Venous blood specimen / Unknown us Keshia Cheng MD LAB BLOOD ORDERABLES Edited R esult - Final documented in this encounter Visit Diagnoses Not on filedocumented in this encounter Additional Health Concerns Assessment Noted Time PHQ-9 Depression Total Score: 0 02/12/20 24 1:00 PM EST documented as of this encounter Care Teams Auto Parts Manager Relationship Specialty Start Date End Date Keshia Cheng MD [address] [place] [address] PCP - General Family Medicine 03/04/24 Keshia Cheng MD [address] [place] [address] PCP - Devoted 04/01/24 11/29/24 Keshia Cheng MD [address] [place] [address] PCP - [employer] 03/02/24 03/31/24 Keshia Cheng MD [address] [place] [address] PCP - Fernanda ANDERSON 11/30/24 12/30/24 Coral Solitario LPN [address] [place] [address] Licensed Practical Nurse Family Medicine 06/28/24 documented as of this encounter
--- OUTSIDE RECORDS SUMMARY | 2025-03-05 13:16 | XMS_ITS | Encounter Summary ---
Author Organization [facility] Address [address] [place] [address] Phone Care Team Providers Care Bid Manager Name Role Phone John Luong MD Primary Care Provider [phone] Encounter Details Date Type Department Care Team (Late st Contact Info) Description 01/22/2025 Scanned Document [facility] [address] [place] [phone] Scanning, Generic Provider Social History Tobacco Use Types Packs/Day Years Used Date Smoking Tobacco: Never Assessed Comments Unknown Sex and Gender Information Value Date Recorded Sex Assigned at Not on file Legal Sex Female 6:00 AM EST Gender Identity Not on file Sexual Orientation Not on file documented as of this encounter Plan of Treatment Upcoming Encounters Date Type Department Care Team (Late st Contact Info) Description 10/08/2025 11:10 AM EST Office Visit [place] [address] [place] [phone] Cathy Marquez MD [address] [place] [address] [address] [place] [address] documented as of this encounter Visit Diagnoses Not on filedocumented in this encounter Care Teams Bid Manager Relationship Specialty Start Date End Date John Luong MD [address] [facility] [address] [place] [address] PCP - General Family Medicine 03/03/25 documented as of this encounter
--- OUTSIDE RECORDS SUMMARY | 2025-03-05 13:16 | XMS_ITS | Encounter Summary ---
Author Organization [facility] Address [address] [place] [address] Phone Care Team Providers Care Front Office Manager Name Role Phone John Luong MD Primary Care Provider [phone] Encounter Details Date Type Department Care Team (Late st Contact Info) Description 02/03/2025 Scanned Document [facility] [address] [place] [id number] Scanning, Generic Provider Social History Tobacco Use [...] Description 10/08/2025 11:10 AM EST Office Visit [place] [address] [place] [address] Cathy Marquez MD [address] [place] [address] [address] [place] [address] documented as of this encounter Visit Diagnoses Not on filedocumented in this encounter Care Teams Front Office Manager Relationship Specialty Start Date End Date John Luong MD [address] [facility] [address] [place] [address] PCP - General Family Medicine 03/03/25 documented as of this encounter
--- OUTSIDE RECORDS SUMMARY | 2025-03-05 13:16 | XMS_ITS | Referral Summary ---
Author Organization [facility] Address [address] [place] [address] Care Team Providers Care Treasury Director Name Role Phone Keshia Cheng MD Primary Care Provider [phone] Encounters Date Type Department Care Team Description 02/27/2025 Orders Only [facility] [place] [address] [place] [address] ProviderKeny MD 02/09/2025 10:59 AM EDT - 02/14/2025 3:45 PM EDT Hospital Encounter [facility] [address] [place] [address] Adam Tenorio MD Chang, Kyu Chul, MD Saad, Hani, MD Iqbal, Amna, MD NSTEMI (non-ST elevated myocardial infarction) (CMS/HCC) (Primary Dx); Acute on chronic anemia; Iron deficiency anemia, unspecified iron deficiency anemia type; 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; Acute on chronic systolic heart failure (CMS/HCC); Heart failure with reduced ejection fraction due to coronary artery disease (CMS/HCC); Diabetes mellitus type 2, insulin dependent (CMS/HCC) Discharge Disposition: Nursing Home Facility (03) 02/13/2025 2:24 PM EDT - 02/13/2025 4:24 PM EDT Surgery [facility] Vascular Lab [address] [place] [address] Yves Burroughs MD Right heart cath [45402 (CPT )] 02/09/2025 Travel from Last 3 Months Allergies Active Allergy Reactions Criticality Noted Date [...] hr tabletIndication s:NSTEMI (non-ST elevated myocardial infarction) ([facility]) Take 1 tablet (25 mg) by mouth in the morning for 97 doses. Do not crush or chew. 30 tablet 3 5 05/21/20 25 Active metFORMIN (Glucophage) 1,000 mg tabletIndication s:Acute on chronic systolic heart failure ([facility]) Take 1 tablet (1,000 mg) by mouth with breakfast and with evening meal. 5 03/16/20 25 Active clopidogrel (Plavix) 75 mg tabletIndication s:Acute on chronic systolic heart failure ([facility]) Take 1 tablet (75 mg) by mouth in the morning for 97 doses. 30 tablet 3 5 05/23/20 25 Active dapagliflozin propanediol (Farxiga) 10 mgIndications:he art failure Take 1 tablet (10 mg) by mouth in the morning for 98 doses. 30 tablet 3 5 05/24/20 25 Active furosemide (Lasix) 40 mg tabletIndication s:Acute on chronic systolic heart failure ([facility]) Take 1 tablet (40 mg) by mouth in the morning for 98 doses. 30 tablet 3 5 05/24/20 25 Active insulin lispro (HumaLOG) 100 unit/mL injectionIndicat ions:Diabetes mellitus type 2, insulin dependent ([facility]) Inject 0-5 Units under the skin with breakfast, with lunch, and with evening meal AND 0-4 Units at bedtime. 5.7 mL 5 02/15/20 26 Active aspirin 81 mg EC tablet Take 81 mg by mouth in the morning. Active cholecalciferol, vitamin D3, 50 mcg (2,000 unit) capsule Take 2,000 Units by mouth in the morning. Active bumetanide (Bumex) 0.5 mg tablet Take 0.5 mg by mouth two times daily. 02/15/20 25 Discontinued(Sto p Taking at Discharge) dilTIAZem CD [...] chewable tabletIndication s:NSTEMI (non-ST elevated myocardial infarction) ([facility]) Chew 1 tablet (81 mg) with breakfast. 30 tablet 02/15/20 Discontinued Active Problems Problem Noted Date [...] & Plan (02/14/2025 11:49 AM EDT): - [id number]-[id number] score- 5 - Rate control with metoprolol 50mg daily and digoxin 125 mcg daily - Continue anticoagulation with Eliquis Assessment & Plan (02/13/2025 2:16 PM EDT): - [id number] score- 5 - Rate control with metoprolol 50mg daily and digoxin 125 mcg daily - Continue anticoagulation with heparin drip Assessment & Plan (02/12/2025 4:49 PM EDT): - [id number]-FUZz score- 5 - Rate control with metoprolol 50mg daily and digoxin 125 mcg daily - Continue anticoagulation with heparin drip Assessment & Plan (02/11/2025 3:41 PM EDT): - [id number]-MITh score- 5 - Rate control with metoprolol 50mg daily and digoxin 125 mcg daily - Continue anticoagulation with heparin drip Assessment & Plan (02/10/2025 1:32 PM EDT): - QIK9TG0-PRHx score- 5 - Rate control with metoprolol [...] - Sliding scale lispro in place - [facility] blood glucose checks Assessment & Plan (02/13/2025 [...] - Sliding scale lispro in place - [facility] blood glucose checks Right bundle branch block [...] appreciate recommendations Coronary artery disease invo lving mary's igloo coronary artery of mary's igloo heart with angina pectoris 02/10/2025 Presence of [...] hospitalization. Patient was informed of possibility of PA, disability, with Kristy (trusted friend) on phone. [...] Abscess of face 08/20/2016 Essential hypertension 09/04/2014 Social History Tobacco Use Types Packs/Day Years Used Date Smoking Tobacco: Former Cigarettes Smokeless Tobacco: Never Tobacco Cessation:Counseling Given: No [facility] Utilities Answer Date Recorded In the past 12 months has [employer], gas, oil, or water company threatened to [...] were you homeless or living in a mcfp (including now)? No 02/09/2025 Hunger Vital Sign [...] 02/09/2025 12:28 PM EDT Plan of Treatment Not on file Procedures Procedure Name Priority Date/Time Associated Diagnosis [...] PM EDT NSTEMI (non-ST elevated myocardial infarction) ([facility]) Heart failure with reduced ejection fraction due to coronary artery disease ([facility]) POCT HBO2% Routine 02/13/2025 12:27 PM EDT [...] the time period is included. PRODUCT CODE [id number] [facility] Unit Number [id number] [facility] Unit ABO O [facility] Unit Rh POS [facility] Dispense Status RE [facility] Blood Expiration Date [id number] [facility] Product Blood Type 5100 [facility] Unit Volume 300 ML [facility] BLO OD BANK Feliberto Castle MD BLOOD BANK PRODUCT O RDERABLES [facility] * (ABNORMAL) POCT glucose meter (02/14/2025 11:47 AM EDT) Only the most recent of22 resultswithin the time period is included. Glucose POC 285(H) 70 - 105 mg/dL 02/14/2025 12:02 PM EDT [facility] ([facility]) Comment:[email or web address] Blood Capillary blood specimen / Unknown 02/14/2025 11:47 AM EDT 02/14/2025 12:02 PM EDT Narrative [facility] ([facility]) - 02/14/2025 12:02 PM EDT Waived Testing in the ED is performed under the ED CLIA certificate #[id number]. Bud Conroy MD LAB BLOOD ORDERABLES [facility] ([facility]) [address] [place] [address] * (ABNORMAL) Hemoglobin and hematocrit, blood (02/14/2025 11:25 AM EDT) Only the most recent of7 resultswithin the time period is included. Hemoglobin 8.5(L) 12.0 - 15.0 g/dL 02/14/2025 11:58 AM EDT [facility] ([facility]) Hematocrit 28.1(L) 36.0 - 45.0 % 02/14/2025 11:58 AM EDT [facility] ([facility]) Blood Venous blood specimen / Unknown Venipuncture / Unknown 02/14/2025 11:25 AM EDT 02/14/2025 11:47 AM EDT Feliberto Castle MD LAB BLOOD ORDERABLES Performing Organization Address City/[facility] Co de Phone Number [facility] ([place]) [address] [place], [place] [id number] * (ABNORMAL) APTT (02/14/2025 3:28 AM EDT) Only the most recent of9 resultswithin the time period is included. aPTT 56.6(H) 25.0 - 35.0 Seconds 02/14/2025 4:44 AM EDT [facility] ([place]) Comment:Clinical significanc e of the APTT is questionable in the presence of heparin. Blood Venous blood specimen / Unknown Venipuncture / Unknown 02/14/2025 3:28 AM EDT 02/14/2025 4:17 AM EDT Feliberto Castle MD LAB BLOOD ORDERABLES Performing Organization Address [facility] Co de Phone Number [facility] ([place]) [address] [place] [address] * RIGHT HEART CATH, CORONARY ANGIOGRAPHY (02/13/2025 [...] selective coronary angiography, placement of a 6 Indian Mynx senior mobile solutions architect closure device METHODS: After risks, benefits, and [...] micropuncture kit was upsized to a 6 Indian 11 cm sheath. Angiography via the sheath [...] procedure. All catheters were removed. A 6 Indian Mynx closure device was deployed per protocol [...] documented. Tyron Marquez MD CV CARDIAC CATH NC OCEDURES * (ABNORMAL) POC Hb02% (02/13/2025 12:27 PM EDT) Only the most recent of2 resultswithin the time period is included. GHYDBB91% 51.6(A) 90 - 95 % QC Pass/Fail Passed QC LOT # [id number] QC Expiration Date 73,126 SAMPLESITE PA Blood Venous blood specimen / Unknown 02/13/2025 12:27 PM EDT Narrative [place] - 02/14/2025 7:22 AM EDT Electronic Test Technician 1321 Bud Conroy MD POINT OF CARE TEST E NTER/EDIT ORDERABLES * (ABNORMAL) Lipid panel (02/13/2025 4:15 AM EDT) Triglycerides 131 <150 mg/dL 02/13/2025 4:01 PM EDT [facility] ([place]) Comment: TRIGLYCERIDE REFERENCE RANGE: 20 YEARS AND OLDER CARDIOVASCULAR RISK LESS THAN 150 mg/dL LOW RISK 150 TO 199 mg/dL BORDERLINE RISK 200 mg/dL AND GREATER HIGH RISK Cholesterol 99(L) 120 - 200 mg/dL 02/13/2025 4:01 PM EDT [facility] ([facility]) LDL Calculated 42 0 - 160 mg/dL 02/13/2025 4:01 PM EDT [facility] ([facility]) HDL 31 23 - 92 mg/dL 02/13/2025 4:01 PM EDT [facility] ([facility]) Non HDL Cholesterol 68 02/13/2025 4:01 PM EDT [facility] ([facility]) Total VLDL-C 26 0 - 40 mg/dL 02/13/2025 4:01 PM EDT [facility] ([facility]) Cholesterol/HDL Ratio 3.2 mg/dL 02/13/2025 4:01 PM EDT [facility] ([facility]) Blood Venous blood specimen / Unknown Venipuncture / Unknown 02/13/2025 4:15 AM EDT 02/13/2025 4:46 AM EDT Elver Forbes CNP LAB BLOOD ORDERABLES [facility]) [address] [place] [address] * Type and screen (02/11/2025 6:11 PM EDT) ABO Grouping O 02/11/2025 8:03 PM EDT [facility] B[facility]OD [facility] Rh Type POS 02/11/2025 8:03 PM EDT [facility] Ab Scrn NEG 02/11/2025 8:03 PM EDT [facility] Blood Venous blood specimen / Unknown Arterial Line / Unknown 02/11/2025 6:11 PM EDT 02/11/2025 6:45 PM EDT Feliberto Castle MD LAB BLOOD BANK TEST ORDERABLES [facility] * COMPLETE ECHO (TTE) (02/11/2025 4:28 PM EDT) Anatomical Region Laterality Modality Other 02/11/2025 4:15 PM EDT Narrative 02/11/2025 4:41 PM EDT 1 1 [facility] Heart Station [address] [place] [address] [phone] (fax) Echocardiogram-[facility] Name: EMILY EL Study Date: 02/11/2025 04:15 PM B/P: 99 mmHg/76 mmHg HR: Date of : 1950 Location: [facility] Height: 64 in. Age: 74 year(s) [...] No pericardial effusion. Procedure Staff Reading Group: [facility] Coil Wrapper: Dwight Coon DANK Ordering Physician: TYRON MARQUEZ Procedure Note Brandon Knox MD - 02/11/2025 1 1 [facility] Heart Station [address] [place] [address] [phone] (fax) Echocardiogram-[facility] Name: EMILY EL Study Date: 02/11/2025 04:15 PM B/P: 99 mmHg/76 mmHg HR: Date of : 1950 Location: [facility] Height: 64 in. Age: 74 year(s) [...] No pericardial effusion. Procedure Staff Reading Group: [facility] Coil Wrapper: Dwight Coon RDCS Ordering Physician: TYRON MARQUEZ Tyron Marquez MD CV ECHO PROCEDURES * Folate (02/11/2025 11:59 AM EDT) Folate 32.0 6.6 - 1,000 ng/mL 02/11/2025 3:04 PM EDT [facility] ([place]) Blood Venous blood specimen / Unknown Arterial Line / Unknown 02/11/2025 11:59 AM EDT 02/11/2025 12:02 PM EDT Feliberto Castle MD LAB BLOOD ORDERABLES Performing Organization Address City/[facility]/ZIP Co de Phone Number [facility]) [address] [place] [address] * Vitamin B12 (02/11/2025 11:59 AM EDT) Vitamin B-12 585 180 - 914 pg/mL 02/11/2025 3:04 PM EDT [facility] ([facility]) Comment: REFERENCE RANGES: 180-914 pg/mL Normal 145-179 pg/mL Indeterminate <145 pg/mL Deficient Blood Venous blood specimen / Unknown Arterial Line / Unknown 02/11/2025 11:59 AM EDT 02/11/2025 12:02 PM EDT Feliberto Castle MD LAB BLOOD ORDERABLES Performing Organization Address City/[facility]/ZIP Co de Phone Number [facility]) [address] [place] [address] * Lavender Top (02/11/2025 3:29 AM EDT) Pathologist [facility] Extra Tube Hold for add-ons. 02/11/2025 6:01 AM EDT [facility] ([facility]) Comment:Auto resulted. Blood Venous blood specimen / Unknown 02/11/2025 3:29 AM EDT 02/11/2025 4:05 AM EDT Feliberto Castle MD LAB BLOOD ORDERABLES Performing Organization Address City/[facility]/ZIP Co de Phone Number [facility]) [address] [place] [address] * (ABNORMAL) Iron and TIBC (02/10/2025 11:02 AM EDT) Iron 15(L) 50 - 212 ug/dL 02/11/2025 4:01 PM EDT [facility]) TIBC 302 250 - 450 ug/dL 02/11/2025 4:01 PM EDT [facility] ([facility]) Iron Saturation 5(L) 20 - 50 % 4:01 PM EDT [facility] ([facility]) UIBC 287.0 155.0 - 355.0 ug/dL 02/11/2025 4:01 PM EDT [facility] ([facility]) Blood Venous blood specimen / Unknown Arterial Line / Unknown 02/10/2025 11:02 AM EDT 02/10/2025 11:14 AM EDT Feliberto Castle MD LAB BLOOD ORDERABLES Performing Organization Address City/[facility]/ZIP Co de Phone Number [facility]) [address] [place] [address] * Transferrin (02/10/2025 11:02 AM EDT) Transferrin 254 168 - 348 mg/dL 02/11/2025 4:01 PM EDT [facility]) Blood Venous blood specimen / Unknown Arterial Line / Unknown 02/10/2025 11:02 AM EDT 02/10/2025 11:14 AM EDT Feliberto Castle MD LAB BLOOD ORDERABLES Performing Organization Address [facility] de Phone Number [facility]) [address] [place] [address] * (ABNORMAL) B-type natriuretic peptide (02/10/2025 11:02 AM EDT) Only the most recent of2 resultswithin the time period is included. BNP 195(H) 0 - 100 pg/mL 02/10/2025 11:44 AM EDT [facility]) Blood Venous blood specimen / Unknown Arterial Line / Unknown 02/10/2025 11:02 AM EDT 02/10/2025 11:14 AM EDT Tyron Marquez MD LAB BLOOD ORDERABL ES Performing Organization Address City/[facility]/ZIP Co de Phone Number [facility]) [address] [place] [address] * Ferritin (02/10/2025 11:02 AM EDT) Ferritin 135.0 11.0 - 307.0 ng/mL 02/10/2025 2:29 PM EDT [facility] ([facility]) Blood Venous blood specimen / Unknown Arterial Line / Unknown 02/10/2025 11:02 AM EDT 02/10/2025 11:14 AM EDT Feliberto Castle MD LAB BLOOD ORDERABLES [facility]) [address] [place] [address] * Digoxin level (02/10/2025 11:02 AM EDT) Digoxin Lvl 0.7 0.7 - 2 ng/mL 02/10/2025 11:37 AM EDT [facility]) Blood Venous blood specimen / Unknown Arterial Line / Unknown 02/10/2025 11:02 AM EDT 02/10/2025 11:14 AM EDT Tyron Marquez MD LAB BLOOD ORDERABL ES [facility]) [address] [place] [id number] * ECG 12 lead (02/10/2025 8:58 AM EDT) Only the most recent of4 resultswithin the time period is included. Ventricular Rate 80 BPM GE MUSE QRS DURATION 124 ms GE MUSE QT Interval 402 ms GE MUSE QTC CALCULATION(BAZE TT) 463 ms GE MUSE R-Benezett -15 degrees GE MUSE T Wave Benezett 7 degrees GE MUSE 02/10/2025 8:50 AM [...] 10:26:41 PM Tyron Marquez MD ECG ORDERABLES GE MUSE * (ABNORMAL) High Sensitivity Troponin I (02/09/2025 11:57 PM EDT) Only the most recent of4 resultswithin the time period is included. High Sensitivity Troponin I 55(HH) <15 ng/L 02/10/2025 1:29 AM EDT [facility] ([facility]) Blood Venous blood specimen / Unknown Arterial Line / Unknown 02/09/2025 11:57 PM EDT 02/10/2025 12:38 AM EDT Adam Tenorio MD LAB BLOOD ORDERABLES [facility] ([facility]) [address] [place] [address] * (ABNORMAL) Platelet count (02/09/2025 2:32 PM EDT) Platelets 128(L) 150 - 400 10*3/uL 02/09/2025 3:01 PM EDT [facility] ([facility]) Immature Platelet Fraction % 2.8 0.8 - 6.3 % 02/09/2025 3:01 PM EDT [facility] ([facility]) Blood Venous blood specimen / Unknown Arterial Line / Unknown 02/09/2025 2:32 PM EDT 02/09/2025 2:52 PM EDT Adam Tenorio MD LAB BLOOD ORDERABLES [facility] ([place]) [address] [place] [address] * CT chest wo IV contrast (02/09/2025 [...] 12:30 PM 02/14/2025 6:54 PM Care Teams Treasury Director Relationship Specialty Start Date End Date Keshia Cheng MD [address] [place] [address] PCP - General Family Medicine 02/12/25
--- OUTSIDE RECORDS SUMMARY | 2025-03-05 13:16 | XMS_ITS | Encounter Summary ---
Author Organization [facility] Address [address] [place] [address] Phone Care Team Providers Care Manager Transfer Name Role Phone John Luong MD Primary Care Provider [phone] Encounter Details Date Type Department Care Team (Late st Contact Info) Description 02/04/2025 Scanned Document [facility] [address] [place] [id number] Scanning, Generic Provider Social History Tobacco Use [...] Description 10/08/2025 11:10 AM EST Office Visit [place] [address] [place] [address] Cathy Marquez MD [address] [place] [address] [address] [place] [address] documented as of this encounter Visit Diagnoses Not on filedocumented in this encounter Care Teams Manager Transfer Relationship Specialty Start Date End Date John Luong MD [address] [facility] [address] [place] [address] PCP - General Family Medicine 03/03/25 documented as of this encounter
--- OUTSIDE RECORDS SUMMARY | 2025-03-05 13:16 | XMS_ITS | Encounter Summary ---
Author Organization [facility] Address [address] [place] [address] Care Team Providers Care Tire Layer Name Role Phone Keshia Cheng MD Primary Care Provider [phone] Keshia Cheng MD Unavailable [phone] Keshia Cheng MD Unavailable [phone] [address] Solitario LPN Unavailable Keshia Cheng MD Unavailable [phone] Encounter Details Date Type Department Care Team (Late st Contact Info) Description 03/20/2024 Orders Only [facility] [address] [place] [id number] Myranda Covarrubias MA Abnormal screening mammogram Social History Tobacco Use Types Packs/Day Years [...] How often do you attend hindu or moravian serv ices? Never 04/13/2023 Active Member of [...] Recorded Patient Health Questionnaire-2 Score 0 11/13/2023 [facility] of Occupat ional [facility] - Occupational Stress Questionnaire Answer Date [...] a fpc (including now)? No 04/13/2023 Comments Unknown Sex [...] Visit [facility] [address] [place] [address] Andrea Andrew DO [address] [place] [address] documented as of this encounter Visit Diagnoses Diagnosis Abnormal screening mammogram documented in this encounter Additional Health Concerns Assessment Noted Time PHQ-9 Depression Total Score: 0 11/13/19 24 1:00 PM EST documented as of this encounter Care Teams Tire Layer Relationship Specialty Start Date End Date Keshia hCeng MD [address] [place] [address] PCP - General Family Medicine 03/04/24 Keshia Cheng MD [address] [place] [address] PCP - Devoted 04/01/24 11/29/24 Keshia Cheng MD [address] [place] [address] PCP - Peterson 03/02/24 03/31/24 Keshia Cheng MD [address] [place] [address] PCP - Fernanda ANDERSON 11/30/24 12/30/24 Coral Solitario LPN [address] [place] [address] Licensed Practical Nurse Family Medicine 06/28/24 documented as of this encounter
--- OUTSIDE RECORDS SUMMARY | 2025-03-05 13:16 | XMS_ITS | Clinical Summary ---
Author Organization [facility] Address [address] [place] [address] Phone Care Team Providers Care Clinical Academic Allergist Name Role Phone John Luong MD Primary Care Provider [phone] Allergies No known active allergies Medications acetaminophen (Tylenol 8 HOUR) 650 mg ER tablet Take 1 tablet (650 mg) by mouth every 6 hours if needed. Active albuterol 90 mcg/actuation inhaler Inhale 2 puffs once daily. 3 Active Eliquis 5 mg tablet Take 1 tablet (5 mg) by mouth every 12 hours. 5 Active atorvastatin (Lipitor) 80 mg tablet Take 1 tablet (80 mg) by mouth once daily. 5 Active budesonide-formo terol (Symbicort) 160-4.5 mcg/actuation inhaler Inhale 2 puffs 2 times a day. 3 Active clopidogrel (Plavix) 75 mg tablet Take 1 tablet (75 mg) by mouth once daily. 5 05/23/20 25 Active dapagliflozin propanediol (Farxiga) 10 mg tablet Take 1 tablet (10 mg) by mouth once daily. 5 05/24/20 25 Active digoxin (Lanoxin) 125 MCG tablet Take 1 tablet (125 mcg) by mouth once daily. 5 Active folic acid (Folvite) 1 mg tablet Take 1 tablet (1 mg) by mouth once daily. 5 03/14/20 25 Active furosemide (Lasix) 40 mg tablet Take 1 tablet (40 mg) by mouth once daily. 5 05/24/20 25 Active ipratropium-albu teroL (Duo-Neb) 0.5-2.5 mg/3 mL nebulizer solution Inhale 3 mL every 6 hours. Active guaiFENesin (Mucinex) 600 mg 12 hr tablet Take 1 tablet (600 mg) by mouth 2 times a day. 5 Active ferrous sulfate 325 mg (65 mg elemental) tablet Take 1 tablet by mouth once daily. 5 03/14/20 25 Active metFORMIN (Glucophage) 1,000 mg tablet Take 1 tablet (1,000 mg) by mouth 2 times a day after meals. 4 03/16/20 25 Active methocarbamol (Robaxin) 500 mg tablet Take 1 tablet (500 mg) by mouth 3 times a day. 5 Active metoprolol succinate XL (Toprol-XL) 25 mg 24 hr tablet Take 1 tablet (25 mg) by mouth once daily. 5 05/21/20 25 Active omeprazole (PriLOSEC) [address] capsule Take 1 capsule (20 mg) by mouth once daily. 5 Active spironolactone (Aldactone) 25 mg tablet Take 0.5 tablets (12.5 mg) by mouth once daily. 5 Active pregabalin (Lyrica) 50 mg capsule Take 1 capsule (50 mg) by mouth twice a day. Active magnesium oxide (Mag-Ox) 200 mg magnesium tablet Take 1 tablet (200 mg) by mouth 2 times a day. Active budesonide-glyco pyr-formoterol (BREZTRI) 160-9-4.8 mcg/actuation HFA aerosol inhaler Inhale 2 puffs 2 times a day. Active ondansetron (Zofran) 4 mg tablet Take 2 tablets (8 mg) by mouth every 8 hours if needed for nausea or vomiting. Active dulaglutide (Trulicity) 0.75 mg/0.5 mL pen injector Inject 0.75 mg under the skin 1 (one) time per week. Active bumetanide (Bumex) 0.5 mg tablet Take 1 tablet (0.5 mg) by mouth 2 times daily (morning and late afternoon). Active dilTIAZem CD (Cardizem CD) 240 mg 24 hr capsule Take 1 capsule (240 mg) by mouth once daily. Active insulin glargine (Lantus U-100 Insulin) 100 unit/mL injection Inject 30 Units under the skin once every 24 hours. Take as directed per insulin instructions. Active ALPRAZolam (Xanax) 0.25 mg tablet Take 1 tablet (0.25 mg) by mouth 3 times a day as needed for anxiety. Active oxygen (O2) gas therapy Inhale 4 L/min at 240,000 mL/hr continuously. Active Active Problems Problem Noted Date Diagnosed Date Permanent atrial fibrillation (Multi) 03/03/2025 CKD (chronic kidney disease) 03/03/2025 COPD (chronic obstructive pulmonary disease) (Mu lti) 03/03/2025 Essential (primary) hypertension 03/03/2025 Diabetes (Multi) 03/03/2025 Mixed hyperlipidemia 03/03/2025 Anticoagulated 03/03/2025 Single vessel coronary artery disease 03/03/2025 Pulmonary hypertension, unspecified (Multi) 11/2024 Resolved Problems Problem Noted Date Diagnosed Date Resolved Date Longstanding persistent atri al fibrillation (Multi) 03/03/2025 03/03/2025 Encounters Date Type Department Care Team Description 03/03/2025 10:20 AM EDT Office Visit [address] [address] Cathy Marquez MD Permanent atrial fibrillation (Multi) (Primary Dx); Anticoagulated; Single vessel coronary artery disease; Mixed hyperlipidemia; Essential (primary) hypertension; Pulmonary emphysema, unspecified emphysema type (Multi); Former smoker 03/03/2025 Travel 02/04/2025 Scanned Document [facility] [address] [place] [address] Scanning, Generic Provider 02/03/2025 Scanned Document [facility] [address] [place] [address] Scanning, Generic Provider 02/01/2025 Scanned Document [facility] [address] [place] [address] Scanning, Generic Provider 01/23/2025 Scanned Document [facility] [address] [place] [address] Scanning, Generic Provider 01/22/2025 Scanned Document [facility] [address] [place] [address] Scanning, Generic Provider from Last 3 Months Social History Tobacco [...] No / Unsure 03/03/2025 10:12 AM EDT Last Filed Vital Signs Vital Sign Reading Time Taken Comments Blood Pressure 90/58 03/03/2025 10:47 AM EDT Pulse 64 03/03/2025 10:47 AM EDT Temperature - - Respiratory Rate - - Oxygen Saturation - - Inhaled Oxygen Concentration - - Weight - - Height - - Body Mass Index - - Plan of Treatment Upcoming Encounters Date Type Department Care Team (Late st Contact Info) Description 10/08/2025 11:10 AM EST Office Visit [address] [place] [address] Cathy Marquez MD 7[address] [facility] [address] [place] [address] Health Maintenance Due Date Last Done Comments CT Colonography 1952 Colonoscopy 1952 Colorectal Cancer Screening 1952 FIT-DNA (Cologuard) 1952 FIT 1952 Medicare Annual Wellness Visit (AWV) 1952 Sigmoidoscopy 1952 Diabetes: Retinopathy Screening 1962 Hepatitis C Screening 1970 DTaP/Tdap/Td Vaccines (1 - Tdap) 1974 Zoster Vaccines (1 of 2) 2002 RSV High Risk: (Elderly (60+) or Population) (1 - Risk 60-74 years 1-dose series) 2012 Bone Density Scan 12/01/2022 12/01/2020 Diabetes: Hemoglobin A1C 07/23/2023 04/22/2023 COVID-19 Vaccine ( season) 2024 Diabetes: Urine Protein Screening 11/13/2024 11/13/2023 Mammogram 02/26/2025 02/27/2024, 12/01, 10/12/2022, Additional history exists Creatinine Level 01/18/2026 01/18/2025, , 01/15/2025, Additional history exists Potassium Level 01/18/2026 01/18/2025, 12/31, 01/15/2025, Additional history exists Echocardiogram 01/23/2026 01/23/2025 Lipid Panel 02/13/2026 02/13/2025 Influenza Vaccine Completed 09/17/2024, 07/13/2023 Pneumococcal Vaccine Completed 09/17/2024, 01/20/2023, 08/17/2021 HIB Vaccines Aged Out No longer eligi ble based on patient's age to complete this topic HPV Vaccines Aged Out No longer eligi ble based on patient's age to complete this topic Hepatitis A Vaccines Aged Out No long er eligible based on patient's age to complete this topic Hepatitis B Vaccines Aged Out No long er eligible based on patient's age to complete [...] 10:20 AM EDT Permanent atrial fibrillation (Multi) OUTSIDE IMAGING SCAN 02/01/2025 ECHOCARDIOGRAM 01/23/2025 from Last 3 Months Results * ECG 12 Lead (03/03/2025 10:20 AM EDT) Narrative CPACS - 03/03/2025 12:06 PM EDT Atrial fibrillation with controlled rate and right bundle branch block us Cathy Marquez MD ECG ORDERABLES Final Resu lt CPACS * OUTSIDE IMAGING SCAN (02/01/2025) Anatomical Region Laterality Modality Other Narrative 02/01/2025 Ordered by an unspecified provider. us Generic Provider Scanning OUTSIDE SCAN Final Result * Echocardiogram (01/23/2025) Narrative 01/23/2025 Ordered by an unspecified provider. us Generic Provider Scanning CV ECHO PROCEDURES Fin al Result from Last 3 Months Insurance [employer] MEDICARE [facility] MEDICARE Care Teams Clinical Academic Allergist Relationship Specialty Start Date End Date John Luong MD [address] [address] PCP - General Family Medicine 03/03/25
--- OUTSIDE RECORDS SUMMARY | 2025-03-05 13:16 | XMS_ITS | Encounter Summary ---
Author Organization [facility] Address [address] [place] [address] Phone Care Team Providers Care Test Rider Name Role Phone John Luong MD Primary Care Provider [phone] Encounter Details Date Type Department Care Team (Late st Contact Info) Description 01/23/2025 Scanned Document [facility] [address] [place] [id number] Scanning, Generic Provider Social History Tobacco Use [...] Description 10/08/2025 11:10 AM EST Office Visit [facility] [address] [place] [address] Cathy Marquez MD 703 [facility] [address], [address] [place] [address] documented as of this encounter Procedures Procedure Name Priority Date/Time Associated Diagnosis Comments ECHOCARDIOGRAM 01/23/2025 documented in this encounter Results * Echocardiogram (01/23/2025) Narrative 01/23/2025 Ordered by an unspecified provider. us Generic Provider Scanning CV ECHO PROCEDURES Fin al Result documented in this encounter Visit Diagnoses Not on filedocumented in this encounter Care Teams Test Rider Relationship Specialty Start Date End Date John Luong MD [address] [place], [place] [id number] PCP - General Family Medicine 03/03/25 documented as of this encounter
--- OUTSIDE RECORDS SUMMARY | 2025-03-05 13:16 | XMS_ITS | Encounter Summary ---
Author Organization [facility] Address [address] [place] [address] Phone Care Team Providers Care Electromechanical Engineer Name Role Phone John Luong MD Primary Care Provider [phone] Encounter Details Date Type Department Care Team (Late st Contact Info) Description 02/01/2025 Scanned Document [facility] [address] [place] [id number] Scanning, Generic Provider Social History Tobacco Use [...] Description 10/08/2025 11:10 AM EST Office Visit [facility] [address] [place] [address] Cathy Marquez MD 703 [facility] [address] [place] [address] documented as of this encounter Procedures Procedure Name Priority Date/Time Associated Diagnosis Comments OUTSIDE IMAGING SCAN 02/01/2025 documented in this encounter Results * OUTSIDE IMAGING SCAN (02/01/2025) Anatomical Region Laterality Modality Other Narrative 02/01/2025 Ordered by an unspecified provider. us Generic Provider Scanning OUTSIDE SCAN Final Result documented in this encounter Visit Diagnoses Not on filedocumented in this encounter Care Teams Electromechanical Engineer Relationship Specialty Start Date End Date John Luong MD 112 [facility] [address] [place] [address] PCP - General Family Medicine 03/03/25 documented as of this encounter
--- OUTSIDE RECORDS SUMMARY | 2025-03-05 13:16 | XMS_ITS | Encounter Summary ---
Author Organization [facility] Address [address] [place] [address] Phone Care Team Providers Care Double End Tenoner Operator Name Role Phone John Luong MD Primary Care Provider [phone]- [phone] Encounter Details Date Type Department Care Team (Latest Contact Info) Description 03/03/2025 Travel Social History Tobacco Use Types Packs/Day Years [...] AM EDT documented as of this encounter Plan of Treatment Upcoming Encounters Date Type Department Care Team (Late st Contact Info) Description 10/08/2025 11:10 AM EST Office Visit [place] [address] [place] [address] Cathy Marquez MD [address] [facility] [address] [place] [address] documented as of this encounter Visit Diagnoses Not on filedocumented in this encounter Additional Health Concerns Assessment Noted Time A fall risk assessment has been complete d for the patient 03/03/2025 10:46 AM EDT documented as of this encounter Care Teams Double End Tenoner Operator Relationship Specialty Start Date End Date John Luong MD 112 [facility] [address] [place] [address] PCP - General Family Medicine 03/03/25 documented as of this encounter
--- OUTSIDE RECORDS SUMMARY | 2025-03-05 13:16 | XMS_ITS | Encounter Summary ---
Author Organization [facility] Address [address] [place] [address] Care Team Providers Care Pig Machine Operator Helper Name Role Phone Roxy uDggan DO Unavailable Unavailabl e Unallocated, Noms Provider Primary Care Provi harrison Keshia Cheng MD Primary Care Provider [phone] Keshia Cheng MD Unavailable [phone] Keshia Cheng MD Unavailable [phone] Coral Solitario LPN Unavailable Keshia Cheng MD Unavailable Encounter Details Date Type Department Care Team (Late st Contact Info) Description 02/27/2024 Clinisync Result Encounter [facility] External Department Unsolicited Roxy Duggan, DO Social History Tobacco Use [...] week 04/13/2023 How often do you attend hinduism or alevism serv ices? Never 04/13/2023 Active Member of [...] Health Questionnaire-2 Score 0 11/13/2023 [facility] - Occupational [...] place to sleep or slept in a nursing home (including now)? No 04/13/2023 Comments Unknown [...] [facility] [address] [place] [address] Andrea Andrew DO [address] [place] [address] documented as of this encounter Procedures Procedure Name Priority Date/Time Associated Diagnosis Comments MA MAMM DIAG W/CAD IF PERF AND 3D RICARDO 02/27/2024 1:20 PM EDT documented in this encounter Results * MA MAMM DIAG W/CAD IF PERF AND 3D RICARDO (02/27/2024 1:20 PM EDT) Anatomical Region Laterality Modality Other 02/27/2024 1:20 PM EDT Narrative 02/27/2024 1:59 PM EDT Exam Date/Time: 02/27/2024 13:49 EDT Reason for Exam: R92.8 Report IMPRESSION: BIRADS 2 BENIGN FINDINGS, NORMAL INTERVAL FOLLOW-UP. CLINICAL HISTORY: R92.8 COMPARISON: Priors dating back to 2013. RESULT: Digital mammography and 3D tomosynthesis of bilateral breasts was performed. Scattered areas of fibroglandular density. There is no suspicious mass, asymmetry, architectural distortion, or calcification. Stable asymmetries and benign intramammary lymph nodes. Vascular calcifications: Absent. CAD analysis was performed and used in the interpretation. Dense Breast: No Follow-up: 12 MONTH RECALL. Board Certified Radiologists. Accredited by the ACR and FDA. MAMMOGRAPHY IS VERY IMPORTANT TO YOUR HEALTH. THE BULGARIAN CANCER SOCIETY GUIDELINES RECOMMEND THAT WOMEN 40 [...] APPROPRIATE TIME FOR ANY PENDING ADDITIONAL VIEWS. Report Ordering Provider: Roxy Duggan FINAL REPORT Dictated: 02/27/2024 1:56 pm Cayden Palacios MD. Signed (Electronic Signature): 02/27/2024 1:56 pm Signed by: Cayden Palacios MD Transcribed by: AJ Technologist: BRIAN Assessment: BI-RADS Category 2-Benign finding Recommendation: Normal interval follow-up Procedure Note Radiology, Radiologist, - 02/27/2024 Exam Date/Time: 02/27/2024 13:49 EDT Reason for Exam: R92.8 Report IMPRESSION: BIRADS 2 BENIGN FINDINGS, NORMAL INTERVAL FOLLOW-UP. CLINICAL HISTORY: R92.8 COMPARISON: Priors dating back to 2013. RESULT: Digital mammography and 3D tomosynthesis of bilateral breasts wasperformed. Scattered areas of fibroglandular density. There is no suspicious mass, asymmetry, architectural distortion, orcalcification. Stable asymmetries and benign intramammary lymph nodes. Vascular calcifications: Absent. CAD analysis was performed and used in the interpretation. Dense Breast: No Follow-up: 12 MONTH RECALL. Board Certified Radiologists. Accredited by the ACR and FDA. MAMMOGRAPHY IS VERY IMPORTANT TO YOUR HEALTH. THE BULGARIAN CANCER SOCIETYGUIDELINES RECOMMEND THAT WOMEN 40 YEARS OF AGE AND OLDER SHOULD HAVE A MAMMOGRAMEVERY YEAR. A REMINDER LETTER WILL BE SENT AT THE APPROPRIATE TIME. THIS FACILITYUTILIZES A REMINDER SYSTEM TO ENSURE ALL PATIENTS RECEIVE REMINDER NOTIFICATIONS ATTHE APPROPRIATE TIME BASED ON THE RECOMMENDATIONS OF THIS EXAM. THIS INCLUDESREMINDERS FOR ROUTINE SCREENING MAMMOGRAMS, DIAGNOSTIC MAMMOGRAMS IN WHICH THEPATIENT IS ASKED TO RETURN FOR ADDITIONAL VIEWS, OR OTHER BREAST IMAGING INTERVENTIONSWHEN APPROPRIATE. THE PATIENT WILL BE PLACED IN THE APPROPRIATE REMINDER SYSTEMINCLUDING A REMINDER AT THE APPROPRIATE TIME FOR ANY PENDING ADDITIONAL VIEWS. Report Ordering Provider: Roxy Duggan FINAL REPORT Dictated: 02/27/2024 1:56 pm Cayden Palacios MD Signed (Electronic Signature): 02/27/2024 1:56 pm Signed by: Cayden Palacios MD Transcribed by: AJ Technologist: BRIAN Assessment: BI-RADS Category 2-Benign finding Recommendation: Normal interval follow-up us Roxy Duggan DO [facility] Final Res ult documented in this encounter Visit Diagnoses Not on filedocumented in this encounter Additional Health Concerns Assessment Noted Time PHQ-9 Depression Total Score: 0 11/13/19 24 1:00 PM EST documented as of this encounter Care Teams Pig Machine Operator Helper Relationship Specialty Start Date End Date Roxy Duggan DO PCP - Fernanda ANDERSON 10/02/21 03/01/24 Unallocated, [facility] [place] [address] PCP - General Family Medicine 01/23/24 03/03/24 Keshia Cheng MD [address] [place] [address] PCP - General Family Medicine 03/04/24 Keshia Cheng MD [address] [place] [address] PCP - [facility] 04/01/24 11/29/24 Keshia Cheng MD [address] [place] [address] PCP - [facility] 03/02/24 03/31/24 Keshia Cheng MD [address] [place] [address] PCP - Fernanda ANDERSON 11/30/24 12/30/24 Coral Solitario LPN [address] [place] [address] Licensed Practical Nurse Family Medicine 06/28/24 documented as of this encounter
--- OUTSIDE RECORDS SUMMARY | 2025-03-05 13:16 | XMS_ITS | Encounter Summary ---
Author Organization [facility] Address [address] [place] [address] Care Team Providers Care Pressure Supervisor Name Role Phone Roxy Duggan DO Unavailable Unavailabl e Roxy Duggan DO Primary Care Provider Unav ailable Unallocated, Noms Provider Primary Care Provi harrison Keshia Cheng MD Primary Care Provider Keshia Cheng MD Unavailable Keshia Cheng MD Unavailable Coral Solitario GRADES 9 THROUGH 12 TEACHER Unavailable Keshia Cheng MD Unavailable [phone] Encounter Details Date Type Department Care Team (Late st Contact Info) Description 04/19/2023 Clinisync Result Encounter [facility] External Department Unsolicited [...] How often do you attend druze or uatsdin serv ices? Never 04/13/2023 Active [...] on one occasion? Less than monthly 04/13/2023 [facility] - Occupational [...] Office Visit [facility] [address] [place] [address] Andrea Andrew DO [address] [place] [address] documented as of this encounter Procedures Procedure Name Priority Date/Time Associated Diagnosis Comments XR RIBS 2 VIEWS RIGHT 04/19/2023 3:00 PM EDT documented in this encounter Results * XR RIBS 2 VIEWS RIGHT (04/19/2023 3:00 PM EDT) Anatomical Region Laterality Modality Other 04/19/2023 3:00 PM EDT Narrative 04/19/2023 4:16 PM EDT Exam Date/Time: 04/19/2023 15:19 EDT Reason for Exam: R07.81 Report IMPRESSION: NEGATIVE SIDE RIB SERIES. CLINICAL HISTORY: R07.81 COMPARISON: None. FINDINGS: Routine four views of the ribs demonstrate no evidence of a fracture or other bone abnormality involving the ribs. Also, there is no evidence of a pneumothorax. . Ordering Provider: Roxy Duggan FINAL REPORT Dictated: 04/19/2023 4:13 pm Alber Grossman MD, V. Signed (Electronic Signature): 04/19/2023 4:13 pm Signed by: Alber Grossman MD, V. Transcribed by: AJ Technologist: LAUREN Technical Comments Radiation Dose: Ka,r in mGy = na DAP = na Procedure Note Radiology, Radiologist, MD - 04/19/2023 Exam Date/Time: 04/19/2023 15:19 EDT Reason for Exam: R07.81 Report IMPRESSION: NEGATIVE SIDE RIB SERIES. CLINICAL HISTORY: R07.81 COMPARISON: None. FINDINGS: Routine four views of the ribs demonstrate no evidence of afracture or other bone abnormality involving the ribs. Also, there is no evidence ofa pneumothorax. . Ordering Provider: Roxy Duggan FINAL REPORT Dictated: 04/19/2023 4:13 pm Alber Grossman MD, V. Signed (Electronic Signature): 04/19/2023 4:13 pm Signed by: Alber Grossman MD, V. Transcribed by: AJ Technologist: LAUREN Technical Comments Radiation Dose: Ka,r in mGy = na DAP = na Roxy Duggan DO [facility] Final Res ult documented in this encounter Visit Diagnoses Not on filedocumented in this encounter Care Teams Pressure Supervisor Relationship Specialty Start Date End Date Roxy Duggan DO PCP - Fernanda ANDERSON 10/02/21 03/01/24 Roxy Duggan DO PCP - General Family Medicine 03/20/23 01/22/24 Unallocated, Noms Provider, [place] [address] PCP - General Family Medicine 01/23/24 03/03/24 Keshia Cheng MD [address] [place] [address] PCP - General Family Medicine 03/04/24 Keshia Cheng MD [address] [place] [address] PCP - [employer] 04/01/24 11/29/24 Ksehia Cheng MD [address] [place] [address] PCP - [employer] 03/02/24 03/31/24 Keshia Cheng MD [address] [place] [address] PCP - Fernanda ANDERSON 11/30/24 12/30/24 Coral Solitario LPN [address] [place] [address] Licensed Practical Nurse Family Medicine 06/28/24 documented as of this encounter
--- OUTSIDE RECORDS SUMMARY | 2025-03-05 13:16 | XMS_ITS | Encounter Summary ---
Author Organization [facility] Address [address] [place] [address] Care Team Providers Care Casino Banker Name Role Phone Keshia Cheng MD Primary Care Provider [phone] Keshia Cheng MD Unavailable [phone] Keshia Cheng MD Unavailable [phone] Coral Solitario LPN Unavailable Keshia Cheng MD Unavailable Encounter Details Date Type Department Care Team (Late st Contact Info) Description 03/18/2024 Orders Only [facility] [address] [place] [id number] Young Ortiz MA Neuropathy; Type 2 diabetes mellitus with hyperglycemia, unspecified whether long term acute care registered nurse insulin use (CMS/HCC); Essential hypertension (CMS/HCC) ; Chronic obstructive pulmonary disease with acute exacerbation ([facility]/HCC) ; Paroxysmal atrial fibrillation ([facility]/HCC) ; Hypokalemia; Leukocytosis, unspecified type Social History Tobacco Use Types Packs/Day Years [...] week 04/13/2023 How often do you attend latter day or advent serv ices? Never 04/13/2023 Active Member of [...] Recorded Patient Health Questionnaire-2 Score 0 11/13/2023 [facility] - Occupational Stress Questionnaire Answer Date [...] place to sleep or slept in a jail (including now)? No 04/13/2023 Comments Unknown Sex [...] Office Visit [facility] [address] [place] [phone] Andrea Andrew DO [address] [place] [address] documented as of this encounter Procedures Procedure Name Priority Date/Time Associated Diagnosis Comments CBC (INCLUDES DIFF/PLT) Routine 03/15/20 24 3:03 PM EDT Neuropathy Type 2 diabetes mellitus with hyperglycemia, unspecified whether chcf insulin use (CMS/HCC) Essential hypertension (CMS/HCC) Chronic obstructive pulmonary disease with acute exacerbation (CMS/HCC) Paroxysmal atrial fibrillation (CMS/HCC) Hypokalemia Leukocytosis, unspecified type COMPREHENSIVE METABOLIC PANEL Routine 03/15/2024 Neuropathy Type 2 diabetes mellitus with hyperglycemia, unspecified whether long term acute care registered nurse insulin use (CMS/HCC) Essential hypertension (CMS/HCC) Chronic obstructive pulmonary disease with acute exacerbation (CMS/HCC) Paroxysmal atrial fibrillation (CMS/HCC) Hypokalemia Leukocytosis, unspecified type documented in this encounter Results * CBC and differential (03/15/2024 3:03 PM EDT) Blood Venous blood specimen / Unknown us Keshia Cheng MD LAB BLOOD ORDERABLES Final Re sult [facility] * (ABNORMAL) Comprehensive metabolic panel (03/15/2024) Blood Venous blood specimen / Unknown 03/15/2024 Keshia Cheng MD LAB BLOOD ORDERABLES Edited R esult - Final Performing Organization Address [facility]/ZIP Co de Phone Number [facility] documented in this encounter Visit Diagnoses Diagnosis Neuropathy Mononeuritis of unspecified site Type 2 diabetes mellitus with hyperglycemia, unspecified whether long term acute care registered nurse insulin use (CMS/HCC) Essential hypertension (CMS/HCC) Unspecified essential hypertension Chronic obstructive pulmonary disease with acute exacerbation (CMS/HCC) Paroxysmal atrial fibrillation (CMS/HCC) Atrial fibrillation Hypokalemia Hypopotassemia Leukocytosis, unspecified type documented in this encounter Additional Health Concerns Assessment Noted Time PHQ-9 Depression Total Score: 0 11/13/19 24 1:00 PM EST documented as of this encounter Care Teams Casino Banker Relationship Specialty Start Date End Date Keshia Cheng MD [address] [place] [address] PCP - General Family Medicine 03/04/24 Keshia Cheng MD [address] [place] [address] PCP - Devoted 04/01/24 11/29/24 Keshia Cheng MD [address] [place] [address] PCP - [employer] 03/02/24 03/31/24 Keshia Cheng MD [address] [place] [address] PCP - Fernanda ANDERSON 11/30/24 12/30/24 Coral Solitario LPN [address] [place] [address] Licensed Practical Nurse Family Medicine 06/28/24 documented as of this encounter
--- OUTSIDE RECORDS SUMMARY | 2025-03-05 13:16 | XMS_ITS | Encounter Summary ---
Author Organization [facility] Address [address] [place] [address] Care Team Providers Care Paster Hat Lining Name Role Phone Roxy Duggan DO Unavailable Unavailabl e oRxy Duggan DO Primary Care Provider Unav ailable Unallocated, [facility] Provider Primary Care Provi harrison Keshia Cheng MD Primary Care Provider [phone] Keshia Cheng MD Unavailable Keshia Cheng MD Unavailable Coral Solitario MANAGER FREELANCE Unavailable Keshia Cheng MD Unavailable Encounter Details Date Type Department Care Team (Late Contact Info) Description 03/21/2023 Abstract [facility] [address] [place] [phone] oRxy Duggan, Social History Tobacco Use Types Packs/Day Years Used Date Smoking Tobacco: Every Day Cigarettes 0.3 15 Smokeless Tobacco: Never Tobacco Cessation:Ready to Q uit: Not Asked; Counseling Given: Not Answered Alcohol Use Standard Drinks/Week Comments Never 0 (1 standard drink = 0.6 oz pur e alcohol) Caffeine: tea 1-2 cups per day Comments Unknown Sex and Gender Information Value Date Recorded Sex Assigned at Not on file Legal Sex Female 7:19 PM EDT Gender Identity Female 12/14/2022 7:19 PM EDT Sexual Orientation Not on file documented as of this encounter Plan of Treatment Upcoming Encounters Date Type Department Care Team (Late Contact Info) Description 03/12/2025 2:00 PM EDT Office Visit [facility] [address] [place] [address] Andrea Andrew DO [address] [place] [address] documented as of this encounter Visit Diagnoses Not on filedocumented in this encounter Care Teams Paster Hat Lining Relationship Specialty Start Date End Date Roxy Duggan DO PCP - Fernanda MA 10/02/21 03/01/24 Roxy Duggan DO PCP - General Family Medicine 03/20/23 01/22/24 Unallocated, [facility] [address] [place] [address] PCP - General Family Medicine 01/23/24 03/03/24 Keshia Cheng MD [address] [place] [address] PCP - General Family Medicine 03/04/24 Keshia Cheng MD [address] [place] [address] PCP - Devoted 04/01/24 11/29/24 Keshia Cheng MD [address] [place] [address] PCP - [employer] 03/02/24 03/31/24 Keshia Cheng MD [address] [place] [address] PCP - Fernanda ANDERSON 11/30/24 12/30/24 Coral Solitario LPN [address] [place] [address] Licensed Practical Nurse Family Medicine 06/28/24 documented as of this encounter
== END 2025-03-04 13:01 | disposition home or self-care (01) ==
LOC: SLEEP 03-05 13:11
PROVIDERS: PCP Family Medicine; Visit Provider Family Medicine
DX: G47.33 Obstructive sleep apnea (adult) (pediatric) (principal)
CPT/HCPCS: 95806

== ENCOUNTER 2025-04-01 09:17 | Observation (INO) | payer MEDICARE, SELFPAY ==
[2025-04-01] VITALS (48 sets, daily range): BP systolic 88–129; BP diastolic 56–86; PULSE 72–121; TEMP 36.6–37; O2SAT 66–97; BMI 23.5; BMI 23.8
--- NOTE | 2025-04-01 09:39 | ECG_ITS ---
[facility] Test Date: 2025-04-01 Pat Name: WALLACE GARNETT Department: Room: - Gender: Female Applied Research Director: : [id number] Requested By: [id number] Order Number: [id number] Reading MD: JANUARY DARBY M.D. Measurements Intervals [place] Rate: 72 P: -[address] [place]: -[address] QRS: 210 QRSD: 122 T: 10 QT: 338 QTc: 362 Interpretive Statements 1210 Atrial fibrillation 2450 Right bundle branch block 3114 Cannot rule out anterior myocardial infarction, age undetermined 7300 Indeterminate axis 9150 abnormal ECG Compared to ECG 02/09/2025 05:22:32 Myocardial infarct finding now present Indeterminate axis now present Aberrant conduction of supraventricular beat(s) no longer present Electronically Signed On 04-02-2025 6:34:36 EDT by JANUARY DARBY M.D.
--- NOTE | 2025-04-01 09:40 | PC.NURSE ---
Oxygen started at 3 Liters, as she reports that what she wears at home.
--- NOTE | 2025-04-01 09:42 | ED.SOB1 ---
HPI - SOB/Dyspnea General Chief Complaint: Shortness of Breath/Dyspnea Stated Complaint: SOB Time Seen by Provider: 04/01/25 09:36 Source: patient Mode of arrival: ambulance History of Present Illness HPI Narrative: 75-year-old female to the emergency department with chief complaint of shortness of breath. She had previously been at her baseline health. She has had a stay at [facility] following a fall. Patient reports that she developed URI symptoms with nasal congestion, sore throat, cough 2 days ago. She reports that is currently going around the shelter. She denies any fever, sweats, chills. She denies any chest pain but has had some progressive shortness of breath since the URI symptoms began. She reports she does have a history of COPD. She had a breathing treatment this morning she felt helped. She is on 3 L nasal cannula at baseline. Past medical history: NSTEMI, pulmonary hypertension, type 2 diabetes, chronic respiratory failure with hypoxia on 3 L, chronic diastolic heart failure, CKD stage III Related Data Home Medications ?Medication ?Instructions ?Recorded ?Confirmed acetaminophen 325 mg capsule 650 mg PO Q6H 02/09/25 04/01/25 albuterol sulfate 90 mcg/actuation 2 inh inhalation DAILY 02/09/25 04/01/25 aerosol inhaler apixaban 5 mg tablet (Eliquis) 5 mg PO Q12H 02/09/25 04/01/25 atorvastatin 80 mg tablet 80 mg PO DAILY 02/09/25 04/01/25 budesonide 160 mcg-glycopyr 9 2 inh inhalation DAILY 02/09/25 02/09/25 mcg-formot 4.8 mcg/actuation HFA inhaler (Breztri Aerosphere) budesonide-formoterol HFA 160 2 inh inhalation DAILY 02/09/25 04/01/25 mcg-4.5 mcg/actuation aerosol inhaler bumetanide 0.5 mg tablet 0.5 mg PO BID 02/09/25 02/09/25 digoxin 125 mcg (0.125 mg) tablet 125 mcg PO DAILY 02/09/25 04/01/25 diltiazem HCl 180 mg 240 mg PO Q24H 02/09/25 02/09/25 capsule,extended release 24 hr guaifenesin 600 mg tablet,extended 600 mg PO BID 02/09/25 04/01/25 release insulin glargine 100 unit/mL (3 30 unit subcut DAILY 02/09/25 02/09/25 mL) subcutaneous pen (Lantus Solostar U-100 Insulin) ipratropium 0.5 mg-albuterol 3 mg 3 ml inhalation Q6H PRN shortness 02/09/25 04/01/25 (2.5 mg base)/3 mL nebulization of breath soln melatonin 3 mg capsule 3 mg PO HS PRN sleep 02/09/25 02/09/25 metformin 1,000 mg tablet 1,000 mg PO BID 02/09/25 04/01/25 methocarbamol 500 mg tablet 500 mg PO TID PRN muscle spasm 02/09/25 04/01/25 omeprazole 20 mg capsule,delayed 20 mg PO DAILY 02/09/25 04/01/25 release pregabalin 50 mg capsule (Lyrica) 50 mg PO BID 02/09/25 04/01/25 sennosides 8.6 mg tablet 8.6 mg PO DAILY 02/09/25 02/09/25 (Black-Draught Lax-Senna) spironolactone 25 mg tablet 12.5 mg PO DAILY 02/09/25 04/01/25 (Aldactone) alprazolam 0.25 mg tablet (Xanax) 0.25 mg PO DAILY 04/01/25 04/01/25 clopidogrel 75 mg tablet 75 mg PO 04/01/25 dapagliflozin propanediol 10 mg 10 mg PO 04/01/25 tablet (Farxiga) dulaglutide 0.75 mg/0.5 mL 0.75 mg subcut QWEEK 04/01/25 04/01/25 subcutaneous pen injector (Trulicuc health) folic acid 1 mg tablet 1 mg PO 04/01/25 furosemide 40 mg tablet 40 mg PO DAILY 04/01/25 04/01/25 magnesium 200 mg tablet 400 mg PO DAILY 04/01/25 04/01/25 metoprolol succinate 25 mg 25 mg PO 04/01/25 tablet,extended release 24 hr ondansetron 4 mg disintegrating 4 mg PO 04/01/25 tablet pseudoephedrine HCl 30 mg tablet 30 mg PO Q6H 04/01/25 04/01/25 (Nasal Decongestant (pseudoephedrine)) Allergies Allergy/AdvReac Type Severity Reaction Status Date / Time No Known Drug Allergies Allergy Verified 04/01/25 09:27 Review of Systems ROS Status of ROS 10 or more systems reviewed and unremarkable except as noted in history and below PFSH PFSH Social History Little interest or pleasure in doing things: not at all Feeling down, depressed, or hopeless: not at all Exam Narrative Exam Narrative: VITALS: I have reviewed the triage vital signs. GENERAL: Chronically ill-appearing obese female in no distress NEURO: Alert and oriented. Moves all extremities. Face is symmetric and expressive. EYES: PERRL. No scleral icterus or conjunctival injection. No discharge. HENT: Normocephalic, atraumatic. Hearing is grossly intact. Nares grossly patent and without discharge. Mucous membranes moist. NECK: No JVD. Patient moves neck without restriction. CARDIO: Rhythm regular. Normal rate. No murmur, rub, or gallop. Pulses equal bilaterally in the upper and lower extremity. No lower extremity edema. PULM: Trace wheezes, rhonchi that clear with coughing. No rales. No conversational dyspnea. No splinting, stridor, or accessory muscle use. GI/: Abdomen is soft and non-tender. Normoactive bowel sounds. EXTREMITIES: Symmetric muscle bulk. No joint swelling. No clubbing, cyanosis, or deformity. SKIN: Warm and dry. Normal turgor. No rash or lesions appreciated. PSYCH: Mood, affect, and interaction is appropriate to the setting. Constitutional Vital Signs, click to edit/add: Last Vital Signs Temp 98.6 F 04/01/25 09:22 Pulse 102 H 04/01/25 10:33 Resp 21 H 04/01/25 10:33 BP 118/74 04/01/25 10:33 Pulse Ox 93 L 04/01/25 10:33 O2 Del Method Nasal Cannula 04/01/25 09:51 O2 Flow Rate 3 04/01/25 09:51 Course Vital Signs Vital signs: Vital Signs Pulse Rate 105 H 04/01/25 09:21 Respiratory Rate 26 H 04/01/25 09:21 Pulse Oximetry 66 L 04/01/25 09:21 Temperature 98.6 F 04/01/25 09:22 Pulse Rate 102 H 04/01/25 10:33 Respiratory Rate 21 H 04/01/25 10:33 Blood Pressure 118/74 04/01/25 10:33 Pulse Oximetry 93 L 04/01/25 10:33 Oxygen Delivery Method Nasal Cannula 04/01/25 09:51 Oxygen Delivery Flow Rate 3 04/01/25 09:51 MDM - SOB/Dyspnea MDM Narrative Medical decision making narrative: 75-year-old female to the emergency department with chief complaint of recent URI symptoms now shortness of breath. Soft blood pressure, mildly tachypneic, otherwise stable vitals. She is on her baseline 3 L nasal cannula at this time. Septic workup is initiated. DuoNeb treatment, blood gas. Patient agrees with this plan. Initial clinical presentation more consistent with COPD exacerbation or pneumonia. Does not appear to be volume overloaded based on clinical exam. She has a soft blood pressure, 500 cc test bolus of saline was given. Pressure normalized with the saline challenge. No further fluids are indicated given her history of CHF. Her wheezing did resolve and her work of breathing improved significantly after the DuoNeb treatment. Clinical presentation consistent with COPD exacerbation. Lab work reviewed and noted. Her troponin was within normal limits. Her BNP is mildly elevated but consistent with past presentations. Chest x-ray with cardiomegaly question of volume overload state. Patient has increased oxygen needs. DuoNeb treatments and Solu-Medrol ordered. She is high risk for worsening clinical course given her multiple comorbidities. I believe she is best served by hospitalization at this time. Case discussed with hospitalist who agrees admit her to his service. Differential Diagnosis Differential diagnosis: Likely acute exacerbation of chronic obstructive airways disease Medical Records Attestation: I reviewed the patient's medical records. Lab Data Attestation: I reviewed the patient's lab results. Labs: Lab Results 04/01/25 Range/Units 09:49 WBC 7.0 (4.0-11.0) 10^3/uL RBC 4.05 L (4.20-5.40) 10^6/uL Hgb 11.5 L (12.0-16.0) g/dL Hct 37.0 (36.0-48.0) % MCV 91.4 (81.0-99.0) fL MCH 28.4 (26.7-34.0) pg MCHC 31.1 (29.9-35.2) g/dL RDW 18.5 H (11.0-15.0) % Plt Count 289 (150-450) 10^3/uL MPV 11.2 (9.5-13.5) fL Neut % (Auto) 61.8 (43.0-75.0) % Lymph % (Auto) 22.3 (20.5-60.0) % Traverse % (Auto) 14.3 H (1.7-12.0) % Eos % (Auto) 0.1 L (0.9-7.0) % Baso % (Auto) 0.9 (0.2-2.0) % Neut # (Auto) 4.3 (1.4-6.5) 10^3/uL Lymph # (Auto) 1.6 (1.2-3.8) 10^3/uL Traverse # (Auto) 1.0 H (0.3-0.8) 10^3/uL Eos # (Auto) 0.0 (0.0-0.7) 10^3/uL Baso # (Auto) 0.1 (0.0-0.1) 10^3/uL Abs Immat Gran (auto) 0.04 H (0.00-0.03) 10^3/uL Imm/Tot Granulo (auto) 0.6 H (0.0-0.5) % PT 12.1 H (9.0-11.6) sec INR 1.16 APTT 43.8 H* (22.3-36.2) sec Sodium 142 (136-145) mmol/L Potassium 3.9 (3.5-5.1) mmol/L Chloride 100 (98-107) mmol/L Carbon Dioxide 34.1 H (21.0-32.0) mmol/L Anion Gap 11.8 BUN 26.0 H (7.0-18.0) mg/dL Creatinine 1.29 H (0.55-1.02) mg/dL Est GFR ( Amer) 49 L (>=60 mL/min/1.73m^2) Est GFR (Non-Af Amer) 41 L (>=60 mL/min/1.73m^2) BUN/Creatinine Ratio 20.2 Glucose 87 (74-106) mg/dL Lactate 1.9 (0.4-2.0) mmol/L Calcium 8.3 L (8.5-10.1) mg/dL Total Bilirubin 0.4 (0.2-1.0) mg/dL AST 40 H (15-37) U/L ALT 20 (14-59) U/L Alkaline Phosphatase 148 H (46-116) U/L Troponin I High Sens 49.9 (4.0-51.3) pg/mL NT-Pro-B Natriuret Pep 2280.0 H* (<=900.0) pg/mL Total Protein 6.0 L (6.4-8.2) g/dL Albumin 2.3 L (3.4-5.0) g/dL Globulin 3.7 g/dL Albumin/Globulin Ratio 0.6 Imaging Data Chest x-ray: Radiologist's impression: ITS Impressions Chest X-Ray 04/01/25 09:44 IMPRESSION: SHALLOW INSPIRATION WITH MILD BASILAR ATELECTASIS. BORDERLINE CARDIOMEGALY AND SUSPECTED MILD FAILURE. Impression dictated by: Wanda Joyce M.D. 04/01/2025 10:58 AM Dictation Location: [place] [address] Electronically authenticated by: [id number] Y Date: 04/01/2025 10:58 ECG Data Attestation: I personally reviewed and interpreted this ECG as follows: (Sinus rhythm at a rate of 72. No STEMI. Right bundle branch block. Normal QTc at 362.) Critical Care Time Critical Care Time Critical Care Time: Yes Total Critical Care Time: 32 Attestation: Critical Care Procedure Note Authorized and Performed by: Paxton Mckeon DO Total critical care time: 32 min Due to a high probability of clinically significant, life threatening deterioration, the patient required my highest level of preparedness to intervene emergently and I personally spent this critical care time directly and personally managing the patient. This critical care time included obtaining a history; examining the patient; pulse oximetry; ordering and review of studies; arranging urgent treatment with development of a management plan; evaluation of patient's response to treatment; frequent reassessment; and, discussions with other providers. This critical care time was performed to assess and manage the high probability of imminent, life-threatening deterioration that could result in multi-organ failure. It was exclusive of separately billable procedures and treating other patients and teaching time. Please see MDM section and the rest of the note for further information on patient assessment and treatment. Discharge Plan Discharge Chief Complaint: Shortness of Breath/Dyspnea Clinical Impression: Shortness of breath, Acute exacerbation of chronic obstructive pulmonary disease (COPD), Acute on chronic hypoxic respiratory failure, Acute upper respiratory infection Patient Disposition: Admitted as Observation Time of Disposition Decision: 13:03 Condition: Fair
--- NOTE | 2025-04-01 09:44 | XR_ITS ---
The [address] [address] Patient Name: WALLACE GARNETT MRN: [id number] date: 1950 Sex: F Assigned Patient Location: ED.MAIN Current Patient Location: ED.MAIN Accession/Order Number: [id number] Exam Date: 04/01/2025 10:51 Report Date: 04/01/2025 10:58 At the request of: LUISA QUESADA MD Procedure: XR chest 1V PORTABLE AP ERECT CHEST 0959 hours CLINICAL HISTORY: shortness of breath COMPARISON: CT and chest x-ray 02/09/2025 There is shallow inspiration and suspected basilar atelectasis. Slight interstitial prominence is again seen. There is no sizable effusion or pneumothorax at this time. The heart is not well seen though it is at least borderline prominent. The bony structures are osteopenic. There is degenerative change at the shoulders and spine. Old fracture deformity is visualized at the proximal left humerus. XR/XR chest 1V IMPRESSION: SHALLOW INSPIRATION WITH MILD BASILAR ATELECTASIS. BORDERLINE CARDIOMEGALY AND SUSPECTED MILD FAILURE. Impression dictated by: Wanda Joyce M.D. 04/01/2025 10:58 AM Dictation Location: [place] [address] Electronically authenticated by: [id number] Y Date: 04/01/2025 10:58
--- NOTE | 2025-04-01 09:46 | PC.NURSE ---
Denies any pain, abd soft, no peripheral edema, reports that she's had diarrhea for 3 weeks and skilled nursing knows. moves all extremeties. Hx of FX to left shoulder in November. Wearing a depend. Reports she feels much better.
[2025-04-01] MEDS: IPRATROPIUM/ALBUTEROL SULFATE 3 ML AMPUL.NEB IH ×4 (09:50→20:34)
[2025-04-01] MEDS: METHYLPREDNISOLONE SOD SUCC PF 125 MG/2 ML VIAL IVP (10:12)
[2025-04-01] MEDS: 0.9 % SODIUM CHLORIDE 500 ML IV (10:12)
[2025-04-01 10:17] LABS: Hematocrit 37.0 % (36.0-48.0); Hemoglobin 11.5 g/dL (12.0-16.0); Immature Granulocytes Abs Auto 0.04 10^3/uL (0.00-0.03); Immature Granulocytes Pct Auto 0.6 % (0.0-0.5); Lymphocytes Absolute Auto 1.6 10^3/uL (1.2-3.8); Mean Corpuscular HGB Conc 31.1 g/dL (29.9-35.2); Mean Corpuscular Hemoglobin 28.4 pg (26.7-34.0); Mean Corpuscular Volume 91.4 fL (81.0-99.0); Platelet Count 289 10^3/uL (150-450); Red Blood Count 4.05 10^6/uL (4.20-5.40); White Blood Count 7.0 10^3/uL (4.0-11.0)
--- NOTE | 2025-04-01 10:19 | PC.NURSE ---
Dr Mckeon speaking on the phone with oracle forms developer at this time. Determined to be not a oracle forms developer's case.
[2025-04-01 10:34] LABS: Alanine Aminotransferase 20 U/L (14-59); Albumin Globulin Ratio 0.6; Albumin Level 2.3 g/dL (3.4-5.0); Alkaline Phosphatase 148 U/L (46-116); Anion Gap 11.8; Aspartate Amino Transferase 40 U/L (15-37); Blood Urea Nitrogen 26.0 mg/dL (7.0-18.0); Calcium 8.3 mg/dL (8.5-10.1); Carbon Dioxide 34.1 mmol/L (21.0-32.0); Chloride 100 mmol/L (98-107); Estimated GFR (African America 49 (>=60 mL/min/1.73m^2); Estimated GFR (Non-African Ame 41 (>=60 mL/min/1.73m^2); Globulin 3.7 g/dL; Glucose 87 mg/dL (74-106); Potassium 3.9 mmol/L (3.5-5.1); Sodium 142 mmol/L (136-145); Total Protein 6.0 g/dL (6.4-8.2)
[2025-04-01 10:41] LABS: INR 1.16; Prothrombin Time 12.1 sec (9.0-11.6)
[2025-04-01 10:47] LABS: Partial Thromboplastin Time 43.8 sec (22.3-36.2)
[2025-04-01 10:48] LABS: NT Pro B Type Natriuretic Pept 2280.0 pg/mL (<=900.0)
[2025-04-01 11:01] LABS: Lactate/Lactic Acid 1.9 mmol/L (0.4-2.0)
--- NOTE | 2025-04-01 11:05 | SWNOTE1 ---
ANITHA received a message from Jada at [facility] and pt is from there facility. ANITHA notified Jada that pt is down in ED at this time.
--- NOTE | 2025-04-01 13:00 | CM.NOTE ---
Called Mercedez in pharmacy about medication reconciliation.
--- NOTE | 2025-04-01 13:00 | PM.IMHP1 ---
Internal Medicine - H&P: HPI History of Present Illness Chief complaint: SOB, ACUTE AND HYPOXIC RESP. FAILURE, COPD EXACERB Narrative: Emily El is a 74 y/o F, h/o hypertension, permanent atrial fibrillation on apixiban, COPD with pulmonary hypertension on 3 L NC baseline, diabetes on insulin, presented to [facility] from residential facility on 04/01/25 with worsening shortness of breath for past 2 days, evidence of COPD exacerbation prompting request for medical admission. On assessment at bedside in the emergency room, patient resting comfortably in bed, tolerating breathing treatment. States has had progressive shortness of breath for the past couple of days with slight nonproductive cough. No chest pain, paroxysmal nocturnal dyspnea, nausea, vomiting, diarrhea. States has been compliant with cardiac and respiratory meds. Review of Systems ROS Status of ROS 10 or more systems reviewed and unremarkable except as noted in history and below [facility] Medical History (Updated 04/01/25 @ 13:19 by Tari Smith RN) CKD stage 3 due to type 1 diabetes mellitus ?E10.22 - Type 1 diabetes mellitus with diabetic chronic kidney disease (ICD-10) ?N18.30 - Chronic kidney disease, stage 3 unspecified (ICD-10) GERD (gastroesophageal reflux disease) ?K21.9 - Gastro-esophageal reflux disease without esophagitis (ICD-10) Anxiety ?F41.9 - Anxiety disorder, unspecified (ICD-10) Diverticulitis ?K57.92 - Diverticulitis of intestine, part unspecified, without perforation or abscess without bleeding (ICD-10) Atrial fibrillation ?I48.91 - Unspecified atrial fibrillation (ICD-10) Hypertension ?I10 - Essential (primary) hypertension (ICD-10) Squamous cell carcinoma, breast ?C44.521 - Squamous cell carcinoma of skin of breast (ICD-10) COPD (chronic obstructive pulmonary disease) ?J44.9 - Chronic obstructive pulmonary disease, unspecified (ICD-10) Type 2 diabetes mellitus ?E11.9 - Type 2 diabetes mellitus without complications (ICD-10) NSTEMI (non-ST elevated myocardial infarction) ?I21.4 - Non-ST elevation (NSTEMI) myocardial infarction (ICD-10) Fracture of humeral head, left, closed ?S42.292A - Other displaced fracture of upper end of left humerus, initial encounter for closed fracture (ICD-10) Social History Little interest or pleasure in doing things: not at all Feeling down, depressed, or hopeless: not at all Meds Home Medications and Allergies Home Medications ?Medication ?Instructions ?Recorded ?Confirmed ?Type acetaminophen 325 mg capsule 650 mg PO Q6H 02/09/25 04/01/25 History albuterol sulfate 90 mcg/actuation 2 inh inhalation DAILY 02/09/25 04/01/25 History aerosol inhaler apixaban 5 mg tablet (Eliquis) 5 mg PO Q12H 02/09/25 04/01/25 History atorvastatin 80 mg tablet 80 mg PO .qhs 02/09/25 04/01/25 History budesonide-formoterol HFA 160 2 inh inhalation DAILY 02/09/25 04/01/25 History mcg-4.5 mcg/actuation aerosol inhaler bumetanide 0.5 mg tablet 0.5 mg PO BID 02/09/25 04/01/25 History digoxin 125 mcg (0.125 mg) tablet 125 mcg PO DAILY 02/09/25 04/01/25 History guaifenesin 600 mg tablet,extended 600 mg PO BID 02/09/25 04/01/25 History release insulin glargine 100 unit/mL (3 30 unit subcut DAILY 02/09/25 04/01/25 History mL) subcutaneous pen (Lantus Solostar U-100 Insulin) ipratropium 0.5 mg-albuterol 3 mg 3 ml inhalation Q6H PRN shortness 02/09/25 04/01/25 History (2.5 mg base)/3 mL nebulization of breath soln melatonin 3 mg capsule 3 mg PO HS PRN sleep 02/09/25 04/01/25 History metformin 1,000 mg tablet 1,000 mg PO BID 02/09/25 04/01/25 History methocarbamol 500 mg tablet 500 mg PO TID PRN muscle spasm 02/09/25 04/01/25 History omeprazole 20 mg capsule,delayed 20 mg PO DAILY 02/09/25 04/01/25 History release pregabalin 50 mg capsule (Lyrica) 50 mg PO BID 02/09/25 04/01/25 History sennosides 8.6 mg tablet 8.6 mg PO DAILY 02/09/25 04/01/25 History (Black-Draught Lax-Senna) spironolactone 25 mg tablet 12.5 mg PO BID 02/09/25 04/01/25 History (Aldactone) alprazolam 0.25 mg tablet (Xanax) 0.25 mg PO DAILY 04/01/25 04/01/25 History clopidogrel 75 mg tablet 75 mg PO .QD 04/01/25 04/01/25 History dapagliflozin propanediol 10 mg 10 mg PO .QD 04/01/25 04/01/25 History tablet (Farxiga) diltiazem HCl 240 mg 240 mg PO QAM 04/01/25 04/01/25 History capsule,extended release 24 hr dulaglutide 0.75 mg/0.5 mL 0.75 mg subcut QWEEK 04/01/25 04/01/25 History subcutaneous pen injector (Trulicity) folic acid 1 mg tablet 1 mg PO .QD 04/01/25 04/01/25 History furosemide 40 mg tablet 40 mg PO DAILY 04/01/25 04/01/25 History magnesium 200 mg tablet 400 mg PO DAILY 04/01/25 04/01/25 History metoprolol succinate 25 mg 25 mg PO .QD 04/01/25 04/01/25 History tablet,extended release 24 hr pseudoephedrine HCl 30 mg tablet 30 mg PO Q6H PRN nasal congestion 04/01/25 04/01/25 History (Nasal Decongestant (pseudoephedrine)) Allergies Allergy/AdvReac Type Severity Reaction Status Date / Time hydrochlorothiazide Allergy Unknown Unknown Verified 04/01/25 13:12 Exam Narrative Exam Narrative: Gen.: Awake, alert, in no distress Head: Normocephalic, atraumatic ENT: Moist mucous membranes Respiratory: No respiratory distress, faint bilateral wheezes, on 3 L NC Cardio: fast irregular rate and irregular rhythm Gastrointestinal: Abdomen is soft, nondistended and nontender to palpation Extremities: Moves extremities equally Psych: Normal mood and affect Neuro: No focal neuro deficit Skin: Warm, dry, intact Constitutional Vital Signs, click to edit/add: Last Vital Signs Temp 98.6 F 04/01/25 09:22 Pulse 102 H 04/01/25 10:33 Resp 21 H 04/01/25 10:33 BP 118/74 04/01/25 10:33 Pulse Ox 93 L 04/01/25 10:33 O2 Del Method Nasal Cannula 04/01/25 09:51 O2 Flow Rate 3 04/01/25 09:51 Internal Medicine - H&P: Reslt Labs Labs: Short CBC 04/01/25 Range/Units 09:49 WBC 7.0 (4.0-11.0) 10^3/uL Hgb 11.5 L (12.0-16.0) g/dL Hct 37.0 (36.0-48.0) % Plt Count 289 (150-450) 10^3/uL BMP 04/01/25 09:49 Sodium 142 Potassium 3.9 Chloride 100 Carbon Dioxide 34.1 H BUN 26.0 H Creatinine 1.29 H Glucose 87 Calcium 8.3 L Liver Function 04/01/25 Range/Units 09:49 Total Bilirubin 0.4 (0.2-1.0) mg/dL AST 40 H (15-37) U/L ALT 20 (14-59) U/L Alkaline Phosphatase 148 H (46-116) U/L Albumin 2.3 L (3.4-5.0) g/dL Assessment and Plan Assessment and Plan (1) Acute upper respiratory infection: (2) Acute on chronic hypoxic respiratory failure: (3) Acute exacerbation of chronic obstructive pulmonary disease (COPD): (4) Atrial fibrillation: (5) Hypertension: (6) CKD stage 3 due to type 1 diabetes mellitus: (7) Type 2 diabetes mellitus: Plan Emily El is a 74 y/o F, h/o hypertension, permanent atrial fibrillation on apixiban, COPD with pulmonary hypertension on 3 L NC baseline, CKD III baseline Cr ~1.30, diabetes on insulin, presented to [facility] from residential facility on 04/01/25 with worsening shortness of breath for past 2 days, evidence of COPD exacerbation prompting request for medical admission. 1. Shortness of breath 2/2 COPD exacerbation - On assessment at bedside in the emergency room, patient resting comfortably in bed, tolerating breathing treatment. States has had progressive shortness of breath for the past couple of days with slight nonproductive cough. No chest pain, paroxysmal nocturnal dyspnea. States has been compliant with cardiac and respiratory meds. - admit as observation given comfortable and at baseline O2 needs - start ceftriaxone, doxycycline for likely 5 day course - received solumedrol 125 mg IV in ER, continue 40 mg IV daily 2. h/o hypertension, permanent atrial fibrillation on apixiban, COPD with pulmonary hypertension on 3 L NC baseline, diabetes on insulin - EKG shows RBBB, QRS > 120 on prior admission, follows with Cardiology as outpatient - hold antihypertensives at present - hold digoxin, continue diltiazem - continue apixiban - Cr appears at baseline around 1.3 - hold oral antihyperglycemics, continue home insulin regimen Diet: Cardiac Lines/tubes: PIV VTE prophylaxis: apixiban (for afib) Code status: full Dispo: observation
[2025-04-01 14:28] LABS: SARS-CoV-2 Ag NEGATIVE (NEGATIVE)
[2025-04-01 14:35] LABS: Hematocrit 35.9 % (36.0-48.0); Hemoglobin 11.3 g/dL (12.0-16.0); Immature Granulocytes Abs Auto 0.04 10^3/uL (0.00-0.03); Immature Granulocytes Pct Auto 0.6 % (0.0-0.5); Lymphocytes Absolute Auto 0.7 10^3/uL (1.2-3.8); Mean Corpuscular HGB Conc 31.5 g/dL (29.9-35.2); Mean Corpuscular Hemoglobin 28.6 pg (26.7-34.0); Mean Corpuscular Volume 90.9 fL (81.0-99.0); Platelet Count 277 10^3/uL (150-450); Red Blood Count 3.95 10^6/uL (4.20-5.40); White Blood Count 6.2 10^3/uL (4.0-11.0)
[2025-04-01 14:42] LABS: Anion Gap 8.3; Blood Urea Nitrogen 27.0 mg/dL (7.0-18.0); Calcium 8.0 mg/dL (8.5-10.1); Carbon Dioxide 34.6 mmol/L (21.0-32.0); Chloride 101 mmol/L (98-107); Estimated GFR (African America 53 (>=60 mL/min/1.73m^2); Estimated GFR (Non-African Ame 44 (>=60 mL/min/1.73m^2); Glucose 114 mg/dL (74-106); Potassium 3.9 mmol/L (3.5-5.1); Sodium 140 mmol/L (136-145)
[2025-04-01 14:59] LABS: ABL Glucose 113 mg/dL (74-106)
--- NOTE | 2025-04-01 14:59 | SWNOTE1 ---
ANITHA spoke to Jada at [facility], pt was accepted to [facility], but there is a process for them to transition pt's to [place]. Jada wanted to know if pt was skillable, but at this time SW unsure and pt is in observation, unsure if there is a skillable need. ANITHA sent updates to Jada at [facility]. ANITHA sent Jada at a message to see if pt returns tomorrow would she go back to [facility] medical terminologist? Waiting for response.
[2025-04-01] MEDS: ACETAMINOPHEN 325 MG TABLET 650 MG PO ×2 (15:54→21:01)
[2025-04-01] MEDS: CLOPIDOGREL BISULFATE 75 MG TABLET PO (15:55)
[2025-04-01] MEDS: 0.9 % SODIUM CHLORIDE 250 ML 10.417 ML IV (15:55)
[2025-04-01] MEDS: DOXYCYCLINE HYCLATE 100 MG in 0.9 % SODIUM CHLORIDE 100 ML IV (16:43)
[2025-04-01] MEDS: APIXABAN 5 MG TABLET PO (17:27)
[2025-04-01] MEDS: BUMETANIDE 1 MG TABLET 0.5 MG PO (21:01)
[2025-04-01] MEDS: INSULIN ASPART 300 UNIT/3 ML PEN SUBQ (21:10)
[2025-04-02] VITALS (15 sets, daily range): BP systolic 96–107; BP diastolic 61–67; PULSE 60–97; TEMP 36.4–36.6; O2SAT 88–95
[2025-04-02] MEDS: ACETAMINOPHEN 325 MG TABLET 650 MG PO ×2 (04:23→10:00)
[2025-04-02] MEDS: DOXYCYCLINE HYCLATE 100 MG in 0.9 % SODIUM CHLORIDE 100 ML IV (04:23)
[2025-04-02] MEDS: IPRATROPIUM/ALBUTEROL SULFATE 3 ML AMPUL.NEB IH ×3 (05:01→15:46)
[2025-04-02 05:35] LABS: Hematocrit 31.9 % (36.0-48.0); Hemoglobin 10.1 g/dL (12.0-16.0); Immature Granulocytes Abs Auto 0.05 10^3/uL (0.00-0.03); Immature Granulocytes Pct Auto 1.2 % (0.0-0.5); Lymphocytes Absolute Auto 1.0 10^3/uL (1.2-3.8); Mean Corpuscular HGB Conc 31.7 g/dL (29.9-35.2); Mean Corpuscular Hemoglobin 28.3 pg (26.7-34.0); Mean Corpuscular Volume 89.4 fL (81.0-99.0); Platelet Count 252 10^3/uL (150-450); Red Blood Count 3.57 10^6/uL (4.20-5.40); White Blood Count 4.1 10^3/uL (4.0-11.0)
[2025-04-02 05:53] LABS: Anion Gap 9.9; Blood Urea Nitrogen 32.0 mg/dL (7.0-18.0); Calcium 7.8 mg/dL (8.5-10.1); Carbon Dioxide 33.6 mmol/L (21.0-32.0); Chloride 103 mmol/L (98-107); Estimated GFR (African America 52 (>=60 mL/min/1.73m^2); Estimated GFR (Non-African Ame 43 (>=60 mL/min/1.73m^2); Glucose 193 mg/dL (74-106); Potassium 4.5 mmol/L (3.5-5.1); Sodium 142 mmol/L (136-145)
[2025-04-02] MEDS: APIXABAN 5 MG TABLET PO (06:00)
--- NOTE | 2025-04-02 08:00 | SWNOTE1 ---
ANITHA had message from Jada at [facility] and she did not receive updates. ANITHA re faxed updates.
[2025-04-02] MEDS: ATORVASTATIN CALCIUM 40 MG TABLET 80 MG PO (08:20)
[2025-04-02] MEDS: BUMETANIDE 1 MG TABLET 0.5 MG PO (08:21)
[2025-04-02] MEDS: ALPRAZOLAM 0.25 MG TABLET PO (08:21)
[2025-04-02] MEDS: INSULIN GLARGINE 300 UNIT/3 ML INSULN.PEN 30 UNIT SQ (08:21)
[2025-04-02] MEDS: CLOPIDOGREL BISULFATE 75 MG TABLET PO (08:21)
[2025-04-02] MEDS: INSULIN ASPART 300 UNIT/3 ML PEN SUBQ ×2 (08:22→11:43)
[2025-04-02] MEDS: METHYLPREDNISOLONE SOD SUCC PF 40 MG/ML VIAL IVP (08:23)
--- NOTE | 2025-04-02 08:35 | CM.NOTE ---
Medicare Outpatient Observation Notice discussed with pt, pt verbalizes understanding and signs paper. Original given to pt and copy placed on pt's chart.
--- NOTE | 2025-04-02 09:25 | PM.IMPN1 ---
Progress Note: A&P Assessment and Plan (1) Acute upper respiratory infection: (2) Acute on chronic hypoxic respiratory failure: (3) Acute exacerbation of chronic obstructive pulmonary disease (COPD): (4) Atrial fibrillation: (5) Hypertension: (6) CKD stage 3 due to type 1 diabetes mellitus: (7) Type 2 diabetes mellitus: Exam Constitutional Vital Signs, click to edit/add: Last Vital Signs Temp 97.8 F 04/02/25 08:00 Pulse 87 04/02/25 08:00 Resp 20 04/02/25 08:00 BP 107/64 04/02/25 08:00 Pulse Ox 92 L 04/02/25 08:00 O2 Del Method Nasal Cannula 04/02/25 08:00 O2 Flow Rate 3 04/02/25 08:00 Internal Medicine - PN: Obj Da Labs Labs: Laboratory Results - last 24 hr 04/01/25 04/01/25 04/01/25 09:49 14:05 14:25 WBC 7.0 6.2 RBC 4.05 L 3.95 L Hgb 11.5 L 11.3 L Hct 37.0 35.9 L MCV 91.4 90.9 MCH 28.4 28.6 MCHC 31.1 31.5 RDW 18.5 H 18.3 H Plt Count 289 277 MPV 11.2 11.3 Neut % (Auto) 61.8 85.1 H Lymph % (Auto) 22.3 11.3 L [place] % (Auto) 14.3 H 2.4 Eos % (Auto) 0.1 L 0.0 L Baso % (Auto) 0.9 0.6 Neut # (Auto) 4.3 5.2 Lymph # (Auto) 1.6 0.7 L [place] # (Auto) 1.0 H 0.2 L Eos # (Auto) 0.0 0.0 Baso # (Auto) 0.1 0.0 Abs Immat Gran (auto) 0.04 H 0.04 H Imm/Tot Granulo (auto) 0.6 H 0.6 H PT 12.1 H INR 1.16 APTT 43.8 H* Sodium 142 140 Potassium 3.9 3.9 Chloride 100 101 Carbon Dioxide 34.1 H 34.6 H Anion Gap 11.8 8.3 BUN 26.0 H 27.0 H Creatinine 1.29 H 1.21 H Est GFR ( Amer) 49 L 53 L Est GFR (Non-Af Amer) 41 L 44 L BUN/Creatinine Ratio 20.2 22.3 Glucose 87 114 H Lactate 1.9 Calcium 8.3 L 8.0 L Total Bilirubin 0.4 AST 40 H ALT 20 Alkaline Phosphatase 148 H Troponin I High Sens 49.9 NT-Pro-B Natriuret Pep 2280.0 H* Total Protein 6.0 L Albumin 2.3 L Globulin 3.7 Albumin/Globulin Ratio 0.6 Influenza Type A Ag Negative Influenza Type B Ag Negative SARS-CoV-2 Ag (CV2AG) Negative POC Glucose 04/01/25 04/01/25 04/02/25 14:52 21:07 05:19 WBC 4.1 RBC 3.57 L Hgb 10.1 L Hct 31.9 L MCV 89.4 MCH 28.3 MCHC 31.7 RDW 18.4 H Plt Count 252 MPV 10.7 Neut % (Auto) 69.7 Lymph % (Auto) 23.3 [place] % (Auto) 5.6 Eos % (Auto) 0.0 L Baso % (Auto) 0.2 Neut # (Auto) 2.9 Lymph # (Auto) 1.0 L [place] # (Auto) 0.2 L Eos # (Auto) 0.0 Baso # (Auto) 0.0 Abs Immat Gran (auto) 0.05 H Imm/Tot Granulo (auto) 1.2 H PT INR APTT Sodium 142 Potassium 4.5 Chloride 103 Carbon Dioxide 33.6 H Anion Gap 9.9 BUN 32.0 H Creatinine 1.22 H Est GFR ( Amer) 52 L Est GFR (Non-Af Amer) 43 L BUN/Creatinine Ratio 26.2 Glucose 113 H 193 H Lactate Calcium 7.8 L Total Bilirubin AST ALT Alkaline Phosphatase Troponin I High Sens NT-Pro-B Natriuret Pep Total Protein Albumin Globulin Albumin/Globulin Ratio Influenza Type A Ag Influenza Type B Ag SARS-CoV-2 Ag (CV2AG) POC Glucose 167 H Urinary Catheter Management Urinary Catheter Management Pure Wick: Cath placed during this visit: yes Insertion date: 04/02/25 Insertion time: 04:40
[2025-04-02] MEDS: DILTIAZEM HCL 240 MG CAP.ER.24H PO (09:59)
--- NOTE | 2025-04-02 10:15 | CM.NOTE ---
Rounds made with Dr. Hinojosa, pt will discharge back to [facility] today for night filler care.
--- NOTE | 2025-04-02 11:35 | SWNOTE1 ---
Pt is stable for discharge today. We set up transportation with [facility] who will seed cone picker at 4:30p. SW notified nurse of seed cone picker time.
--- NOTE | 2025-04-02 11:39 | SWNOTE1 ---
SW did confirm with Jada at [facility] and pt is returning to them senior care at this time and will transition to [place] once evals are completed by [facility].
[2025-04-02] MEDS: PREGABALIN 50 MG CAPSULE PO (11:42)
--- NOTE | 2025-04-02 13:19 | SWNOTE1 ---
SW stopped in to let pt know time of transport, pt's son in room as well. Nurse was in talking with them and came out of room and voiced they had concerns about her returning. ANITHA spoke with pt and son. Pt's son did voice that pt had a shoulder fracture and was in a sling for 3 months and they did not address this and voiced they were not aware. He voiced frustrations with pt's care at [facility]. Pt and son confirmed that pt is just waiting for her to transition over to [facility]. SW did let them know that SW spoke to Jada at [facility] and plan is for pt to transition to [facility], but it is a process and needs eval from [facility]. SW did let pt and son know that pt is discharged today and SW could look in to other facilities, but many times there is a wait list for termite control technician care. Pt's son did voiced that she is close to getting in to [place] and they are just going to continue with being at [facility] until she can get in to [facility]. Pt's son is going to go to [facility] today and speak with them and he has records of all hospital stays. ANITHA advised to be an advocate for his loved ones. Plan is to discharge to [facility] today at 4:30.
--- NOTE | 2025-04-02 13:31 | SWNOTE1 ---
Faxed CRF and med rec to Jada at [facility].
--- NOTE | 2025-04-02 15:06 | PM.DS1 ---
DS: Providers Provider Date of admission: 04/01/25 13:40 Primary care physician: LOIS BAJWA Admitting clinician: GENIA MENJIVAR Attending physician on admission: GENIA MENJIVAR Consults: 04/01/25 Consult to Dietitian Routine Reason for consultation: recent wt loss Attending physician on discharge: GENIA MENJIVAR Discharging clinician: GENIA MENJIVAR Anticipated date of discharge: 04/02/25 DS: Diagnosis Discharge Diagnosis (1) Acute upper respiratory infection: (2) Acute on chronic hypoxic respiratory failure: (3) Acute exacerbation of chronic obstructive pulmonary disease (COPD): (4) Atrial fibrillation: (5) Hypertension: (6) CKD stage 3 due to type 1 diabetes mellitus: (7) Type 2 diabetes mellitus: DS: Summary Hospital Course Hospital Course: Emily El is a 74 y/o F, h/o hypertension, permanent atrial fibrillation on apixiban, COPD with pulmonary hypertension on 3 L NC baseline, diabetes on insulin, presented to [facility] from senior living facility on 04/01/25 with worsening shortness of breath for past 2 days, evidence of COPD exacerbation prompting request for medical admission. On assessment at bedside in the emergency room, patient resting comfortably in bed, tolerating breathing treatment. States has had progressive shortness of breath for the past couple of days with slight nonproductive cough. No chest pain, paroxysmal nocturnal dyspnea, nausea, vomiting, diarrhea. has been compliant with cardiac and respiratory meds. Admitted for observation. Started on duonebs therapy, solumedrol and antibiotics. Breathing improved, maintained on baseline 3 L NC, and was able to ambulate without issue on hospital day 2, discharged with 5 day course of prednisone, cefdinir with doxycycline. Of note, metoprolol succinate, digoxin and spironolactone were held due to rate control and normotension on diltiazem. Time Spent with Patient Time attestation: Total time spent providing and/or coordinating discharge services: Exam Constitutional Vital Signs, click to edit/add: Last Vital Signs Temp 97.5 F L 04/02/25 11:46 Pulse 82 04/02/25 13:51 Resp 20 04/02/25 11:46 BP 96/61 04/02/25 11:46 Pulse Ox 91 L 04/02/25 11:46 O2 Del Method Nasal Cannula 04/02/25 11:46 O2 Flow Rate 3 04/02/25 11:46 DS: Data Data Completed and Pending Labs on day of discharge: Labs from last 24 hours 04/02/25 04/02/25 04/01/25 11:31 05:19 21:07 WBC 4.1 RBC 3.57 L Hgb 10.1 L Hct 31.9 L MCV 89.4 MCH 28.3 MCHC 31.7 RDW 18.4 H Plt Count 252 MPV 10.7 Neut % (Auto) 69.7 Lymph % (Auto) 23.3 [place] % (Auto) 5.6 Eos % (Auto) 0.0 L Baso % (Auto) 0.2 Neut # (Auto) 2.9 Lymph # (Auto) 1.0 L [place] # (Auto) 0.2 L Eos # (Auto) 0.0 Baso # (Auto) 0.0 Abs Immat Gran (auto) 0.05 H Imm/Tot Granulo (auto) 1.2 H Sodium 142 Potassium 4.5 Chloride 103 Carbon Dioxide 33.6 H Anion Gap 9.9 BUN 32.0 H Creatinine 1.22 H Est GFR ( Amer) 52 L Est GFR (Non-Af Amer) 43 L BUN/Creatinine Ratio 26.2 Glucose 193 H Calcium 7.8 L POC Glucose 197 H 167 H 04/01/25 14:25 WBC RBC Hgb Hct MCV MCH MCHC RDW Plt Count MPV Neut % (Auto) Lymph % (Auto) [place] % (Auto) Eos % (Auto) Baso % (Auto) Neut # (Auto) Lymph # (Auto) [place] # (Auto) Eos # (Auto) Baso # (Auto) Abs Immat Gran (auto) Imm/Tot Granulo (auto) Sodium 140 Potassium 3.9 Chloride 101 Carbon Dioxide 34.6 H Anion Gap 8.3 BUN 27.0 H Creatinine 1.21 H Est GFR ( Amer) 53 L Est GFR (Non-Af Amer) 44 L BUN/Creatinine Ratio 22.3 Glucose 114 H Calcium 8.0 L POC Glucose Discharge Plan Discharge Disposition: Xfer LTC Condition: Fair Discharge Medications: New doxycycline hyclate 100 mg capsule 100 mg PO BID Qty: 8 0RF prednisone 20 mg tablet 40 mg PO DAILY 4 Days Qty: 8 0RF cefdinir 300 mg capsule 300 mg PO BID Qty: 8 0RF Continued acetaminophen 325 mg capsule 650 mg PO Q6H atorvastatin 80 mg tablet 80 mg PO .qhs bumetanide 0.5 mg tablet 0.5 mg PO BID Eliquis 5 mg tablet 5 mg PO Q12H guaifenesin 600 mg tablet extended release 600 mg PO BID budesonide-formoterol 160-4.5 mcg/actuation HFA aerosol inhaler 2 inh INHALATION DAILY albuterol sulfate 90 mcg/actuation HFA aerosol inhaler 2 inh INHALATION DAILY ipratropium-albuterol 0.5 mg-3 mg(2.5 mg base)/3 mL solution for nebulization 3 ml inhalation Q6H PRN (Reason: shortness of breath) insulin glargine [Lantus Solostar U-100 Insulin] 100 unit/mL (3 mL) insulin pen 30 unit SUBCUT DAILY melatonin 3 mg capsule 3 mg PO HS PRN (Reason: sleep) metformin 1,000 mg tablet 1,000 mg PO BID methocarbamol 500 mg tablet 500 mg PO TID PRN (Reason: muscle spasm) omeprazole 20 mg capsule,delayed release(DR/EC) 20 mg PO DAILY pregabalin [Lyrica] 50 mg capsule 50 mg PO BID sennosides [Black-Draught Lax-Senna] 8.6 mg tablet 8.6 mg PO DAILY clopidogrel 75 mg tablet 75 mg PO .QD folic acid 1 mg tablet 1 mg PO .QD magnesium 200 mg tablet 400 mg PO DAILY pseudoephedrine HCl [Nasal Decongestant (pseudoeph)] 30 mg tablet 30 mg PO Q6H PRN (Reason: nasal congestion) Trulicity 0.75 mg/0.5 mL pen injector 0.75 mg subcut QWEEK alprazolam [Xanax] 0.25 mg tablet 0.25 mg PO DAILY diltiazem HCl 240 mg capsule,extended release 24hr 240 mg PO QAM Held digoxin 125 mcg (0.125 mg) tablet 125 mcg PO DAILY Hold Instructions: Resume on 04/09/25. To be resumed by PCP spironolactone [Aldactone] 25 mg tablet 12.5 mg PO BID Hold Instructions: Resume on 04/09/25. To be resumed by PCP if needed dapagliflozin propanediol [Farxiga] 10 mg tablet 10 mg PO .QD Hold Instructions: Resume on 04/09/25. To be resumed by PCP metoprolol succinate 25 mg tablet extended release 24 hr 25 mg PO .QD Hold Instructions: Resume on 04/09/25. 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
== END 2025-04-02 17:05 ==
LOC: ER 13:03 → MS 13:54
PROVIDERS: Admitting Provider Student in an Organized Health Care Education/Training Program; Emergency Provider Student in an Organized Health Care Education/Training Program; Visit Provider Student in an Organized Health Care Education/Training Program
DX: J44.1 Chronic obstructive pulmonary disease with (acute) exacerbation (principal); Z99.81 Dependence on supplemental oxygen; I25.2 Old myocardial infarction; I27.20 Pulmonary hypertension, unspecified; J96.21 Acute and chronic respiratory failure with hypoxia; I13.0 Hypertensive heart and chronic kidney disease with heart failure and stage 1 through stage 4 chronic kidney disease, or unspecified chronic kidney disease; I50.32 Chronic diastolic (congestive) heart failure; N18.30 Chronic kidney disease, stage 3 unspecified; Z79.4 Long term (current) use of insulin; Z79.84 Long term (current) use of oral hypoglycemic drugs; Z79.85 Long-term (current) use of injectable non-insulin antidiabetic drugs; J06.9 Acute upper respiratory infection, unspecified; I48.21 Permanent atrial fibrillation; Z79.01 Long term (current) use of anticoagulants; E10.22 Type 1 diabetes mellitus with diabetic chronic kidney disease; Z87.891 Personal history of nicotine dependence
CPT/HCPCS: 36415; 71045; 80048; 80053; 81001; 82805; 82947; 83605; 83880; 84484; 85025; 85610; 85730; 87040; 87804; 87811; 93005; 94640; 94761; 96365; 96366; 96367; 96368; 96375; 96376; 99285; 99406; G0378; J0696; J2919